=== PATIENT | female | born 1985 | race Asian ===

== ENCOUNTER 2021-10-14 20:06 | Emergency (ER) | payer BC, SELFPAY ==
--- NOTE | 2021-10-14 | ECG_ITS ---
Test Reason : CHEST PAIN Blood Pressure : / mmHG Vent. Rate : 093 BPM Atrial Rate : 093 BPM P-R Int : 186 ms QRS Dur : 102 ms QT Int : 372 ms P-R-T Axes : 057 -78 044 degrees QTc Int : 462 ms Normal sinus rhythm Possible Left atrial enlargement Incomplete right bundle branch block Left anterior fascicular block Cannot rule out Anterior infarct (cited on or before 23-FEB-2018) Abnormal ECG When compared with ECG of 23-FEB-2018 11:51, No significant change was found Referred By: Generic ED Physician Electronically Signed By:BHUPINDER SILVA
[2021-10-14 20:19] VITALS: BP 149/90; PULSE 93; RESP 18; TEMP 36.9; O2SAT 99; BMI 46.6
[2021-10-14 20:35] LABS: MANUAL DIFF FLAG NO
[2021-10-14 20:55] LABS: Alanine Aminotransferase 16 U/L (0-31); Albumin Level 4.4 g/dL (3.5-5.0); Alkaline Phosphatase 61 U/L (39-117); Anion Gap 14 (12-20); Aspartate Amino Transferase 17 U/L (5-31); Bilirubin Total 0.3 mg/dL (0.0-1.0); Blood Urea Nitrogen 16 mg/dL (9-16); Calcium 9.5 mg/dL (8.4-10.2); Carbon Dioxide 22 mmol/L (22-29); Chloride 104 mmol/L (96-108); Creatinine Clr Calc Pharmacy 132.6; Estimated Glomerular Filt Rate > 60; Glucose Random 108 mg/dL (60-115); Potassium 4.1 mmol/L (3.3-5.1); Sodium 136 mmol/L (135-145); Total Protein 7.7 g/dL (6.5-8.0)
[2021-10-14 21:00] LABS: Basophils Absolute Auto 0.1 X10*3/uL (0.0-0.2); Basophils Percent Auto 0.8 % (0-2); Eosinophils Absolute Auto 0.2 X10*3/uL (0.0-0.4); Eosinophils Percent Auto 2.7 % (0-4); Hematocrit 41.2 % (37.0-47.0); Hemoglobin 14.1 g/dl (12.0-16.0); Imm Gran Abs Auto 0.03 X10*3/uL (0.00-0.03); Imm Gran Pct Auto 0.4 % (0.0-0.4); Lymphocytes Absolute Auto 2.8 X10*3/uL (1.2-4.9); Lymphocytes Percent Auto 38.7 % (20-40); Mean Corpuscular HGB Conc 34.2 g/dl (31.0-35.0); Mean Corpuscular Hemoglobin 31.5 pg (27.0-33.0); Mean Platelet Volume 11.3 fL (9.4-12.3); Monocytes Absolute Auto 0.5 X10*3/uL (0.1-1.2); Monocytes Percent Auto 6.7 % (2-11); Neutrophils Absolute Auto 3.7 x10*3/uL (2.0-8.3); Neutrophils Percent Auto 50.7 % (45-73); Platelet Count 246 X10*3/uL (160-400); Red Blood Count 4.48 X10*6/uL (4.20-5.50); Red Cell Distribution Width 12.7 % (11.0-16.0); White Blood Count 7.3 X10*3/uL (4.8-10.8)
[2021-10-14 21:04] LABS: Troponin-I High Sensitivity < 3.5 ng/L (<3.5-17.0)
[2021-10-14 21:38] VITALS: BP 145/85; PULSE 83; RESP 21; O2SAT 96
--- NOTE | 2021-10-14 21:44 | ED.CHESTPAIN ---
HPI - Chest Pain General Chief Complaint: Chest Pain Stated Complaint: severe chest pains Time Seen by Provider: 10/14/21 21:29 History of Present Illness HPI narrative: Patient is 35 years old presents today with having chest pain. The pain is mid chest. Radiates to the left breast area. Not change with deep inspiration. Patient is on control pill. No diaphoresis. No shortness of breath. It is sharp in nature. No history of diabetes, hypertension, high cholesterol, remote history of smoking for 5 years. Currently not a smoker. No history of [place]. No family history of [place]. no history of blood clots. No family history of blood clot. Patient did travel to [place] today. Drove home for about 3 hours per no leg swelling. No leg cramps. Related Data Home Medications Medication Instructions Recorded Confirmed norethindrone 1 mg-ethinyl 1 tab PO DAILY 10/14/21 10/14/21 estradiol 20 mcg (21)-iron 75 mg (7) tablet (Aurovela Fe 1-20 (28)) norethindrone 1 mg-ethinyl 1 tab PO DAILY 10/14/21 10/14/21 estradiol 20 mcg (21)-iron 75 mg (7) tablet (Blisovi Fe / (28)) Allergies Allergy/AdvReac Type Severity Reaction Status Date / Time bee pollen [bee stings] Allergy Anaphylaxis Verified 10/14/21 20:17 Review of Systems Review of Systems: No fever no chills no diaphoresis Yes all other systems are reviewed and are negative [facility] Past Medical History Attestation statement: The following information was validated with the patient. Social History Social History Alcohol intake: current Alcohol intake frequency: 0-2 drinks per day Patient Tobacco Use Status: Never used Tobacco Use of substances other than those prescribed or required for medical reasons: No Advance Directives: No Advance Directives Information Provided: No Physical Exam Vital Signs: Vital Signs: Last Vital Signs Temp 98.9 F 10/14/21 22:57 Pulse 85 10/14/21 23:00 Resp 22 H 10/14/21 23:00 BP 140/77 H 10/14/21 23:00 Pulse Ox 95 10/14/21 23:00 BMI result Body Mass Index 46.6 Appearance: Alert. Oriented X3. No acute distress. Eyes: Pupils equal, round and reactive to light. ENT: Pharynx normal. Neck: Normal inspection. Neck supple. No lymph nodes noted. No crepitus CVS: Normal heart rate and rhythm. Pulses normal. Normal S1 and S2 Respiratory: No respiratory distress. Breath sounds normal. No Wheezing. No rales Abdomen: Soft and nontender. No rigidity. No distention. good BS x4 Skin: Skin warm and dry. Normal skin color. Normal skin turgor. Extremities: No lower extremity edema. Neurovascular intact to all extremities. No Lacerations. No Rash Neuro: Oriented X 3. No motor deficit. No sensory deficit. Moving all extermities. No slurred speech MDM - Chest Pain MDM Narrative Medical decision making narrative: Two sets of cardiac enzyme were grossly negative. Patient's chest pain atypical. EKG showed a sinus pattern heart rate was 75 OK QRS QT within normal limits there is no acute ST segment elevation. Chest x-ray showed no focal infiltrate no pneumonia no pneumothorax. Patient's D-dimer negative in the setting of low risk unlikely to have PE. Patient is 35 years old with history of smoking but only for 5 years. Otherwise no significant risk factors. History not consistent normal EKG negative troponin x2 sets less likely this is ACS. Will discharge patient home. In stable condition Medical Records Data Attestation: I reviewed the patient's medical records. Lab Data Attestation: I reviewed the patient's lab results. Result diagrams: 10/14/21 20:31 10/14/21 20:31 Labs: Lab Results 10/14/21 10/14/21 10/14/21 Range/Units 20:31 20:31 20:31 WBC 7.3 (4.8-10.8) X10*3/uL RBC 4.48 (4.20-5.50) X10*6/uL Hgb 14.1 (12.0-16.0) g/dl Hct 41.2 (37.0-47.0) % MCV 92.0 (80.0-98.0) fL MCH 31.5 (27.0-33.0) pg MCHC 34.2 (31.0-35.0) g/dl RDW 12.7 (11.0-16.0) % Plt Count 246 (160-400) X10*3/uL MPV 11.3 (9.4-12.3) fL Immature Gran % (Auto) 0.4 (0.0-0.4) % Neut % (Auto) 50.7 (45-73) % Lymph % (Auto) 38.7 (20-40) % [place] % (Auto) 6.7 (2-11) % Eos % (Auto) 2.7 (0-4) % Baso % (Auto) 0.8 (0-2) % Lymph # (Auto) 2.8 (1.2-4.9) X10*3/uL [place] # (Auto) 0.5 (0.1-1.2) X10*3/uL Eos # (Auto) 0.2 (0.0-0.4) X10*3/uL Baso # (Auto) 0.1 (0.0-0.2) X10*3/uL Abs Immat Gran (auto) 0.03 (0.00-0.03) X10*3/uL Absolute Neuts (auto) 3.7 (2.0-8.3) x10*3/uL Absolute Nucleated RBC 0.000 (0.0-0.012) X10*3/uL Nucleated RBC % (auto) 0.0 (0.0-0.2) /100WBC D-Dimer High Sensitivty NG/ML Sodium 136 (135-145) mmol/L Potassium 4.1 (3.3-5.1) mmol/L Chloride 104 (96-108) mmol/L Carbon Dioxide 22 (22-29) mmol/L Anion Gap 14 (12-20) BUN 16 (9-16) mg/dL Creatinine 0.85 (0.5-1.4) mg/dL Estim Creat Clear Calc 132.6 Estimated GFR > 60 Random Glucose 108 (60-115) mg/dL Calcium 9.5 (8.4-10.2) mg/dL Total Bilirubin 0.3 (0.0-1.0) mg/dL AST 17 (5-31) U/L ALT 16 (0-31) U/L Alkaline Phosphatase 61 (39-117) U/L Troponin I High Sens < 3.5 (<3.5-17.0) ng/L Total Protein 7.7 (6.5-8.0) g/dL Albumin 4.4 (3.5-5.0) g/dL Urine Test (NEGATIVE) 10/14/21 10/14/21 10/14/21 Range/Units 21:50 21:52 22:45 WBC (4.8-10.8) X10*3/uL RBC (4.20-5.50) X10*6/uL Hgb (12.0-16.0) g/dl Hct (37.0-47.0) % MCV (80.0-98.0) fL MCH (27.0-33.0) pg MCHC (31.0-35.0) g/dl RDW (11.0-16.0) % Plt Count (160-400) X10*3/uL MPV (9.4-12.3) fL Immature Gran % (Auto) (0.0-0.4) % Neut % (Auto) (45-73) % Lymph % (Auto) (20-40) % [place] % (Auto) (2-11) % Eos % (Auto) (0-4) % Baso % (Auto) (0-2) % Lymph # (Auto) (1.2-4.9) X10*3/uL [place] # (Auto) (0.1-1.2) X10*3/uL Eos # (Auto) (0.0-0.4) X10*3/uL Baso # (Auto) (0.0-0.2) X10*3/uL Abs Immat Gran (auto) (0.00-0.03) X10*3/uL Absolute Neuts (auto) (2.0-8.3) x10*3/uL Absolute Nucleated RBC (0.0-0.012) X10*3/uL Nucleated RBC % (auto) (0.0-0.2) /100WBC D-Dimer High Sensitivty < 150 NG/ML Sodium (135-145) mmol/L Potassium (3.3-5.1) mmol/L Chloride (96-108) mmol/L Carbon Dioxide (22-29) mmol/L Anion Gap (12-20) BUN (9-16) mg/dL Creatinine (0.5-1.4) mg/dL Estim Creat Clear Calc Estimated GFR Random Glucose (60-115) mg/dL Calcium (8.4-10.2) mg/dL Total Bilirubin (0.0-1.0) mg/dL AST (5-31) U/L ALT (0-31) U/L Alkaline Phosphatase (39-117) U/L Troponin I High Sens < 3.5 (<3.5-17.0) ng/L Total Protein (6.5-8.0) g/dL Albumin (3.5-5.0) g/dL Urine Test NEGATIVE (NEGATIVE) Discharge Plan Discharge Clinical Impression: Chest pain Patient Disposition: Home, Self-Care Instructions: Chest Pain (DC) Prescriptions: No Action norethindrone-e.estradiol-iron [Aurovela Fe 07-12 ()] 1 mg-20 mcg (21)/75 mg (7) tablet 1 tab PO DAILY 0RF norethindrone-e.estradiol-iron [Blisovi Fe 07/12 ()] 1 mg-20 mcg (21)/75 mg (7) tablet 1 tab PO DAILY 0RF Referrals: Timothy Harman MD [Primary Care Provider] -
[2021-10-14] MEDS: Magnesium Hydrox/Alum Hydrox 30 ML ORAL.SUSP PO (21:48)
[2021-10-14 22:02] LABS: UPreg QC Valid YES; Urine Pregnancy NEGATIVE (NEGATIVE)
[2021-10-14 22:28] LABS: D Dimer High Sensitivity < 150 NG/ML
[2021-10-14 22:57] VITALS: BP 140/77; PULSE 84; RESP 18; TEMP 37.2; O2SAT 95
[2021-10-14 23:00] VITALS: BP 140/77; PULSE 85; RESP 22; O2SAT 95
[2021-10-14 23:17] LABS: Troponin-I High Sensitivity < 3.5 ng/L (<3.5-17.0)
[2021-10-14 23:59] VITALS: BP 127/65; PULSE 88; RESP 22; TEMP 37; O2SAT 96
== END 2021-10-15 00:30 | disposition home or self-care (01) ==
PROVIDERS: Emergency Provider Emergency Medicine Emergency Medical Services; PCP Internal Medicine
DX: R07.89 Other chest pain (principal); Z79.899 Other long term (current) drug therapy
CPT/HCPCS: 36415; 80053; 81025; 84484; 85025; 85379; 93005; 99283; 99285

== ENCOUNTER 2021-10-25 11:09 | Outpatient (REF) | payer BC, SELFPAY ==
[2021-10-25 11:13] LABS: MANUAL DIFF FLAG NO
[2021-10-25 11:34] LABS: Basophils Percent Auto 0.6 % (0-2); Eosinophils Absolute Auto 0.1 X10*3/uL (0.0-0.4); Eosinophils Percent Auto 2.3 % (0-4); Hemoglobin 13.6 g/dl (12.0-16.0); Imm Gran Abs Auto 0.02 X10*3/uL (0.00-0.03); Imm Gran Pct Auto 0.4 % (0.0-0.4); Lymphocytes Absolute Auto 2.1 X10*3/uL (1.2-4.9); Lymphocytes Percent Auto 39.7 % (20-40); Mean Corpuscular HGB Conc 33.2 g/dl (31.0-35.0); Mean Corpuscular Hemoglobin 31.3 pg (27.0-33.0); Mean Corpuscular Volume 94.5 fL (80.0-98.0); Monocytes Absolute Auto 0.4 X10*3/uL (0.1-1.2); Monocytes Percent Auto 8.2 % (2-11); Neutrophils Absolute Auto 2.6 x10*3/uL (2.0-8.3); Neutrophils Percent Auto 48.8 % (45-73); Platelet Count 253 X10*3/uL (160-400); Red Blood Count 4.34 X10*6/uL (4.20-5.50); Red Cell Distribution Width 12.9 % (11.0-16.0); White Blood Count 5.3 X10*3/uL (4.8-10.8)
[2021-10-25 11:45] LABS: Alanine Aminotransferase 14 U/L (0-31); Albumin Level 4.2 g/dL (3.5-5.0); Alkaline Phosphatase 51 U/L (39-117); Anion Gap 13 (12-20); Aspartate Amino Transferase 17 U/L (5-31); Bilirubin Total 0.5 mg/dL (0.0-1.0); Blood Urea Nitrogen 15 mg/dL (9-16); Calcium 9.3 mg/dL (8.4-10.2); Carbon Dioxide 25 mmol/L (22-29); Chloride 106 mmol/L (96-108); Cholesterol 224 mg/dL; Estimated Glomerular Filt Rate > 60; Glucose Fasting 102 mg/dL (60-99); HDL Cholesterol 60 mg/dL; Iron 65 mcg/dL (30-160); LDL Cholesterol Calculated 148 mg/dl; Percent Iron Saturation 18 % (15-50); Potassium 4.2 mmol/L (3.3-5.1); Sodium 140 mmol/L (135-145); Total Iron Binding Capacity 355 mcg/dL (228-428); Total Protein 7.3 g/dL (6.5-8.0); Triglycerides 82 mg/dL; Unsaturated Iron Binding 290 ug/dL
== END 2021-10-25 11:10 | disposition home or self-care (01) ==
LOC: HO.LNP 11:09
PROVIDERS: PCP Internal Medicine; Visit Provider Internal Medicine
DX: Z00.00 Encounter for general adult medical examination without abnormal findings (principal); I10 Essential (primary) hypertension; E61.1 Iron deficiency; E28.2 Polycystic ovarian syndrome
CPT/HCPCS: 80053; 80061; 83540; 85025

== ENCOUNTER 2021-11-01 16:12 | Outpatient (REF) | payer BC, SELFPAY ==
[2021-11-01 16:22] LABS: Appearance Urine CLOUDY; Color Urine YELLOW; Glucose Urine UA NEG (NEG); Leukocyte Esterase Urine NEG (NEG); Nitrite Urine NEG (NEG); Specific Gravity - Urine >= 1.030 (1.005-1.025); Urine Blood 3+ (NEG); Urine Ketones NEG (NEG); Urine Protein NEG (NEG-TRACE)
[2021-11-01 16:28] LABS: Bacteria Urine 1+ /LPF; Squamous Epithelial Cell Urine 3+ /LPF; WBC Urine 0-2 /HPF (0-4)
== END 2021-11-01 16:13 | disposition home or self-care (01) ==
LOC: HO.LNP 16:12
PROVIDERS: Visit Provider Internal Medicine
DX: Z00.00 Encounter for general adult medical examination without abnormal findings (principal); I10 Essential (primary) hypertension
CPT/HCPCS: 81001

== ENCOUNTER 2021-11-16 11:07 | Outpatient (REF) | payer BC, SELFPAY ==
[2021-11-16 11:31] LABS: Appearance Urine CLEAR; Color Urine YELLOW; Glucose Urine UA NEG (NEG); Leukocyte Esterase Urine NEG (NEG); Nitrite Urine NEG (NEG); PH 5.5 (5.0-8.0); Specific Gravity - Urine 1.025 (1.005-1.025); Urine Blood NEG (NEG); Urine Ketones NEG (NEG); Urine Protein NEG (NEG-TRACE)
[2021-11-16 11:49] LABS: RBC Urine 0-2 /HPF (0); Squamous Epithelial Cell Urine 1+ /LPF; Uric Acid Crystals Urine 2+ /LPF; WBC Urine 0-2 /HPF (0-4)
== END 2021-11-16 11:08 | disposition home or self-care (01) ==
LOC: HO.LNP 11:07
PROVIDERS: Visit Provider Internal Medicine
DX: R31.9 Hematuria, unspecified (principal)
CPT/HCPCS: 81001

== ENCOUNTER 2022-05-13 11:46 | Observation (INO) | payer OTHER, SELFPAY ==
[2022-05-13] VITALS (7 sets, daily range): BP systolic 141–176; BP diastolic 73–117; PULSE 84–131; RESP 14–22; TEMP 36.4–37.1; O2SAT 95–99; BMI 45.3; BMI 50.1
--- NOTE | ~2022-05-13 | XR_ITS ---
EXAMINATION: XR CHEST CLINICAL INFORMATION: Palpitations COMPARISON: Previous chest x-ray March 2016 TECHNIQUE: Frontal view of the chest was obtained. FINDINGS: No significant abnormality is noted involving the heart, lungs, mediastinum, bony thorax or soft tissues. XR/XR chest 1V IMPRESSION: Unremarkable examination.
--- NOTE | 2022-05-13 12:05 | ECG_ITS ---
Test Reason : palpatations Blood Pressure : / mmHG Vent. Rate : 124 BPM Atrial Rate : 000 BPM P-R Int : 000 ms QRS Dur : 092 ms QT Int : 298 ms P-R-T Axes : 000 -63 014 degrees QTc Int : 428 ms Atrial fibrillation with rapid ventricular response with premature ventricular or aberrantly conducted complexes Left anterior fascicular block RSR' or QR pattern in V1 suggests right ventricular conduction delay Abnormal ECG When compared with ECG of 14-OCT-2021 20:15, Atrial fibrillation has replaced Sinus rhythm Heart rate has increased Referred By: Alfredo Lyons Electronically Signed By:RENEA THURSTON MD
--- NOTE | 2022-05-13 12:07 | ED_ITS ---
HPI - Arrhythmia/Palpitations General Chief Complaint: General Medical Stated Complaint: FEELS PALPITATIONS PER EMS Time Seen by Provider: 05/13/22 11:58 Source: patient and EMS Mode of arrival: EMS Limitations: no limitations History of Present Illness HPI narrative: 36-year-old female came in by ambulance for evaluation of feeling palpitation and rapid heartbeat that triggered patient's anxiety, the patient felt nauseous and vomited x1 in the morning. Patient still feels palpitation, no CP, no SOB, no abdominal pain but feels anxious. Patient has history of high blood pressure takes HCTZ. Related Data Home Medications Medication Instructions Recorded Confirmed diphenhydramine HCl 25 mg tablet 25 mg PO TID PRN Anxiety 05/13/22 05/13/22 ferrous sulfate 325 mg (65 mg 325 mg PO DAILY 05/13/22 05/13/22 iron) tablet sertraline 50 mg tablet 1 tab PO DAILY 05/13/22 05/13/22 valsartan 160 1 tab PO DAILY 05/13/22 05/13/22 mg-hydrochlorothiazide 12.5 mg tablet Allergies Allergy/AdvReac Type Severity Reaction Status Date / Time bee pollen [bee stings] Allergy Anaphylaxis Verified 10/14/21 20:17 Review of Systems Review of Systems: All other systems are reviewed and are negative Constitutional: Reports as per HPI and Reports no additional constitutional complaints Eyes: Reports as per HPI and Reports no additional eye complaints Reports system reviewed and no additional complaints, except as documented Cardiovascular: Reports as per HPI and Reports no additional cardiovascular complaints Respiratory: Reports as per HPI and Reports no additional respiratory complaints Gastrointestinal: Reports as per HPI and Reports no additional gastrointestinal complaints Genitourinary: Reports no additional female genitourinary complaints Musculoskeletal: Reports no additional musculoskeletal complaints Skin/Breast: Reports system reviewed and no additional complaints, except as docu Psychiatric: Reports no additional psychiatric complaints Endocrine: Reports no additional endocrine complaints Hematologic/Lymphatic: Reports no additional hematologic/lymphatic complaints Allergic/Immunologic: Reports no additional allergic/immunologic complaints Reports system reviewed and no additional complaints, except as documented and Reports Abnormal speech present [facility] Social History Social History Alcohol intake: current Alcohol intake frequency: a few times a week Alcohol type: wine Patient Tobacco Use Status: Never used Tobacco Smoked in Last 30 Days: No Substance Use Type: Marijuana Advance Directives: No Advance Directives Information Provided: No Patient : No Physical Exam Vital Signs: Vital Signs: Last Vital Signs Temp 98.6 F 05/13/22 14:27 Pulse 95 05/13/22 14:27 Resp 14 05/13/22 14:27 BP 141/81 H 05/13/22 14:27 Pulse Ox 98 05/13/22 14:27 O2 Del Method 05/13/22 14:27 BMI result Body Mass Index 45.3 Vital signs have been reviewed as appeared to be correct. Blood pressure nor mal. Heart rate normal. Respiration rate normal. Temperature normal. Oxygen saturation normal. Appearance: Anxious, Alert. Oriented X3. No acute distress. Head: Normal external exam. Normocephalic. Atraumatic. No [place] signs noted. No raccoon eyes noted Eyes: PERRLA. EOMI. Conjunctiva and sclera normal. Eyelids normal. ENT: TM's Normal. Pharynx normal. Uvula midline. Moist mucous membranes. No trismus noted. No drooling noted. No muffled voice noted. Neck: Normal inspection. Neck supple. FROM. No adenopathy. Thyroid Normal. No meningeal signs. No neck mass noted. CVS: Normal heart rate and rhythm. Heart sound normal. No murmurs noted. Pulses normal throughout. Respiratory: No respiratory distress. Painless inspiration. Breath sounds normal. No wheezes/rales/rhonchi noted. Chest nontender. No accessory muscle usage noted or decreased air movement noted. Abdomen: Soft and nontender. Bowel sounds normal in all 4 quadrants. No distention noted. No organomegaly noted. No visible injury noted. Back: No CVA tenderness. Full range of motion noted. Skin: Skin warm and dry. Normal skin color. Normal skin turgor. No rashes/lesions/lacerations noted. Extremities: No lower extremity edema. Extremities exhibit normal range of motion. Extremities nontender. Neuro: Oriented X 3. Cranial nerve exam: II-XII are grossly intact No motor deficit. No sensory deficit. Reflexes normal. Course Course Course Narrative: 36-year-old female came in for evaluation of dizziness and palpitation found to be in new onset AFib, patient was given Cardizem 20 mg IV which successfully lowered heart rate and patient was given 30 mg p.o. for maintaining heart rate low because patient anxiety was received Valium p.o. will admit the patient for further cardiac workup. Will start the patient on Eliquis after discussing the case with the hospitalist. Medications Administered Discontinued Medications Generic Name Dose Route Start Last Admin Trade Name Gregor PRN Reason Stop Dose Admin Diazepam 2 mg 05/13/22 13:28 05/13/22 13:34 Diazepam 2 Mg Tablet PO 05/13/22 13:29 2 mg ONCE ONE Administration Diltiazem HCl 20 mg 05/13/22 12:32 05/13/22 12:49 Diltiazem Hcl 50 Mg/10 Ml Vial IVPUSH 05/13/22 12:33 20 mg STAT STA Administration Diltiazem HCl 30 mg 05/13/22 12:32 05/13/22 12:50 Diltiazem Hcl 30 Mg Tablet PO 05/13/22 12:33 30 mg ONCE ONE Administration Protocol Sodium Chloride 1,000 mls @ 999 mls/hr 05/13/22 12:05 05/13/22 15:14 Ns IV 05/13/22 13:05 Infused .Q1H1M ONE Infusion MDM - Arrhythmia/Palpitations Lab Data Attestation: I reviewed the patient's lab results. Result diagrams: 05/13/22 12:25 05/13/22 12:25 Labs: Lab Results 05/13/22 05/13/22 05/13/22 Range/Units 12:25 12:25 12:25 WBC 10.0 (4.8-10.8) X10*3/uL RBC 4.96 (4.20-5.50) X10*6/uL Hgb 16.1 H (12.0-16.0) g/dl Hct 47.1 H (37.0-47.0) % MCV 95.0 (80.0-98.0) fL MCH 32.5 (27.0-33.0) pg MCHC 34.2 (31.0-35.0) g/dl RDW 12.9 (11.0-16.0) % Plt Count 299 (160-400) X10*3/uL MPV 11.0 (9.4-12.3) fL Immature Gran % (Auto) 0.4 (0.0-0.4) % Neut % (Auto) 78.8 H (45-73) % Lymph % (Auto) 14.9 L (20-40) % [place] % (Auto) 5.1 (2-11) % Eos % (Auto) 0.2 (0-4) % Baso % (Auto) 0.6 (0-2) % Lymph # (Auto) 1.5 (1.2-4.9) X10*3/uL [place] # (Auto) 0.5 (0.1-1.2) X10*3/uL Eos # (Auto) 0.0 (0.0-0.4) X10*3/uL Baso # (Auto) 0.1 (0.0-0.2) X10*3/uL Abs Immat Gran (auto) 0.04 H (0.00-0.03) X10*3/uL Absolute Neuts (auto) 7.9 (2.0-8.3) x10*3/uL Absolute Nucleated RBC 0.000 (0.0-0.012) X10*3/uL Nucleated RBC % (auto) 0.0 (0.0-0.2) /100WBC D-Dimer High Sensitivty NG/ML Sodium 140 (135-145) mmol/L Potassium 4.2 (3.3-5.1) mmol/L Chloride 103 (96-108) mmol/L Carbon Dioxide 23 (22-29) mmol/L Anion Gap 18 (12-20) BUN 17 H (9-16) mg/dL Creatinine 0.81 (0.5-1.4) mg/dL Estim Creat Clear Calc 140.0 Estimated GFR > 60 Random Glucose 96 (60-115) mg/dL Calcium 9.9 D (8.4-10.2) mg/dL Total Bilirubin 0.5 (0.0-1.0) mg/dL Direct Bilirubin 0.3 (0.0-0.5) mg/dL AST 30 D (5-31) U/L ALT 45 H (0-31) U/L Alkaline Phosphatase 74 D (39-117) U/L Troponin I High Sens 5.1 (<3.5-17.0) ng/L B-Natriuretic Peptide (<100) pg/mL Total Protein 8.0 (6.5-8.0) g/dL Albumin 4.6 (3.5-5.0) g/dL Lipase 26 (8-78) U/L Urine Color Urine Appearance Urine pH (5.0-9.0) Ur Specific [place] (1.005-1.025) Urine Protein (Neg-Trace) mg/dL Urine Glucose (UA) (Negative) mg/dL Urine Ketones (Negative) mg/dL Urine Blood (Negative) Urine Nitrite (Negative) Ur Leukocyte Esterase (Negative) Urine Test (NEGATIVE) Influenza Type A (PCR) (Negative) Influenza Type B (PCR) (Negative) RSV RNA Qual (PCR) (Negative) SARS-CoV-2 RNA (RT-PCR) (Negative) 05/13/22 05/13/22 05/13/22 Range/Units 12:25 12:25 12:25 WBC (4.8-10.8) X10*3/uL RBC (4.20-5.50) X10*6/uL Hgb (12.0-16.0) g/dl Hct (37.0-47.0) % MCV (80.0-98.0) fL MCH (27.0-33.0) pg MCHC (31.0-35.0) g/dl RDW (11.0-16.0) % Plt Count (160-400) X10*3/uL MPV (9.4-12.3) fL Immature Gran % (Auto) (0.0-0.4) % Neut % (Auto) (45-73) % Lymph % (Auto) (20-40) % [place] % (Auto) (2-11) % Eos % (Auto) (0-4) % Baso % (Auto) (0-2) % Lymph # (Auto) (1.2-4.9) X10*3/uL [place] # (Auto) (0.1-1.2) X10*3/uL Eos # (Auto) (0.0-0.4) X10*3/uL Baso # (Auto) (0.0-0.2) X10*3/uL Abs Immat Gran (auto) (0.00-0.03) X10*3/uL Absolute Neuts (auto) (2.0-8.3) x10*3/uL Absolute Nucleated RBC (0.0-0.012) X10*3/uL Nucleated RBC % (auto) (0.0-0.2) /100WBC D-Dimer High Sensitivty < 150 NG/ML Sodium (135-145) mmol/L Potassium (3.3-5.1) mmol/L Chloride (96-108) mmol/L Carbon Dioxide (22-29) mmol/L Anion Gap (12-20) BUN (9-16) mg/dL Creatinine (0.5-1.4) mg/dL Estim Creat Clear Calc Estimated GFR Random Glucose (60-115) mg/dL Calcium (8.4-10.2) mg/dL Total Bilirubin (0.0-1.0) mg/dL Direct Bilirubin (0.0-0.5) mg/dL AST (5-31) U/L ALT (0-31) U/L Alkaline Phosphatase (39-117) U/L Troponin I High Sens (<3.5-17.0) ng/L B-Natriuretic Peptide 68 (<100) pg/mL Total Protein (6.5-8.0) g/dL Albumin (3.5-5.0) g/dL Lipase (8-78) U/L Urine Color Urine Appearance Urine pH (5.0-9.0) Ur Specific [place] (1.005-1.025) Urine Protein (Neg-Trace) mg/dL Urine Glucose (UA) (Negative) mg/dL Urine Ketones (Negative) mg/dL Urine Blood (Negative) Urine Nitrite (Negative) Ur Leukocyte Esterase (Negative) Urine Test (NEGATIVE) Influenza Type A (PCR) NEGATIVE (Negative) Influenza Type B (PCR) NEGATIVE (Negative) RSV RNA Qual (PCR) NEGATIVE (Negative) SARS-CoV-2 RNA (RT-PCR) NEGATIVE (Negative) 05/13/22 05/13/22 Range/Units 12:25 12:25 WBC (4.8-10.8) X10*3/uL RBC (4.20-5.50) X10*6/uL Hgb (12.0-16.0) g/dl Hct (37.0-47.0) % MCV (80.0-98.0) fL MCH (27.0-33.0) pg MCHC (31.0-35.0) g/dl RDW (11.0-16.0) % Plt Count (160-400) X10*3/uL MPV (9.4-12.3) fL Immature Gran % (Auto) (0.0-0.4) % Neut % (Auto) (45-73) % Lymph % (Auto) (20-40) % [place] % (Auto) (2-11) % Eos % (Auto) (0-4) % Baso % (Auto) (0-2) % Lymph # (Auto) (1.2-4.9) X10*3/uL [place] # (Auto) (0.1-1.2) X10*3/uL Eos # (Auto) (0.0-0.4) X10*3/uL Baso # (Auto) (0.0-0.2) X10*3/uL Abs Immat Gran (auto) (0.00-0.03) X10*3/uL Absolute Neuts (auto) (2.0-8.3) x10*3/uL Absolute Nucleated RBC (0.0-0.012) X10*3/uL Nucleated RBC % (auto) (0.0-0.2) /100WBC D-Dimer High Sensitivty NG/ML Sodium (135-145) mmol/L Potassium (3.3-5.1) mmol/L Chloride (96-108) mmol/L Carbon Dioxide (22-29) mmol/L Anion Gap (12-20) BUN (9-16) mg/dL Creatinine (0.5-1.4) mg/dL Estim Creat Clear Calc Estimated GFR Random Glucose (60-115) mg/dL Calcium (8.4-10.2) mg/dL Total Bilirubin (0.0-1.0) mg/dL Direct Bilirubin (0.0-0.5) mg/dL AST (5-31) U/L ALT (0-31) U/L Alkaline Phosphatase (39-117) U/L Troponin I High Sens (<3.5-17.0) ng/L B-Natriuretic Peptide (<100) pg/mL Total Protein (6.5-8.0) g/dL Albumin (3.5-5.0) g/dL Lipase (8-78) U/L Urine Color Yellow Urine Appearance Clear Urine pH 5.5 (5.0-9.0) Ur Specific [place] <= 1.005 (1.005-1.025) Urine Protein Negative (Neg-Trace) mg/dL Urine Glucose (UA) Negative (Negative) mg/dL Urine Ketones Negative (Negative) mg/dL Urine Blood Negative (Negative) Urine Nitrite Negative (Negative) Ur Leukocyte Esterase Negative (Negative) Urine Test NEGATIVE (NEGATIVE) Influenza Type A (PCR) (Negative) Influenza Type B (PCR) (Negative) RSV RNA Qual (PCR) (Negative) SARS-CoV-2 RNA (RT-PCR) (Negative) Imaging Data Chest x-ray: Attestation: I personally reviewed and interpreted this imaging study as follows: Radiologist's impression: Unremarkable chest x-ray. ECG Data Attestation: I personally reviewed and interpreted this ECG as follows: Interpretation: Atrial fibrillation with rapid ventricular response at 124 beats per minutes, with occasional PVC, otherwise normal intervals, no ST-T changes. Critical Care Time Critical Care Time Critical Care Time: Yes Total Critical Care Time: 60 Attestation: I spent 60 minutes providing critical care service to the patient, this including time spent at the bedside to evaluate the patient, reassess the patient, monitoring vital signs, review labs, and radiographic studies, counseling the patient/family, discussing the case with consultants, disposition the patient. Discharge Plan Discharge Clinical Impression: Atrial fibrillation, new onset, Atrial fibrillation with RVR Patient Disposition: Admitted As Inpatient
[2022-05-13 12:41] LABS: MANUAL DIFF FLAG NO
[2022-05-13] MEDS: dilTIAZem HCL 50 MG/10 ML VIAL 20 MG IVPUSH (12:49)
[2022-05-13] MEDS: 0.9 % Sodium Chloride 1,000 ML 999 ML IV (12:49)
[2022-05-13 12:50] LABS: Basophils Absolute Auto 0.1 X10*3/uL (0.0-0.2); Basophils Percent Auto 0.6 % (0-2); Eosinophils Percent Auto 0.2 % (0-4); Hematocrit 47.1 % (37.0-47.0); Hemoglobin 16.1 g/dl (12.0-16.0); Imm Gran Abs Auto 0.04 X10*3/uL (0.00-0.03); Imm Gran Pct Auto 0.4 % (0.0-0.4); Lymphocytes Absolute Auto 1.5 X10*3/uL (1.2-4.9); Lymphocytes Percent Auto 14.9 % (20-40); Mean Corpuscular HGB Conc 34.2 g/dl (31.0-35.0); Mean Corpuscular Hemoglobin 32.5 pg (27.0-33.0); Monocytes Absolute Auto 0.5 X10*3/uL (0.1-1.2); Monocytes Percent Auto 5.1 % (2-11); Neutrophils Absolute Auto 7.9 x10*3/uL (2.0-8.3); Neutrophils Percent Auto 78.8 % (45-73); Platelet Count 299 X10*3/uL (160-400); Red Blood Count 4.96 X10*6/uL (4.20-5.50); Red Cell Distribution Width 12.9 % (11.0-16.0)
[2022-05-13] MEDS: dilTIAZem HCL 30 MG TABLET PO (12:50)
[2022-05-13 12:56] LABS: Appearance Urine Clear; Color Urine Yellow; Glucose Urine UA Negative (Negative); Leukocyte Esterase Urine Negative (Negative); Nitrite Urine Negative (Negative); PH 5.5 (5.0-9.0); Specific Gravity - Urine <= 1.005 (1.005-1.025); Urine Blood Negative (Negative); Urine Ketones Negative (Negative); Urine Protein Negative (Neg-Trace)
[2022-05-13 12:57] LABS: UPreg QC Valid YES; Urine Pregnancy NEGATIVE (NEGATIVE)
[2022-05-13 13:06] LABS: D Dimer High Sensitivity < 150 NG/ML
--- NOTE | 2022-05-13 13:07 | PC.NURSE ---
patient a/ox4 . pearrla . heart rate irregular at 125 - 130 . lungs clear throughout breathing even and unlabored . skin moist and pink . patient anxious . has family history of cardiac deaths . abdomen is large , soft positive bowel sounds throughout . IV placed in Right A .C . Labs obtained . EKG obtained read by provider , DR. Lyons , rhythm new onset AFFIB . Patient medicated with Cardizem as ordered by provider . Chest xray done at bedside . Patient aware of admission . Normal saline started as ordered . at bedside . 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 patient and family aware of plan of care .
[2022-05-13 13:09] LABS: Alanine Aminotransferase 45 U/L (0-31); Albumin Level 4.6 g/dL (3.5-5.0); Alkaline Phosphatase 74 U/L (39-117); Anion Gap 18 (12-20); Aspartate Amino Transferase 30 U/L (5-31); Bilirubin Direct 0.3 mg/dL (0.0-0.5); Bilirubin Total 0.5 mg/dL (0.0-1.0); Blood Urea Nitrogen 17 mg/dL (9-16); Calcium 9.9 mg/dL (8.4-10.2); Carbon Dioxide 23 mmol/L (22-29); Chloride 103 mmol/L (96-108); Estimated Glomerular Filt Rate > 60; Glucose Random 96 mg/dL (60-115); Lipase 26 U/L (8-78); Potassium 4.2 mmol/L (3.3-5.1); Sodium 140 mmol/L (135-145)
[2022-05-13 13:15] LABS: B Type Natriuretic Peptide 68 pg/mL (<100)
[2022-05-13 13:16] LABS: Troponin-I High Sensitivity 5.1 ng/L (<3.5-17.0)
[2022-05-13 13:25] LABS: Influenza A PCR NEGATIVE (Negative); Influenza B PCR NEGATIVE (Negative); Resp Syncy Virus RNA Qual PCR NEGATIVE (Negative); SARS COV2 PCR INHOUSE NEGATIVE (Negative)
[2022-05-13] MEDS: diazePAM 2 MG TABLET PO (13:34)
--- NOTE | 2022-05-13 14:05 | PC.NURSE ---
patient currently in normal sinus rhythm at a rate of 100 beats per minute reports not feeling palpitations . patients aware of plan of care .
--- NOTE | 2022-05-13 14:35 | PHA.MEDREC ---
Pharmacy Consult ? Medication Reconciliation Pharmacy has completed the medication reconciliation. Patient confirmed all medications. Clau Li, JohanD
[2022-05-13 15:28] LABS: Thyroid Stimulating Hormone 1.11 uIU/mL (0.32-4.0)
--- NOTE | 2022-05-13 16:01 | PM.IMHP ---
History of Present Illness Date of Service: 05/13/22 Attending physician on admission: Elza Gupta Chief Complaint: afib /palpatations 36-year-old femalepmhx of htn,anxiety came in by ambulance for evaluation of feeling palpitation and rapid heartbeat that triggered patient's anxiety, the patient felt nauseous and vomited x1 in the morning.? She said that she was feeling initially weak and tired along with palpitations. she said in addition her father had history of enlarged heart, she used to get echocardiogram due to her family history, but did not see any wire straightener or a did not had any echo for 5 years Denies any new complaint of chest pain or shortness of breath or abdominal pain or fever or chills or nausea or vomiting Denies any cough Denies any weakness or numbness. in Ed received -iv cardizem,eliquis -hr improving to 110's range. tsh, Troponin, BMP and CBC seems fine. Chest x-ray also fine. Review of Systems Review of Systems: As above. ON LICENSE OF [facility] Medical History (Updated 05/13/22 @ 16:07 by Elza Gupta MD) Anxiety HTN (hypertension) Pertinent family history: possible Cardiomegaly and heart disease in father Social History Alcohol intake: current Alcohol intake frequency: a few times a week Alcohol type: wine Patient Tobacco Use Status: Never used Tobacco Smoked in Last 30 Days: No Substance Use Type: Marijuana Advance Directives: No Advance Directives Information Provided: No Patient : No Meds Allergies Allergy/AdvReac Type Severity Reaction Status Date / Time bee pollen [bee stings] Allergy Anaphylaxis Verified 10/14/21 20:17 Active Medications: Current Medications Apixaban (Apixaban 5 Mg Tablet) 5 mg PO BID GIN Diltiazem HCl (Diltiazem Hcl 60 Mg Tablet) 60 mg PO Q6H [facility]; Protocol Pharmacy Consult (Consult Rx Perform Med Rec) 1 each MISCELLANE ONCE PRN PRN Reason: Consult order Sodium Chloride (0.9 % Sodium Chloride Flush 3 Ml Syringe) 3 ml IVFLUSH QSHIFT [facility] Home Medications Medication Instructions Recorded Confirmed Last Taken Type diphenhydramine HCl 25 mg tablet 25 mg PO TID PRN Anxiety 05/13/22 05/13/22 05/13/22 History ferrous sulfate 325 mg (65 mg 325 mg PO DAILY 05/13/22 05/13/22 05/13/22 History iron) tablet sertraline 50 mg tablet 1 tab PO DAILY 05/13/22 05/13/22 05/13/22 History valsartan 160 1 tab PO DAILY 05/13/22 05/13/22 05/13/22 History mg-hydrochlorothiazide 12.5 mg tablet Physical Exam Vital Signs and Narrative: Vital Signs: Last Vital Signs Temp 98.6 F 05/13/22 14:27 Pulse 95 05/13/22 14:27 Resp 14 05/13/22 14:27 BP 141/81 H 05/13/22 14:27 Pulse Ox 98 05/13/22 14:27 O2 Del Method 05/13/22 14:27 BMI result Body Mass Index 45.3 Appearance: Alert.? Oriented X3.? not in distress.? Eyes: Pupils equal, round and reactive to light.? Sclera nonicteric.? ENT: Pharynx normal.? Moist mucous membranes. cvs: irregular rythem, [id number] , no murmur res: clear to auscultation ,no rhonchii or wheezing abd: no rebound or guarding ,nt, bs present. ext pulses present , no cyanosis. neuro: axo3 , nonfocal. Results Labs CBC and Chem 7: 05/13/22 12:25 05/13/22 12:25 Labs: Laboratory Results - last 24 hr 05/13/22 05/13/22 05/13/22 12:25 12:25 12:25 MCV 95.0 MCH 32.5 MCHC 34.2 RDW 12.9 Plt Count 299 MPV 11.0 Immature Gran % (Auto) 0.4 Neut % (Auto) 78.8 H Lymph % (Auto) 14.9 L [place] % (Auto) 5.1 Eos % (Auto) 0.2 Baso % (Auto) 0.6 Lymph # (Auto) 1.5 [place] # (Auto) 0.5 Eos # (Auto) 0.0 Baso # (Auto) 0.1 Abs Immat Gran (auto) 0.04 H Absolute Neuts (auto) 7.9 Absolute Nucleated RBC 0.000 Nucleated RBC % (auto) 0.0 D-Dimer High Sensitivty Anion Gap 18 Estim Creat Clear Calc 140.0 Estimated GFR > 60 Random Glucose 96 Calcium 9.9 D Total Bilirubin 0.5 Direct Bilirubin 0.3 AST 30 D ALT 45 H Alkaline Phosphatase 74 D Troponin I High Sens 5.1 B-Natriuretic Peptide Total Protein 8.0 Albumin 4.6 Lipase 26 TSH 1.11 Urine Color Urine Appearance Urine pH Ur Specific [place] Urine Protein Urine Glucose (UA) Urine Ketones Urine Blood Urine Nitrite Ur Leukocyte Esterase Urine Test Influenza Type A (PCR) Influenza Type B (PCR) RSV RNA Qual (PCR) SARS-CoV-2 RNA (RT-PCR) 05/13/22 05/13/22 05/13/22 12:25 12:25 12:25 MCV MCH MCHC RDW Plt Count MPV Immature Gran % (Auto) Neut % (Auto) Lymph % (Auto) [place] % (Auto) Eos % (Auto) Baso % (Auto) Lymph # (Auto) [place] # (Auto) Eos # (Auto) Baso # (Auto) Abs Immat Gran (auto) Absolute Neuts (auto) Absolute Nucleated RBC Nucleated RBC % (auto) D-Dimer High Sensitivty < 150 Anion Gap Estim Creat Clear Calc Estimated GFR Random Glucose Calcium Total Bilirubin Direct Bilirubin AST ALT Alkaline Phosphatase Troponin I High Sens B-Natriuretic Peptide 68 Total Protein Albumin Lipase TSH Urine Color Urine Appearance Urine pH Ur Specific [place] Urine Protein Urine Glucose (UA) Urine Ketones Urine Blood Urine Nitrite Ur Leukocyte Esterase Urine Test Influenza Type A (PCR) NEGATIVE Influenza Type B (PCR) NEGATIVE RSV RNA Qual (PCR) NEGATIVE SARS-CoV-2 RNA (RT-PCR) NEGATIVE 05/13/22 05/13/22 12:25 12:25 MCV MCH MCHC RDW Plt Count MPV Immature Gran % (Auto) Neut % (Auto) Lymph % (Auto) [place] % (Auto) Eos % (Auto) Baso % (Auto) Lymph # (Auto) [place] # (Auto) Eos # (Auto) Baso # (Auto) Abs Immat Gran (auto) Absolute Neuts (auto) Absolute Nucleated RBC Nucleated RBC % (auto) D-Dimer High Sensitivty Anion Gap Estim Creat Clear Calc Estimated GFR Random Glucose Calcium Total Bilirubin Direct Bilirubin AST ALT Alkaline Phosphatase Troponin I High Sens B-Natriuretic Peptide Total Protein Albumin Lipase TSH Urine Color Yellow Urine Appearance Clear Urine pH 5.5 Ur Specific [place] <= 1.005 Urine Protein Negative Urine Glucose (UA) Negative Urine Ketones Negative Urine Blood Negative Urine Nitrite Negative Ur Leukocyte Esterase Negative Urine Test NEGATIVE Influenza Type A (PCR) Influenza Type B (PCR) RSV RNA Qual (PCR) SARS-CoV-2 RNA (RT-PCR) ECG Attestation: I personally reviewed and interpreted this ECG as follows: (afib with rvr) Imaging Radiologist's Impressions: Impressions Chest X-Ray 05/13/22 13:13 IMPRESSION: Unremarkable examination. Assessment and Plan (1) Heart palpitations: Status: Acute (2) Atrial fibrillation, new onset: Status: Acute Plan 36-year-old femalepmhx of htn,anxiety , Palpitation at her work- decided come for evaluation found to have AFib with RVR. 1. new onset AFib with RVR. tsh seems fine chadvasc score 2( female and htn). moniter on tele , po cardizem ,eliquis echo cardiology eval 2. htn: on cardizem , hold home htn meds. 3. anxiety : med reconcillation pending will give dose of xanax. 4. hx of alcohol/marijuana use: drug screen [place] thiamine/folic acid 5. dvt prophylax: on eliquis. Patient management discussed with patient in detail length patient has new onset AFib- need tele monitoring,, cardiac workup including cardiac evaluation . Assessment and coordination time spent 70 minute, patient is full code. Quality Stroke Does the patient have a stroke diagnosis?: No VTE Prior VTE?: No VTE Risk Level:: Medical - moderate - high VTE Device Contraindication: N/A - Device Ordered VTE Drug Contraindication: N/A - Med Ordered
[2022-05-13] MEDS: Apixaban 5 MG TABLET PO ×2 (16:12→21:12)
[2022-05-13] MEDS: 0.9 % Sodium Chloride Flush 3 ML SYRINGE IVFLUSH (16:12)
[2022-05-13] MEDS: dilTIAZem HCL 60 MG TABLET PO ×2 (16:12→21:12)
[2022-05-13] MEDS: ALPRAZolam 0.25 MG TABLET PO (16:12)
[2022-05-13] MEDS: Folic Acid 1 MG TABLET PO (17:24)
[2022-05-13] MEDS: Thiamine HCL 100 MG TABLET PO (17:24)
[2022-05-13 21:07] LABS: Amphetamine Screen Urine Not Detected (Not Detect); Barbiturates, Urine Not Detected (Not Detect); Benzodiazepines Screen Urine Not Detected (Not Detect); Cannabinoid Screen Urine Not Detected (Not Detect); Cocaine Screen Urine Not Detected (Not Detect); Fentanyl, urine Not Detected (Not Detect); Opiate Screen Urine Not Detected (Not Detect); Phencyclidine Screen Urine Not Detected (Not Detect)
[2022-05-14] VITALS: BP 124/68; PULSE 75; RESP 18; TEMP 37.1; O2SAT 97
--- NOTE | 2022-05-14 07:00 | CA_ITS ---
Transthoracic Echocardiogram Patient (Last, First, Middle): Renetta Melendez, Gender: Female Date of : 1985 Age: 36 Procedure Date: 05/14/2022 Procedure Type: Transthoracic [place] [facility] [place]: 172.72 cm Weight: 149.23 kg BSA: 2.53 m2 Heart Rate: 81 bpm BP: 144 / 73 mmHg Sharepoint Manager: GREYSON Referring MD: Elza Gupta MD Symptoms: afib Study Quality: Adequate w contrast ECG Rhythm: Sinus Conclusions: - The left ventricular systolic function is hyperdynamic. The visually estimated ejection fraction is >70%. - No obvious valvular pathology seen on this study. Findings Procedure Information Contrast agent, definity, is being given per protocol without apparent complications. Left Ventricle Normal left ventricular cavity size. There is mildly increased left ventricular wall thickness. The left ventricular systolic function is hyperdynamic. The visually estimated ejection fraction is >70%. There is no evidence of regional wall motion abnormalities. Diastolic function is normal for age. There is moderate septal and moderate basal asymmetric hypertrophy. LV peak GLS -15.9%. Right Ventricle Normal right ventricular cavity size and systolic function. Atria Both atria are normal in size. Aortic Valve There is a normal trileaflet aortic valve. There is no aortic valve stenosis. There is no aortic valve regurgitation. Mitral Valve The mitral valve appears normal. There is no mitral valve regurgitation. There is no mitral valve stenosis. Pulmonic Valve The pulmonic valve is likely normal. Tricuspid Valve Normal tricuspid valve structure. There is trace tricuspid valve regurgitation. There is no evidence of pulmonary hypertension. Great Vessels The asc aorta is normal in size. Small plaque is seen in the sino tubular ridge. Venous The inferior vena cava was not well visualized. Pericardium/Pleural There is no evidence of pericardial effusion. Prior Study Comparison No prior study available for comparison. Recommendations, Care & Conclusions No obvious valvular pathology seen on this study. Measurements 2D Linear Measurements IVSd: 1.03 0.6-0.9/0.6-1.0 cm LVIDd: 5.40 3.9-5.3/4.2-5.9 cm LVIDd Index: 2.13 2.4-3.2/2.2-3.1 cm/m2 LVIDs: 3.84 2.0-3.6 cm LVPWd: 1.08 0.7-1.1 cm LA Diam: 3.90 2.7-3.8/3.0-4.0 cm LAIDs Index: 1.54 1.5-2.3 cm/m2 LV Mass: 276.74 67-162/88-224 g LV Mass Index: 109.39 43-95/49-115 g/m2 LVOT Diam: 2.20 3.0+(-)1.3 cm 2D Systolic Function EF 4C: 81.00 >55% EF 2C: 83.40 >55% EF BiP: 81.40 >55% Mitral Valve MV Pk E: 0.86 MV PK A: 0.81 MV Decel Time: 211.00 E/A: 1.10 E'Lateral: 11.30 E'Medial: 10.10 E/E' Med: 8.50 E/E' Lat: 7.60 PHT: 62.00 MVA PHT: 3.55 Decel Burnett: 4.06 Aortic Valve AoV Pk Lux: 1.50 AoV Pk Grad: 9.00 LVOT LVOT Pk Lux: 1.09 LVOT Mn Lux: 0.69 LVOT VTI: 0.19 LVOT Pk Grad: 5.00 LVOT Mn Grad: 2.00 LVOT Diam: 2.20 LVOT Area: 3.80 Diastolic Function MV Pk E: 0.86 MV Pk A: 0.81 E/A: 1.10 E'Medial: 10.10 E/E' Med: 8.50 E' Laterial: 11.30 E/E' Lat: 7.60 Right Ventricle TAPSE (mm): 20.30 TVS' Lux: 13.20 Great Vessels Aorta Sinus of Valsalva: 3.30 2.0-3.5 cm Ao Asc: 3.20 2.1-3.4 cm Pulmonary Valve PV Pk Lux: 1.09 Peak PV Grad: 5.00 Updated in Other Vendor System with Status of Final Samuel Parker MD electronically signed on 05/14/2022 9:36:13 AM with status of Final
[2022-05-14 07:28] VITALS: BP 148/85; PULSE 78; RESP 18; TEMP 36.3; O2SAT 97
[2022-05-14] MEDS: Thiamine HCL 100 MG TABLET PO (08:49)
[2022-05-14] MEDS: Folic Acid 1 MG TABLET PO (08:50)
[2022-05-14] MEDS: Apixaban 5 MG TABLET PO (08:51)
[2022-05-14] MEDS: ALPRAZolam 0.25 MG TABLET PO (08:51)
[2022-05-14] MEDS: dilTIAZem HCL 60 MG TABLET PO (08:52)
[2022-05-14] MEDS: 0.9 % Sodium Chloride Flush 3 ML SYRINGE IVFLUSH (08:53)
--- NOTE | 2022-05-14 09:26 | PM.CNCAR ---
History of Present Illness History of Present Illness Date of Service: 05/14/22 Chief complaint: afib w/ rvr Narrative: This is a cardiology consultation regarding atrial fibrillation. Patient has had palpitations that led to evaluation showing atrial fibrillation. She states that she has had palpitations off and on but not this prominent. She apparently did have an evaluation at [facility] (formerly [facility]) in the past but did not find anything of significance. Otherwise, no known cardiac issues like coronary disease myocardial infarction or cardiomyopathy. She is morbidly obese. Recently diagnosed hypertension. Otherwise, apart from palpitations, no other symptoms. She states that she is fairly active without any limitations at baseline. History of enlarged heart in father. Review of Systems Review of Systems: Yes all other systems are reviewed and are negative Constitutional: Constitutional: Reports as per HPI Eyes: Eyes: Reports as per HPI ENT: Reports as per HPI Cardiovascular: Cardiovascular: Reports as per HPI, Denies acrocyanosis, Denies cool extremities, Denies chest pain, Denies leg edema, Denies lightheadedness, Denies palpitations and Denies dyspnea Respiratory: Respiratory: Reports as per HPI, Reports no additional respiratory complaints and Denies dyspnea Gastrointestinal: Gastrointestinal: Reports as per HPI and Reports no additional gastrointestinal complaints Genitourinary: Genitourinary: Reports as per HPI Musculoskeletal: Musculoskeletal: Reports no additional musculoskeletal complaints and Reports as per HPI Integumentary/Breasts: Skin/Breast: Reports system reviewed and no additional complaints, except as docu Neurologic: Reports system reviewed and no additional complaints, except as documented and Reports as per HPI Psychiatric: Psychiatric: Reports no additional psychiatric complaints and Reports as per HPI Endocrine: Endocrine: Reports no additional endocrine complaints, Reports as per HPI and Denies palpitations Hematologic/Lymphatic: Hematologic/Lymphatic: Reports no additional hematologic/lymphatic complaints and Reports as per HPI Allergic/Immunologic: Allergic/Immunologic: Reports no additional allergic/immunologic complaints and Reports as per HPI PMF Past Medical History Medical History (Updated 05/14/22 @ 09:29 by Samuel Parker MD) Anxiety Essential hypertension HTN (hypertension) Morbid obesity Family History Family History (Updated 05/14/22 @ 09:28 by Samuel Parker MD) Father Enlarged heart Social History Social History Household Members: Spouse Housing: House Do you presently have visiting nurse or other home services: No Alcohol intake: current Alcohol intake frequency: a few times a week Alcohol type: wine Patient Tobacco Use Status: Never used Tobacco Substance Use Type: Marijuana Meds Allergies Allergy/AdvReac Type Severity Reaction Status Date / Time bee pollen [bee stings] Allergy Anaphylaxis Verified 10/14/21 20:17 Active Medications: Current Medications Alprazolam (Alprazolam 0.25 Mg Tablet) 0.25 mg PO BID PRN PRN Reason: Anxiety Last Admin: 05/14/22 08:51 Dose: 0.25 mg Apixaban (Apixaban 5 Mg Tablet) 5 mg PO BID [facility] Last Admin: 05/14/22 08:51 Dose: 5 mg Diltiazem HCl (Diltiazem Hcl 60 Mg Tablet) 60 mg PO Q6H [facility]; Protocol Last Admin: 05/14/22 08:52 Dose: 60 mg Folic Acid (Folic Acid 1 Mg Tablet) 1 mg PO DAILY [facility] Last Admin: 05/14/22 08:50 Dose: 1 mg Pharmacy Consult (Consult Rx Perform Med Rec) 1 each MISCELLANE ONCE PRN PRN Reason: Consult order Sodium Chloride (0.9 % Sodium Chloride Flush 3 Ml Syringe) 3 ml IVFLUSH QSHIFT [facility] Last Admin: 05/14/22 08:53 Dose: 3 ml Thiamine HCl (Thiamine Hcl 100 Mg Tablet) 100 mg PO DAILY [facility] Last Admin: 05/14/22 08:49 Dose: 100 mg Home Medications Medication Instructions Recorded Confirmed Last Taken Type diphenhydramine HCl 25 mg tablet 25 mg PO TID PRN Anxiety 05/13/22 05/13/22 05/13/22 History ferrous sulfate 325 mg (65 mg 325 mg PO DAILY 05/13/22 05/13/22 05/13/22 History iron) tablet sertraline 50 mg tablet 1 tab PO DAILY 05/13/22 05/13/22 05/13/22 History valsartan 160 1 tab PO DAILY 05/13/22 05/13/22 05/13/22 History mg-hydrochlorothiazide 12.5 mg tablet Physical Exam Vital Signs: Vital Signs: Last Vital Signs Temp 97.3 F 05/14/22 07:28 Pulse 78 05/14/22 07:28 Resp 18 05/14/22 07:28 BP 148/85 H 05/14/22 07:28 Pulse Ox 97 05/14/22 07:28 O2 Del Method 05/14/22 07:28 O2 Flow Rate 97 05/13/22 16:00 BMI result Body Mass Index 50.1 Const: General: comfortable and no acute distress Orientation/consciousness: patient oriented x3 HEENT: Other: Unremarkable Head: Yes normal to inspection Neck: Neck: Yes normal visual inspection Chest: Chest palpation & inspection: normal inspection of the chest Resp: Auscultation: clear to auscultation bilaterally Cardio: Palpation: normal PMI Heart sounds: S1 normal heart sound present, S2 normal heart sound present, no gallops, no murmurs and no rubs GI: Palpation (GI): Soft to palpation Back/Spine/Pelvis: Other: unremarkable Skin: General skin exam: no rashes or lesions noted Neuro: General: patient oriented x3 Extrem: General: Yes normal to inspection Psych: Mental Status: mental status grossly normal Objective Labs and Meds Result diagrams: 05/13/22 12:25 05/13/22 12:25 Lab results: Laboratory Results - last 24 hr 05/13/22 05/13/22 05/13/22 12:25 12:25 12:25 WBC 10.0 RBC 4.96 Hgb 16.1 H Hct 47.1 H MCV 95.0 MCH 32.5 MCHC 34.2 RDW 12.9 Plt Count 299 MPV 11.0 Immature Gran % (Auto) 0.4 Neut % (Auto) 78.8 H Lymph % (Auto) 14.9 L [place] % (Auto) 5.1 Eos % (Auto) 0.2 Baso % (Auto) 0.6 Lymph # (Auto) 1.5 [place] # (Auto) 0.5 Eos # (Auto) 0.0 Baso # (Auto) 0.1 Abs Immat Gran (auto) 0.04 H Absolute Neuts (auto) 7.9 Absolute Nucleated RBC 0.000 Nucleated RBC % (auto) 0.0 D-Dimer High Sensitivty Sodium 140 Potassium 4.2 Chloride 103 Carbon Dioxide 23 Anion Gap 18 BUN 17 H Creatinine 0.81 Estim Creat Clear Calc 140.0 Estimated GFR > 60 Random Glucose 96 Calcium 9.9 D Total Bilirubin 0.5 Direct Bilirubin 0.3 AST 30 D ALT 45 H Alkaline Phosphatase 74 D Troponin I High Sens 5.1 B-Natriuretic Peptide Total Protein 8.0 Albumin 4.6 Lipase 26 TSH 1.11 Urine Color Urine Appearance Urine pH Ur Specific [place] Urine Protein Urine Glucose (UA) Urine Ketones Urine Blood Urine Nitrite Ur Leukocyte Esterase Urine Test Urine Opiates Screen Urine Fentanyl Screen Ur Barbiturates Screen Ur Phencyclidine Scrn Ur Amphetamines Screen U Benzodiazepines Scrn Urine Cocaine Screen U Marijuana (THC) Screen Influenza Type A (PCR) Influenza Type B (PCR) RSV RNA Qual (PCR) SARS-CoV-2 RNA (RT-PCR) 05/13/22 05/13/22 05/13/22 12:25 12:25 12:25 WBC RBC Hgb Hct MCV MCH MCHC RDW Plt Count MPV Immature Gran % (Auto) Neut % (Auto) Lymph % (Auto) [place] % (Auto) Eos % (Auto) Baso % (Auto) Lymph # (Auto) [place] # (Auto) Eos # (Auto) Baso # (Auto) Abs Immat Gran (auto) Absolute Neuts (auto) Absolute Nucleated RBC Nucleated RBC % (auto) D-Dimer High Sensitivty < 150 Sodium Potassium Chloride Carbon Dioxide Anion Gap BUN Creatinine Estim Creat Clear Calc Estimated GFR Random Glucose Calcium Total Bilirubin Direct Bilirubin AST ALT Alkaline Phosphatase Troponin I High Sens B-Natriuretic Peptide 68 Total Protein Albumin Lipase TSH Urine Color Urine Appearance Urine pH Ur Specific [place] Urine Protein Urine Glucose (UA) Urine Ketones Urine Blood Urine Nitrite Ur Leukocyte Esterase Urine Test Urine Opiates Screen Urine Fentanyl Screen Ur Barbiturates Screen Ur Phencyclidine Scrn Ur Amphetamines Screen U Benzodiazepines Scrn Urine Cocaine Screen U Marijuana (THC) Screen Influenza Type A (PCR) NEGATIVE Influenza Type B (PCR) NEGATIVE RSV RNA Qual (PCR) NEGATIVE SARS-CoV-2 RNA (RT-PCR) NEGATIVE 05/13/22 05/13/22 05/13/22 12:25 12:25 17:18 WBC RBC Hgb Hct MCV MCH MCHC RDW Plt Count MPV Immature Gran % (Auto) Neut % (Auto) Lymph % (Auto) [place] % (Auto) Eos % (Auto) Baso % (Auto) Lymph # (Auto) [place] # (Auto) Eos # (Auto) Baso # (Auto) Abs Immat Gran (auto) Absolute Neuts (auto) Absolute Nucleated RBC Nucleated RBC % (auto) D-Dimer High Sensitivty Sodium Potassium Chloride Carbon Dioxide Anion Gap BUN Creatinine Estim Creat Clear Calc Estimated GFR Random Glucose Calcium Total Bilirubin Direct Bilirubin AST ALT Alkaline Phosphatase Troponin I High Sens B-Natriuretic Peptide Total Protein Albumin Lipase TSH Urine Color Yellow Urine Appearance Clear Urine pH 5.5 Ur Specific [place] <= 1.005 Urine Protein Negative Urine Glucose (UA) Negative Urine Ketones Negative Urine Blood Negative Urine Nitrite Negative Ur Leukocyte Esterase Negative Urine Test NEGATIVE Urine Opiates Screen Not Detected Urine Fentanyl Screen Not Detected Ur Barbiturates Screen Not Detected Ur Phencyclidine Scrn Not Detected Ur Amphetamines Screen Not Detected U Benzodiazepines Scrn Not Detected Urine Cocaine Screen Not Detected U Marijuana (THC) Screen Not Detected Influenza Type A (PCR) Influenza Type B (PCR) RSV RNA Qual (PCR) SARS-CoV-2 RNA (RT-PCR) Imaging Radiologist's impression: Impressions Chest X-Ray 05/13/22 13:13 IMPRESSION: Unremarkable examination. Assessment and Plan (1) Atrial fibrillation with RVR: Status: Acute Currently in sinus rhythm. She has had atrial fibrillation for less than 48 hours. Previous episodes of palpitations but not clear what they are. Continue diltiazem. Eliquis is optional at this time. We can keep it on for now and then decide on long-term plan. Outpatient Holter. (2) Essential hypertension: Status: Acute Blood pressure still on the higher side. On valsartan/hydrochlorothiazide. (3) Morbid obesity: Status: Acute She is morbidly obese. Discussed about this and implications on cardiovascular health including atrial fibrillation. She understands. Will need outpatient sleep study. Procedures Date of Service Date of Service: 05/14/22
--- NOTE | 2022-05-14 09:56 | MHC.CM.PN ---
pt to be dcd home no skilled servcies ordered by
[2022-05-14] MEDS: dilTIAZem HCL CD 180 MG CAP.ER.24H 360 MG PO (11:07)
[2022-05-14 11:09] VITALS: BP 133/94; PULSE 84; RESP 18; TEMP 36.6; O2SAT 98
--- NOTE | 2022-05-14 11:24 | PM.DS ---
DS: Providers Provider Date of Service: 05/14/22 Date of admission: 05/13/22 15:49 Primary care physician: Goran Harman MD Consults: 05/13/22 16:00 Consult to Cardiology Routine Consulting Provider: [facility] [place] [facility] [place] [facility] Reason for consultation: afib Has provider been notified: No 05/14/22 10:39 Consult to Care Team Routine Comment: Reason for consultation: alcohol use DS: Diagnosis Discharge Diagnosis (1) Atrial fibrillation with RVR: Status: Acute (2) Essential hypertension: Status: Acute (3) Morbid obesity: Status: Acute DS: Summary Hospital Course Hospital Course: 36-year-old femalepmhx of htn,anxiety came in by ambulance for evaluation of feeling palpitation and rapid heartbeat that triggered patient's anxiety, the patient felt nauseous and vomited x1 in the morning.? ? She said that she was feeling initially weak and tired along with palpitations. ?she said in addition her father had history of enlarged heart,? 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 did not had any echo for 5 years ?Denies any new complaint of chest pain or shortness of breath or abdominal pain or fever or chills or nausea or vomiting Denies any cough Denies any weakness or numbness. in Ed received -iv cardizem,eliquis -hr improving to 110's range. tsh,? Troponin, BMP and CBC seems fine. ? Chest x-ray also fine. Hospital course: patient was admitted for AFib with RVR -started on IV Cardizem and the subsequently switched to p.o. Cardizem in addition was started on Eliquis in ED: Seen by Cardiology recommended to continue Cardizem and Eliquis out patiently, patient is currently in sinus rhythm, further workup outpatient with Cardiology, Cardiology will arrange their own appointment. echo was reviewed by Cardiology: EF is 70%. further management outpatient. Morbid obesity: Patient advised to lose weight, in addition patient was strongly advised to abstain from alcohol. Above management discussed with the patient in detail length she understand and in agreement with above plan, time spent 50 minute. Time Spent with Patient Time attestation: Total time spent providing and/or coordinating discharge services: Discharge coordination time: Greater than 30 minutes Quality: Safe Use of Opioids Does Pt have an Active Cancer Diagnosis on the Problem List?: No Quality: Stroke Does the patient have a stroke diagnosis?: No Physical Exam Vital Signs: Vital Signs: Last Vital Signs Temp 97.8 F 05/14/22 11:09 Pulse 84 05/14/22 11:09 Resp 18 05/14/22 11:09 BP 133/94 H 05/14/22 11:09 Pulse Ox 98 05/14/22 11:09 O2 Del Method 05/14/22 11:09 O2 Flow Rate 97 05/13/22 16:00 BMI result Body Mass Index 50.1 ?Appearance: Alert.? Oriented X3.? not in distress.? Eyes: Pupils equal, round and reactive to light.? Sclera nonicteric.? ENT: Pharynx normal.? Moist mucous membranes. cvs: regular rythem, [id number] , no murmur res: clear to auscultation ,no rhonchii or wheezing abd: no rebound or guarding ,nt, bs present. ext pulses present , no cyanosis. neuro: axo3 , nonfocal. DS: Data Data Completed and Pending Labs on day of discharge: Laboratory Results - last 24 hr 05/13/22 05/13/22 05/13/22 12:25 12:25 12:25 WBC 10.0 RBC 4.96 Hgb 16.1 H Hct 47.1 H MCV 95.0 MCH 32.5 MCHC 34.2 RDW 12.9 Plt Count 299 MPV 11.0 Immature Gran % (Auto) 0.4 Neut % (Auto) 78.8 H Lymph % (Auto) 14.9 L [place] % (Auto) 5.1 Eos % (Auto) 0.2 Baso % (Auto) 0.6 Lymph # (Auto) 1.5 [place] # (Auto) 0.5 Eos # (Auto) 0.0 Baso # (Auto) 0.1 Abs Immat Gran (auto) 0.04 H Absolute Neuts (auto) 7.9 Absolute Nucleated RBC 0.000 Nucleated RBC % (auto) 0.0 D-Dimer High Sensitivty Sodium 140 Potassium 4.2 Chloride 103 Carbon Dioxide 23 Anion Gap 18 BUN 17 H Creatinine 0.81 Estim Creat Clear Calc 140.0 Estimated GFR > 60 Random Glucose 96 Calcium 9.9 D Total Bilirubin 0.5 Direct Bilirubin 0.3 AST 30 D ALT 45 H Alkaline Phosphatase 74 D Troponin I High Sens 5.1 B-Natriuretic Peptide Total Protein 8.0 Albumin 4.6 Lipase 26 TSH 1.11 Urine Color Urine Appearance Urine pH Ur Specific [place] Urine Protein Urine Glucose (UA) Urine Ketones Urine Blood Urine Nitrite Ur Leukocyte Esterase Urine Test Urine Opiates Screen Urine Fentanyl Screen Ur Barbiturates Screen Ur Phencyclidine Scrn Ur Amphetamines Screen U Benzodiazepines Scrn Urine Cocaine Screen U Marijuana (THC) Screen Influenza Type A (PCR) Influenza Type B (PCR) RSV RNA Qual (PCR) SARS-CoV-2 RNA (RT-PCR) 05/13/22 05/13/22 05/13/22 12:25 12:25 12:25 WBC RBC Hgb Hct MCV MCH MCHC RDW Plt Count MPV Immature Gran % (Auto) Neut % (Auto) Lymph % (Auto) [place] % (Auto) Eos % (Auto) Baso % (Auto) Lymph # (Auto) [place] # (Auto) Eos # (Auto) Baso # (Auto) Abs Immat Gran (auto) Absolute Neuts (auto) Absolute Nucleated RBC Nucleated RBC % (auto) D-Dimer High Sensitivty < 150 Sodium Potassium Chloride Carbon Dioxide Anion Gap BUN Creatinine Estim Creat Clear Calc Estimated GFR Random Glucose Calcium Total Bilirubin Direct Bilirubin AST ALT Alkaline Phosphatase Troponin I High Sens B-Natriuretic Peptide 68 Total Protein Albumin Lipase TSH Urine Color Urine Appearance Urine pH Ur Specific [place] Urine Protein Urine Glucose (UA) Urine Ketones Urine Blood Urine Nitrite Ur Leukocyte Esterase Urine Test Urine Opiates Screen Urine Fentanyl Screen Ur Barbiturates Screen Ur Phencyclidine Scrn Ur Amphetamines Screen U Benzodiazepines Scrn Urine Cocaine Screen U Marijuana (THC) Screen Influenza Type A (PCR) NEGATIVE Influenza Type B (PCR) NEGATIVE RSV RNA Qual (PCR) NEGATIVE SARS-CoV-2 RNA (RT-PCR) NEGATIVE 05/13/22 05/13/22 05/13/22 12:25 12:25 17:18 WBC RBC Hgb Hct MCV MCH MCHC RDW Plt Count MPV Immature Gran % (Auto) Neut % (Auto) Lymph % (Auto) [place] % (Auto) Eos % (Auto) Baso % (Auto) Lymph # (Auto) [place] # (Auto) Eos # (Auto) Baso # (Auto) Abs Immat Gran (auto) Absolute Neuts (auto) Absolute Nucleated RBC Nucleated RBC % (auto) D-Dimer High Sensitivty Sodium Potassium Chloride Carbon Dioxide Anion Gap BUN Creatinine Estim Creat Clear Calc Estimated GFR Random Glucose Calcium Total Bilirubin Direct Bilirubin AST ALT Alkaline Phosphatase Troponin I High Sens B-Natriuretic Peptide Total Protein Albumin Lipase TSH Urine Color Yellow Urine Appearance Clear Urine pH 5.5 Ur Specific [place] <= 1.005 Urine Protein Negative Urine Glucose (UA) Negative Urine Ketones Negative Urine Blood Negative Urine Nitrite Negative Ur Leukocyte Esterase Negative Urine Test NEGATIVE Urine Opiates Screen Not Detected Urine Fentanyl Screen Not Detected Ur Barbiturates Screen Not Detected Ur Phencyclidine Scrn Not Detected Ur Amphetamines Screen Not Detected U Benzodiazepines Scrn Not Detected Urine Cocaine Screen Not Detected U Marijuana (THC) Screen Not Detected Influenza Type A (PCR) Influenza Type B (PCR) RSV RNA Qual (PCR) SARS-CoV-2 RNA (RT-PCR) Imaging Chest x-ray: Radiologist's impression: ITS Impressions Chest X-Ray 05/13/22 13:13 IMPRESSION: Unremarkable examination. Additional Comments Additional comments: echo: Conclusions: - The left ventricular systolic function is hyperdynamic.? The ? visually estimated ejection fraction is >70%.? - No obvious valvular pathology seen on this study.? Findings Procedure Information Contrast agent, definity, is being given per protocol without apparent complications. Left Ventricle Normal left ventricular cavity size.? There is mildly increased left ventricular wall thickness.? The left ventricular systolic function is hyperdynamic.? The visually estimated ejection fraction is >70%.? There is no evidence of regional wall motion abnormalities.? Diastolic function is normal for age.? There is moderate septal and moderate basal asymmetric hypertrophy. ?LV peak GLS -15.9%. Right Ventricle Normal right ventricular cavity size and systolic function. Atria Both atria are normal in size. Aortic Valve There is a normal trileaflet aortic valve.? There is no aortic valve stenosis.? There is no aortic valve regurgitation. Mitral Valve The mitral valve appears normal.? There is no mitral valve regurgitation. There is no mitral valve stenosis. Pulmonic Valve The pulmonic valve is likely normal. Tricuspid Valve Normal tricuspid valve structure.? There is trace tricuspid valve regurgitation.? There is no evidence of pulmonary hypertension. Great Vessels The asc aorta is normal in size.? Small plaque is seen in the sino tubular ridge. Venous The inferior vena cava was not well visualized. Pericardium/Pleural There is no evidence of pericardial effusion. Prior Study Comparison No prior study available for comparison. Recommendations, Care & Conclusions No obvious valvular pathology seen on this study. Discharge Plan Discharge Patient Disposition: Home, Self-Care Discharge Diagnosis: new onset afib withrvr Referrals: Goran Harman MD [Primary Care Provider] - 1 Week Discharge Medications: New Eliquis 5 mg Tablet 5 mg PO BID Qty: 60 0RF thiamine mononitrate (vit B1) 100 mg Tablet 100 mg PO DAILY Qty: 30 0RF diltiazem HCl [Cardizem CD] 180 mg Capsule,Extended Release 24hr 360 mg PO DAILY Qty: 30 0RF Protocol: Hold for SBP/HR < HOLD for SBP < : 90 HOLD for HR < : 60 folic acid 1 mg Tablet 1 mg PO DAILY Qty: 30 0RF Continued valsartan-hydrochlorothiazide 160-12.5 mg tablet 1 tab PO DAILY ferrous sulfate 325 mg (65 mg iron) Tablet 325 mg PO DAILY diphenhydramine HCl 25 mg Tablet 25 mg PO TID PRN (Reason: Anxiety) sertraline 50 mg tablet 1 tab PO DAILY Discharge Orders: Discharge Order (Routine); Ordered 05/14/22 Ordered By: Elza Gupta Diet: Advance to usual diet Activity on Discharge: As tolerated Stand Alone Forms: Patient Portal Discharge page Care Plan Goals: patient was admitted for AFib with RVR -started on IV Cardizem and the subsequently switched to p.o. Cardizem in addition was started on Eliquis in ED: Seen by Cardiology recommended to continue Cardizem and Eliquis out patiently, further workup outpatient with Cardiology, Cardiology will arrange their own appointment. echo was reviewed by Cardiology: EF is 70%. further management outpatient. Morbid obesity: Patient advised to lose weight, in addition patient was strongly advised to abstain from alcohol. Health Concerns: as above. Plan of Treatment: As above. Assessment: As above.
--- NOTE | 2022-05-14 13:54 | MHC.RECOVRN ---
This typewriters functional tester met w/ pt, pt alert, laying in bed. This typewriters functional tester introduced self to pt. Pt states does not need supports related to ETOH use at this time. Pt states was confused as to why CIWA was in place. Pt states does drink daily, knows what to do, and family member are sober and supportive. Pt reminded to call [facility] if in need of Addiction/Recovery supports in the future.
[2022-05-14 15:09] VITALS: BP 123/60; PULSE 84; RESP 16; TEMP 36.6; O2SAT 96
== END 2022-05-14 04:35 | disposition home or self-care (01) ==
LOC: HO.ED 14:03 → HO.EDOVER 16:01 → HO.IMC 17:05
PROVIDERS: Admitting Provider Internal Medicine; Emergency Provider Emergency Medicine; PCP Internal Medicine; Visit Provider Internal Medicine
DX: I48.20 Chronic atrial fibrillation, unspecified (principal); R00.2 Palpitations; F41.9 Anxiety disorder, unspecified; I10 Essential (primary) hypertension; Z20.822 Contact with and (suspected) exposure to COVID-19; F12.90 Cannabis use, unspecified, uncomplicated; E66.01 Morbid (severe) obesity due to excess calories; Z68.43 Body mass index [BMI] 50.0-59.9, adult; Z79.899 Other long term (current) drug therapy
CPT/HCPCS: 0241U; 36415; 71045; 80048; 80076; 80307; 81003; 81025; 83690; 83880; 84443; 84484; 85025; 85379; 93005; 93306; 93356; 96361; 96374; 99205; 99219; 99285; Q9957

== ENCOUNTER → 2022-05-24 07:32 | Outpatient (REF) | payer OTHER, SELFPAY ==
--- NOTE | 2022-05-24 07:36 | HM_ITS ---
Conclusion: 1. Patient was monitored for total period of 7 days 2. Baseline was normal sinus rhythm with average heart of 62 beats per minute 3. Frequent sinus bradycardia with 37% of time heart rate below 60 beats per minute 4. No significant pauses noted 5. There was 1 episode of Mobitz type 1 second-degree AV block 6. Rare ectopy noted 7. Two 3 beat salvos of nonsustained ventricular tachycardia at 133 beats per minute 8. Patient reported it multiple events of palpitations that correlated with sinus rhythm MTDD
== END ==
LOC: HO.CARD 07:32
PROVIDERS: PCP Internal Medicine; Visit Provider Internal Medicine Cardiovascular Disease
DX: I48.91 Unspecified atrial fibrillation (principal)
CPT/HCPCS: 93242

== ENCOUNTER → 2022-06-04 10:09 | Outpatient (REF) | payer OTHER, SELFPAY | LOC: HO.SL 10:09 | PROVIDERS: PCP Internal Medicine; Visit Provider Internal Medicine | DX: G47.33 Obstructive sleep apnea (adult) (pediatric) (principal); I48.91 Unspecified atrial fibrillation | CPT/HCPCS: 95806 ==

== ENCOUNTER 2023-06-10 11:53 | Outpatient (REF) | payer OTHER, SELFPAY ==
[2023-06-10 13:05] LABS: Influenza A PCR NEGATIVE (Negative); Influenza B PCR NEGATIVE (Negative); Resp Syncy Virus RNA Qual PCR NEGATIVE (Negative); SARS COV2 PCR INHOUSE NEGATIVE (Negative)
== END 2023-06-10 11:54 | disposition home or self-care (01) ==
LOC: HO.LAB 11:53
PROVIDERS: PCP Internal Medicine; Visit Provider Internal Medicine
DX: Z11.52 Encounter for screening for COVID-19 (principal); J40 Bronchitis, not specified as acute or chronic; Z20.822 Contact with and (suspected) exposure to COVID-19
CPT/HCPCS: 0241U

== ENCOUNTER 2023-07-03 11:06 | Outpatient (REF) | payer OTHER, SELFPAY ==
[2023-07-03 11:11] LABS: MANUAL DIFF FLAG NO
[2023-07-03 11:37] LABS: Basophils Percent Auto 0.6 % (0-2); Eosinophils Absolute Auto 0.2 X10*3/uL (0.0-0.4); Eosinophils Percent Auto 2.2 % (0-4); Hematocrit 39.2 % (37.0-47.0); Imm Gran Abs Auto 0.03 X10*3/uL (0.00-0.03); Imm Gran Pct Auto 0.4 % (0.0-0.4); Lymphocytes Percent Auto 27.8 % (20-40); Mean Corpuscular HGB Conc 33.2 g/dl (31.0-35.0); Mean Corpuscular Hemoglobin 28.3 pg (27.0-33.0); Mean Corpuscular Volume 85.4 fL (80.0-98.0); Monocytes Absolute Auto 0.5 X10*3/uL (0.1-1.2); Monocytes Percent Auto 6.4 % (2-11); Neutrophils Absolute Auto 4.5 x10*3/uL (2.0-8.3); Neutrophils Percent Auto 62.6 % (45-73); Platelet Count 337 X10*3/uL (160-400); Red Blood Count 4.59 X10*6/uL (4.20-5.50); Red Cell Distribution Width 14.2 % (11.0-16.0); White Blood Count 7.2 X10*3/uL (4.8-10.8)
[2023-07-03 11:52] LABS: Alanine Aminotransferase 12 U/L (0-31); Alkaline Phosphatase 73 U/L (39-117); Anion Gap 11 (12-20); Aspartate Amino Transferase 13 U/L (5-31); Bilirubin Total 0.3 mg/dL (0.0-1.0); Blood Urea Nitrogen 21 mg/dL (9-16); Calcium 9.5 mg/dL (8.4-10.2); Carbon Dioxide 26 mmol/L (22-29); Chloride 107 mmol/L (96-108); Cholesterol 200 mg/dL (<200); Estimated Glomerular Filt Rate > 60; Glucose Fasting 93 mg/dL (60-99); HDL Cholesterol 40 mg/dL (>40); Iron 48 mcg/dL (30-160); LDL Cholesterol Calculated 147 mg/dL (<100); Percent Iron Saturation 18 % (15-50); Potassium 4.1 mmol/L (3.3-5.1); Sodium 140 mmol/L (135-145); Total Iron Binding Capacity 265 mcg/dL (228-428); Total Protein 7.3 g/dL (6.5-8.0); Triglycerides 68 mg/dL (<150); Unsaturated Iron Binding 217 ug/dL
[2023-07-03 12:35] LABS: Reflex LDLD? No
== END 2023-07-03 11:07 | disposition home or self-care (01) ==
LOC: HO.LNP 11:06
PROVIDERS: Visit Provider Internal Medicine
DX: Z00.00 Encounter for general adult medical examination without abnormal findings (principal); I48.0 Paroxysmal atrial fibrillation; I10 Essential (primary) hypertension; E61.1 Iron deficiency
CPT/HCPCS: 80053; 80061; 83540; 85025

== ENCOUNTER 2023-07-04 11:00 | Outpatient (REF) | payer OTHER, SELFPAY ==
[2023-07-04 11:09] LABS: Appearance Urine Clear; Color Urine Yellow; Glucose Urine UA Negative (Negative); Leukocyte Esterase Urine Trace (Negative); Nitrite Urine Negative (Negative); PH 5.5 (5.0-9.0); Specific Gravity - Urine 1.025 (1.005-1.025); UMIC TRIGGER UACC YES; Urine Blood Moderate (2+) (Negative); Urine Ketones Negative (Negative); Urine Protein Negative (Neg-Trace)
[2023-07-04 11:12] LABS: Bacteria Urine None Seen (None Seen); Hyaline Casts Urine 0-2 /LPF (0-2); WBC Urine 0-5 /HPF (0-5)
== END 2023-07-04 11:01 | disposition home or self-care (01) ==
LOC: HO.LNP 11:00
PROVIDERS: Visit Provider Internal Medicine
DX: Z00.00 Encounter for general adult medical examination without abnormal findings (principal); I10 Essential (primary) hypertension
CPT/HCPCS: 81001

== ENCOUNTER 2023-09-18 14:37 | Outpatient (REF) | payer OTHER, SELFPAY ==
[2023-09-18 15:46] LABS: Influenza A PCR NEGATIVE (Negative); Influenza B PCR NEGATIVE (Negative); Resp Syncy Virus RNA Qual PCR NEGATIVE (Negative); SARS COV2 PCR INHOUSE NEGATIVE (Negative)
== END 2023-09-18 14:38 | disposition home or self-care (01) ==
LOC: HO.LAB 14:37
PROVIDERS: PCP Internal Medicine; Visit Provider Internal Medicine
DX: B34.9 Viral infection, unspecified (principal)
CPT/HCPCS: 0241U

== ENCOUNTER 2023-10-03 11:13 | Outpatient (REF) | payer OTHER, SELFPAY ==
[2023-10-03 11:34] LABS: Appearance Urine Cloudy; Color Urine Yellow; Glucose Urine UA Negative (Negative); Leukocyte Esterase Urine Negative (Negative); Nitrite Urine Negative (Negative); PH 5.5 (5.0-9.0); Urine Blood Negative (Negative); Urine Ketones Negative (Negative); Urine Protein Negative (Neg-Trace)
[2023-10-03 11:37] LABS: Bacteria Urine None Seen (None Seen); Hyaline Casts Urine 0-2 /LPF (0-2); RBC Urine 0-2 /HPF (0-2); WBC Urine 0-5 /HPF (0-5)
== END 2023-10-03 11:14 | disposition home or self-care (01) ==
LOC: HO.10HDLNP 11:13
PROVIDERS: Visit Provider Internal Medicine
DX: R31.9 Hematuria, unspecified (principal)
CPT/HCPCS: 81001

== ENCOUNTER 2024-04-07 08:03 | Emergency (ER) | payer OTHER, SELFPAY ==
[2024-04-07 08:07] VITALS: PULSE 86; RESP 20; TEMP 36.6; O2SAT 97; BMI 53.2
--- NOTE | 2024-04-07 08:10 | ECG_ITS ---
Test Reason : afib Blood Pressure : / mmHG Vent. Rate : 110 BPM Atrial Rate : 000 BPM P-R Int : 000 ms QRS Dur : 096 ms QT Int : 346 ms P-R-T Axes : 000 -68 041 degrees QTc Int : 468 ms Atrial fibrillation with rapid ventricular response Incomplete right bundle branch block Left anterior fascicular block Abnormal ECG When compared with ECG of 13-MAY-2022 12:26, No significant changes seen Referred By: Generic ED Physician Electronically Signed By:BHUPINDER SILVA
--- NOTE | 2024-04-07 08:44 | ED.ARRPALP ---
HPI - Arrhythmia/Palpitations General Chief Complaint: Arrhythmia/Palpitations Stated Complaint: afib Time Seen by Provider: 04/07/24 08:31 Source: patient, RN notes reviewed and old records reviewed History of Present Illness ED Provider: Sharon Arvizu PA-C HPI narrative: 38-year-old female with a past medical history of obesity, HTN, anxiety, AFib with RVR noncompliant on Eliquis and Cardizem, presenting to the ED complaining palpitations and suspected AFib since waking this morning. Admits self stopped her Cardizem about 1 month ago and Eliquis about a year ago. Denies CP/SOB, pedal edema, recent travel, recent illness, lightheadedness/dizziness Related Data Home Medications ?Medication ?Instructions ?Recorded ?Confirmed diphenhydramine HCl 25 mg tablet 25 mg PO TID PRN Anxiety 05/13/22 05/13/22 ferrous sulfate 325 mg (65 mg 325 mg PO DAILY 05/13/22 05/13/22 iron) tablet sertraline 50 mg tablet 1 tab PO DAILY 05/13/22 05/13/22 valsartan 160 1 tab PO DAILY 05/13/22 05/13/22 mg-hydrochlorothiazide 12.5 mg tablet Previous Rx's ?Medication ?Instructions ?Recorded alprazolam 0.25 mg tablet (Xanax) 0.25 mg PO DAILY PRN agitation #7 05/14/22 tabs apixaban 5 mg tablet (Eliquis) 5 mg PO BID #60 tabs 05/14/22 diltiazem HCl 180 mg 360 mg PO DAILY #30 caps 05/14/22 capsule,extended release 24 hr (Cardizem CD) folic acid 1 mg tablet 1 mg PO DAILY #30 tabs 05/14/22 thiamine mononitrate (vit B1) 100 100 mg PO DAILY #30 tabs 05/14/22 mg tablet apixaban 5 mg tablet (Eliquis) 5 mg PO BID 30 days #60 tabs 04/07/24 diltiazem HCl 360 mg 360 mg PO DAILY 30 days #30 caps 04/07/24 capsule,extended release 24 hr Allergies Allergy/AdvReac Type Severity Reaction Status Date / Time bee pollen [bee stings] Allergy Anaphylaxis Verified 04/07/24 08:09 Review of Systems Review of Systems: Yes all other systems are reviewed and are negative Constitutional: Constitutional: Reports as per [facility] Past Medical History Attestation statement: The following information was validated with the patient. Source: old records reviewed Medical History Morbid obesity Essential hypertension Anxiety HTN (hypertension) Family History Family History Father Enlarged heart Social History Social History Household Members: Spouse Housing: House Do you presently have visiting nurse or other home services: No Alcohol intake: current Alcohol intake frequency: a few times a week Alcohol type: wine Patient Tobacco Use Status: Never used Tobacco Substance Use Type: Marijuana Advance Directives: No Advance Directives Information Provided: No service: No Physical Exam Vital Signs: Vital Signs: Last Vital Signs Temp 98.2 F 04/07/24 11:23 Pulse 79 04/07/24 11:23 Resp 16 04/07/24 11:23 BP 128/76 04/07/24 11:23 Pulse Ox 98 04/07/24 11:23 O2 Del Method Room Air 04/07/24 11:23 BMI result Body Mass Index 53.2 Const: General: cooperative, healthy appearing and no acute distress Orientation/consciousness: patient oriented x3 Limitations: no limitations HEENT: Head: Yes normal to inspection and Yes atraumatic Ears: hearing grossly normal bilaterally General nose exam: Normal external nose present Face and sinus: Yes normal facial exam Eyes: General: appearance normal, both eyes and all related structures EOM: EOMs intact bilaterally Neck: Neck: Yes normal visual inspection and Yes no meningeal signs Resp: Effort & Inspection: normal respiratory effort and no respiratory distress Auscultation: clear to auscultation bilaterally, no crackles and no wheezes Cardio: Rate: tachycardic Rhythm: abnormal rhythm Heart sounds: S1 normal heart sound present and S2 normal heart sound present GI: Inspection: Yes normal to inspection Palpation (GI): Soft to palpation, nontender, no guarding and not rigid : General: Yes no CVA tenderness Back/Spine/Pelvis: Back: no CVA tenderness Skin: Rashes: no rashes Wounds: no wounds Neuro: General: patient oriented x3, tone normal and no meningeal signs Cranial nerves: Yes CN's II-XII intact bilaterally Gait exam (Neuro): Normal gait present Extrem: General: Yes normal to inspection, Yes no pedal edema and Yes no calf tenderness Course Course Course Narrative: -945--patient still in AFib however rate controlled after IV diltiazem, heart rate 86. Will give 30 mg of p.o. diltiazem. -labs reassuring. Troponin x1 negative -1131--troponin x2 negative. COVID/flu/RSV negative. CXR unremarkable > patient has remained in AFib, rate controlled since ED arrival. Discussed importance of compliance with Cardizem and Eliquis. Will restart patient on these medications which she was supposed to be taking. Stressed importance of close cardiology follow-up. > cardiology, Dr. Parker contacted to ensure close follow-up Results discussed with patient including worrisome signs and symptoms and strict return precautions, and when to return to the emergency department. They verbalized understanding and feel safe for discharge at this time. Medications Administered Discontinued Medications Generic Name Dose Route Start Last Admin Trade Name Gregor PRN Reason Stop Dose Admin Alprazolam 0.25 mg 04/07/24 10:34 04/07/24 11:23 Alprazolam 0.25 Mg Tablet PO 04/07/24 10:35 0.25 mg ONCE ONE Administration Diltiazem HCl 20 mg 04/07/24 08:40 04/07/24 09:01 Diltiazem Hcl 50 Mg/10 Ml Vial IVPUSH 04/07/24 08:41 20 mg STAT STA Administration Diltiazem HCl 30 mg 04/07/24 09:46 04/07/24 10:22 Diltiazem Hcl 30 Mg Tablet PO 04/07/24 09:47 30 mg ONCE ONE Administration Protocol Sodium Chloride 1,000 mls @ 999 mls/hr 04/07/24 08:45 04/07/24 10:04 Ns IV 04/07/24 09:45 Infused .Q1H1M GIN Infusion Medical Decision Making Medical Decision Making [facility] Narrative: 38-year-old female with a past medical history of obesity, HTN, anxiety, AFib with RVR noncompliant on Eliquis and Cardizem, presenting to the ED complaining palpitations and suspected AFib since waking this morning. On exam HR bouncing from 90-114, AFib on monitor, lungs CTA, no pedal edema. Concern for AFib with RVR secondary to medication noncompliance. Rule out metabolic and infectious etiologies. Rule out CHF. Low suspicion for DVT/PE Plan: EKG, labs, CXR, viral studies, IV Cardizem Please refer to course for remaining clinical decision making, interpretation of labs/imaging results, and discussions with consultants and/or family members. Differential Diagnosis Differential Diagnoses: The differential diagnosis associated with the presentation includes As above Admission/Observation Consideration of admission/observation: Escalation of care including admission/observation considered Lab Data MDM Lab Attestation statement: I reviewed the patient's lab results. 04/07/24 08:59 04/07/24 08:59 Labs: Lab Results 04/07/24 04/07/24 Range/Units 08:59 10:43 WBC 6.6 (4.8-10.8) X10*3/uL RBC 4.71 (4.20-5.50) X10*6/uL Hgb 13.0 (12.0-16.0) g/dl Hct 38.7 (37.0-47.0) % MCV 82.2 (80.0-98.0) fL MCH 27.6 (27.0-33.0) pg MCHC 33.6 (31.0-35.0) g/dl RDW 14.0 (11.0-16.0) % Plt Count 281 (160-400) X10*3/uL MPV 11.2 (9.4-12.3) fL Immature Gran % (Auto) 0.5 H (0.0-0.4) % Neut % (Auto) 66.6 (45-73) % Lymph % (Auto) 24.6 (20-40) % [place] % (Auto) 5.8 (2-11) % Eos % (Auto) 1.7 (0-4) % Baso % (Auto) 0.8 (0-2) % Lymph # (Auto) 1.6 (1.2-4.9) X10*3/uL [place] # (Auto) 0.4 (0.1-1.2) X10*3/uL Eos # (Auto) 0.1 (0.0-0.4) X10*3/uL Baso # (Auto) 0.1 (0.0-0.2) X10*3/uL Abs Immat Gran (auto) 0.03 (0.00-0.03) X10*3/uL Absolute Neuts (auto) 4.4 (2.0-8.3) x10*3/uL Absolute Nucleated RBC 0.000 (0.0-0.012) X10*3/uL Nucleated RBC % (auto) 0.0 (0.0-0.2) /100WBC PT 11.8 (10.9-12.4) SEC INR 1.0 (0.9-1.1) Sodium 142 (135-145) mmol/L Potassium 3.6 (3.3-5.1) mmol/L Chloride 107 (96-108) mmol/L Carbon Dioxide 28 (22-29) mmol/L Anion Gap 11 L (12-20) BUN 17 H (9-16) mg/dL Creatinine 0.77 (0.5-1.4) mg/dL Estim Creat Clear Calc 154.2 Estimated GFR > 60 Random Glucose 102 (60-115) mg/dL Calcium 9.3 (8.4-10.2) mg/dL Magnesium 2.1 (1.6-2.6) mg/dL Total Bilirubin 0.3 (0.0-1.0) mg/dL Direct Bilirubin 0.1 (0.0-0.5) mg/dL AST 12 (5-31) U/L ALT 14 (0-31) U/L Alkaline Phosphatase 72 (39-117) U/L Troponin I High Sens < 2.7 < 2.7 (<3.5-17.0) ng/L B-Natriuretic Peptide 20 (<100) pg/mL Total Protein 7.1 (6.5-8.0) g/dL Albumin 4.0 (3.5-5.0) g/dL TSH 1.03 (0.32-4.0) uIU/mL Influenza Type A (PCR) NEGATIVE (Negative) Influenza Type B (PCR) NEGATIVE (Negative) RSV RNA Qual (PCR) NEGATIVE (Negative) SARS-CoV-2 RNA (RT-PCR) NEGATIVE (Negative) Independent Interpretation I performed an independent interpretation of an: EKG (My interpretation EKG AFib with RVR rate of 110. QRS 96. QTC 468. No STEMI. ) and Plain X-Ray Radiology Impression Discussion of test interpretation with radiology: I have reviewed the radiologist's reading. External Record Review External record reviewed: Inpatient record, Office record, Outpatient record, Prior outpatient labs, Prior outpatient radiology, Primary care record and Outside ED record Tests considered The following testing was considered but not selected: As above Chronic Conditions Patient?s care impacted by: Hypertension and Other Social Determinants Patient?s care significantly limited by Social Determinants of Health including: Alcoholism and drug addiction in family, Problems related to primary support group, Problems related to employment and Other Social Determinant of Health Critical Care Time Critical Care Time Critical Care Time: Yes Total Critical Care Time: 40 Attestation: I have personally provided critical care time exclusive of time spent on separately billable procedures. Time includes review of lab data, radiology results, discussion with consultants, and monitoring for potential decompensation. Intervention performed as documented. Discharge Plan Discharge Clinical Impression: Atrial fibrillation with RVR Patient Disposition: Home, Self-Care Instructions: A-fib (Atrial Fibrillation) (DC) Additional Instructions: You are in atrial fibrillation, rate controlled. YOU NEED TO TAKE YOUR MEDICATIONS PRESCRIBED INCLUDING YOUR DILTIAZEM AND ELIQUIS If you fall and hit your head, you are on a blood thinner, you need to be evaluated. If you develop any bleeding please present to the ED You need to follow-up with Cardiology If her symptoms persist or worsen, you feel like your heart rate is fast, you have chest pain or shortness of breath return to the ED Prescriptions: New diltiazem HCl 360 mg capsule,extended release 24hr 360 mg PO DAILY 30 Days Qty: 30 0RF Eliquis 5 mg tablet 5 mg PO BID 30 Days Qty: 60 0RF No Action valsartan-hydrochlorothiazide 160-12.5 mg tablet 1 tab PO DAILY ferrous sulfate 325 mg (65 mg iron) Tablet 325 mg PO DAILY diphenhydramine HCl 25 mg Tablet 25 mg PO TID PRN (Reason: Anxiety) sertraline 50 mg tablet 1 tab PO DAILY diltiazem HCl [Cardizem CD] 180 mg Capsule,Extended Release 24hr 360 mg PO DAILY Qty: 30 0RF Protocol: Hold for SBP/HR < HOLD for SBP < : 90 HOLD for HR < : 60 folic acid 1 mg Tablet 1 mg PO DAILY Qty: 30 0RF thiamine mononitrate (vit B1) 100 mg Tablet 100 mg PO DAILY Qty: 30 0RF Eliquis 5 mg Tablet 5 mg PO BID Qty: 60 0RF alprazolam [Xanax] 0.25 mg tablet 0.25 mg PO DAILY PRN (Reason: agitation) Qty: 7 0RF Referrals: [facility] [Provider Group] - 5 days Print Language: Azeri
[2024-04-07 09:01] VITALS: BP 133/76; PULSE 86
[2024-04-07] MEDS: dilTIAZem HCL 50 MG/10 ML VIAL 20 MG IVPUSH (09:01)
[2024-04-07] MEDS: 0.9 % Sodium Chloride 1,000 ML 999 ML IV (09:03)
--- NOTE | 2024-04-07 09:05 | PC.NURSE ---
pt presents to the ED a&ox4. vss and up to date aside from afib RVR on the [place] judge. pt verbalizes sleeping when palpitations woke her up around 0600 this morning. states she attempted to go to bed but was unable to do so. pt reports hx of afib - has been noncompliant w/ meds x 3-6 months as she states that medication makes her dizzy. 20gIV placed in the right AC - labs obtained/sent to lab. IVF/medication administered per provider order. pt currently in afib - HR between 80-100bpm. pt currently denies chest pain but is reporting generalized palpitations. denies sob/dizziness/lightheadedness. no sob/wob noted. respirations even/unlabored. plan of care ongoing.
[2024-04-07 09:11] LABS: MANUAL DIFF FLAG NO
[2024-04-07 09:17] LABS: Basophils Absolute Auto 0.1 X10*3/uL (0.0-0.2); Basophils Percent Auto 0.8 % (0-2); Eosinophils Absolute Auto 0.1 X10*3/uL (0.0-0.4); Eosinophils Percent Auto 1.7 % (0-4); Hematocrit 38.7 % (37.0-47.0); Imm Gran Abs Auto 0.03 X10*3/uL (0.00-0.03); Imm Gran Pct Auto 0.5 % (0.0-0.4); Lymphocytes Absolute Auto 1.6 X10*3/uL (1.2-4.9); Lymphocytes Percent Auto 24.6 % (20-40); Mean Corpuscular HGB Conc 33.6 g/dl (31.0-35.0); Mean Corpuscular Hemoglobin 27.6 pg (27.0-33.0); Mean Corpuscular Volume 82.2 fL (80.0-98.0); Mean Platelet Volume 11.2 fL (9.4-12.3); Monocytes Absolute Auto 0.4 X10*3/uL (0.1-1.2); Monocytes Percent Auto 5.8 % (2-11); Neutrophils Absolute Auto 4.4 x10*3/uL (2.0-8.3); Neutrophils Percent Auto 66.6 % (45-73); Platelet Count 281 X10*3/uL (160-400); Red Blood Count 4.71 X10*6/uL (4.20-5.50); White Blood Count 6.6 X10*3/uL (4.8-10.8)
[2024-04-07 09:26] LABS: Prothrombin Time 11.8 SEC (10.9-12.4)
[2024-04-07 09:36] LABS: B Type Natriuretic Peptide 20 pg/mL (<100)
[2024-04-07 09:39] LABS: Alanine Aminotransferase 14 U/L (0-31); Alkaline Phosphatase 72 U/L (39-117); Anion Gap 11 (12-20); Aspartate Amino Transferase 12 U/L (5-31); Bilirubin Direct 0.1 mg/dL (0.0-0.5); Bilirubin Total 0.3 mg/dL (0.0-1.0); Blood Urea Nitrogen 17 mg/dL (9-16); Calcium 9.3 mg/dL (8.4-10.2); Carbon Dioxide 28 mmol/L (22-29); Chloride 107 mmol/L (96-108); Creatinine Clr Calc Pharmacy 154.2; Estimated Glomerular Filt Rate > 60; Glucose Random 102 mg/dL (60-115); Magnesium 2.1 mg/dL (1.6-2.6); Potassium 3.6 mmol/L (3.3-5.1); Sodium 142 mmol/L (135-145); Total Protein 7.1 g/dL (6.5-8.0); Troponin-I High Sensitivity < 2.7 ng/L (<3.5-17.0)
[2024-04-07 09:50] LABS: TSH reflex Free T4 1.03 uIU/mL (0.32-4.0)
[2024-04-07 10:00] LABS: Influenza A PCR NEGATIVE (Negative); Influenza B PCR NEGATIVE (Negative); Resp Syncy Virus RNA Qual PCR NEGATIVE (Negative); SARS COV2 PCR INHOUSE NEGATIVE (Negative)
[2024-04-07 10:22] VITALS: BP 122/52; PULSE 126
[2024-04-07] MEDS: dilTIAZem HCL 30 MG TABLET PO (10:22)
--- NOTE | 2024-04-07 10:30 | PC.NURSE ---
pt medicated per provider order. pt continues to rest comfortably in no apparent distress. pt remains afib on the bus monitor - HR between 80-100bpm. pt denies chest pain but reports palpitations. denies sob/dizziness/lightheadedness. plan of care ongoing.
[2024-04-07 10:44] VITALS: PULSE 88
[2024-04-07 11:23] VITALS: BP 128/76; PULSE 79; RESP 16; TEMP 36.8; O2SAT 98
[2024-04-07 11:23] LABS: Troponin-I High Sensitivity < 2.7 ng/L (<3.5-17.0)
[2024-04-07] MEDS: ALPRAZolam 0.25 MG TABLET PO (11:23)
--- NOTE | 2024-04-07 11:31 | ECG_ITS ---
Test Reason : REPEAT Blood Pressure : / mmHG Vent. Rate : 076 BPM Atrial Rate : 000 BPM P-R Int : 000 ms QRS Dur : 094 ms QT Int : 408 ms P-R-T Axes : 000 -51 021 degrees QTc Int : 459 ms Atrial fibrillation Left anterior fascicular block Abnormal ECG When compared with ECG of 07-APR-2024 08:07, No significant changes seen Referred By: Sharon Arvizu Electronically Signed By:BHUPINDER SILVA
[2024-04-07] MEDS: Apixaban 5 MG TABLET PO (12:41)
[2024-04-07 13:38] VITALS: BP 128/76; PULSE 79; RESP 16; TEMP 36.8; O2SAT 98
== END 2024-04-07 13:39 | disposition home or self-care (01) ==
PROVIDERS: Physician Assistant; Emergency Provider Emergency Medicine
DX: I48.20 Chronic atrial fibrillation, unspecified (principal); Z91.148 Patient's other noncompliance with medication regimen for other reason; R00.2 Palpitations; I10 Essential (primary) hypertension; Z03.818 Encounter for observation for suspected exposure to other biological agents ruled out
CPT/HCPCS: 0241U; 36415; 80048; 80076; 83735; 83880; 84443; 84484; 85025; 85610; 93005; 96361; 96374; 99284

== ENCOUNTER → 2024-04-07 08:10 | Outpatient (BNV) | payer OTHER, SELFPAY | PROVIDERS: Emergency Provider Emergency Medicine; Visit Provider Internal Medicine | DX: R94.31 Abnormal electrocardiogram [ECG] [EKG] (principal) | CPT/HCPCS: 93010 ==

== ENCOUNTER 2024-06-19 21:56 | Emergency (ER) | payer OTHER, SELFPAY ==
--- NOTE | 2024-06-19 | ECG_ITS ---
Test Reason : AFIB? Blood Pressure : / mmHG Vent. Rate : 100 BPM Atrial Rate : 000 BPM P-R Int : 000 ms QRS Dur : 102 ms QT Int : 404 ms P-R-T Axes : 000 -55 026 degrees QTc Int : 521 ms Atrial fibrillation Left anterior fascicular block Cannot rule out Anterior infarct , age undetermined Prolonged QT Abnormal ECG When compared with ECG of 07-APR-2024 12:33, ST now depressed in Lateral leads Nonspecific T wave abnormality no longer evident in Lateral leads QT has lengthened Referred By: Generic ED Physician Electronically Signed By:MARLA CAPELLAN MD
[2024-06-19 21:59] VITALS: BP 158/62; PULSE 105; O2SAT 99
[2024-06-19 22:06] VITALS: BP 142/71; PULSE 91; RESP 18; TEMP 37.2; O2SAT 98
[2024-06-19 22:20] VITALS: BMI 54.7
[2024-06-19 22:48] LABS: Basophils Percent Auto 0.5 % (0-2); Eosinophils Absolute Auto 0.1 X10*3/uL (0.0-0.4); Eosinophils Percent Auto 1.6 % (0-4); Hemoglobin 12.9 g/dl (12.0-16.0); Imm Gran Abs Auto 0.02 X10*3/uL (0.00-0.03); Imm Gran Pct Auto 0.2 % (0.0-0.4); Lymphocytes Absolute Auto 2.1 X10*3/uL (1.2-4.9); Lymphocytes Percent Auto 24.3 % (20-40); MANUAL DIFF FLAG NO; Mean Corpuscular HGB Conc 34.9 g/dl (31.0-35.0); Mean Corpuscular Hemoglobin 27.6 pg (27.0-33.0); Mean Corpuscular Volume 79.1 fL (80.0-98.0); Mean Platelet Volume 11.1 fL (9.4-12.3); Monocytes Absolute Auto 0.6 X10*3/uL (0.1-1.2); Monocytes Percent Auto 6.8 % (2-11); Neutrophils Absolute Auto 5.7 x10*3/uL (2.0-8.3); Neutrophils Percent Auto 66.6 % (45-73); Platelet Count 330 X10*3/uL (160-400); Red Blood Count 4.68 X10*6/uL (4.20-5.50); White Blood Count 8.6 X10*3/uL (4.8-10.8)
[2024-06-19 23:09] LABS: Troponin-I High Sensitivity 2.9 ng/L (<3.5-17.0)
[2024-06-19 23:10] LABS: Alanine Aminotransferase 16 U/L (0-31); Albumin Level 4.5 g/dL (3.5-5.0); Alkaline Phosphatase 80 U/L (39-117); Anion Gap 13 (12-20); Aspartate Amino Transferase 19 U/L (5-31); Bilirubin Total 0.3 mg/dL (0.0-1.0); Blood Urea Nitrogen 14 mg/dL (9-16); Calcium 9.5 mg/dL (8.4-10.2); Carbon Dioxide 26 mmol/L (22-29); Chloride 104 mmol/L (96-108); Creatinine Clr Calc Pharmacy 129.9; Estimated Glomerular Filt Rate > 60; Glucose Random 110 mg/dL (60-115); Potassium 2.8 mmol/L (3.3-5.1); Sodium 140 mmol/L (135-145)
--- NOTE | 2024-06-19 23:56 | ED_ITS ---
HPI - Arrhythmia/Palpitations General Chief Complaint: Arrhythmia/Palpitations Stated Complaint: AFIB,ANXIETY, BLS TX PER EMS Time Seen by Provider: 06/19/24 23:49 Source: patient Limitations: no limitations History of Present Illness ED Provider: Anum Beckman PA-C HPI narrative: 38-year-old female with a history of morbid obesity who recently just started tx with semaglutide, hypertension, AFib on Eliquis, anxiety presents with AFib RVR. Patient states she had just eaten dinner and felt extremely full. She developed acute onset vomiting. She then noted her heart rate to be 170s. Denies abdominal pain, chest pain, shortness of breath or fever. Patient's symptoms have resolved since she has arrived. Related Data Home Medications ?Medication ?Instructions ?Recorded ?Confirmed diphenhydramine HCl 25 mg tablet 25 mg PO TID PRN Anxiety 05/13/22 05/13/22 ferrous sulfate 325 mg (65 mg 325 mg PO DAILY 05/13/22 05/13/22 iron) tablet sertraline 50 mg tablet 1 tab PO DAILY 05/13/22 05/13/22 valsartan 160 1 tab PO DAILY 05/13/22 05/13/22 mg-hydrochlorothiazide 12.5 mg tablet Previous Rx's ?Medication ?Instructions ?Recorded alprazolam 0.25 mg tablet (Xanax) 0.25 mg PO DAILY PRN agitation #7 05/14/22 tabs apixaban 5 mg tablet (Eliquis) 5 mg PO BID #60 tabs 05/14/22 diltiazem HCl 180 mg 360 mg PO DAILY #30 caps 05/14/22 capsule,extended release 24 hr (Cardizem CD) folic acid 1 mg tablet 1 mg PO DAILY #30 tabs 05/14/22 thiamine mononitrate (vit B1) 100 100 mg PO DAILY #30 tabs 05/14/22 mg tablet apixaban 5 mg tablet (Eliquis) 5 mg PO BID 30 days #60 tabs 04/07/24 diltiazem HCl 360 mg 360 mg PO DAILY 30 days #30 caps 04/07/24 capsule,extended release 24 hr Allergies Allergy/AdvReac Type Severity Reaction Status Date / Time bee pollen [bee stings] Allergy Anaphylaxis Verified 06/19/24 22:20 Review of Systems 2 Review of Systems: Yes all other systems are reviewed and are negative Constitutional: Constitutional: Denies fatigue and Denies fever(s) Cardiovascular: Cardiovascular: Denies chest pain, Reports palpitations and Denies dyspnea Respiratory: Respiratory: Denies dyspnea Gastrointestinal: Gastrointestinal: Denies abdominal pain, Denies diarrhea, Reports nausea and Reports vomiting Endocrine: Endocrine: Denies fatigue and Reports palpitations PMF Past Medical History Attestation statement: The following information was validated with the patient. Medical History Morbid obesity Essential hypertension Anxiety HTN (hypertension) Family History Family History Father Enlarged heart Social History Social History Household Members: Spouse Housing: House Do you presently have visiting nurse or other home services: No Alcohol intake: current Alcohol intake frequency: a few times a week Alcohol type: wine Patient Tobacco Use Status: Never used Tobacco Smoked in Last 30 Days: No Use of substances other than those prescribed or required for medical reasons: No Substance Use Type: Marijuana Advance Directives: No Advance Directives Information Provided: Yes Patient : No service: No Physical Exam 2 Vital Signs: Vital Signs: Last Vital Signs Temp 98.9 F 06/20/24 00:13 Pulse 83 06/20/24 00:13 Resp 18 06/20/24 00:13 BP 103/64 06/20/24 00:13 Pulse Ox 96 06/20/24 00:13 O2 Del Method Room Air 06/20/24 00:13 BMI result Body Mass Index 54.7 Const: Other: Alert, well-appearing Orientation/consciousness: patient oriented x3 Resp: Other: Nonlabored respiration Cardio: Other: Normal peripheral perfusion GI: Other: Soft, obese, nondistended nontender no guarding Skin: Other: Warm dry no rash Neuro: General: patient oriented x3, no focal motor deficits and CN's II-XI intact bilaterally Psych: Other: Calm cooperative Medications Administered Generic Name Dose Route Start Last Admin Trade Name Freq PRN Reason Stop Dose Admin Potassium Chloride 10 meq in 100 mls @ 100 mls/hr 06/19/24 23:45 06/20/24 00:39 Potassium Chloride/H20 IV 06/20/24 03:44 100 mls/hr Q1H GIN Administration Discontinued Medications Generic Name Dose Route Start Last Admin Trade Name Gregor PRN Reason Stop Dose Admin Lorazepam 1 mg 06/19/24 23:57 06/20/24 00:39 Lorazepam 2 Mg/Ml Vial IVPUSH 06/19/24 23:58 1 mg ONCE ONE Administration Potassium Chloride 40 meq 06/19/24 23:48 06/20/24 00:38 Potassium Chloride Packet 20 Meq Packet PO 06/19/24 23:49 40 meq ONCE ONE Administration Medical Decision Making Medical Decision Making MDM Narrative: 38-year-old female with a history of morbid obesity who recently just started tx with semaglutide, hypertension, AFib on Eliquis, anxiety presents with AFib RVR. Patient states she had just eaten dinner and felt extremely full. She developed acute onset vomiting. She then noted her heart rate to be 170s. Denies abdominal pain, chest pain, shortness of breath or fever. Patient's symptoms have resolved since she has arrived. Problem: Obesity, AFib, hypertension , use of semaglutide History: Per patient I have considered the following differential diagnoses: Adverse reaction from semaglutide, electrolyte abnormality, dehydration, viral syndrome, biliary colic, cholecystitis, ACS Plan: Patient likely began vomiting secondary to the semaglutide she just started, she has only had 5 doses. Thought about biliary colic versus cholecystitis, however patient has not been having postprandial symptoms, she has no belly pain and her exam was benign. Screening labs including LFTs were obtained from triage. In regard to AFib RVR, patient was found to be hypokalemic, which is the likely trigger. She takes losartan/HCTZ combination medication. We will advise her she needs to follow up with her doctor for medication change. We will be giving 40 mEq of oral and IV potassium. I am giving Ativan for her nausea and anxiety, her qtc is prolonged. Patient is much improved since arrival. This is not viral syndrome, she has not had preceding cough and cold symptoms or sick contacts with same symptoms. A cardiac enzyme was ordered as well from triage, this is not ACS, it was ordered secondary to her rapid rate. I have independently reviewed the following tests: Labs: No leukocytosis, not anemic, potassium 2.8, magnesium 2, no additional electrolyte abnormalities,trop 2.9, will obtain a delta trop 5.7 EKG: AFib, rate of 100, QT 521, left fascicular block, no ischemic change Lab Data 06/19/24 22:43 06/19/24 22:43 Labs: Lab Results 06/19/24 06/20/24 Range/Units 22:43 00:35 WBC 8.6 (4.8-10.8) X10*3/uL RBC 4.68 (4.20-5.50) X10*6/uL Hgb 12.9 (12.0-16.0) g/dl Hct 37.0 (37.0-47.0) % MCV 79.1 L (80.0-98.0) fL MCH 27.6 (27.0-33.0) pg MCHC 34.9 (31.0-35.0) g/dl RDW 14.0 (11.0-16.0) % Plt Count 330 (160-400) X10*3/uL MPV 11.1 (9.4-12.3) fL Immature Gran % (Auto) 0.2 (0.0-0.4) % Neut % (Auto) 66.6 (45-73) % Lymph % (Auto) 24.3 (20-40) % Carlisle % (Auto) 6.8 (2-11) % Eos % (Auto) 1.6 (0-4) % Baso % (Auto) 0.5 (0-2) % Lymph # (Auto) 2.1 (1.2-4.9) X10*3/uL [place] # (Auto) 0.6 (0.1-1.2) X10*3/uL Eos # (Auto) 0.1 (0.0-0.4) X10*3/uL Baso # (Auto) 0.0 (0.0-0.2) X10*3/uL Abs Immat Gran (auto) 0.02 (0.00-0.03) X10*3/uL Absolute Neuts (auto) 5.7 (2.0-8.3) x10*3/uL Absolute Nucleated RBC 0.000 (0.0-0.012) X10*3/uL Nucleated RBC % (auto) 0.0 (0.0-0.2) /100WBC Sodium 140 (135-145) mmol/L Potassium 2.8 L* D (3.3-5.1) mmol/L Chloride 104 (96-108) mmol/L Carbon Dioxide 26 (22-29) mmol/L Anion Gap 13 (12-20) BUN 14 (9-16) mg/dL Creatinine 0.90 (0.5-1.4) mg/dL Estim Creat Clear Calc 129.9 Estimated GFR > 60 Random Glucose 110 (60-115) mg/dL Calcium 9.5 (8.4-10.2) mg/dL Magnesium 2.0 (1.6-2.6) mg/dL Total Bilirubin 0.3 (0.0-1.0) mg/dL AST 19 (5-31) U/L ALT 16 (0-31) U/L Alkaline Phosphatase 80 (39-117) U/L Troponin I High Sens 2.9 5.7 D (<3.5-17.0) ng/L Total Protein 8.0 (6.5-8.0) g/dL Albumin 4.5 (3.5-5.0) g/dL Discharge Plan Discharge Clinical Impression: Atrial fibrillation with RVR, Acute hypokalemia Patient Disposition: Home, Self-Care Instructions: A-fib (Atrial Fibrillation) (ED), Potassium Content of Foods List (ED), Hypokalemia (ED) Additional Instructions: You were found to be in Afib with a rapid rate. This was induced by your low potassium. You need to follow up with your primary care provider to discuss medication changes in regard to your blood pressure medication. The hydrochlorothiazide causes low potassium. In regard to your onset of vomiting, this is a common side effect of the semaglutide. You had no additional lab abnormalities. Prescriptions: No Action valsartan-hydrochlorothiazide 160-12.5 mg tablet 1 tab PO DAILY ferrous sulfate 325 mg (65 mg iron) Tablet 325 mg PO DAILY diphenhydramine HCl 25 mg Tablet 25 mg PO TID PRN (Reason: Anxiety) sertraline 50 mg tablet 1 tab PO DAILY diltiazem HCl [Cardizem CD] 180 mg Capsule,Extended Release 24hr 360 mg PO DAILY Qty: 30 0RF Protocol: Hold for SBP/HR < HOLD for SBP < : 90 HOLD for HR < : 60 folic acid 1 mg Tablet 1 mg PO DAILY Qty: 30 0RF thiamine mononitrate (vit B1) 100 mg Tablet 100 mg PO DAILY Qty: 30 0RF Eliquis 5 mg Tablet 5 mg PO BID Qty: 60 0RF alprazolam [Xanax] 0.25 mg tablet 0.25 mg PO DAILY PRN (Reason: agitation) Qty: 7 0RF diltiazem HCl 360 mg capsule,extended release 24hr 360 mg PO DAILY 30 Days Qty: 30 0RF Eliquis 5 mg tablet 5 mg PO BID 30 Days Qty: 60 0RF Print Language: Thai
[2024-06-20 00:13] VITALS: BP 103/64; PULSE 83; RESP 18; TEMP 37.2; O2SAT 96
[2024-06-20] MEDS: Potassium Chloride Packet 20 MEQ PACKET 40 MEQ PO (00:38)
[2024-06-20] MEDS: Potassium Chloride/H20 10 MEQ/100 ML PIGGYBACK 100 MEQ IV ×4 (00:39→04:20)
[2024-06-20] MEDS: LORazepam 2 MG/ML VIAL 1 MG IVPUSH (00:39)
[2024-06-20 01:02] LABS: Troponin-I High Sensitivity 5.7 ng/L (<3.5-17.0)
[2024-06-20 01:53] VITALS: BP 101/51; PULSE 73; RESP 16; TEMP 36.9; O2SAT 98
[2024-06-20 03:51] VITALS: BP 101/54; PULSE 65; RESP 16; TEMP 36.9; O2SAT 95
[2024-06-20 05:33] VITALS: BP 115/44; PULSE 66; RESP 16; TEMP 37; O2SAT 95
[2024-06-20 05:56] VITALS: BP 115/44; PULSE 66; RESP 16; TEMP 37; O2SAT 95
== END 2024-06-20 06:03 | disposition home or self-care (01) ==
PROVIDERS: Physician Assistant Medical; Emergency Provider Emergency Medicine; PCP Internal Medicine
DX: I48.20 Chronic atrial fibrillation, unspecified (principal); E87.6 Hypokalemia; R11.2 Nausea with vomiting, unspecified; I10 Essential (primary) hypertension; E66.01 Morbid (severe) obesity due to excess calories; Z68.43 Body mass index [BMI] 50.0-59.9, adult; Z79.01 Long term (current) use of anticoagulants
CPT/HCPCS: 36415; 80053; 83735; 84484; 85025; 93005; 96365; 96366; 96375; 99285; J2060; J3480

== ENCOUNTER → 2024-06-19 22:01 | Outpatient (BNV) | payer OTHER, SELFPAY | PROVIDERS: Emergency Provider Emergency Medicine; PCP Internal Medicine; Visit Provider Internal Medicine Cardiovascular Disease | DX: R94.31 Abnormal electrocardiogram [ECG] [EKG] (principal) | CPT/HCPCS: 93010 ==

== ENCOUNTER 2024-06-29 10:36 | Outpatient (REF) | payer OTHER, SELFPAY ==
[2024-06-29 10:39] LABS: MANUAL DIFF FLAG NO
[2024-06-29 11:12] LABS: Basophils Absolute Auto 0.1 X10*3/uL (0.0-0.2); Basophils Percent Auto 0.7 % (0-2); Eosinophils Absolute Auto 0.1 X10*3/uL (0.0-0.4); Eosinophils Percent Auto 1.4 % (0-4); Hematocrit 38.5 % (37.0-47.0); Hemoglobin 12.7 g/dl (12.0-16.0); Imm Gran Abs Auto 0.02 X10*3/uL (0.00-0.03); Imm Gran Pct Auto 0.3 % (0.0-0.4); Lymphocytes Absolute Auto 1.8 X10*3/uL (1.2-4.9); Lymphocytes Percent Auto 25.3 % (20-40); Mean Corpuscular Hemoglobin 26.8 pg (27.0-33.0); Mean Corpuscular Volume 81.2 fL (80.0-98.0); Mean Platelet Volume 11.9 fL (9.4-12.3); Monocytes Absolute Auto 0.4 X10*3/uL (0.1-1.2); Monocytes Percent Auto 6.2 % (2-11); Neutrophils Absolute Auto 4.6 x10*3/uL (2.0-8.3); Neutrophils Percent Auto 66.1 % (45-73); Platelet Count 371 X10*3/uL (160-400); Red Blood Count 4.74 X10*6/uL (4.20-5.50); Red Cell Distribution Width 13.8 % (11.0-16.0); White Blood Count 6.9 X10*3/uL (4.8-10.8)
--- OUTSIDE RECORDS SUMMARY | 2024-06-29 11:41 | XMS_ITS ---
Author Organization Goran Harman MD Address [address] [place], [place] [id number] Care Team Providers Care Research Librarian Name Role Phone Goran Harman Primary Care Provider RESULTS Component Value Reference Range Notes Complete Blood Count Auto Di ff (Not yet reviewed by provider) Interpretation: Performing Lab:[facility], [address] [place] [id number] Notes/Report: White Blood Count 6.9 4.8-10.8 X10*3/uL Red Blood Count 4.74 4.20-5.50 X10*6/uL Hemoglobin 12.7 12.0-16.0 g/dl Hematocrit 38.5 37.0-47.0 % Mean Corpuscular Volume 81.2 80.0-98.0 fL Mean Corpuscular Hemoglobin 26.8 27.0-33.0 pg Mean Corpuscular HGB Conc 33.0 31.0-35.0 g/dl Red Cell Distribution Width 13.8 11.0-16.0 % Platelet Count 371 160-400 X10*3/uL Mean Platelet Volume 11.9 9.4-12.3 fL Neutrophils Percent Auto 66.1 45-73 % Imm Gran Pct Auto 0.3 0.0-0.4 % Lymphocytes Percent Auto 25.3 20-40 % Monocytes Percent Auto 6.2 2-11 % Eosinophils Percent Auto 1.4 0-4 % Basophils Percent Auto 0.7 0-2 % NRBC Pct Auto 0.0 0.0-0.2 /100WBC Neutrophils Absolute Auto 4.6 2.0-8.3 x10*3/u L Imm Gran Abs Auto 0.02 0.00-0.03 X10*3/uL Lymphocytes Absolute Auto 1.8 1.2-4.9 X10*3/u L Monocytes Absolute Auto 0.4 0.1-1.2 X10*3/uL Eosinophils Absolute Auto 0.1 0.0-0.4 X10*3/u L Basophils Absolute Auto 0.1 0.0-0.2 X10*3/uL NRBC Abs Auto 0.000 0.0-0.012 X10*3/uL REASON FOR VISIT FASTING LABS Encounters Encounter Location Date Provider Diagnosis Goran Harman MD [address] [place] [address] [place] [phone] 06/29/2024 Goran Harman Blood tests for routine general physical examination Z00.00 ; Essential hypertension I10 and Iron deficiency E61.1 ASSESSMENTS Encounter Date Diagnosis Assessment Notes Treatment Notes Treatment Clinical Notes 06/29/2024 Blood tests for routine general physical examination (ICD-10 - Z00.00) 06/29/2024 Essential hypertension (ICD-10 - I10) 06/29/2024 Iron deficiency (ICD-10 - E61.1) PLAN OF TREATMENT Pending Test Test Name Order Date Complete Blood Count Auto Diff 5 Comprehensive [place]. Panel Fast 5 IRON PROFILE 06/29/2024 Lipid Panel 06/29/2024 UA ClnCatch+Micro w/rflx Cult 06/29/2024 Next Appt Details Provider Name:Goran cronin, 07/15/2024 08:00:00 AM, [address] [place] [address], Suite [facility], [place], [place], [phone], Provider Name:Goran cronin, 07/26/2024 11:00:00 AM, [address] [place] [address], Suite [facility], [place], [place], [phone],
--- OUTSIDE RECORDS SUMMARY | 2024-06-29 11:42 | XMS_ITS ---
Author Organization Goran Harman MD Address [address] [place] [phone] Care Team Providers Care Sounding Device Operator Name Role Phone Goran Harman Primary Care Provider [phone] REASON FOR VISIT ER Encounters Encounter Location Date Provider Diagnosis Goran Harman MD [address] [place] [address] [place] [phone] 06/24/2024 Goran Harman PLAN OF TREATMENT Next Appt Details Provider Name:Goran cronin, 07/15/2024 08:00:00 AM, [address] [place] [address], Suite [facility], [place], [place], [phone], Provider Name:Goran cronin, 07/26/2024 11:00:00 AM, [address] [place] [address], [place] [address], [place], [phone],
--- OUTSIDE RECORDS SUMMARY | 2024-06-29 11:42 | XMS_ITS | Patient Health Record ---
Author Organization Goran Harman MD Address [address] [place], [place] [address] Care Team Providers Care Food Service Driver Name Role Phone Goran Harman Primary Care Provider ALLERGIES No Known Allergies RESULTS Component Value Reference Range Notes David Ford Reviewed date:07/03/2023 12:13:58 PM Interpretation: Performing Lab:[facility], [address] [place] [phone] Notes/Report: David Ford See Note Specimen held untested for 24 hours; Call to request Chemistry testing. Complete Blood Count Auto Di ff Reviewed date:07/03/2023 05:31:24 PM Interpretation: Performing Lab:[facility], [address] [place] [phone] Notes/Report: White Blood Count 7.2 4.8-10.8 X10*3/uL Red Blood Count 4.59 4.20-5.50 X10*6/uL Hemoglobin 13.0 12.0-16.0 g/dl Hematocrit 39.2 37.0-47.0 % Mean Corpuscular Volume 85.4 80.0-98.0 fL Mean Corpuscular Hemoglobin 28.3 27.0-33.0 pg Mean Corpuscular HGB Conc 33.2 31.0-35.0 g/dl Red Cell Distribution Width 14.2 11.0-16.0 % Platelet Count 337 160-400 X10*3/uL Mean Platelet Volume 12.0 9.4-12.3 fL Neutrophils Percent Auto 62.6 45-73 % Imm Gran Pct Auto 0.4 0.0-0.4 % Lymphocytes Percent Auto 27.8 20-40 % Monocytes Percent Auto 6.4 2-11 % Eosinophils Percent Auto 2.2 0-4 % Basophils Percent Auto 0.6 0-2 % NRBC Pct Auto 0.0 0.0-0.2 /100WBC Neutrophils Absolute Auto 4.5 2.0-8.3 x10*3/u L Imm Gran Abs Auto 0.03 0.00-0.03 X10*3/uL Lymphocytes Absolute Auto 2.0 1.2-4.9 X10*3/u L Monocytes Absolute Auto 0.5 0.1-1.2 X10*3/uL Eosinophils Absolute Auto 0.2 0.0-0.4 X10*3/u L Basophils Absolute Auto 0.0 0.0-0.2 X10*3/uL NRBC Abs Auto 0.000 0.0-0.012 X10*3/uL Comprehensive Rhododendron. Panel Fa st Reviewed date:07/03/2023 05:31:42 PM Interpretation: Performing Lab:[facility], [address] [place] [phone] Notes/Report: Sodium 140 135-145 mmol/L Potassium 4.1 3.3-5.1 mmol/L Chloride 107 96-108 mmol/L Carbon Dioxide 26 22-29 mmol/L Anion Gap 11 12-20 Blood Urea Nitrogen 21 9-16 mg/dL Creatinine 0.76 0.5-1.4 mg/dL Estimated Glomerular Filt Rate > 60 NOTE: For -[place]ian individuals, multiply the result by 1.210. Chronic Kidney Disease: Estimated GFR < 60 mL/min/1.73m2 Severe Kidney Disease: Estimated GFR < 15 mL/min/1.73m2 Glucose Fasting 93 60-99 mg/dL Calcium 9.5 8.4-10.2 mg/dL Bilirubin Total 0.3 0.0-1.0 mg/dL Aspartate Amino Transferase 13 5-31 U/L Alanine Aminotransferase 12 0-31 U/L Total Protein 7.3 6.5-8.0 g/dL Albumin Level 4.0 3.5-5.0 g/dL Alkaline Phosphatase 73 39-117 U/L IRON PROFILE Reviewed date:07/03/2023 05:14:16 PM Interpretation: Performing Lab:[facility], [address] [place] [phone] Notes/Report: Iron 48 30-160 mcg/dL Total Iron Binding Capacity 265 228-428 mcg/d L Percent Iron Saturation 18 15-50 % Unsaturated Iron Binding 217 Lipid Panel with Reflex Reviewed date:07/03/2023 05:24:51 PM Interpretation: Performing Lab:[facility], [address] [place] [phone] Notes/Report: Triglycerides 68 <150 mg/dL Desirable Triglyceride: less than 150 mg/dL Borderline High Triglyceride 150-199 mg/dL High Triglyceride: 200-499 mg/dL Very High Triglyceride: greater than or equal to 5OO mg/dL Cholesterol 200 <200 mg/dL Desirable Cholesterol: less than 200 mg/dL Borderline High Cholesterol: 200-239 mg/dL High Cholesterol: greater than 239 mg/dL LDL Cholesterol Calculated 147 <100 mg/dL Desirable LDL: less than 100 mg/dL Near Optimal/Above Optimal LDL: 110-129 mg/dL Borderline High LDL: 130-159 mg/dL High LDL: 160-189 mg/dL Very High LDL: greater than or equal to 190 mg/dL HDL Cholesterol 40 >40 mg/dL Desirable HDL: greater than 40 mg/dL Note: This HDL assay may give artificially low results in patients with liver disease. UA ClnCatch+Micro w/rflx Cul t Reviewed date:07/04/2023 04:42:57 PM Interpretation: Performing Lab:[facility], [address] [place] [phone] Notes/Report: Urine, Clean Catch Color Urine Yellow Appearance Urine Clear PH 5.5 5.0-9.0 Glucose Urine UA Negative Negative mg/dL Urine Blood Moderate (2+) Negative Specific [place] - Urine 1.025 1.005-1.025 Urine Protein Negative Neg-Trace mg/dL Urine Ketones Negative Negative mg/dL Nitrite Urine Negative Negative Leukocyte Esterase Urine Trace Negative RBC Urine 6-10 0-2 /HPF WBC Urine 0-5 0-5 /HPF Squamous Epithelial Cell Urine 3-5 0-2 /HPF Bacteria Urine None Seen None Seen Hyaline Casts Urine 0-2 0-2 /LPF SARS-CoV2/FLU/RSV Reviewed date:09/18/2023 04:56:04 PM Interpretation: Performing Lab:[facility], [address] [place] [phone] Notes/Report: Influenza A PCR NEGATIVE Negative Influenza B PCR NEGATIVE Negative Resp Syncy Virus RNA Qual PCR NEGATIVE Negative SARS COV2 PCR INHOUSE NEGATIVE Negative All test results must be correlated with clinical findings. Negative results do not preclude SARS-CoV2, influenza A virus, influenza B virus and/or RSV infection and should not be used as the sole basis for treatment or other patient management decisions. Negative results must be combined with clinical observations, patient history, and epidemiological information. This test has not been evaluated for monitoring treatment of infection. This test has been authorized by the FDA under an Emergency Use Authorization (EUA) for use by authorized laboratories. Testing performed on the [employer] GeneXpert utilizing real-time RT-PCR. All SARS CoV2 and positive influenza A/B results are reported to [facility]. UA ClnCatch+Micro w/rflx Cul t Reviewed date:10/03/2023 03:03:40 PM Interpretation: Performing Lab:[address] [phone] Notes/Report: Urine, Clean Catch Color Urine Yellow Appearance Urine Cloudy PH 5.5 5.0-9.0 Glucose Urine UA Negative Negative mg/dL Urine Blood Negative Negative Specific [place] - Urine 1.020 1.005-1.025 Urine Protein Negative Neg-Trace mg/dL Urine Ketones Negative Negative mg/dL Nitrite Urine Negative Negative Leukocyte Esterase Urine Negative Negative RBC Urine 0-2 0-2 /HPF WBC Urine 0-5 0-5 /HPF Squamous Epithelial Cell Urine 3-5 0-2 /HPF Bacteria Urine None Seen None Seen Hyaline Casts Urine 0-2 0-2 /LPF Troponin-I High Sensitivity Reviewed date:06/20/2024 04:56:35 PM Interpretation: Performing Lab:[facility], [address] [place] [phone] Notes/Report: Troponin-I High Sensitivity 5.7 <3.5-17.0 ng/ L The [place] high sensitivity Troponin-I results should be used in conjunction with other diagnostic information such as ECG, clinical observations and information, and patient symptoms to aid in the diagnosis of NM. David Ford Reviewed date:06/29/2024 10:55:05 AM Interpretation: Performing Lab:[facility], [address] [place] [phone] Notes/Report: Hold Gold See Note Specimen held untested for 24 hours; Call to request Chemistry testing. Complete Blood Count Auto Di ff (Not yet reviewed by provider) Interpretation: Performing Lab:[facility], [address] [place] [phone] Notes/Report: White Blood Count 6.9 4.8-10.8 X10*3/uL [...] Abs Auto 0.000 0.0-0.012 X10*3/uL REASON FOR REFERRAL No Information MEDICATIONS Medication SIG (Take, Route, Frequency, Duration) Notes Start Date End Date Status Eliquis 5 MG 1 tablet Orally Twic e a day for 90 days Active Sertraline HCl 50 MG TAKE 1 TABLET BY MO UT EVERY DAY for 30 Active Valsartan-hydroCHLOROthi azide 160-12.5 MG TAKE 1 TABLET BY MOUTH EVERY DAY for 30 Active Ferrous Sulfate 325 (65 Fe) MG 1 tablet Orally Once a day Active dilTIAZem HCl ER 360 MG 1 tablet Orally Once a day for 90 days Active hydrOXYzine HCl 50 MG 1 tablet as needed Orally Once a day for 30 day(s) 04/12/2024 Active hydrOXYzine HCl 10 MG 1 tablet as needed Orally Once a day for 30 day(s) Not-Taking Folic Acid 1 MG 1 tablet Orally Once a day for 30 day(s) Active Vitamin B-1 100 MG 1 tablet Orally Once a day for 30 day(s) Active Potassium Chloride ER 10 MEQ 1 tablet with food Orally Once a day for 30 days 06/29/2024 Active Semaglutide(0.25 or 0.5MG/DOS) 2 MG/3ML as directed Subcutaneous Active Vitamin D 25 MCG (1000 UT) 1 tablet Orally Once a day for 30 day(s) Not-Taking IMMUNIZATIONS Vaccine Route Administration Date Status Comme nts SARS-COV-2 Pfizer Unknown 06/29/2020 Administered SARS-COV-2 Pfizer Unknown 07/20/2020 Administered SARS-COV-2 Pfizer Unknown 04/12/2021 Administered Fluarix Quadrivalent - 150 Unknown 07/04/2023 Refused SOCIAL HISTORY Tobacco Use: Social History Observation Description Date Details (start date - stop date) Former Smoker NA - NA Sex Assigned At : Social History Observation Description Sex Assigned At Unknown Tobacco Use/Smoking Question Answer Notes Patient is a former smoker How long has it been since y ou last smoked? > 10 years Additional Findings: Tobacco Non-User Fo rmer smoker, currently using no form of tobacco Alcohol Screen Question Answer Notes Did you have a drink containing alcohol in the p ast year? No Points 0 Interpretation Negative PROBLEMS Problem Type ICD Code Onset Dates Problem Status W/U Status Risk SNOMED Code Notes Problem PCO (polycystic ovaries) (E28.2) Active confirmed Problem Essential hypertension (I10) Active confirmed Essential hypertension (99225863) Problem Family history of breast cancer (Z80.3) Active confirmed Family history of breast cancer (295088608) Problem Iron deficiency (E61.1) Active confirmed Iron deficiency (99525559) Problem Anxiety disorder (F41.9) Active confirmed Anxiety disorde r (938101386) Problem Depression (F32.9) Active confirmed Depression (381784958) Problem Paroxysmal atrial fibrillation (I48.0) Active confirmed 361364062 Problem Alcohol abuse (F10.10) Active confirmed 25122981 Problem Anxiety (F41.9) Active confirmed 596914 02 VITAL SIGNS Heart Rate 70 /min 04/12/2024 Blood pressure diastolic 70 mm Hg 06/29/2024 humble ght is down 21 pounds since 05-04-24 Height 67.5 in 06/29/2024 weight is down 21 pounds since 05-04-24 Blood pressure systolic 122 mm Hg 06/29/2024 weig ht is down 21 pounds since 05-04-24 Weight 332 lbs 06/29/2024 weight is down 21 pounds since 05-04-24 BMI 51.23 kg/m2 06/29/2024 weight is down 21 pounds since 05-04-24 Encounters Encounter Location Date Provider Diagnosis Goran Harman MD [address] [place] [id number] 07/04/2023 Goran Harman Essential hypertension I10 ; Annual physical exam Z00.00 ; Depression F32.9 ; Iron deficiency E61.1 and Depression screening Z13.31 Goran Harman MD [address] [place] [id number] 12/22/2023 Goran Harman MD [address] [place] [id number] 12/30/2023 Goran Harman Athlete's foot, left B35.3 ; Acute cellulitis L03.90 ; Essential hypertension I10 and Skin rash R21 Goran Harman MD [address] [place] [id number] 06/29/2024 Goran Harman Acute hypokalemia E87.6 and Paroxysmal atrial fibrillation I48.0 Goran Harman MD [address] [place] [id number] 07/03/2023 Goran Harman Essential hypertension I10 ; Iron deficiency E61.1 ; Paroxysmal atrial fibrillation I48.0 and Annual physical exam Z00.00 Goran Harman MD [address] [place] [id number] 06/29/2024 Goran Harman Blood tests for routine general physical examination Z00.00 ; Essential hypertension I10 and Iron deficiency E61.1 Goran Harman MD [address] [place] [id number] 09/02/2023 Goran Harman Hematuria, unspecified type R31.9 Goran Harman MD [address] [place] [id number] 01/05/2024 Goran Harman MD [address] [place] [id number] 04/12/2024 Goran Harman Paroxysmal atrial fibrillation I48.0 and Anxiety F41.9 Goran Harman MD [address] [place] [id number] 05/04/2024 Goran Harman Paroxysmal atrial fibrillation I48.0 and Unintended weight gain R63.5 Goran Harman MD [address] [place] [id number] 12/19/2023 Goran Harman Athlete's foot, left B35.3 and Acute cellulitis L03.90 Goran Harman MD [address] [place] [address] [id number] 06/24/2024 Goran Harman MD [address] [place] [address] [id number] 07/28/2023 Goran Harman Acute COVID-19 U07.1 Goran Harman MD [address] [place] [address] [id number] 09/18/2023 Goran Harman Acute viral syndrome B34.9 ASSESSMENTS Encounter Date Diagnosis Assessment Notes Treatment Notes Treatment Clinical Notes 07/04/2023 Annual physical exam (ICD-10 - Z00.00) labs reviewed and discussed with patient 07/04/2023 Essential hypertension (ICD-10 - I10) doing great on meds, will continue current regiment 12/30/2023 Acute cellulitis (ICD-10 - L03.90) has resolved 12/30/2023 Athlete's foot, left (ICD-10 - B35.3) to use antifungal 06/29/2024 Acute hypokalemia (ICD-10 - E87.6) 07/03/2023 Iron deficiency (ICD-10 - E61.1) 07/03/2023 Essential hypertension (ICD-10 - I10) 06/29/2024 Essential hypertension (ICD-10 - I10) 06/29/2024 Blood tests for routine general physical examination (ICD-10 - Z00.00) 09/02/2023 Hematuria, unspecified type (ICD-10 - R31.9) 04/12/2024 Anxiety (ICD-10 - F41.9) patient verbalized understanding of medication and directions for use 04/12/2024 Paroxysmal atrial fibrillation (ICD-10 - I48.0) 05/04/2024 Paroxysmal atrial fibrillation (ICD-10 - I48.0) 05/04/2024 Unintended weight gain (ICD-10 - R63.5) advised weight watcher 12/19/2023 Acute cellulitis (ICD-10 - L03.90) patient verbalized understanding of medication and directions for use 12/19/2023 Athlete's foot, left (ICD-10 - B35.3) to use tinactin, patient verbalized understanding of medication and directions for use 07/28/2023 Acute COVID-19 (ICD-10 - U07.1) at present is starting to get better so will not use paxlovid 09/18/2023 Acute viral syndrome (ICD-10 - B34.9) [place] [facility] Patient reg. all the cultures negative. but symptoms are so like the flu and she is surrounded by multiple people with the flu will treat 07/04/2023 Depression (ICD-10 - F32.9) stable, will continue current regiment 12/30/2023 Essential hypertension (ICD-10 - I10) is slightly high 06/29/2024 Paroxysmal atrial fibrillation (ICD-10 - I48.0) has resolved had hypokalemia wh9ich may have precipitated it but was vomiting hard as well 07/03/2023 Paroxysmal atrial fibrillation (ICD-10 - I48.0) 06/29/2024 Iron deficiency (ICD-10 - E61.1) 07/04/2023 Iron deficiency (ICD-10 - E61.1) stable, will continue current regiment 12/30/2023 Skin rash (ICD-10 - R21) was there before the antibiotics and was able to maintain the antibiotics so although it got worse not likely to be a reaction to the antibiotics 07/03/2023 Annual physical exam (ICD-10 - Z00.00) 07/04/2023 Depression screening (ICD-10 - Z13.31) negative screen PLAN OF TREATMENT Pending Test Test Name Order Date Complete Blood Count Auto Diff 5 Comprehensive Rhododendron. Panel Fast 5 IRON PROFILE 06/29/2024 Lipid Panel 06/29/2024 UA ClnCatch+Micro w/rflx Cult 06/29/2024 Future Test Test Name Order Date Potassium 07/13/2024 Next Appt Details Provider Name:Goran cronin, 07/15/2024 08:00:00 AM, [address] [place] [address], [address], [place], [phone], Provider Name:Goran bejaranor, 07/26/2024 11:00:00 AM, [address] [place] [address], [place] [address], [place], [place], [phone], Insurance Providers Payer Name Payer Address Payer Phone Subscriber Number Group Number Insured Name Patient Relationship to Insured Coverage Start Date Coverage End Date [place] Plan [employer] [address] [place] [id number] Renetta Melendez Self - patient is the insured 2 MEDICAL (GENERAL) HISTORY Medical History History ICD Code had episode of afib when she was drinkin g
[2024-06-29 11:56] LABS: Alanine Aminotransferase 17 U/L (0-31); Albumin Level 4.3 g/dL (3.5-5.0); Alkaline Phosphatase 75 U/L (39-117); Aspartate Amino Transferase 19 U/L (5-31); Bilirubin Total 0.3 mg/dL (0.0-1.0); Blood Urea Nitrogen 16 mg/dL (9-16); Calcium 9.5 mg/dL (8.4-10.2); Cholesterol 194 mg/dL (<200); Estimated Glomerular Filt Rate > 60; Glucose Fasting 92 mg/dL (60-99); HDL Cholesterol 37 mg/dL (>40); Iron 73 mcg/dL (30-160); LDL Cholesterol Calculated 140 mg/dL (<100); Percent Iron Saturation 28 % (15-50); Total Iron Binding Capacity 258 mcg/dL (228-428); Total Protein 7.6 g/dL (6.5-8.0); Triglycerides 88 mg/dL (<150); Unsaturated Iron Binding 185 ug/dL
[2024-06-29 12:12] LABS: Anion Gap 12 (12-20)
[2024-06-29 12:49] LABS: Sodium 140 mmol/L (135-145)
[2024-06-29 12:50] LABS: Carbon Dioxide 29 mmol/L (22-29); Chloride 102 mmol/L (96-108)
[2024-06-29 13:15] LABS: Potassium 2.9 mmol/L (3.3-5.1)
== END 2024-06-29 10:37 | disposition home or self-care (01) ==
LOC: HO.LNP 10:36
PROVIDERS: Visit Provider Internal Medicine
DX: Z00.00 Encounter for general adult medical examination without abnormal findings (principal); I10 Essential (primary) hypertension; E61.1 Iron deficiency
CPT/HCPCS: 80053; 80061; 83540; 85025

== ENCOUNTER 2024-07-02 11:03 | Outpatient (REF) | payer OTHER, SELFPAY ==
[2024-07-02 11:34] LABS: Appearance Urine Cloudy; Color Urine Dark Yellow; Glucose Urine UA Negative (Negative); Leukocyte Esterase Urine Negative (Negative); Nitrite Urine Negative (Negative); PH 5.5 (5.0-9.0); Specific Gravity - Urine >= 1.030 (1.005-1.025); Urine Blood Negative (Negative); Urine Ketones Negative (Negative); Urine Protein Trace mg/dL (Neg-Trace)
[2024-07-02 11:41] LABS: Bacteria Urine 2+ (None Seen); Hyaline Casts Urine 0-2 /LPF (0-2); RBC Urine 0-2 /HPF (0-2); UACC Culture Trigger YES
[2024-07-02 11:52] LABS: Potassium 3.1 mmol/L (3.3-5.1)
== END 2024-07-02 11:04 | disposition home or self-care (01) ==
LOC: HO.LNP 11:03
PROVIDERS: Visit Provider Internal Medicine
DX: E87.6 Hypokalemia (principal); I10 Essential (primary) hypertension; R82.90 Unspecified abnormal findings in urine
CPT/HCPCS: 81001; 84132; 87086

== ENCOUNTER 2024-07-09 08:30 | Outpatient (REF) | payer OTHER, SELFPAY ==
[2024-07-09 11:37] LABS: Potassium 3.8 mmol/L (3.3-5.1)
== END 2024-07-09 08:31 | disposition home or self-care (01) ==
LOC: HO.LNP 08:30
PROVIDERS: Visit Provider Internal Medicine
DX: E87.6 Hypokalemia (principal)
CPT/HCPCS: 84132

== ENCOUNTER 2024-07-16 10:43 | Outpatient (REF) | payer OTHER, SELFPAY ==
[2024-07-16 11:33] LABS: Potassium 3.2 mmol/L (3.3-5.1)
--- OUTSIDE RECORDS SUMMARY | 2024-07-16 12:19 | XMS_ITS ---
Author Organization Goran Harman MD Address [address] [place] [phone] Care Team Providers Care Education Rep Name Role Phone Goran Harman Primary Care Provider Results Component Value Reference Range Notes Potassium (Not yet reviewed by provider) Interpretation: Performing Lab:[facility], [address] [place] [phone] Notes/Report: Potassium 3.2 3.3-5.1 mmol/L REASON FOR VISIT potassium Encounters Encounter Location Date Provider Diagnosis Goran Harman MD [address] [place] [address] [place] [id number] 07/16/2024 Goran Harman Acute hypokalemia E87.6 Assessments Encounter Date Diagnosis (ICD Code) Assessment Notes Treatment Notes Treatment Clinical Notes Section Notes 07/16/2024 Acute hypokalemia (ICD-10 - E87.6) Plan Of Treatment Pending Test Test Name Order Date Potassium 07/16/2024 Next Appt Details Provider Name:Goran Washburn ier, 07/26/2024 11:00:00 AM, [address] [place] [address], Suite [facility], [place], [place], [phone], Progress Notes * Boaz MELENDEZB:1985 (38 yo F)Acc No.[id number]:07/16/2024 Progress Note Patient:?Renetta MELENDEZ Provider:?Goran Harman MD :1985???Age:38 Y???Sex:Female D ate:07/16/2024 Address:[address] [place] [address] [id number] Subjective: * Chief Complaints: * ???1. Potassium. * Medical History:? Objective: * Vitals:? Assessment: * Assessment: 1.?Acute hypokalemia - E87.6 ??? Plan: * Treatment: * * The named appointment provid er may or may not be the originator of this progress note, and it is not deemed complete until electronically signed by the appointment provider. Sign off status: Pending * Provider:?Goran Harman MD Date:?0 07/16/2024 Generated for Trish levine/Martir/Angelicaitting on:?07/16/2024 12:19 PM EST
--- OUTSIDE RECORDS SUMMARY | 2024-07-16 12:19 | XMS_ITS | Encounter Summary ---
Author Organization [facility] Address [address] [place] [address] Care Team Providers Care Production Recorder Name Role Phone Saundra Mathew MD Primary Care Provider Unava ilable Encounter Details Date Type Department Care Team Description 11/10/2014 Release of Information Medical Records [address] [place] [id number] Abstract, Provider Social History Tobacco Use Types Packs/Day Years Used Date Smoking Tobacco: Former Cigarettes 0.5 Q uit: 03/31/2012 Smokeless Tobacco: Never Alcohol Use Standard Drinks/Week Comments Yes 3.3 (1 standard drink = 0.6 oz p ure alcohol) rarely Sex Assigned at Date Recorded Female 07/12/2019 2:[address] Job Start Date Occupation Industry Not on file Not on file Not on file documented as of this encounter Plan of Treatment Not on file documented as of this encounter Visit Diagnoses Not on filedocumented in this encounter Care Teams Production Recorder Relationship Specialty Start Date End Date Saundra Mathew MD PCP - General Internal Medicine 07/08/14 documented as of this encounter
--- OUTSIDE RECORDS SUMMARY | 2024-07-16 12:20 | XMS_ITS | Encounter Summary ---
Author Organization [facility] Address [address] [place] [address] Care Team Providers Care Room Service Food Service Attendant Name Role Phone Saundra Mathew MD Primary Care Provider Unava ilable Reason for Referral * Non LAQUITA (Priority) - Authorized/Booked Specialty Diagnoses / Procedures Referred By Ting alston Referred To Contact Cardiology Procedures REFERRAL TO CARDIOLOGY Cooper Zamudio PA-C [address] [place] [address] [address] [address] Referral ID Status Reason Start Date Expiration Date V isits Requested Visits Authorized [id number] Authorized/B ooked 03/25/2018 03/25/2019 1 1 Encounter Details Date Type Department Care Team Description 03/25/2018 Orders Only Medicine/Pediatrics - [address] [phone] Cooper Zamudio PA-C Social History Tobacco Use Types Packs/Day Years Used Date Smoking Tobacco: Former Cigarettes 0.5 Q uit: 03/31/2012 Smokeless Tobacco: Never Alcohol Use Standard Drinks/Week Comments Yes 3.3 (1 standard drink = 0.6 oz p ure alcohol) occ Sex Assigned at Date Recorded Female 07/12/2019 2:[address] Job Start Date Occupation Industry Not on file Not on file Not on file documented as of this encounter Plan of Treatment Not on file documented as of this encounter Visit Diagnoses Not on filedocumented in this encounter Care Teams Room Service Food Service Attendant Relationship Specialty Start Date End Date Saundra Mathew MD PCP - General Internal Medicine 07/08/14 documented as of this encounter
--- OUTSIDE RECORDS SUMMARY | 2024-07-16 12:20 | XMS_ITS | Encounter Summary ---
Author Organization [facility] [employer] [facility] Address [address] [place] [address] Care Team Providers Care Cotton Presser Name Role Phone Saundra Mathew MD Primary Care Provider Unava ilable Reason for Referral * EXTERNAL (Routine) - Authorized/Booked Specialty Diagnoses / Procedures Referred By Ting alston Referred To Contact Neurology Procedures REFERRAL TO NEUROLOGY Chelsi Rodriguez PA-C [address] [place] [id number] [facility] [address], [address] [place] [address] Referral ID Status Reason Start Date Expiration Date V isits Requested Visits Authorized SEE NOTE Authorized/B ooked 10/05/2018 01/04/2019 1 1 Encounter Details Date Type Department Care Team Description 10/05/2018 Orders Only Medicine/Pediatrics - [address] [phone] Chelsi Rodriguez PA-C Arachnoid cyst (Primary Dx); Mass of pineal region Social History Tobacco Use Types Packs/Day Years [...] documented as of this encounter Visit Diagnoses Diagnosis Arachnoid cyst- Primary Cerebral cysts Mass of pineal region documented in this encounter Care Teams Cotton Presser Relationship Specialty Start Date End Date Saundra Mathew MD PCP - General Internal Medicine 07/08/14 documented as of this encounter
--- OUTSIDE RECORDS SUMMARY | 2024-07-16 12:20 | XMS_ITS | Encounter Summary ---
Author Organization [facility] Address [address] [place] [address] Care Team Providers Care College Athletic Director Name Role Phone Saundra Mathew MD Primary Care Provider Unava ilable Reason for Visit * Reason Onset Date Comments My Chart Appointment 07/12/2019 Encounter Details Date Type Department Care Team Description 07/12/2019 Telephone Medicine/Pediatrics - [address] [phone] Saundra Mathew MD My Chart Appointment Social History Tobacco Use Types Packs/Day Years [...] on file documented as of this encounter Miscellaneous Notes * Telephone Encounter - Alyssa Levin - 07/12/2019 4:54 PM EST Pt returned call Awaiting call back * Telephone Encounter - Kierra Farrell R.N. - 07/12/2019 3:01 PM EST Left message to call. My chart message also sent * Telephone Encounter - Alyssa Levin - 07/12/2019 2:10 PM EST Patient has scheduled a visit through My Chart. Please call patient to triage for appropriateness. Date appointment is booked: 07-14-19 Appointment scheduled with Cooper Zamudio Reason for appointment: I have had my period for three weeks with heavy bleeding and I feel very weak. I am already anemic and am concerned. My period is not consistent so having a longer period is somewhat normal, but the amount of heaving bleeding is concerning. documented in this encounter Plan of Treatment Not on file documented as of this encounter Visit Diagnoses Not on filedocumented in this encounter Care Teams College Athletic Director Relationship Specialty Start Date End Date Saundra Mathew MD PCP - General Internal Medicine 07/08/14 documented as of this encounter
--- OUTSIDE RECORDS SUMMARY | 2024-07-16 12:20 | XMS_ITS ---
Author Organization Goran Harman MD Address [address] [place] [id number] Care Team Providers Care Drug Abuse Resistance Education Officer Name Role Phone Goran Harman Primary Care Provider Results Component Value Reference Range Notes Potassium Reviewed date:07/05/2024 01:09:27 PM Interpretation: Performing Lab:[facility], [address] [place] [id number] Notes/Report: Potassium 3.6 3.3-5.1 mmol/L REASON FOR VISIT potassium Encounters Encounter Location Date Provider Diagnosis Goran Harman MD [address] [place] [address] [place] [phone] 07/05/2024 Goran Harman Hypokalemia E87.6 Assessments Encounter Date Diagnosis (ICD Code) Assessment Notes Treatment Notes Treatment Clinical Notes Section Notes 07/05/2024 Hypokalemia (ICD-10 - E87.6) Plan Of Treatment Next Appt Details Provider Name:Goran Washburn ier, 07/26/2024 11:00:00 AM, [address] [place] [address], Suite [facility], [place], [place], [phone], Progress Notes * Boaz MELENDEZB:1985 (38 yo F)Acc No.[id number]:07/05/2024 Progress Note Patient:?Renetta MELENDEZ Provider:?Goran Harman MD :1985???Age:38 Y???Sex:Female D ate:07/05/2024 Address:[address] [place] [address] [id number] Subjective: * Chief Complaints: * ???1. Potassium. * Medical History:? Objective: * Vitals:? Assessment: * Assessment: 1.?Hypokalemia - E87.6 (Prim kamla)??? Plan: * Treatment: * Procedure Codes:?69757 VENIP UNCT, ROUTINE* * * The named appointment provid er may or may not be the originator of this progress note, and it is not deemed complete until electronically signed by the appointment provider. Sign off status: Pending * Provider:?Goran Harman MD Date:?0 07/05/2024 Generated for Trish levine/Martir/Angelicaitting on:?07/16/2024 12:19 PM EST
--- OUTSIDE RECORDS SUMMARY | 2024-07-16 12:20 | XMS_ITS | Encounter Summary ---
Author Organization [facility] Address [address] [place] [address] Care Team Providers Care Pocket Builder Name Role Phone Saundra Mathew MD Primary Care Provider Unava ilable Encounter Details Date Type Department Care Team Description 03/23/2018 Orders Only Medical Records [address] [place] [id number] Cooper Zamudio PA-C Social History Tobacco Use [...] on file documented as of this encounter Procedures Procedure Name Priority Date/Time Associated Diagnosis Comments OUTSIDE HOLTER MONITOR Routine 03/17/2018 documented in this encounter Results * OUTSIDE HOLTER MONITOR (03/17/2018) Cooper Zamudio PA-C CARDIOLOGY documented in this encounter Visit Diagnoses Not on filedocumented in this encounter Care Teams Pocket Builder Relationship Specialty Start Date End Date Saundra Mathew MD PCP - General Internal Medicine 07/08/14 documented as of this encounter
--- OUTSIDE RECORDS SUMMARY | 2024-07-16 12:20 | XMS_ITS | Encounter Summary ---
Author Organization [facility] Address [address] [place] [address] Care Team Providers Care Business Intelligence Director Name Role Phone Saundra Mathew MD Primary Care Provider Unava ilable Encounter Details Date Type Department Care Team Description 06/24/2015 Telephone Adult Medicine - [address] [address] [place]-Anushka Mahoney MD Social History Tobacco Use Types Packs/Day Years [...] encounter Miscellaneous Notes * Telephone Encounter - Cooper Zamudio PA-C - 06/26/2015 12:55 PM EST Thanks for the fyi * Telephone Encounter - Saundra Mathew MD - 06/26/2015 12:18 PM EST Noted. Msg has already been sent to Cooper. * Telephone Encounter - Anushka Mancuso MD - 06/26/2015 9:44 AM EST Cooper- Looks like this patient is seeing you today. 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 Pt was there for palpitations. She had sx in the Er that were found to be PVCs that were not concerning. However, she did have prolonged QTc at 499. She also had significant anemia- Hct of 29. She has heavy menses and currently has menses. ER checked a rectal exam that was positive but they were not sure if this could have been false. They are discharg ing the patient and wanted to be sure we had the info for follow up. I told him I would send the info to PCP but asked that he give her the EKG, labs and notes and have her call the office in the morning to schedule follow up with her PCP in the next few days. documented in this encounter Plan of Treatment Not on file documented as of this encounter Visit Diagnoses Not on filedocumented in this encounter Care Teams Business Intelligence Director Relationship Specialty Start Date End Date Saundra Mathew MD PCP - General Internal Medicine 07/08/14 documented as of this encounter
--- OUTSIDE RECORDS SUMMARY | 2024-07-16 12:20 | XMS_ITS | Encounter Summary ---
Author Organization [facility] Address [address] [place] [address] Care Team Providers Care Web Production Assistant Name Role Phone Saundra Mathew MD Primary Care Provider Unava ilable Reason for Visit * Reason Onset Date Comments Orders Call 06/22/2015 Echo order expir ed Encounter Details Date Type Department Care Team Description 06/22/2015 Telephone Medicine/Pediatrics - [address] [phone] Saundra Mathew MD Orders Call (Echo order ) Social History Tobacco Use Types Packs/Day Years [...] encounter Miscellaneous Notes * Telephone Encounter - Dana Toledo M.A. - 06/22/2015 1:25 PM EST Message left for patient to return my call. Echo order extended as requested. * Telephone Encounter - Irais Sampson - 06/22/2015 1:10 PM EST Pt calling re: Echo order - see encounter 11/08/14 Pt would like new order placed since current one has Please place order and call pt when it has been completed documented in this encounter Plan of Treatment Not on file documented as of this encounter Visit Diagnoses Not on filedocumented in this encounter Care Teams Web Production Assistant Relationship Specialty Start Date End Date Saundra Mathew MD PCP - General Internal Medicine 07/08/14 documented as of this encounter
--- OUTSIDE RECORDS SUMMARY | 2024-07-16 12:20 | XMS_ITS | Encounter Summary ---
Author Organization [facility] [employer] [facility] Address [address] [place] [address] Care Team Providers Care Speaking Unit Assembler Name Role Phone Saundra Mathew MD Primary Care Provider Unava ilable Encounter Details Date Type Department Care Team Description 09/26/2015 Orders Only Medicine/Pediatrics - [address] [phone] Cooper Zamudio PA-C Social History Tobacco Use [...] on filedocumented in this encounter Care Teams Speaking Unit Assembler Relationship Specialty Start Date End Date Saundra Mathew MD PCP - General Internal Medicine 07/08/14 documented as of this encounter
--- OUTSIDE RECORDS SUMMARY | 2024-07-16 12:20 | XMS_ITS | Encounter Summary ---
Author Organization [facility] Address [address] [place] [address] Care Team Providers Care Impregnator Helper Name Role Phone Saundra Mathew MD Primary Care Provider Unava ilable Encounter Details Date Type Department Care Team Description 09/19/2015 Hospital Medical Records [address] [place] [address] Michael Oviedo MD Social History Tobacco Use Types Packs/Day [...] on filedocumented in this encounter Care Teams Impregnator Helper Relationship Specialty Start Date End Date Saundra Mathew MD PCP - General Internal Medicine 07/08/14 documented as of this encounter
--- OUTSIDE RECORDS SUMMARY | 2024-07-16 12:20 | XMS_ITS | Encounter Summary ---
Author Organization [facility] Address [address] [place] [address] Care Team Providers Care Knit Goods Mender Name Role Phone Saundra Mathew MD Primary Care Provider Unava ilable Encounter Details Date Type Department Care Team Description 10/21/2023 Orders Only OBGYN - [place] [address] [place] [address] Myriam Guevara DO Family history of breast cancer in female-Pt myRisk negative 10/20/2017; Tyrer-Cuzick Score = 28.0% = high risk. Start annual screening mammo and breast MRI age 35. Social History Tobacco Use Types Packs/Day Years [...] Procedure Name Priority Date/Time Associated Diagnosis Comments CHG MRI BREAST WITHOUT&WITH CONTRAST W/CAD BILATERAL Routine 2023 Family history of breast cancer in female-Pt myRisk negative 10/20/2017; Tyrer-Cuzick Score = 28.0% = high risk. Start annual screening mammo and breast MRI age 35. documented in this encounter Results * CHG MRI BREAST WITHOUT&WITH CONTRAST W/CAD BILATERAL (2023) Myriam Guevara DO MRI documented in this encounter Visit Diagnoses Diagnosis Family history of breast cancer in female-Pt myRisk negative 10/20/2017; Tyrer- Cuzick Score = 28.0% = high risk. Start annual screening mammo and breast MRI age 35. Family history of malignant neoplasm of breast documented in this encounter Care Teams Knit Goods Mender Relationship Specialty Start Date End Date Saundra Mathew MD PCP - General Internal Medicine 07/08/14 documented as of this encounter
--- OUTSIDE RECORDS SUMMARY | 2024-07-16 12:20 | XMS_ITS | Clinical Summary ---
Author Organization [facility] Address [address] [place] [address] Care Team Providers Care Marketing Secretary Name Role Phone Saundra Mathew MD Primary Care Provider [phone]- [phone] Surgical History Surgery Date Site/Laterality Comments TONSILLECTOMY PROCEDURE: HISTORICAL TONSILLECTOMY OTHER SURGICAL HISTORY 703208 PROCEDURE: CO DILATION & CURETTAGE DX&/THER NONOBSTETRIC OTHER SURGICAL HISTORY 933812 PROCEDURE: HYSTEROSCOPY, DIAGNOSTIC; COMMENT: polypectomy Medical History Medical History Date Comments Family history of hypertroph ic cardiomyopathy DX:Family history of hypertr ophic cardiomyopathy Depression with anxiety DX:Depre ssion with anxiety Endometrial polyp DX:Endometrial polyp Covid-19 DX:COVID-19 Family History Medical History Relation Name Comments Heart failure Father Breast cancer Father's side paternal aunt Heart attack Father's side Stroke Father's side Other: kidney cancer Maternal Grandmother Breast cancer Mother's side 1 maternal au nt Ovarian cancer Mother's side 2 maternal g reat aunt Other: lung cancer Paternal Grandfather s moker Lung cancer Paternal Grandmother smoker Breast cancer Sister 1 Colon cancer Neg Hx Prostate cancer Neg Hx Relation Name Status Comments Brother Alive 1,healthy Father (Age 54) ?HOCM, HTN , alcohol Father's side Alive aunt - bresat ca Maternal Grandfather Maternal Grandmother Mother Alive HTN, depression , anxiety Mother's side 1 Alive Mother's side 2 Paternal Grandfather Paternal Grandmother Sister 1 Alive asthma Sister 2 Alive pt's identical twin Social History Tobacco Use Types Packs/Day Years Used Date Smoking Tobacco: Former Cigarettes Q uit: 03/31/2012 Smokeless Tobacco: Never Alcohol Use Standard Drinks/Week Comments Yes 3.3 (1 standard drink = 0.6 oz p ure alcohol) Sex and Gender Information Value Date Recorded Sex Assigned at Not on file Gender Identity Not on file Sexual Orientation Not on file Obstetrics History Plan of Treatment Upcoming Encounters Date Type Department Care Team ([facility] Contact Info) Description 12/01/2024 3:50 PM EDT Appointment Radiology Department [address] [phone] Health Maintenance Due Date Last Done Comments Hepatitis B Vaccines (1 of 3 - 19+ 3-dose series) 2004 Cholesterol Screening (Lipid Panel) 05/26/2022 Depression Screening 05/26/2022 HIV Screening 05/26/2022 Hepatitis C Screening 05/26/2022 Social Influencers of Health Screening 05/26/2022 COVID-19 Vaccine (1 - 2023-2 5 season) 2024 Influenza Vaccine (#1) 2024 DTaP,Tdap,and Td Vaccines (2 - Td or Tdap) 07/16/2024 07/16/2014 Breast Cancer Screening 11/19/2024 11/20/19, 11/20/2023, 06/28/2020 Cervical Cancer Screening: P ap Smear 08/07/2026 08/07/2023 HIB Vaccines Aged Out No longer eligi ble based on patient's age to complete this topic HPV Vaccines Aged Out No longer eligi ble based on patient's age to complete this topic Hepatitis A Vaccines Aged Out No long er eligible based on patient's age to complete this topic IPV Vaccines Aged Out No longer eligi ble based on patient's age to complete this topic MMR Vaccines Aged Out No longer eligi ble based on patient's age to complete this topic Meningococcal ACWY Vaccine Aged Out N o longer eligible based on patient's age to complete this topic Pneumococcal Vaccine: Pediatrics (0 to 5 Years) and At-Risk Patients (6 to 64 Years) Aged Out No longer eligible b ased on patient's age to complete this topic RSV Immunization Patients Under 20 months Aged Out No longer eligible b ased on patient's age to complete this topic Varicella Vaccines Aged Out No longer eligible based on patient's age to complete this topic Procedures Procedure Name Priority Date/Time Associated Diagnosis Comments SCR MAMMO BI INCL CAD Routine 11/20/2023 4:19 PM EDT Family history of malignant neoplasm of breast PAP SMEAR Routine 08/07/2023 from Last 3 Months or Most Recently Relevant to Health Maintenance Results * SCR MAMMO BI INCL CAD (11/20/2023 4:19 PM EDT) Anatomical Region Laterality Modality Radiographic Johanne ging 08/07/2023 2:50 PM EST Narrative 11/21/2023 4:28 PM EDT This is a summary report. The complete report is available in the patient's medical record. If you cannot access the medical record, please contact the sending organization for a detailed fax or copy. Full field digital screening 2D C views and tomosynthesis mammography, reviewed with CAD and compared to previous. The breast tissue is heterogeneously dense, limiting sensitivity. No suspicious mass, architectural distortion or suspicious calcifications are identified. IMPRESSION: : Dense breast tissue, limiting the sensitivity of mammography. No mammographic evidence of malignancy. BIRADS 1-Negative; N. 5 year breast cancer risk assessment 0.9 % Lifetime breast cancer risk assessment 19.0 % Breast cancer risk category Moderate (15% - 20%) Procedure Note Brandee Sanchez MD - 05/17/2024 This is a summary report. The complete report is available in thepatient's medical record. If you cannot access the medical record, pleasecontact the sending organization for a detailed fax or copy. Full field digital screening 2D C views and tomosynthesis mammography,reviewed with CAD and compared to previous. The breast tissue isheterogeneously dense, limiting sensitivity. No suspicious mass,architectural distortion or suspicious calcifications are identified. IMPRESSION: : Dense breast tissue, limiting the sensitivity of mammography. Nomammographic evidence of malignancy. BIRADS 1-Negative; N. 5 year breast cancer risk assessment 0.9 % Lifetime breast cancer risk assessment 19.0 % Breast cancer risk category Moderate (15% - 20%) Myriam Guevara DO IMG XR PROCEDURES * Pap smear (08/07/2023) 08/07/2023 Narrative HISTORICAL TESTING LAB RESULTING AGENCY - 08/18/2023 6:36 AM EST [id number] THINPREP PAP, IMAGED: NEGATIVE FOR SQUAMOUS INTRAEPITHELIAL LESION AND MALIGNANCY . ABUNDANT RED BLOOD CELLS ARE PRESENT. JOSE BLAIR(ASCP) (CASE ELECTRONICALLY SIGNED 08 16 2023) RESULT OF APTIMA HIGH RISK HPV ASSAY: HIGH RISK HPV: ??NEGATIVE (SEROTYPES 16,18,31,33,35,39,45,51,52,56,58,59,66,68) COMPLETED ON 2023-08-11 ADEQUACY: SATISFACTORY ENDOCERVICAL/TRANSFORMATION ZONE COMPONENT PRESENT. SOURCE: THINPREP PAP HPV ANY DX: ??REFLEX 16 AND 18, CERVICAL, IMAGED CLINICAL INFORMATION: HPV ANY DIAGNOSIS. HORMONES, PAP HX NEGATIVE, [[id number]] Myriam Guevara DO LAB CYTOLOGY ORDERAB LES HISTORICAL TESTING LAB RESULTING AGENCY from Last 3 Months or Most Recently Relevant to Health Maintenance Care Teams Marketing Secretary Relationship Specialty Start Date End Date Saundra Mathew MD PCP - General Internal Medicine 07/08/14
--- OUTSIDE RECORDS SUMMARY | 2024-07-16 12:20 | XMS_ITS | Patient Health Record ---
Author Organization Goran Harman MD Address [address] [place], [place] [id number] Care Team Providers Care Charge Gang Weigher Name Role Phone GhazalAbrahamn Primary Care Provider [phone] Allergies No Known Allergies Results Component Value Reference Range Notes SARS-CoV2/FLU/RSV Reviewed date:09/18/2023 04:56:04 PM Interpretation: Performing Lab:[facility], [address] [place] [phone] Notes/Report: Influenza A PCR NEGATIVE Negative Influenza [...] by authorized laboratories. Testing performed on the [employer] GeneXpert utilizing real-time RT-PCR. All SARS CoV2 and positive influenza A/B results are reported to [facility]. UA ClnCatch+Micro w/rflx Cul t Reviewed date:10/03/2023 03:03:40 PM Interpretation: Performing Lab:[facility], [address] [place] [phone] Notes/Report: Urine, Clean Catch Color Urine Yellow Appearance Urine Cloudy PH 5.5 5.0-9.0 Glucose Urine UA Negative Negative mg/dL Urine Blood Negative Negative Specific Lerna - Urine 1.020 1.005-1.025 Urine Protein Negative Neg-Trace mg/dL Urine Ketones Negative Negative mg/dL Nitrite Urine Negative Negative Leukocyte Esterase Urine Negative Negative RBC Urine 0-2 0-2 /HPF WBC Urine 0-5 0-5 /HPF Squamous Epithelial Cell Urine 3-5 0-2 /HPF Bacteria Urine None Seen None Seen Hyaline Casts Urine 0-2 0-2 /LPF Troponin-I High Sensitivity Reviewed date:06/20/2024 04:56:35 PM Interpretation: Performing Lab:[facility], [address] [place] [phone] Notes/Report: Troponin-I High Sensitivity 5.7 <3.5-17.0 ng/L The [place]olley high sensitivity Troponin-I results should be used in conjunction with other diagnostic information such as ECG, clinical observations and information, and patient symptoms to aid in the diagnosis of ME. David Ford Reviewed date:06/29/2024 10:55:05 AM Interpretation: Performing Lab:[facility], [address] [place] [phone] Notes/Report: David Ford See Note Specimen held untested for 24 hours; Call to request Chemistry testing. Complete Blood Count Auto Di ff Reviewed date:06/29/2024 12:39:39 PM Interpretation: Performing Lab:[facility], [address] [place] [phone] Notes/Report: White Blood Count 6.9 4.8-10.8 X10*3/uL [...] NRBC Abs Auto 0.000 0.0-0.012 X10*3/uL Comprehensive [place]. Panel Fa st Reviewed date:06/29/2024 04:24:01 PM Interpretation: Performing Lab:[facility], [address] [place] [phone] Notes/Report: Sodium 140 135-145 mmol/L Potassium 2.9 3.3-5.1 mmol/L Critical value for test(s): POTS Results called to and read back by: NICK Lazo Person calling: YANIV Date:06/29/24 Time: 1314 Test was verified by repeat analysis. Chloride 102 96-108 mmol/L Carbon Dioxide 29 22-29 mmol/L Anion Gap 12 12-20 Blood Urea Nitrogen 16 9-16 mg/dL Creatinine 0.85 0.5-1.4 mg/dL Estimated Glomerular Filt Rate > 60 Chronic Kidney Disease: Estimated GFR < 60 mL/min/1.73m2 Severe Kidney Disease: Estimated GFR < 15 mL/min/1.73m2 Glucose Fasting 92 60-99 mg/dL Calcium 9.5 8.4-10.2 mg/dL Bilirubin Total 0.3 0.0-1.0 mg/dL Aspartate Amino Transferase 19 5-31 U/L Alanine Aminotransferase 17 0-31 U/L Total Protein 7.6 6.5-8.0 g/dL Albumin Level 4.3 3.5-5.0 g/dL Alkaline Phosphatase 75 39-117 U/L IRON PROFILE Reviewed date:06/29/2024 04:24:31 PM Interpretation: Performing Lab:[address] [phone] Notes/Report: Iron 73 30-160 mcg/dL Total Iron Binding Capacity 258 228-428 mcg/dL Percent Iron Saturation 28 15-50 % Unsaturated Iron Binding 185 Lipid Panel Reviewed date:06/29/2024 04:23:25 PM Interpretation: Performing Lab:[address] [phone] Notes/Report: Triglycerides 88 <150 mg/dL Desirable Triglyceride: less than 150 mg/dL Borderline High Triglyceride 150-199 mg/dL High Triglyceride: 200-499 mg/dL Very High Triglyceride: greater than or equal to 5OO mg/dL Cholesterol 194 <200 mg/dL Desirable Cholesterol: less than 200 mg/dL Borderline High Cholesterol: 200-239 mg/dL High Cholesterol: greater than 239 mg/dL LDL Cholesterol Calculated 140 <100 mg/dL Desirable LDL: less than 100 mg/dL Near Optimal/Above Optimal LDL: 110-129 mg/dL Borderline High LDL: 130-159 mg/dL High LDL: 160-189 mg/dL Very High LDL: greater than or equal to 190 mg/dL HDL Cholesterol 37 >40 mg/dL Desirable HDL: greater than 40 mg/dL Note: This HDL assay may give artificially low results in patients with liver disease. Urine Culture Reviewed date:07/04/2024 03:05:09 PM Interpretation: Performing Lab:[address] [phone] Notes/Report: Urine Culture Report Result Urine Culture > 100,000 cfu/ml Urine Culture Mixed bacterial paras a characteristic of Urine Culture urogenital contamination. Potassium Reviewed date:07/02/2024 12:50:14 PM Interpretation: Performing Lab:[address] [phone] Notes/Report: Potassium 3.1 3.3-5.1 mmol/L UA ClnCatch+Micro w/rflx Cul t Reviewed date:07/02/2024 05:16:48 PM Interpretation: Performing Lab:[address] [place] [phone] Notes/Report: Urine, Clean Catch Color Urine Dark Yellow Appearance Urine Cloudy PH 5.5 5.0-9.0 Glucose Urine UA Negative Negative mg/dL Urine Blood Negative Negative Specific Lerna - Urine >= 1.030 1.005-1.025 Urine Protein Trace Neg-Trace mg/dL Urine Ketones Negative Negative mg/dL Nitrite Urine Negative Negative Leukocyte Esterase Urine Negative Negative RBC Urine 0-2 0-2 /HPF WBC Urine 6-10 0-5 /HPF Squamous Epithelial Cell Urine 11-20 0-2 /HPF Bacteria Urine 2+ None Seen Hyaline Casts Urine 0-2 0-2 /LPF Potassium Reviewed date:07/05/2024 01:09:27 PM Interpretation: Performing Lab:[address] [phone] Notes/Report: Potassium 3.6 3.3-5.1 mmol/L Potassium Reviewed date:07/09/2024 02:11:26 PM Interpretation: Performing Lab:[address] [phone] Notes/Report: Potassium 3.8 3.3-5.1 mmol/L Potassium (Not yet reviewed by provider) Interpretation: Performing Lab:[address] [phone] Notes/Report: Potassium 3.2 3.3-5.1 mmol/L Reason For Referral No Information Medications Medication SIG (Take, Route, Frequency, Duration) Notes Start Date End Date Status Eliquis 5 MG 1 tablet Orally Twic a day for 90 days Active Sertraline HCl 50 MG TAKE 1 TABLET BY [facility] EVERY DAY for 30 Active Valsartan-hydroCHLOROthi azide [...] Once a day for 30 day(s) Not-Taking Immunizations Vaccine Route Administration Date Status Comme nts SARS-COV-2 Pfizer Unknown 06/29/2020 Administered SARS-COV-2 Pfizer Unknown 07/20/2020 Administered SARS-COV-2 Pfizer Unknown 04/12/2021 Administered Fluarix Quadrivalent - 150 Unknown 07/04/2023 Refused Social History Tobacco Use: Social History Observation Description Date Details (start date - stop date) Former Smoker NA - NA Tobacco Use/Smoking Question Answer Notes Patient is a former smoker How long has it been since y ou last smoked? > 10 years Additional Findings: Tobacco Non-User Fo rmer smoker, currently using no form of tobacco Alcohol Screen Question Answer Notes Did you have a drink containing alcohol in the p ast year? No Points 0 Interpretation Negative Section Notes: No alcohol x 60 days No alcohol x 60 days no alco hol x 5 months No alcohol x 60 days no alco hol x 5 months no alcohol since 05-13-22 No alcohol x 60 days no alco hol x 5 months no alcohol since 05-13-22 Problems Problem Type SNOMED Code ICD Code Onset Dates Problem Status W/U Status Risk Notes Problem Hypokalemia (46182517) Hypokalemia (E87.6) Active confirmed Problem Depression (722516970) Depression (F32.9) Active confirmed Problem 16160251 Anxiety (F41.9) Active confirmed Problem 576782828 Paroxysmal atrial fibrillation (I48.0) Active confirmed Problem Iron deficiency (19710835) Iron deficiency (E61.1) Active confirmed Problem Essential hypertension (98088244) Essential hypertension (I10) Active confirmed Problem Anxiety disorder (193573148) Anxiety disorder (F41.9) Active confirmed Problem 22025686 Alcohol abuse (F10.10) Active confirmed Problem Family history of breast cancer (670020690) Family history of breast cancer (Z80.3) Active confirmed Problem PCO (polycystic ovaries) (E28.2) Active confirmed Vital Signs Heart Rate 70 /min 04/12/2024 Blood pressure diastolic 70 mm Hg 06/29/2024 humble ght is down 21 pounds since 05-04-24 Height 67.5 in 06/29/2024 weight is down 21 pounds since 05-04-24 Blood pressure systolic 122 mm Hg 06/29/2024 humbleg ht is down 21 pounds since 05-04-24 Weight 332 lbs 06/29/2024 weight is down 21 pounds since 05-04-24 BMI 51.23 kg/m2 06/29/2024 weight is down 21 pounds since 05-04-24 Encounters Encounter Location Date Provider Diagnosis Goran Harman MD [address] [place] [id number] 09/02/2023 Goran Harman Hematuria, unspecified type R31.9 Goran Harman MD [address] [place] [address] [id number] 06/29/2024 Goran Harman Blood tests for routine general physical examination Z00.00 ; Essential hypertension I10 and Iron deficiency E61.1 Goran Harman MD [address] [place] [id number] 07/02/2024 Goran Harman Hypokalemia E87.6 an d Essential hypertension I10 Goran Harman MD [address] [place] [id number] 07/05/2024 Goran Harman Hypokalemia E87.6 Goran Harman MD [address] [place] [address] [id number] 07/09/2024 Goran Harman Hypokalemia E87.6 Goran Harman MD [address] [place] [address] [id number] 07/16/2024 Goran Harman Acute hypokalemia E87.6 Goran Harman MD [address] [place] [id number] 07/28/2023 Goran Harman Acute COVID-19 U07.1 Goran Harman MD [address] [place] [address] [id number] 09/18/2023 Goran Harman Acute viral syndrome B34.9 Goran Harman MD [address] [place] [address] [id number] 12/19/2023 Goran Harman Athlete's foot, left B35.3 and Acute cellulitis L03.90 Goran Harman MD [address] [place] [address] [id number] 12/30/2023 Goran Harman Athlete's foot, left B35.3 ; Acute cellulitis L03.90 ; Essential hypertension I10 and Skin rash R21 Goran Harman MD [address] [place] [id number] 04/12/2024 Goran Harman Paroxysmal atrial fibrillation I48.0 and Anxiety F41.9 Goran Harman MD [address] [place] [address] [id number] 05/04/2024 Goran Harman Paroxysmal atrial fibrillation I48.0 and Unintended weight gain R63.5 Goran Harman MD [address] [place] [address] [id number] 06/29/2024 Goran Harman Acute hypokalemia E87.6 and Paroxysmal atrial fibrillation I48.0 Goran Harman MD [address] [place] [address] [id number] 06/24/2024 Goran Harman MD [address] [place] [address] [id number] 06/29/2024 Goran Harman Assessments Encounter Date Diagnosis (ICD Code) Assessment Notes Treatment Notes Treatment Clinical Notes Section Notes 09/02/2023 Hematuria, unspecified type (ICD-10 - R31.9) 06/29/2024 Blood tests for routine general physical examination (ICD-10 - Z00.00) 06/29/2024 Essential hypertension (ICD-10 - I10) 07/05/2024 Hypokalemia (ICD-10 - E87.6) 07/09/2024 Hypokalemia (ICD-10 - E87.6) 07/16/2024 Acute hypokalemia (ICD-10 - E87.6) 07/28/2023 Acute COVID-19 (ICD-10 - U07.1) at present is starting to get better so will not use paxlovid 09/18/2023 Acute viral syndrome (ICD-10 - B34.9) order faxed to [facility] Patient reg. all the cultures negative. but symptoms are so like the flu and she is surrounded by multiple people with the flu will treat 12/19/2023 Athlete's foot, left (ICD-10 - B35.3) to use tinactin, patient verbalized understanding of medication and directions for use 12/19/2023 Acute cellulitis (ICD-10 - L03.90) patient verbalized understanding of medication and directions for use 12/30/2023 Athlete's foot, left (ICD-10 - B35.3) to use antifungal 12/30/2023 Acute cellulitis (ICD-10 - L03.90) has resolved 04/12/2024 Paroxysmal atrial fibrillation (ICD-10 - I48.0) 04/12/2024 Anxiety (ICD-10 - F41.9) patient verbalized understanding of medication and directions for use 05/04/2024 Paroxysmal atrial fibrillation (ICD-10 - I48.0) 05/04/2024 Unintended weight gain (ICD-10 - R63.5) advised weight watcher 06/29/2024 Acute hypokalemia (ICD-10 - E87.6) patient verbalized understanding of medication and directions for use, Total time spent on the date of the encounter is 35 minutes including both face to face time spent and time spent reviewing documentation, and counseling the patient. 06/29/2024 Paroxysmal atrial fibrillation (ICD-10 - I48.0) has resolved had hypokalemia which may have precipitated it, but was vomiting hard as well, will continue to monitor 06/29/2024 Iron deficiency (ICD-10 - E61.1) 07/02/2024 Hypokalemia (ICD-10 - E87.6) 12/30/2023 Essential hypertension (ICD-10 - I10) is slightly high 07/02/2024 Essential hypertension (ICD-10 - I10) 12/30/2023 Skin rash (ICD-10 - R21) was there before the antibiotics and was able to maintain the antibiotics so although it got worse not likely to be a reaction to the antibiotics Plan Of Treatment Pending Test Test Name Order Date UA ClnCatch+Micro w/rflx Cult 06/29/2024 Potassium 07/16/2024 Next Appt Details Provider Name:Goran cronin, 07/26/2024 11:00:00 AM, [address], [address], [place], [place], [phone], Insurance Providers Payer Name Payer Address Payer Phone Subscriber Number Group Number Insured Name Patient Relationship to Insured Coverage Start Date Coverage End Date [employer] Plan Administrators [address] [place] [id number] Renetta Melendez Self - patient is the insured 2 Medical (General) History Medical History History ICD Code had episode of afib when she was drinkin g
--- OUTSIDE RECORDS SUMMARY | 2024-07-16 12:20 | XMS_ITS | Clinical Summary ---
Author Organization [facility] Address [address] [place] [address] Care Team Providers Care Technical Services Assistant Name Role Phone Saundra Mathew MD Primary Care Provider Unava ilable Allergies Active Allergy Reactions Severity Noted Date Comments Bee Stings Swelling/Edema 11/03/2008 Medications Medication Sig Dispensed Refills Start Date End Date Status Ferrous Sulfate (IRON) 325 (65 FE) MG Tab Take by mouth daily. 0 Active [place]-3 Fatty Acids (FISH OIL OR) Take by mouth daily. 0 Active Vitamin D, Cholecalciferol, 1000 UNITS Cap Take 2,000 Units by mouth. 0 Active ibuprofen (ADVIL,MOTRIN) 800 MG tablet Take 1 Tab by mouth every 8 hours as needed for Pain for up to 30 days. 30 Tab 0 09/18/2018 Active VALSARTAN OR Take 12 mg by mouth. 0 Active sertraline (ZOLOFT) 50 MG tablet Take 1 Tablet by mouth daily. 0 Active dilTIAZem HCl (MATZIM LA OR) Take 360 mg by mouth. 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 Start annual screening mammo and breast MRI age 35. 08/15/2017 Overview: Monthly breast self-exam Breast self-awareness Breast and pelvic exams annual pelvic exam; clinical breast exam every 6-12 mos. Mammography annually start screening at age 35 MRI of breast annually start screening at age 35 ?? Palpitations 11/13/2010 Overview: 2007 echo and holter ok 12/3120-jdma-ymzpm stevan 2010-Exercise stress test without anginal symptoms or EKG changes meeting criteria for ischemia, with a normotensive response to exercise. Patient exercised to a 8.6 MET workload and 82% of the maximal age-predicted heart rate. Accuracy of test for determination of ischemia slightly decreased due to patients inability to achieve 85% of MPHR. Report reviewed with Dr. Latif. Anxiety associated with depression 06/12 Sleep disorder 06/12/2009 Obesity 08/04/2008 Overview: Previous pcp dr mccollum 08/29 nrmal echo Family history of hypertrophic cardiomyo amari Immunizations Name Administration Dates Next Due TD (STATE SUPPLIED FOR ADULTS AND CHILDREN) 06/24 Family History Medical History Relation Name Comments CHF Father CA Breast Father's side paternal aunt NE Father's side Stroke Father's side kidney cancer Maternal Grandmother CA Breast Mother's side 1 maternal aun t CA Ovarian Mother's side 2 maternal gre at aunt lung cancer Paternal Grandfather smoker Cancer of the Lung Paternal Grandmother s moker CA Breast Sister 1 CA Colon Negative Hx CA Prostate Negative Hx Relation Name Status Comments Brother Alive [...] file Not on file Not on file Last Filed Vital Signs Vital Sign Reading Time Taken Comments Blood Pressure 120/74 11/14/2020 2:49 PM EDT Pulse 91 02/11/2020 1:31 PM EDT Temperature 36.8 ??C (98.2 ??F) 02/11/2020 1:31 PM ED T Respiratory Rate 14 02/11/2020 1:31 PM EDT Oxygen Saturation 99% 05/25/2009 9:23 AM EST Inhaled Oxygen Concentration - - Weight 132 kg (291 lb) 11/14/2020 2:49 PM EDT Height 172.7 cm (5' 8 ) 11/14/2020 2:49 PM EDT Body Mass Index 44.25 11/14/2020 2:49 PM EDT Plan of Treatment Health Maintenance Due Date Last Done Comments Covid-19 Vaccine (#1) 04/18/1986 DTAP/TDAP/TD (1 - Tdap) 07/17/2014 07/16/2014 INFLUENZA (#1) 2024 BMI CHECK/ADVISE 06/23/2024 08/07/2023, , 02/11/2020, Additional history exists Breast Cancer High Risk??Screening??(Annual Breast MRI) 10/16/2024 2023 BASELINE HEALTH EXAM 18-39 06/24/202506/24, 02/11/2020, 02/27/2018, Additional history exists CHOLESTEROL SCREENING 06/24/2025 06/24/2020 , 02/27/2018, 12/31/2016, Additional history exists CERVICAL CANCER SCREENING 08/07/20262023, 08/15/2017, 11/01/2010, Additional history exists PNEUMOCOCCAL VACCINE FOR HIG H RISK PATIENTS (#1) 2050 Care Teams Technical Services Assistant Relationship Specialty Start Date End Date Saundra Mathew MD PCP - General Internal Medicine 07/08/14
--- OUTSIDE RECORDS SUMMARY | 2024-07-16 12:20 | XMS_ITS ---
Author Organization Goran Harman MD Address [address] [place] [phone] Care Team Providers Care Filter Press Supervisor Name Role Phone Goran Harman Primary Care Provider [phone] Results Component Value Reference Range Notes Potassium Reviewed date:07/09/2024 02:11:26 PM Interpretation: Performing Lab:[facility], [address] [place] [phone] Notes/Report: Potassium 3.8 3.3-5.1 mmol/L REASON FOR VISIT Potassium Encounters Encounter Location Date Provider Diagnosis Goran Harman MD [address] [place] [address] [place] [id number] 07/09/2024 Goran Harman Hypokalemia E87.6 Assessments Encounter Date Diagnosis (ICD Code) Assessment Notes Treatment Notes Treatment Clinical Notes Section Notes 07/09/2024 Hypokalemia (ICD-10 - E87.6) Plan Of Treatment Next Appt Details Provider Name:Goran Washburn ier, 07/26/2024 11:00:00 AM, [address] [place] [address], Suite [facility], [place], [place], [phone], Progress Notes * Boaz MELENDEZB:1985 (38 yo F)Acc No.[id number]:07/09/2024 Progress Note Patient:?Renetta MELENDEZ Provider:?Goran Harman MD :1985???Age:38 Y???Sex:Female D ate:07/09/2024 Address:[address] [place] [address] [id number] Subjective: * Chief Complaints: * ???1. Potassium. * Medical History:? Objective: * Vitals:? Assessment: * Assessment: 1.?Hypokalemia - E87.6 (Prim kamla)??? Plan: * Treatment: * Procedure Codes:?43925 VENIP UNCT, ROUTINE* * * The named appointment provid er may or may not be the originator of this progress note, and it is not deemed complete until electronically signed by the appointment provider. Sign off status: Pending * Provider:?Goran Harman MD Date:?0 07/09/2024 Generated for Trish levine/Martir/Angelicaitting on:?07/16/2024 12:20 PM EST
== END 2024-07-16 10:44 | disposition home or self-care (01) ==
LOC: HO.LNP 10:43
PROVIDERS: Visit Provider Internal Medicine
DX: E87.6 Hypokalemia (principal)
CPT/HCPCS: 84132

== ENCOUNTER 2024-07-23 10:49 | Outpatient (REF) | payer OTHER, SELFPAY ==
[2024-07-23 11:22] LABS: Potassium 3.3 mmol/L (3.3-5.1)
--- OUTSIDE RECORDS SUMMARY | 2024-07-23 11:36 | XMS_ITS | Clinical Summary ---
[facility] Organization [facility] Address [address] [place] [address] Care Team Providers Care Supervisor [place] Name Role Phone Saundra Mathew MD Primary Care Provider [phone] Surgical History Surgery Date Site/Laterality Comments TONSILLECTOMY PROCEDURE: HISTORICAL TONSILLECTOMY OTHER SURGICAL HISTORY [id number] PROCEDURE: VT DILATION & CURETTAGE DX&/THER NONOBSTETRIC OTHER SURGICAL HISTORY 499615 PROCEDURE: HYSTEROSCOPY, DIAGNOSTIC; COMMENT: polypectomy Medical History [...] Upcoming Encounters Date Type Department Care Team ([facility] Contact Info) Description 12/01/2024 3:50 PM EDT Appointment Radiology Department [address] [phone] Health Maintenance Due Date Last Done Comments [...] RESULTING AGENCY - 08/18/2023 6:36 AM EST [id number] THINPREP PAP, IMAGED: NEGATIVE FOR SQUAMOUS INTRAEPITHELIAL [...] Recently Relevant to Health Maintenance Care Teams Supervisor [place] Relationship Specialty Start Date End Date Saundra Mathew MD PCP - General Internal Medicine 07/08/14
== END 2024-07-23 10:50 | disposition home or self-care (01) ==
LOC: HO.LNP 10:49
PROVIDERS: Visit Provider Internal Medicine
DX: E87.6 Hypokalemia (principal)
CPT/HCPCS: 84132

== ENCOUNTER 2024-08-03 10:35 | Outpatient (AMB) | payer OTHER, SELFPAY ==
[2024-08-03 10:39] VITALS: BP 114/66; PULSE 100; BMI 53.2
--- NOTE | 2024-08-03 10:39 | MHC.OFFVIS ---
Vital Signs 08/03/24 10:39 Height 5 ft 6 in Weight 329 lb 5.93 oz BMI 53.2 BP 114/66 Blood Pressure Location Rt brachial Position Sitting Pulse 100 Pulse Source Pulse Oximeter Intake Visit Reasons: [facility] [place] ed fu / afib Scholastic Aptitude Test Grader Required: No Accompanied by: Self / Same As Patient Allergies bee pollen [bee stings] Allergy (Verified 06/19/24 22:20) Anaphylaxis Medication List - Last Reviewed 08/03/24 by Briana Sullivan CMA alprazolam (Xanax) 0.25 mg PO DAILY PRN apixaban (Eliquis) 5 mg PO BID 30 days diltiazem HCl CD 360 mg PO DAILY 30 days diphenhydramine HCl 25 mg PO TID PRN ferrous sulfate 325 mg PO DAILY folic acid 1 mg PO DAILY potassium chloride ER 10 mEq PO DAILY semaglutide (weight loss) 0.75 mg subcut QWEEK sertraline 1 tab PO DAILY thiamine mononitrate (vit B1) 100 mg PO DAILY valsartan-hydrochlorothiazide 160-12.5 mg 1 tab PO DAILY HPI Comments Details: Renetta returns for follow-up. Last seen in 2021. At that time, she was hospitalized for palpitations and diagnosed with atrial fibrillation. She was put on diltiazem/Eliquis. She was supposed to be followed up in clinic but not seen till today. She states that as she felt well, she had stopped the diltiazem and Eliquis. Also apparently she was drinking a lot of alcohol, almost daily and she stopped that as well. Hence she felt that she would be fine without any issues but she developed atrial fibrillation rapid rate and led to ER visit. At that time, she was put back on the medications. Then another episode of atrial fibrillation in the context of hypokalemia. Now on potassium replacement. She states that otherwise she feels fine. She does not get any symptoms like angina or shortness of breath. She is trying to lose weight with semaglutide. On meds for hypertension. Not a known diabetic. No vascular disease history. [facility] Medical History Morbid obesity Essential hypertension Anxiety HTN (hypertension) Family History (Updated 08/03/24 @ 10:43 by Briana Sullivan CMA) Father Enlarged heart Mother HTN (hypertension) Social History (Updated 08/03/24 @ 10:43 by Briana Sullivan CMA) Household Members: Spouse Housing: House Do you presently have visiting nurse or other home services: No Alcohol intake: former Patient Tobacco Use Status: Never used Tobacco Substance Use Type: Marijuana service: No Review of Systems Const Denies chills, Denies fatigue, Denies fever(s), Denies weight gain and Denies weight loss ENT Denies dizziness Card Denies chest pain, Denies leg edema, Denies lightheadedness, Denies palpitations, Denies dyspnea on exertion, Denies orthopnea and Denies other Resp Denies cough and Denies dyspnea on exertion GI Denies hematochezia and Denies change in stool character Musc Denies abnormal gait, Denies muscle weakness, Denies numbness, Denies radiating pain into limb and Denies tingling Neuro Denies abnormal gait, Denies dizziness, Denies numbness and Denies tingling Endo Denies fatigue and Denies palpitations Physical Exam Vital Signs: Last Vital Signs Pulse 100 08/03/24 10:39 BP 114/66 08/03/24 10:39 BMI result Body Mass Index 53.2 Const General: comfortable and no acute distress Orientation/consciousness: patient oriented x3 HEENT Other: Unremarkable Head: Yes normal to inspection Neck Neck: Yes normal visual inspection Chest Chest palpation & inspection: normal inspection of the chest Resp Auscultation: clear to auscultation bilaterally Cardio Palpation: normal PMI Heart sounds: S1 normal heart sound present, S2 normal heart sound present, no gallops, no murmurs and no rubs GI Palpation (GI): Soft to palpation Back/Spine/Pelvis Other: unremarkable Skin General skin exam: no rashes or lesions noted Neuro General: patient oriented x3 Extrem General: Yes normal to inspection Psych Mental Status: mental status grossly normal Assessment & Plan Assessment & Plan (1) PAF (paroxysmal atrial fibrillation): Code(s): I48.0 - Paroxysmal atrial fibrillation Category: Medical Plan: She has had 3 episodes in the last 3 years-initial episode probably related to excessive alcohol use; more recent episodes related to not being on medication and hypokalemia. It may be preferable to just keep her on diltiazem long-term. With regard to Eliquis, if no recurring episodes, could stop it as she has a low thromboembolic risk. Mean provoking factor for her would be obesity and she is already trying to lose weight. That would help a lot. She has stopped drinking completely. Check Holter monitor. Echocardiogram from 2021 shows hyperdynamic LVEF. Sleep study negative for sleep apnea. (2) Morbid obesity: Code(s): E66.01 - Morbid (severe) obesity due to excess calories Category: Medical Plan: On semaglutide. Per patient, has lost about 20+ lb weight. Hopefully, she can continue to lose weight. (3) Essential hypertension: Code(s): I10 - Essential (primary) hypertension Category: Medical Plan: On valsartan/hydrochlorothiazide. (4) Hypokalemia: Code(s): E87.6 - Hypokalemia Category: Medical Plan: On replacement potassium. Orders: Orders ECG 7 day holter monitor Today I48.91 - Unspecified atrial fibrillation Medications: Discontinued apixaban (Eliquis) Discontinued Reason: Duplicate 5 mg PO BID 60 tabs 0RF diltiazem HCl CD (Cardizem CD) Discontinued Reason: Duplicate 360 mg See Protocol PO DAILY 30 caps 0RF Coding Level of Care Code Est Pt Level 4 (28924) Complex EM visit Add On G2211 Diagnoses PAF (paroxysmal atrial fibrillation) I48.0 Morbid obesity E66.01 Essential hypertension I10 Hypokalemia E87.6
== END 2024-08-03 11:06 | disposition home or self-care (01) ==
PROVIDERS: Visit Provider Internal Medicine
DX: I48.0 Paroxysmal atrial fibrillation (principal); E66.01 Morbid (severe) obesity due to excess calories; I10 Essential (primary) hypertension; E87.6 Hypokalemia
CPT/HCPCS: 99214; G2211

== ENCOUNTER → 2024-08-03 10:35 | Outpatient (BNVA) | payer OTHER, SELFPAY | PROVIDERS: Visit Provider Internal Medicine ==

== ENCOUNTER 2024-08-06 15:03 | Outpatient (REF) | payer OTHER, SELFPAY ==
--- OUTSIDE RECORDS SUMMARY | 2024-08-06 15:13 | XMS_ITS | Patient Health Record ---
Author Organization Goran Harman MD Address [address] [place], [place] [id number] Care Team Providers Care Flight Software Test Engineer Name Role Phone GhazalAbrahamn Primary Care Provider Allergies No Known Allergies Results Component Value Reference Range Notes SARS-CoV2/FLU/RSV Reviewed date:09/18/2023 04:56:04 PM Interpretation: Performing Lab:[facility], [address] [place] [phone] Notes/Report: Influenza A PCR NEGATIVE Negative Influenza [...] by authorized laboratories. Testing performed on the [employer] GeneXpert utilizing real-time RT-PCR. All SARS CoV2 and positive influenza A/B results are reported to [facility]. UA ClnCatch+Micro w/rflx Cul t Reviewed date:10/03/2023 03:03:40 PM Interpretation: Performing Lab:[facility], [address] [place] [phone] Notes/Report: Urine, Clean Catch Color Urine Yellow Appearance Urine Cloudy PH 5.5 5.0-9.0 Glucose Urine UA Negative Negative mg/dL Urine Blood Negative Negative Specific [place] - Urine 1.020 1.005-1.025 Urine Protein Negative Neg-Trace mg/dL Urine Ketones Negative Negative mg/dL Nitrite Urine Negative Negative Leukocyte Esterase Urine Negative Negative RBC Urine 0-2 0-2 /HPF WBC Urine 0-5 0-5 /HPF Squamous Epithelial Cell Urine 3-5 0-2 /HPF Bacteria Urine None Seen None Seen Hyaline Casts Urine 0-2 0-2 /LPF Troponin-I High Sensitivity Reviewed date:06/20/2024 04:56:35 PM Interpretation: Performing Lab:[facility], [address] [place] [phone] Notes/Report: Troponin-I High Sensitivity 5.7 <3.5-17.0 ng/L The [place] high sensitivity Troponin-I results should be used in conjunction with other diagnostic information such as ECG, clinical observations and information, and patient symptoms to aid in the diagnosis of ND. David Ford Reviewed date:06/29/2024 10:55:05 AM Interpretation: Performing Lab:[facility], [address] [place] [phone] Notes/Report: David Ford See Note Specimen held untested for 24 hours; Call to request Chemistry testing. Complete Blood Count Auto Di ff Reviewed date:06/29/2024 12:39:39 PM Interpretation: Performing Lab:[facility], [address] [place] [phone] Notes/Report: White Blood Count 6.9 4.8-10.8 X10*3/uL [...] NRBC Abs Auto 0.000 0.0-0.012 X10*3/uL Comprehensive [place]. Panel Fa st Reviewed date:06/29/2024 04:24:01 PM Interpretation: Performing Lab:[facility], [address] [place] [phone] Notes/Report: Sodium 140 135-145 mmol/L Potassium 2.9 3.3-5.1 mmol/L Critical value for test(s): POTS Results called to and read back by: INCK Lazo Person calling: YANIV Date:06/29/24 Time: 1314 [...] PROFILE Reviewed date:06/29/2024 04:24:31 PM Interpretation: Performing Lab:[address] [phone] Notes/Report: Iron 73 30-160 mcg/dL Total Iron Binding Capacity 258 228-428 mcg/dL Percent Iron Saturation 28 15-50 % Unsaturated Iron Binding 185 Lipid Panel Reviewed date:06/29/2024 04:23:25 PM Interpretation: Performing Lab:[address] [phone] Notes/Report: Triglycerides 88 <150 mg/dL Desirable Triglyceride: [...] Culture Reviewed date:07/04/2024 03:05:09 PM Interpretation: Performing Lab:[address] [phone] Notes/Report: Urine Culture Report Result Urine Culture > 100,000 cfu/ml Urine Culture Mixed bacterial paras a characteristic of Urine Culture urogenital contamination. Potassium Reviewed date:07/02/2024 12:50:14 PM Interpretation: Performing Lab:[address] [phone] Notes/Report: Potassium 3.1 3.3-5.1 mmol/L UA ClnCatch+Micro w/rflx Cul t Reviewed date:07/02/2024 05:16:48 PM Interpretation: Performing Lab:[address] [place] [phone] Notes/Report: Urine, Clean Catch Color Urine Dark Yellow Appearance Urine Cloudy PH 5.5 5.0-9.0 Glucose Urine UA Negative Negative mg/dL Urine Blood Negative Negative Specific [place] - Urine >= 1.030 1.005-1.025 Urine Protein Trace Neg-Trace mg/dL Urine Ketones Negative Negative mg/dL Nitrite Urine Negative Negative Leukocyte Esterase Urine Negative Negative RBC Urine 0-2 0-2 /HPF WBC Urine 6-10 0-5 /HPF Squamous Epithelial Cell Urine 11-20 0-2 /HPF Bacteria Urine 2+ None Seen Hyaline Casts Urine 0-2 0-2 /LPF Potassium Reviewed date:07/05/2024 01:09:27 PM Interpretation: Performing Lab:[address] [phone] Notes/Report: Potassium 3.6 3.3-5.1 mmol/L Potassium Reviewed date:07/09/2024 02:11:26 PM Interpretation: Performing Lab:[address] [phone] Notes/Report: Potassium 3.8 3.3-5.1 mmol/L Potassium Reviewed date:07/16/2024 01:24:48 PM Interpretation: Performing Lab:[address] [phone] Notes/Report: Potassium 3.2 3.3-5.1 mmol/L Potassium Reviewed date:07/23/2024 01:00:00 PM Interpretation: Performing Lab:[address] [phone] Notes/Report: Potassium 3.3 3.3-5.1 mmol/L Reason For Referral No Information Medications Medication SIG (Take, Route, Frequency, Duration) Notes Start Date End Date Status Semaglutide(0.25 or 0.5MG/DOS) 2 MG/3ML taking 1.25mg Subcutaneous Active Folic Acid 1 MG 1 tablet Orally Once a day for 30 day(s) Active Vitamin B-1 100 MG 1 tablet Orally Once a day for 30 day(s) Active Ferrous Sulfate 325 (65 Fe) MG 1 tablet Orally Once a day Active Eliquis 5 MG 1 tablet Orally Twic e a day for 90 days Active Sertraline HCl 50 MG TAKE 1 TABLET BY MO [facility] EVERY DAY for 30 Active dilTIAZem HCl ER 360 MG 1 [...] a day for 30 days 06/29/2024 Active Valsartan 160 MG 1 tablet Orally Once a day for 90 days 08/06/2024 Active Vitamin D 25 MCG (1000 UT) [...] Status W/U Status Risk Notes Problem Hypokalemia (96146317) Hypokalemia (E87.6) Active confirmed Problem Depression (556792750) Depression (F32.9) Active confirmed Problem [id number] Anxiety (F41.9) Active confirmed Problem 665140544 Paroxysmal atrial fibrillation (I48.0) Active confirmed Problem Iron deficiency (82312674) Iron deficiency (E61.1) Active confirmed Problem Essential hypertension (85851073) Essential hypertension (I10) Active confirmed Problem Anxiety disorder (482817121) Anxiety disorder (F41.9) Active confirmed Problem 67593579 Alcohol abuse (F10.10) Active confirmed Problem Family history of breast cancer (454419400) Family history of breast cancer (Z80.3) Active confirmed Problem PCO (polycystic ovaries) (E28.2) Active confirmed Vital Signs Heart Rate 70 /min 04/12/2024 Blood pressure diastolic 82 mm Hg 08/06/2024 humble ght is down 7 pounds since 06-29-24 Height 67.5 in 08/06/2024 weight is down 7 pounds since 06-29-24 Blood pressure systolic 128 mm Hg 08/06/2024 weig ht is down 7 pounds since 06-29-24 Weight 325 lbs 08/06/2024 weight is down 7 pounds since 06-29-24 BMI 50.15 kg/m2 08/06/2024 weight is down 7 pounds since 06-29-24 Encounters Encounter Location Date Provider Diagnosis Goran Harman MD [address] [place] [id number] 09/02/2023 Goran Harman Hematuria, unspecified type R31.9 Goran Harman MD [address] [place] [address] [id number] 06/29/2024 Goran Harman Blood tests for routine general physical examination Z00.00 ; Essential hypertension I10 and Iron deficiency E61.1 Goran Harman MD [address] [place] [id number] 07/02/2024 Goran Harman Hypokalemia E87.6 an d Essential hypertension I10 Goran Harman MD [address] [place] [address] [id number] 07/05/2024 Goran Harman Hypokalemia E87.6 Goran Harman MD [address] [place] [address] [id number] 07/09/2024 Goran Harman Hypokalemia E87.6 Goran Harman MD [address] [place] [address] [id number] 07/16/2024 Goran Harman Acute hypokalemia E87.6 Goran Harman MD [address] [place] [address] [id number] 07/23/2024 Goran Harman Hypokalemia E87.6 Goran Harman MD [address] [place] [address] [id number] 08/06/2024 Goran Harman Hypokalemia E87.6 ; Annual physical exam Z00.00 ; Essential hypertension I10 ; Paroxysmal atrial fibrillation I48.0 and Iron deficiency E61.1 Goran Harman MD [address] [place] [address] [id number] 09/18/2023 Goran Harman Acute viral syndrome B34.9 Goran Harman MD [address] [place] [address] [id number] 12/19/2023 Goran Demetraer Athlete's foot, left B35.3 and Acute cellulitis L03.90 Goran Harman MD [address] [place] [address] [id number] 12/30/2023 Goran Harman Athlete's foot, left B35.3 ; Acute cellulitis L03.90 ; Essential hypertension I10 and Skin rash R21 Goran Harman MD [address] [place] [address] [id number] 04/12/2024 Goran Harman Paroxysmal atrial fibrillation I48.0 and Anxiety F41.9 Goran Harman MD [address] [place] [address] [id number] 05/04/2024 Goran Harman Paroxysmal atrial fibrillation I48.0 and Unintended weight gain R63.5 Goran Harman MD [address] [place] [address] [id number] 06/29/2024 Goran Harman Acute hypokalemia E87.6 and Paroxysmal atrial fibrillation I48.0 Goran Harman MD [address] [place] [address] [id number] 07/20/2024 Goran Harman MD [address] [place] [address] [id number] 06/24/2024 Goran Harman MD [address] [place] [address] [id number] 06/29/2024 Goran Harman MD [address] [place] [address] [id number] 08/03/2024 Goran Harman Paroxysmal atrial fibrillation I48.0 Assessments Encounter Date Diagnosis (ICD Code) Assessment Notes Treatment Notes Treatment Clinical Notes Section Notes 09/02/2023 Hematuria, unspecified type (ICD-10 - R31.9) 06/29/2024 Blood tests for routine general physical examination (ICD-10 - Z00.00) 06/29/2024 Essential hypertension (ICD-10 - I10) 07/05/2024 Hypokalemia (ICD-10 - E87.6) 07/09/2024 Hypokalemia (ICD-10 - E87.6) 07/16/2024 Acute hypokalemia (ICD-10 - E87.6) 07/23/2024 Hypokalemia (ICD-10 - E87.6) 08/06/2024 Hypokalemia (ICD-10 - E87.6) hopefully with valsartan without hctz won't need potassium replacement, will continue to monitor 08/06/2024 Annual physical exam (ICD-10 - Z00.00) labs reviewed and discussed with patient 09/18/2023 Acute viral syndrome (ICD-10 - B34.9) order faxed to [facility] Patient reg. all the cultures negative. but [...] hard as well, will continue to monitor 08/03/2024 Paroxysmal atrial fibrillation (ICD-10 - I48.0) 06/29/2024 Iron deficiency (ICD-10 - E61.1) 07/02/2024 Hypokalemia (ICD-10 - E87.6) 08/06/2024 Essential hypertension (ICD-10 - I10) will try to treat with valsartan without hctz, will cntinue to monitor 12/30/2023 Essential hypertension (ICD-10 - I10) is slightly high 07/02/2024 Essential hypertension (ICD-10 - I10) 08/06/2024 Paroxysmal atrial fibrillation (ICD-10 - I48.0) stable, will continue current regiment 12/30/2023 Skin rash (ICD-10 - R21) was there before the antibiotics and was able to maintain the antibiotics so although it got worse not likely to be a reaction to the antibiotics 08/06/2024 Iron deficiency (ICD-10 - E61.1) stable, doing well, will continue current regiment Plan Of Treatment Pending Test Test Name Order Date Potassium 08/06/2024 UA ClnCatch+Micro w/rflx Cult 06/29/2024 Next Appt Details Provider Name:Goran cronin, 08/27/2024 07:00:00 AM, [address] [place] [address], [address], [place], [place], [phone], Provider Name:Gorna cronin, 10/05/2024 08:30:00 AM, [address] [place] [address], [address], [place], [place], [phone], Insurance Providers Payer Name Payer Address Payer Phone Subscriber Number Group Number Insured Name Patient Relationship to Insured Coverage Start Date Coverage End Date [employer] [address] [place] [id number] Renetta Melendez Self - patient is the insured 2 Medical (General) History Medical History History ICD Code had episode of afib when she was drinkin g
--- OUTSIDE RECORDS SUMMARY | 2024-08-06 15:13 | XMS_ITS ---
Author Organization Goran Harman MD Address [address] [place], [place] [id number] Care Team Providers Care Leather Stamper Name Role Phone Goran Harman Primary Care Provider Allergies No Known Allergies REASON FOR VISIT ANNUAL EXAM, Repeat Potassium [...] HCl 50 MG TAKE 1 TABLET BY [facility] EVERY DAY for 30 Active Social History [...] kg/m2 08/06/2024 weight is down 7 [facility] 06[facility]29-24 Encounters Encounter Location Date Provider Diagnosis Goran Harman MD [address] [place] [address] [address] [place], [place] [phone] 08/06/2024 Goran Harman Hypokalemia E87.6 ; Annual [...] stable, doing well, will continue current regiment Pending Test Test Name Order Date Potassium 08/06/2024 Future Test Test Name Order Date Potassium 08/27/2024 Next Appt Details Follow Up: 2 Months, Reason: Provider Name:Goran Washburn ier, 08/27/2024 07:00:00 AM, [address] [place] [address], [address], [place], [place], [phone], Provider Name:Goran Washburn ier, 10/05/2024 08:30:00 AM, [address] [facility], [address], [place], [place], [phone], Progress Notes * Reina MELENDEZaDOB:1985 (38 yo F)Acc No.[id number]:08/06/2024 Progress Notes Patient:?Renetta MELENDEZ Provider:?Goran Harman MD :1985???Age:38 Y???Sex:Female D ate:08/06/2024 Address:[address] [place], [place] [phone] Subjective: * Chief Complaints: * ???1. ANNUAL EXAM. 2. Repeat Potassium. * HPI: ???Depression Screening:?PHQ-9?Little interest or pleasure in doing things?Not at all,?Feeling down, depressed, or hopeless?Not at all,?Trouble falling or staying asleep, or sleeping too much?Not at all,?Feeling tired or having little energy?Not at all,?Poor appetite or overeating?Not at all,?Feeling bad about yourself or that you are a failure, or have let yourself or your family down?Not at all,?Trouble concentrating on things, such as reading the newspaper or watching television?Not at all,?Moving or speaking so slowly that other people could have noticed; or the opposite, being so fidgety or restless that you have been moving around a lot more than usual?Not at all,?Thoughts that you would be better off or of hurting yourself in some way?Not at all,?Total Score?0.?Interpretation and Intervention?Depression Screening Findings?Negative,?Follow-Up for Depression?: review of PHQ-9 found negative result, no follow-up needed.?Communication Needs:?Communication Needs?Does the patient have a hearing impairment?No,?Does the patient have a vision impairment??Yes,?If yes, what is the vision impairment??Glasses,?Does the patient have a cognition impairment??No.?SDOH Questions:?SDOH Questions?In the past year have you been worried about losing housing??No,?In the past year have you or any family members you live with been unable to get any of the following when it was really needed? Check all that apply:?None.?Symptom(s):? patient is a 38 yo female here for annual visit with review of recent labs and follow up of chronic issues, is on glp1. * ROS:?General/Constitutional:?Patient denies?fatigue, headache.?Change in appetite?denies.?Chills?denies.?Fever?denies.?Ophthalmologic:?Blurred vision?denies.?Discharge?denies.?Pain?denies.?ENT:?Patient denies?decreased sense of smell, any loss of taste, sore throat.?Decreased hearing?denies.?Sore throat?denies.?Swollen glands?denies.?Endocrine:?Cold intolerance?denies.?Excessive thirst?denies.?Heat intolerance?denies.?Weight loss?denies.?Respiratory:?Cough?denies.?Shortness of breath at rest?denies.?Shortness of breath with exertion?denies.?Wheezing?denies.?Cardiovascular:?Chest pain at rest?denies.?Chest pain with exertion?denies.?Irregular heartbeat?denies.?Shortness of breath?denies.?Gastrointestinal:?Abdominal pain?denies.?Change in bowel habits?denies.?Diarrhea?denies.?Nausea?denies.?Rectal bleeding?denies.?Vomiting?denies .?Genitourinary:?Blood in urine?denies.?Difficulty urinating?denies.?Frequent urination?denies.?Urinary incontinence?Denies.?Musculoskeletal:?Patient denies?muscle aches.?Painful joints?denies.?Weakness?denies.?Peripheral Vascular:?Patient denies?red and blue toes.?Skin:?Dry skin?denies.?Itching?denies.?Denies?Mole(s),? changes in moles, new moles or any lesions of concern.?Denies?Photosensitivity.?Rash?denies.?Neurologic:?Dizziness?denies.?Fainting?denies.?Headache?denies.? * Medical History:?Had episode of afib when she was drinking. * Family History:?Father: dece ased 64 yrs.?Mother: alive 64 yrs.?1 brother(s) , 2 sister(s) . 1 son(s) . .? Fater- Cardiac Mother- Healthy Father Alcoholic sister alcoholic 1 sister with breast cancer maternal aunt breast cancer paternal aunt breast cancer maternal great aunt ovarian cancer, Denies mental health/substance abuse family history. * Social History:?Tobacco Use:?Tobacco Use/Smoking?Patient is a?former smoker,?How long has it been since you last smoked??> 10 years,?Additional Findings: Tobacco Non-User?Former smoker, currently using no form of tobacco.?Drugs/Alcohol:?Alcohol Screen?Did you have a drink containing alcohol in the past year??No,?Points?0,?Interpretation?Negative.?Miscellaneous:?Caffeine: no. Children: no. Exercise: yes, walk 45 monutes once a week. Home smoke detector use: yes. Housing: owning. Living with: spouse. Marital status: . Occupation: weeks/months/years, works full-time. Travel outside of the [place]: no. ???No alcohol x 60 days no alcohol x 5 months no alcohol since 05-13-22. * Medications:?Taking Semaglut santo(0.25 or 0.5MG/DOS) 2 MG/3ML Solution Pen- injector taking 1.25mg Subcutaneous , Taking Vitamin B-1 100 MG Tablet 1 tablet Orally Once a day , Taking Folic Acid 1 MG Tablet 1 tablet Orally Once a day , Taking Ferrous Sulfate 325 (65 Fe) MG Tablet 1 tablet Orally Once a day , Taking Valsartan-hydroCHLOROthiazide 160-12.5 MG Tablet TAKE 1 TABLET BY MOUTH EVERY DAY , Taking Sertraline HCl 50 MG Tablet TAKE 1 TABLET BY MOUTH EVERY DAY , Taking Eliquis 5 MG Tablet 1 tablet Orally Twice a day , Taking hydrOXYzine HCl 50 MG Tablet 1 tablet as needed Orally Once a day , Taking dilTIAZem HCl ER 360 MG Tablet Extended Release 24 Hour 1 tablet Orally Once a day , Taking Potassium Chloride ER 10 MEQ Tablet Extended Release 1 tablet with food Orally Once a day , Not-Taking/PRN hydrOXYzine HCl 10 MG Tablet 1 tablet as needed Orally Once a day , Not- Taking/PRN Vitamin D 25 MCG (1000 UT) Tablet 1 tablet Orally Once a day , Medication List reviewed and reconciled with the patient * Allergies:?N.K.D.A. Objective: * Vitals:?Ht: 67.5, Wt: 325, B KY:50.15, BP:128/82, Wt-k.42. weight is down 7 pounds since 06-29-24. * ???Past Orders: ???Lab:Lipid Panel (Order Da te - 06/29/2024) (Collection Date & Time - 06/29/2024 08:00 AM) ? Value Reference Range ?Triglycerides 88 <150 - mg/dL ?Cholesterol 194 <200 - m g/dL ?LDL Cholesterol Calculated 140 H <100 - mg/dL ?HDL Cholesterol 37 L >40 - mg/dL ???Lab:IRON PROFILE (Order D ate - 06/29/2024) (Collection Date & Time - 06/29/2024 08:00 AM) ? Value Reference Range ?Iron 73 30-160 - mcg/dL ?Total Iron Binding Capacity 258 228-428 - mcg/dL ?Percent Iron Saturation 28 15-50 - % ?Unsaturated Iron Binding 185 - ug/dL ???Lab:Comprehensive [place]. P ludmila Fast (Order Date - 06/29/2024) (Collection Date & Time - 06/29/2024 08:00 AM) ? Value Reference Range ?Sodium 140 135-145 - mmo l/L ?Bilirubin Total 0.3 0.0- 1.0 - mg/dL ?Aspartate Amino Transferase 19 5-31 - U/L ?Alanine Aminotransferase 17 0-31 - U/L ?Total Protein 7.6 6.5-8. 0 - g/dL ?Albumin Level 4.3 3.5-5. 0 - g/dL ?Alkaline Phosphatase 75 39-117 - U/L ?Potassium 2.9 LL 3.3-5.1 - mmol/L ?Chloride 102 96-108 - mm ol/L ?Carbon Dioxide 29 22-29 - mmol/L ?Anion Gap 12 12-20 - ?Blood Urea Nitrogen 16 9-16 - mg/dL ?Creatinine 0.85 0.5-1.4 - mg/dL ?Estimated Glomerular Filt Rate > 60 - ?Glucose Fasting 92 60-9 9 - mg/dL ?Calcium 9.5 8.4-10.2 - m g/dL ???Lab:Complete Blood Count Auto Diff (Order Date - 06/29/2024) (Collection Date & Time - 06/29/2024 08:00 AM) ? Value Reference Range ?White Blood Count 6.9 4. 8-10.8 - X10*3/uL ?Red Blood Count 4.74 4.20 -5.50 - X10*6/uL ?Hemoglobin 12.7 12.0-16.0 - g/dl ?Hematocrit 38.5 37.0-47.0 - % ?Mean Corpuscular Volume 81.2 80.0-98.0 - fL ?Mean Corpuscular Hemoglobin 26.8 L 27.0-33.0 - pg ?Mean Corpuscular HGB Conc 33.0 31.0-35.0 - g/dl ?Red Cell Distribution Width 13.8 11.0-16.0 - % ?Platelet Count 371 160-4 00 - X10*3/uL ?Mean Platelet Volume 11.9 9.4-12.3 - fL ?Neutrophils Percent Auto 66.1 45-73 - % ?Imm Gran Pct Auto 0.3 0. 0-0.4 - % ?Lymphocytes Percent Auto 25.3 20-40 - % ?Monocytes Percent Auto 6.2 2-11 - % ?Eosinophils Percent Auto 1.4 0-4 - % ?Basophils Percent Auto 0.7 0-2 - % ?NRBC Pct Auto 0.0 0.0-0. 2 - /100WBC ?Neutrophils Absolute Auto 4.6 2.0-8.3 - x10*3/uL ?Imm Gran Abs Auto 0.02 0. 00-0.03 - X10*3/uL ?Lymphocytes Absolute Auto 1.8 1.2-4.9 - X10*3/uL ?Monocytes Absolute Auto 0.4 0.1-1.2 - X10*3/uL ?Eosinophils Absolute Auto 0.1 0.0-0.4 - X10*3/uL ?Basophils Absolute Auto 0.1 0.0-0.2 - X10*3/uL ?NRBC Abs Auto 0.000 0.0-0. 012 - X10*3/uL * Examination: ???General Examination: ?GENERAL APPEARANCE:?well developed, well nourished, in no acute distress.?HEAD:?normocephalic, atraumatic.?EYES:?pupils equal, round, reactive to light and accommodation, sclera non-icteric.?EARS:?normal.?ORAL CAVITY:?mucosa moist.?THROAT:?clear.?NECK/THYROID:?neck supple, full range of motion, no cervical lymphadenopathy, no bruits.?SKIN:?warm and dry, no suspicious lesions.?HEART:?regular rate and rhythm, S1, S2 normal, no murmurs.?LUNGS:?clear to auscultation bilaterally.?BREASTS:?done by spiral spring winder.?ABDOMEN:?soft, nontender, nondistended, bowel sounds present, normal, no organomegaly , no masses palpable.?RECTAL EXAM:?done by spiral spring winder.?FEMALE GENITOURINARY:?done by spiral spring winder.?EXTREMITIES:?no clubbing, cyanosis, or edema.?NEUROLOGIC:?nonfocal, motor strength normal upper and lower extremities, sensory exam intact.? Assessment: * Assessment: 1.?Annual physical exam - Z0 0.00 (Primary)???2.?Hypokalemia - E87.6???3.?Essential hypertension - I10???4.?Paroxysmal atrial fibrillation - I48.0???5.?Iron deficiency - E61.1??? Plan: * Treatment: 2.?Hypokalemia? Stop Valsartan-hydroCHLOROthiazide Tablet, 160-12.5 MG, TAKE 1 TABLET BY MOUTH EVERY DAY;?Start Valsartan Tablet, 160 MG, 1 tablet, Orally, Once a day, 90 days, 90 Tablet, Refills 3.?LAB: Potassium ?LAB: Potassium (Ordered for 08/27/2024) Notes: hopefully with valsartan without hctz won't need potassium replacement, will continue to monitor?? 3.?Essential hypertension? Notes: will try to treat with valsartan without hctz, will cntinue to monitor?? 4.?Paroxysmal atrial fibrill ation? Notes: stable, will continue current regiment?? 5.?Iron deficiency? Notes: stable, doing well, will continue current regiment?? * Procedure Codes:?17773 VENIP UNCT, ROUTINE* * Follow Up:?2 Months * * The named appointment provid er may or may not be the originator of this progress note, and it is not deemed complete until electronically signed by the appointment provider. Sign off status: Pending * Provider:?Goran Harman MD Date:?0 08/06/2024 Generated for Trish levine/Martir/Clausmitting on:?08/06/2024 03:13 PM EST History and Physical Notes * [...] patient have a vision impairmen t?: Yes ?If yes, what is the vision impairment?: Glasses Does the patient have a cognition impair ment?: No Examination Category Sub-Category Detail Notes Category Not es General Examination GENERAL APPEARANCE: well dev eloped, well nourished, in no acute distress HEAD: normocephalic, atrau matic EYES: pupils equal, round, reactive to light and accommodation, sclera non- icteric EARS: normal THROAT: clear NECK/THYROID: neck supple, [...] cyanosi s, or edema BREASTS: done by spiral spring winder RECTAL EXAM: done by spiral spring winder FEMALE GENITOURINARY: done by spiral spring winder ORAL CAVITY: mucosa moist
--- OUTSIDE RECORDS SUMMARY | 2024-08-06 15:13 | XMS_ITS ---
Author Organization Goran Harman MD Address [address] [place] [phone] Care Team Providers Care Plumber And Tinner Name Role Phone Goran Harman Primary Care Provider Results Component Value Reference Range Notes Potassium Reviewed date:07/23/2024 01:00:00 PM Interpretation: Performing Lab:[facility], [address] [place] [id number] Notes/Report: Potassium 3.3 3.3-5.1 mmol/L REASON FOR VISIT Potassium Encounters Encounter Location Date Provider Diagnosis Goran Harman MD [address] [place] [address] [place] [phone] 07/23/2024 Goran Harman Hypokalemia E87.6 Assessments Encounter Date Diagnosis (ICD Code) Assessment Notes Treatment Notes Treatment Clinical Notes Section Notes 07/23/2024 Hypokalemia (ICD-10 - E87.6) Plan Of Treatment Next Appt Details Provider Name:Goran cronin, 08/27/2024 07:00:00 AM, [address] [place] [address], [address] [place] [address], [phone], Provider Name:Goran cronin, 10/05/2024 08:30:00 AM, [address] [place] [address], [address], [phone], Progress Notes * Cathi MELENDEZ:1985 (38 yo F)Acc No.[id number]:07/23/2024 Progress Note Patient:?Renetta MELENDEZ Provider:?Goran Harman MD :1985???Age:38 Y???Sex:Female D ate:07/23/2024 Address:[address] [place] [address] [id number] Subjective: * Chief Complaints: * ???1. Potassium. * Medical History:? Objective: * Vitals:? Assessment: * Assessment: 1.?Hypokalemia - E87.6 (Prim kamla)??? Plan: * Treatment: * Procedure Codes:?42784 VENIP UNCT, ROUTINE* * * The named appointment provid er may or may not be the originator of this progress note, and it is not deemed complete until electronically signed by the appointment provider. Sign off status: Pending * Provider:?Goran Harman MD Date:?0 07/23/2024 Generated for Trish levine/Martir/Angelicaitting on:?08/06/2024 03:13 PM EST
--- OUTSIDE RECORDS SUMMARY | 2024-08-06 15:13 | XMS_ITS ---
Author Organization Goran Harman MD Address [address] [place] [phone] Care Team Providers Care Straddle Truck Operator Name Role Phone Goran Harman Primary Care Provider REASON FOR VISIT RF Medications Medication SIG (Take, Route, Fr equency, Duration) Notes Start Date End Date Status dilTIAZem HCl ER 360 MG 1 tablet Orally Once a day for 90 days Active Encounters Encounter Location Date Provider Diagnosis Goran Harman MD [address] [place] [address] Drive [address] [place] [phone] 08/03/2024 Goran Harman Paroxysmal atrial fibrillation I48.0 Assessments Encounter Date Diagnosis (ICD Code) Assessment Notes Treatment Notes Treatment Clinical Notes Section Notes 08/03/2024 Paroxysmal atrial fibrillation (ICD-10 - I48.0) Plan Of Treatment Medication Medication Name Sig Start Date Stop Date Notes dilTIAZem HCl ER 360 MG 1 tablet Orally Once a day for 90 days Next Appt Details Provider Name:Goran cronin, 08/27/2024 07:00:00 AM, [address] [place] [address], [address] [place] [address], [phone], Provider Name:Goran cronin, 10/05/2024 08:30:00 AM, [address] [place] [address], [address], [phone], Progress Notes * Cathi MELENDEZ:1985 (38 yo F)Acc No.[id number]:08/03/2024 Patient:?Renetta MELENDEZ :1985???Age:38 Y???Sex:Female Address:[address] [place] [address], [address] * Refills? Refill dilTIAZem HCl ER Tablet Extended Release 24 Hour, 360 MG, Orally, 90, 1 tablet, Once a day, 90 days, Refills=3 * true * Date:? Generated for Trish levine/Martir/eTmonicasmitting on:?08/06/2024 03:13 PM EST
--- OUTSIDE RECORDS SUMMARY | 2024-08-06 15:13 | XMS_ITS | Clinical Summary ---
Author Organization [facility] Address [address] [place] [address] Care Team Providers Care Molder Inflated Ball Name Role Phone Saundra Mathew MD Primary Care Provider +1- [phone] Surgical History Surgery Date Site/Laterality Comments TONSILLECTOMY PROCEDURE: HISTORICAL TONSILLECTOMY OTHER SURGICAL HISTORY 596819 PROCEDURE: GA DILATION & CURETTAGE DX&/THER NONOBSTETRIC OTHER SURGICAL HISTORY 829197 PROCEDURE: HYSTEROSCOPY, DIAGNOSTIC; COMMENT: polypectomy Medical History [...] drink = 0.6 oz p ure alcohol) Comments Unknown Sex and Gender Information Value Date Recorded Sex Assigned at Not on file Legal Sex Female 1:26 AM EST Gender Identity Not on file Sexual Orientation Not on file Obstetrics History Plan of Treatment Upcoming Encounters Date Type Department [facility] Description 12/01/2024 3:50 PM EDT Appointment Radiology Department [address] [phone] Health Maintenance Due Date Last Done Comments [...] patient's age to complete this topic Meningococcal B Vacine Aged Out No lo nger eligible based on patient's age to complete [...] risk category Moderate (15% - 20%) Myriam G Paola DO IMG XR PROCEDURES Final Resul t * Pap smear (08/07/2023) 08/07/2023 Narrative HISTORICAL TESTING LAB RESULTING AGENCY - 08/18/2023 6:36 AM EST [id number] THINPREP PAP, IMAGED: NEGATIVE FOR SQUAMOUS INTRAEPITHELIAL LESION AND MALIGNANCY . ABUNDANT RED BLOOD CELLS ARE PRESENT. ANIKET SNYDER , JOSE(ASCP) (CASE ELECTRONICALLY SIGNED 08 16 2023) RESULT OF APTIMA HIGH RISK HPV ASSAY: HIGH RISK HPV: ??NEGATIVE (SEROTYPES 16,18,31,33,35,39,45,51,52,56,58,59,66,68) COMPLETED ON 2023-08-11 ADEQUACY: SATISFACTORY ENDOCERVICAL/TRANSFORMATION ZONE COMPONENT PRESENT. SOURCE: THINPREP PAP HPV ANY DX: ??REFLEX 16 AND 18, CERVICAL, IMAGED CLINICAL INFORMATION: HPV ANY DIAGNOSIS. HORMONES, PAP HX NEGATIVE, [Z01.419] Myriam Guevara DO LAB CYTOLOGY ORDERABLES Final Result HISTORICAL TESTING LAB RESULTING AGENCY from Last 3 Months or Most Recently Relevant to Health Maintenance Care Teams Molder Inflated Ball Relationship Specialty Start Date End Date Saundra Mathew MD PCP - General Internal Medicine 07/08/14
[2024-08-06 15:21] LABS: Potassium 3.2 mmol/L (3.3-5.1)
== END 2024-08-06 15:04 | disposition home or self-care (01) ==
LOC: HO.LNP 15:03
PROVIDERS: Visit Provider Internal Medicine
DX: E87.6 Hypokalemia (principal)
CPT/HCPCS: 84132

== ENCOUNTER → 2024-08-24 08:34 | Outpatient (REF) | payer OTHER, SELFPAY ==
--- OUTSIDE RECORDS SUMMARY | 2024-08-24 09:06 | XMS_ITS ---
Author Organization Goran Harman MD Address [address] [place] [phone] Care Team Providers Care Robotic Weld Technician Name Role Phone Goran Harman Primary Care Provider Medications Medication SIG (Take, Route, Frequency, Duration) Notes Start Date End Date Status Potassium Chloride ER 10 MEQ 1 tablet with food Orally Once a day for 30 days 06/29/2024 Active Encounters Encounter Location Date Provider Diagnosis Goran Harman MD [address] [place] [phone] 08/23/2024 Goran Harman Acute hypokalemia E87.6 Assessments Encounter Date Diagnosis (ICD Code) Assessment Notes Treatment Notes Treatment Clinical Notes Section Notes 08/23/2024 Acute hypokalemia (ICD-10 - E87.6) Plan Of Treatment Medication Medication Name Sig Start Date Stop Date Notes Potassium Chloride ER 10 MEQ 1 tablet wi th food Orally Once a day for 30 days 06/29/2024 Next Appt Details Provider Name:Goran cronin, 08/27/2024 07:00:00 AM, [address] [place] [address], [address] [place] [address], [phone], Provider Name:Goran cronin, 10/05/2024 08:30:00 AM, [address] [place] [address], [address] [place] [address], [phone], Progress Notes * Cathi MELENDEZ:1985 (38 yo F)Acc No.[id number]:08/23/2024 Patient:?Renetta MELENDEZ :1985???Age:38 Y???Sex:Female Address:[address] [place] [address], [address] * Refills? Refill Potassium Chloride ER Tablet Extended Release, 10 MEQ, Orally, 30 Tablet, 1 tablet with food, Once a day, 30 days, Refills=3 * true * Date:? Generated for Trish levine/Martir/eTmonicasmitting on:?08/24/2024 09:06 AM EST
--- OUTSIDE RECORDS SUMMARY | 2024-08-24 09:06 | XMS_ITS ---
Author Organization Goran Harman MD Address [address] [place] [phone] Care Team Providers Care Emotional Disabilities Teacher Name Role Phone Goran Harman Primary Care Provider REASON FOR VISIT RF Medications Medication SIG (Take, Route, Fr equency, Duration) Notes Start Date End Date Status dilTIAZem HCl ER 360 MG 1 tablet Orally Once a day for 90 days Active Encounters Encounter Location Date Provider Diagnosis Goran Harman MD [address] [place] [address] Drive [address] [place] [phone] 08/03/2024 Goran Harman Paroxysmal atrial fibrillation I48.0 [...] Details Provider Name:Goran cronin, 08/27/2024 07:00:00 AM, [address] [place] [address], [address] [place] [address], [phone], Provider Name:Goran cronin, 10/05/2024 08:30:00 AM, [address] [place] [address], [address], [phone], Progress Notes * Boaz MLEENDEZB:1985 (38 yo F)Acc No.[id number]:08/03/2024 Patient:?Renetta MELENDEZ :1985???Age:38 Y???Sex:Female Address:[address] [place] [address], [address] * Refills? Refill dilTIAZem HCl ER Tablet Extended Release 24 Hour, 360 MG, Orally, 90, 1 tablet, Once a day, 90 days, Refills=3 * true * Date:? Generated for Trish levine/Martir/eTmonicasmitting on:?08/24/2024 09:05 AM EST
--- OUTSIDE RECORDS SUMMARY | 2024-08-24 09:06 | XMS_ITS | Clinical Summary ---
Author Organization [facility] Address [address] [place] [address] Care Team Providers Care Disposition Clerk Name Role Phone Saundra Mathew MD Primary Care Provider +1- [phone] Surgical History Surgery Date Site/Laterality Comments TONSILLECTOMY PROCEDURE: HISTORICAL TONSILLECTOMY OTHER SURGICAL HISTORY 711024 PROCEDURE: HI DILATION & CURETTAGE DX&/THER NONOBSTETRIC OTHER SURGICAL HISTORY 546777 PROCEDURE: HYSTEROSCOPY, DIAGNOSTIC; COMMENT: polypectomy Medical History [...] Upcoming Encounters Date Type Department Care Team ([facility] Contact Info) Description 12/01/2024 3:50 PM EDT Appointment Radiology Department [address] [phone] Health Maintenance Due Date Last Done Comments [...] RESULTING AGENCY - 08/18/2023 6:36 AM EST [id number] THINPREP PAP, IMAGED: NEGATIVE FOR SQUAMOUS INTRAEPITHELIAL [...] Recently Relevant to Health Maintenance Care Teams Disposition Clerk Relationship Specialty Start Date End Date Saundra Mathew MD PCP - General Internal Medicine 07/08/14
--- OUTSIDE RECORDS SUMMARY | 2024-08-24 09:06 | XMS_ITS ---
Author Organization Goran Harman MD Address [address] [place], [place] [phone] Care Team Providers Care Cutting Machine Fixer Name Role Phone Goran Harman Primary Care Provider Allergies No Known Allergies Results Component Value Reference Range Notes Potassium Reviewed date:08/06/2024 04:59:11 PM Interpretation: Performing Lab:[facility], [address] [place] [phone] Notes/Report: Potassium 3.2 3.3-5.1 mmol/L REASON FOR [...] HCl 50 MG TAKE 1 TABLET BY [facility] EVERY DAY for 30 Active Social History [...] kg/m2 08/06/2024 weight is down 7 pounds [facility] 06-29-24 Encounters Encounter Location Date Provider Diagnosis Goran Harman MD [address] [place] [address] Drive [address] [place], [place] [phone] 08/06/2024 Goran Harman Hypokalemia E87.6 ; Annual [...] Test Test Name Order Date Potassium 08/06/2024 Next Appt Details Follow Up: 2 Months, Reason: Provider Name:Goran cronin, 08/27/2024 07:00:00 AM, [address] [place] [address], [address], [place], [place], [phone], Provider Name:Goran cronin, 10/05/2024 08:30:00 AM, [address] [place] [address], [facility], [place], [place], [phone], Progress Notes * Boaz MELENDEZB:1985 (38 yo F)Acc No.[id number]:08/06/2024 Progress Notes Patient:?RIKKI Renetta Provider:?Goran Harman MD :1985???Age:38 Y???Sex:Female D ate:08/06/2024 Address:[address] [place], [place] [phone] Subjective: * Chief Complaints: * ???ANNUAL EXAMRepeat Potassi um * HPI: ???Depression Screening:?PHQ-9?Little interest or pleasure [...] or any lesions of concern.?Denies?Photosensitivity.?Rash?denies.?Neurologic:?Dizziness?denies.?Fainting?denies.?Headache?denies.? * Medical History:? * Surgical History:? * Hospitalization/Major Diagno stic Procedure:? * Family History:?Father: dece ased 64 yrs.?Mother: [...] 5 months no alcohol since 05-13-22. * Medications:?TakingSemagluti de(0.25 or 0.5MG/DOS) 2 MG/3ML Solution Pen-injector taking [...] reviewed and reconciled with the patient * Allergies:?N.K.D.A.yes[Aller gies Verified] Objective: * Vitals:?Ht: 67.5, Wt: 325, B MA:50.15, BP:128/82, Wt-k.42. weight is down 7 pounds since 06-29-24. * ???Past Orders: ???Lab:Lipid Panel (Order Da te - 06/29/2024) (Collection Date & Time - 06/29/2024 08:00 AM) ? Value Reference Range ?Triglycerides 88 <150 - mg/dL ?Cholesterol 194 <200 - m g/dL ?LDL Cholesterol Calculated 140 H <100 - mg/dL ?HDL Cholesterol 37 L >40 - mg/dL ???Lab:IRON PROFILE (Order D ate 06/29/2024) (Collection Date & Time - 06/29/2024 08:00 AM) ? Value Reference Range ?Iron 73 30-160 - mcg/dL ?Total Iron Binding Capacity 258 228-428 - mcg/dL ?Percent Iron Saturation 28 15-50 - % ?Unsaturated Iron Binding 185 - ug/dL ???Lab:Comprehensive [place]. P ludmila Fast (Order Date - 06/29/2024) [...] normal, no murmurs.?LUNGS:?clear to auscultation bilaterally.?BREASTS:?done by applied biology professor.?ABDOMEN:?soft, nontender, nondistended, bowel sounds present, normal, no organomegaly , no masses palpable.?RECTAL EXAM:?done by applied biology professor.?FEMALE GENITOURINARY:?done by applied biology professor.?EXTREMITIES:?no clubbing, cyanosis, or edema.?NEUROLOGIC:?nonfocal, motor strength normal [...] 90 days, 90 Tablet, Refills 3.?LAB: Potassium (Collection Date & Time - 08/06/2024 01:00 PM) ?LAB: Potassium (Ordered for 08/27/2024) Notes: hopefully with valsartan without hctz won't need potassium replacement, will continue to monitor?? 3.?Essential hypertension? Notes: will try to treat with valsartan without hctz, will cntinue to monitor?? 4.?Paroxysmal atrial fibrill ation? Notes: stable, will continue current regiment?? 5.?Iron deficiency? Notes: stable, doing well, will continue current regiment?? * Procedure Codes:?96691 VENIP UNCT, ROUTINE* * Follow Up:?2 Months * * Sign off status: Completed true * Provider:?Goran Harman MD Date:?0 08/06/2024 Generated for Trish levine/Martir/eTransmitting on:?08/24/2024 09:05 AM EST History and Physical Notes * HPI [...] cyanosi s, or edema BREASTS: done by applied biology professor RECTAL EXAM: done by applied biology professor FEMALE GENITOURINARY: done by applied biology professor ORAL CAVITY: mucosa moist
--- OUTSIDE RECORDS SUMMARY | 2024-08-24 09:06 | XMS_ITS | Patient Health Record ---
Author Organization Goran Harman MD Address [address] [place], [place] [id number] Care Team Providers Care Medical Records Coder Name Role Phone GhazalAbrahamn Primary Care Provider Allergies No Known Allergies Results Component Value Reference Range Notes SARS-CoV2/FLU/RSV Reviewed date:09/18/2023 04:56:04 PM Interpretation: Performing Lab:[facility], [address] [place] [phone] Notes/Report: Influenza A PCR NEGATIVE Negative Influenza [...] by authorized laboratories. Testing performed on the [employer] GeneXpert utilizing real-time RT-PCR. All SARS CoV2 and positive influenza A/B results are reported to [facility]. UA ClnCatch+Micro w/rflx Cul t Reviewed date:10/03/2023 03:03:40 PM Interpretation: Performing Lab:[facility], [address] [place] [phone] Notes/Report: Urine, Clean Catch Color Urine Yellow Appearance Urine Cloudy PH 5.5 5.0-9.0 Glucose Urine UA Negative Negative mg/dL Urine Blood Negative Negative Specific [place] - Urine 1.020 1.005-1.025 Urine Protein Negative Neg-Trace mg/dL Urine Ketones Negative Negative mg/dL Nitrite Urine Negative Negative Leukocyte Esterase Urine Negative Negative RBC Urine 0-2 0-2 /HPF WBC Urine 0-5 0-5 /HPF Squamous Epithelial Cell Urine 3-5 0-2 /HPF Bacteria Urine None Seen None Seen Hyaline Casts Urine 0-2 0-2 /LPF Troponin-I High Sensitivity Reviewed date:06/20/2024 04:56:35 PM Interpretation: Performing Lab:[facility], [address] [place] [phone] Notes/Report: Troponin-I High Sensitivity 5.7 <3.5-17.0 ng/L The [place] high sensitivity Troponin-I results should be used in conjunction with other diagnostic information such as ECG, clinical observations and information, and patient symptoms to aid in the diagnosis of DE. David Ford Reviewed date:06/29/2024 10:55:05 AM Interpretation: Performing Lab:[facility], [address] [place] [phone] Notes/Report: David Ford See Note Specimen held untested for 24 hours; Call to request Chemistry testing. Complete Blood Count Auto Di ff Reviewed date:06/29/2024 12:39:39 PM Interpretation: Performing Lab:[facility], [address] [place] [phone] Notes/Report: White Blood Count 6.9 4.8-10.8 X10*3/uL [...] NRBC Abs Auto 0.000 0.0-0.012 X10*3/uL Comprehensive [place]. Panel Fa st Reviewed date:06/29/2024 04:24:01 PM Interpretation: Performing Lab:[facility], [address] [place] [phone] Notes/Report: Sodium 140 135-145 mmol/L Potassium 2.9 [...] PROFILE Reviewed date:06/29/2024 04:24:31 PM Interpretation: Performing Lab:[address] [phone] Notes/Report: Iron 73 30-160 mcg/dL Total Iron Binding Capacity 258 228-428 mcg/dL Percent Iron Saturation 28 15-50 % Unsaturated Iron Binding 185 Lipid Panel Reviewed date:06/29/2024 04:23:25 PM Interpretation: Performing Lab:[address] [phone] Notes/Report: Triglycerides 88 <150 mg/dL Desirable Triglyceride: [...] Culture Reviewed date:07/04/2024 03:05:09 PM Interpretation: Performing Lab:[address] [phone] Notes/Report: Urine Culture Report Result Urine Culture > 100,000 cfu/ml Urine Culture Mixed bacterial paras a characteristic of Urine Culture urogenital contamination. Potassium Reviewed date:07/02/2024 12:50:14 PM Interpretation: Performing Lab:[address] [phone] Notes/Report: Potassium 3.1 3.3-5.1 mmol/L UA ClnCatch+Micro w/rflx Cul t Reviewed date:07/02/2024 05:16:48 PM Interpretation: Performing Lab:[address] [place] [phone] Notes/Report: Urine, Clean Catch Color Urine Dark Yellow Appearance Urine Cloudy PH 5.5 5.0-9.0 Glucose Urine UA Negative Negative mg/dL Urine Blood Negative Negative Specific [place] - Urine >= 1.030 1.005-1.025 Urine Protein Trace Neg-Trace mg/dL Urine Ketones Negative Negative mg/dL Nitrite Urine Negative Negative Leukocyte Esterase Urine Negative Negative RBC Urine 0-2 0-2 /HPF WBC Urine 6-10 0-5 /HPF Squamous Epithelial Cell Urine 11-20 0-2 /HPF Bacteria Urine 2+ None Seen Hyaline Casts Urine 0-2 0-2 /LPF Potassium Reviewed date:07/05/2024 01:09:27 PM Interpretation: Performing Lab:[address] [phone] Notes/Report: Potassium 3.6 3.3-5.1 mmol/L Potassium Reviewed date:07/09/2024 02:11:26 PM Interpretation: Performing Lab:[address] [phone] Notes/Report: Potassium 3.8 3.3-5.1 mmol/L Potassium Reviewed date:07/16/2024 01:24:48 PM Interpretation: Performing Lab:[address] [phone] Notes/Report: Potassium 3.2 3.3-5.1 mmol/L Potassium Reviewed date:07/23/2024 01:00:00 PM Interpretation: Performing Lab:[address] [phone] Notes/Report: Potassium 3.3 3.3-5.1 mmol/L Potassium Reviewed date:08/06/2024 04:59:11 PM Interpretation: Performing Lab:[address] [phone] Notes/Report: Potassium 3.2 3.3-5.1 mmol/L Reason For [...] 50 MG TAKE 1 TABLET BY [facility] EVERY DAY for 30 Active dilTIAZem HCl ER 360 MG 1 tablet Orally Once a day for 90 days Active Potassium Chloride ER 10 MEQ 1 tablet with food Orally Once a day for 30 days 06/29/2024 Active hydrOXYzine HCl 50 MG 1 tablet as needed Orally Once a day for 30 day(s) 04/12/2024 Active hydrOXYzine HCl 10 MG 1 tablet as needed Orally Once a day for 30 day(s) Not-Taking Valsartan 160 MG 1 tablet Orally Once [...] Status W/U Status Risk Notes Problem Hypokalemia (72744434) Hypokalemia (E87.6) Active confirmed Problem Depression (322231244) Depression (F32.9) Active confirmed Problem 78867873 Anxiety (F41.9) Active confirmed Problem 336642162 Paroxysmal atrial fibrillation (I48.0) Active confirmed Problem Iron deficiency (09585990) Iron deficiency (E61.1) Active confirmed Problem Essential hypertension (45622523) Essential hypertension (I10) Active confirmed Problem Anxiety disorder (196439704) Anxiety disorder (F41.9) Active confirmed Problem 93454159 Alcohol abuse (F10.10) Active confirmed Problem Family history of breast cancer (628620514) Family history of breast cancer (Z80.3) Active [...] Goran Harman MD [address] [place] [id number] 09/02/2023 Goran Harman Hematuria, unspecified type R31.9 Goran Harman MD [address] [place] [id number] 06/29/2024 Goran Harman Blood tests for routine general physical examination Z00.00 ; Essential hypertension I10 and Iron deficiency E61.1 Goran Harman MD [address] [place] [id number] 07/02/2024 Goran Harman Hypokalemia E87.6 an d Essential hypertension I10 Goran Harman MD [address] [place] [id number] 07/05/2024 Goran Harman Hypokalemia E87.6 Goran Harman MD [address] [place] [id number] 07/09/2024 Goran Harman Hypokalemia E87.6 Goran Harman MD [address] [place] [address] [id number] 07/16/2024 Goran Harman Acute hypokalemia E87.6 Goran Harman MD [address] [place] [address] [id number] 07/23/2024 Goran Harman Hypokalemia E87.6 Goran Harman MD [address] [place] [address] [id number] 09/18/2023 Goran Harman Acute viral syndrome B34.9 Goran Harman MD [address] [place] [address] [id number] 12/19/2023 Goran Ghazal Athlete's foot, left B35.3 and Acute cellulitis L03.90 Goran Harman MD [address] [place] [address] [id number] 12/30/2023 Goran Harman Athlete's foot, left B35.3 ; Acute cellulitis L03.90 ; Essential hypertension I10 and Skin rash R21 Goran Harman MD [address] [place] [address] [id number] 04/12/2024 Goran Harman Paroxysmal atrial fibrillation I48.0 and Anxiety F41.9 Goran Harman MD [address] [place] [address] [id number] 05/04/2024 Goran Harman Paroxysmal atrial fibrillation I48.0 and Unintended weight gain R63.5 Goran Harman MD [address] [place] [address] [id number] 06/29/2024 Goran Harman Acute hypokalemia E87.6 and Paroxysmal atrial fibrillation I48.0 Goran Harman MD [address] [place] [address] [id number] 08/06/2024 Goran Harman Hypokalemia E87.6 ; Annual physical exam Z00.00 ; Essential hypertension I10 ; Paroxysmal atrial fibrillation I48.0 and Iron deficiency E61.1 Goran Harman MD [address] [place] [address] [id number] 07/20/2024 Goran Harman MD [address] [place] [address] [id number] 06/24/2024 Goran Harman MD [address] [place] [address] [id number] 06/29/2024 Goran Harman MD [address] [place] [address] [id number] 08/03/2024 Goran Harman Paroxysmal atrial fibrillation I48.0 Goran Harman MD [address] [place] [address] [id number] 08/23/2024 Goran Harman Acute hypokalemia E87.6 Assessments [...] - E87.6) 07/23/2024 Hypokalemia (ICD-10 - E87.6) 09/18/2023 Acute viral syndrome (ICD-10 - B34.9) order fax[place] [facility] Patient reg. all the cultures negative. but [...] hard as well, will continue to monitor 08/06/2024 Hypokalemia (ICD-10 - E87.6) hopefully with valsartan without hctz won't need potassium replacement, will continue to monitor 08/06/2024 Annual physical exam (ICD-10 - Z00.00) labs reviewed and discussed with patient 08/03/2024 Paroxysmal atrial fibrillation (ICD-10 - I48.0) 08/23/2024 Acute hypokalemia (ICD-10 - E87.6) 06/29/2024 Iron deficiency (ICD-10 - E61.1) 07/02/2024 Hypokalemia (ICD-10 - E87.6) 12/30/2023 Essential hypertension (ICD-10 - I10) is slightly high 08/06/2024 Essential hypertension (ICD-10 - I10) will try to treat with valsartan without hctz, will cntinue to monitor 07/02/2024 Essential hypertension (ICD-10 - I10) 12/30/2023 Skin rash (ICD-10 - R21) was there before the antibiotics and was able to maintain the antibiotics so although it got worse not likely to be a reaction to the antibiotics 08/06/2024 Paroxysmal atrial fibrillation (ICD-10 - I48.0) stable, will continue current regiment 08/06/2024 Iron deficiency (ICD-10 - E61.1) stable, doing well, will continue current regiment Plan Of Treatment Pending Test Test Name Order Date UA ClnCatch+Micro w/rflx Cult 06/29/2024 Next Appt Details Provider Name:Goran cronin, 08/27/2024 07:00:00 AM, [address], [address], [place], [place], [phone], Provider Name:Goran Washburn mehrdad, 10/05/2024 08:30:00 AM, [address], [address], [place], [phone], Insurance Providers Payer Name Payer Address Payer Phone Subscriber Number Group Number Insured Name Patient Relationship to Insured Coverage Start Date Coverage End Date [employer] [address] MD [place] [id number] Renetta Melendez Self - patient is the insured 2 Medical (General) History Medical History History ICD Code had episode of afib when she was drinkin g
== END ==
LOC: HO.CARD 08:34
PROVIDERS: PCP Internal Medicine; Visit Provider Internal Medicine
DX: I48.91 Unspecified atrial fibrillation (principal)
CPT/HCPCS: 93242

== ENCOUNTER → 2024-08-24 08:40 | Outpatient (BNV) | payer OTHER, SELFPAY | PROVIDERS: PCP Internal Medicine; Visit Provider Internal Medicine Cardiovascular Disease | DX: I44.1 Atrioventricular block, second degree (principal) | CPT/HCPCS: 93244 ==

== ENCOUNTER 2024-08-27 10:23 | Outpatient (REF) | payer OTHER, SELFPAY ==
[2024-08-27 11:16] LABS: Potassium 3.8 mmol/L (3.3-5.1)
--- OUTSIDE RECORDS SUMMARY | 2024-08-27 11:38 | XMS_ITS ---
Author Organization Goran Harman MD Address [address] [place], [place] [phone] Care Team Providers Care Aligning Inspector Name Role Phone Goran Harman Primary Care Provider Allergies No Known Allergies Results Component Value Reference Range Notes Potassium Reviewed date:08/06/2024 04:59:11 PM Interpretation: Performing Lab:[facility], [address] [place] [phone] Notes/Report: Potassium 3.2 3.3-5.1 mmol/L REASON FOR [...] HCl 50 MG TAKE 1 TABLET BY [facility] EVERY DAY for 30 Active Social History [...] kg/m2 08/06/2024 weight is down 7 pounds [facility] 06-29-24 Encounters Encounter Location Date Provider Diagnosis Goran Harman MD [address] [place] [address] Drive [address] [place], [place] [phone] 08/06/2024 Goran Harman Hypokalemia E87.6 ; Annual [...] 2 Months, Reason: Provider Name:Goran Washburn ier, 10/05/2024 08:30:00 AM, [address] [place] [address], [address], [place], [place], [phone], Progress Notes * Boaz MELENDEZB:1985 (38 yo F)Acc No.[id number]:08/06/2024 Progress Notes Patient:?Renetta MELENDEZ Provider:?Goran Harman MD :1985???Age:38 Y???Sex:Female D ate:08/06/2024 Address:[address] [place], [place] [phone] Subjective: * Chief Complaints: * ???ANNUAL EXAMRepeat [...] Objective: * Vitals:?Ht: 67.5, Wt: 325, B WA:50.15, BP:128/82, Wt-k.42. weight is down 7 pounds [...] ?Unsaturated Iron Binding 185 - ug/dL ???Lab:[facility]. P ludmila Fast (Order Date - 06/29/2024) [...] normal, no murmurs.?LUNGS:?clear to auscultation bilaterally.?BREASTS:?done by climbing guide.?ABDOMEN:?soft, nontender, nondistended, bowel sounds present, normal, no organomegaly , no masses palpable.?RECTAL EXAM:?done by climbing guide.?FEMALE GENITOURINARY:?done by climbing guide.?EXTREMITIES:?no clubbing, cyanosis, or edema.?NEUROLOGIC:?nonfocal, motor strength normal [...] well, will continue current regiment?? * Procedure Codes:?10919 VENIP UNCT, ROUTINE* * Follow Up:?2 Months * * Sign off status: Completed true * Provider:?Goran Harman MD Date:?0 08/06/2024 Generated for Cristoferi ng/Hueg/eTransmitting on:?08/27/2024 11:37 AM EST History and Physical Notes * [...] cyanosi s, or edema BREASTS: done by climbing guide RECTAL EXAM: done by climbing guide FEMALE GENITOURINARY: done by climbing guide ORAL CAVITY: mucosa moist
--- OUTSIDE RECORDS SUMMARY | 2024-08-27 11:38 | XMS_ITS | Clinical Summary ---
Author Organization [facility] Address [address] [place] [address] Care Team Providers Care Sheather Name Role Phone Saundra Mathew MD Primary Care Provider [phone] Surgical History Surgery Date Site/Laterality Comments TONSILLECTOMY PROCEDURE: HISTORICAL TONSILLECTOMY OTHER SURGICAL HISTORY 034620 PROCEDURE: CA DILATION & CURETTAGE DX&/THER NONOBSTETRIC OTHER SURGICAL HISTORY 763825 PROCEDURE: HYSTEROSCOPY, DIAGNOSTIC; COMMENT: polypectomy Medical History [...] Upcoming Encounters Date Type Department Care Team ([facility] Contact Info) Description 12/01/2024 3:50 PM EDT Appointment Radiology Department [address] [phone] Health Maintenance Due Date Last Done Comments [...] RESULTING AGENCY - 08/18/2023 6:36 AM EST [id number] THINPREP PAP, IMAGED: NEGATIVE FOR SQUAMOUS INTRAEPITHELIAL [...] Recently Relevant to Health Maintenance Care Teams Sheather Relationship Specialty Start Date End Date Saundra Mathew MD PCP - General Internal Medicine 07/08/14
--- OUTSIDE RECORDS SUMMARY | 2024-08-27 11:38 | XMS_ITS ---
Author Organization Goran Harman MD Address [address] [place] [phone] Care Team Providers Care Distribution Center Supervisor Name Role Phone Goran Harman Primary Care Provider Medications Medication SIG (Take, Route, Frequency, Duration) Notes Start Date End Date Status Potassium Chloride ER 10 MEQ 1 tablet with food Orally Once a day for 30 days 06/29/2024 Active Encounters Encounter Location Date Provider Diagnosis Goran Harman MD [address] [place] [phone] 08/23/2024 Goran Harman Acute hypokalemia E87.6 Assessments [...] Next Appt Details Provider Name:Goran Washburn ier, 10/05/2024 08:30:00 AM, [address] [facility], Suite [facility], [place], [place], [phone], Progress Notes * Cathi MELENDEZ:1985 (38 yo F)Acc No.[id number]:08/23/2024 Patient:?Renetta MELENDEZ :1985???Age:38 Y???Sex:Female Address:[address] [place] [address] [place], [address] * Refills? Refill Potassium Chloride ER Tablet Extended Release, 10 MEQ, Orally, 30 Tablet, 1 tablet with food, Once a day, 30 days, Refills=3 * true * Date:? Generated for Trish levine/Martir/Angelicaitting on:?08/27/2024 11:38 AM EST
--- OUTSIDE RECORDS SUMMARY | 2024-08-27 11:38 | XMS_ITS ---
Author Organization Goran Harman MD Address [address] [place] [phone] Care Team Providers Care Hospitality Specialist Name Role Phone Goran Harman Primary Care Provider Results Component Value Reference Range Notes Potassium (Not yet reviewed by provider) Interpretation: Performing Lab:[facility], [address] [place] [phone] Notes/Report: Potassium 3.8 3.3-5.1 mmol/L REASON FOR VISIT potassium Encounters Encounter Location Date Provider Diagnosis Goran Harman MD [address] [place] [address] [place] [phone] 08/27/2024 Goran Harman Hypokalemia E87.6 Assessments Encounter Date Diagnosis (ICD Code) Assessment Notes Treatment Notes Treatment Clinical Notes Section Notes 08/27/2024 Hypokalemia (ICD-10 - E87.6) Plan Of Treatment Pending Test Test Name Order Date Potassium 08/27/2024 Next Appt Details Provider Name:Goran Washburn ier, 10/05/2024 08:30:00 AM, [address] [place] [address], [address] [place] [address], [phone], Progress Notes * Boaz MELENDEZB:1985 (38 yo F)Acc No.[id number]:08/27/2024 Progress Note Patient:?Renetta MELENDEZ Provider:?Goran Harman MD :1985???Age:38 Y???Sex:Female D ate:08/27/2024 Address:[address] [place] [address] [id number] Subjective: * Chief Complaints: * ???1. Potassium. * Medical History:? Objective: * Vitals:? Assessment: * Assessment: 1.?Hypokalemia - E87.6??? Plan: * Treatment: * Procedure Codes:?71736 VENIP UNCT, ROUTINE* * * The named appointment provid er may or may not be the originator of this progress note, and it is not deemed complete until electronically signed by the appointment provider. Sign off status: Pending * Provider:?Goran Harman MD Date:?0 08/27/2024 Generated for Trish levine/Martir/Angelicaitting on:?08/27/2024 11:37 AM EST
--- OUTSIDE RECORDS SUMMARY | 2024-08-27 11:38 | XMS_ITS | Patient Health Record ---
Author Organization Goran Harman MD Address [address] [place], [place] [id number] Care Team Providers Care Spray Technician Name Role Phone hGazalAbrahamn Primary Care Provider Allergies No Known Allergies Results Component Value Reference Range Notes SARS-CoV2/FLU/RSV Reviewed date:09/18/2023 04:56:04 PM Interpretation: Performing Lab:[facility], [address] [place] [phone] Notes/Report: Influenza A PCR NEGATIVE Negative Influenza [...] by authorized laboratories. Testing performed on the Epoch GeneXpert utilizing real-time RT-PCR. All SARS CoV2 and positive influenza A/B results are reported to [facility]. UA ClnCatch+Micro w/rflx Cul t Reviewed date:10/03/2023 03:03:40 PM Interpretation: Performing Lab:[facility], [address] [place] [phone] Notes/Report: Urine, Clean Catch Color Urine Yellow Appearance Urine Cloudy PH 5.5 5.0-9.0 Glucose Urine UA Negative Negative mg/dL Urine Blood Negative Negative Specific [place] - Urine 1.020 1.005-1.025 Urine Protein Negative Neg-Trace mg/dL Urine Ketones Negative Negative mg/dL Nitrite Urine Negative Negative Leukocyte Esterase Urine Negative Negative RBC Urine 0-2 0-2 /HPF WBC Urine 0-5 0-5 /HPF Squamous Epithelial Cell Urine 3-5 0-2 /HPF Bacteria Urine None Seen None Seen Hyaline Casts Urine 0-2 0-2 /LPF Troponin-I High Sensitivity Reviewed date:06/20/2024 04:56:35 PM Interpretation: Performing Lab:[facility], [address] [place] [phone] Notes/Report: Troponin-I High Sensitivity 5.7 <3.5-17.0 ng/L The [place] high sensitivity Troponin-I results should be used in conjunction with other diagnostic information such as ECG, clinical observations and information, and patient symptoms to aid in the diagnosis of [place]. David Ford Reviewed date:06/29/2024 10:55:05 AM Interpretation: Performing Lab:[facility], [address] [place] [phone] Notes/Report: David Ford See Note Specimen held untested for 24 hours; Call to request Chemistry testing. Complete Blood Count Auto Di ff Reviewed date:06/29/2024 12:39:39 PM Interpretation: Performing Lab:[facility], [address] [place] [phone] Notes/Report: White Blood Count 6.9 4.8-10.8 X10*3/uL [...] NRBC Abs Auto 0.000 0.0-0.012 X10*3/uL Comprehensive [place]. Panel Fa st Reviewed date:06/29/2024 04:24:01 PM Interpretation: Performing Lab:[facility], [address] [place] [phone] Notes/Report: Sodium 140 135-145 mmol/L Potassium 2.9 [...] PROFILE Reviewed date:06/29/2024 04:24:31 PM Interpretation: Performing Lab:[address] [phone] Notes/Report: Iron 73 30-160 mcg/dL Total Iron Binding Capacity 258 228-428 mcg/dL Percent Iron Saturation 28 15-50 % Unsaturated Iron Binding 185 Lipid Panel Reviewed date:06/29/2024 04:23:25 PM Interpretation: Performing Lab:[address] [phone] Notes/Report: Triglycerides 88 <150 mg/dL Desirable Triglyceride: [...] Culture Reviewed date:07/04/2024 03:05:09 PM Interpretation: Performing Lab:[address] [phone] Notes/Report: Urine Culture Report Result Urine Culture > 100,000 cfu/ml Urine Culture Mixed bacterial paras a characteristic of Urine Culture urogenital contamination. Potassium Reviewed date:07/02/2024 12:50:14 PM Interpretation: Performing Lab:[address] [phone] Notes/Report: Potassium 3.1 3.3-5.1 mmol/L UA ClnCatch+Micro w/rflx Cul t Reviewed date:07/02/2024 05:16:48 PM Interpretation: Performing Lab:[address] [place] [address] Notes/Report: Urine, Clean Catch Color Urine Dark Yellow Appearance Urine Cloudy PH 5.5 5.0-9.0 Glucose Urine UA Negative Negative mg/dL Urine Blood Negative Negative Specific [place] - Urine >= 1.030 1.005-1.025 Urine Protein Trace Neg-Trace mg/dL Urine Ketones Negative Negative mg/dL Nitrite Urine Negative Negative Leukocyte Esterase Urine Negative Negative RBC Urine 0-2 0-2 /HPF WBC Urine 6-10 0-5 /HPF Squamous Epithelial Cell Urine 11-20 0-2 /HPF Bacteria Urine 2+ None Seen Hyaline Casts Urine 0-2 0-2 /LPF Potassium Reviewed date:07/05/2024 01:09:27 PM Interpretation: Performing Lab:[address] [phone] Notes/Report: Potassium 3.6 3.3-5.1 mmol/L Potassium Reviewed date:07/09/2024 02:11:26 PM Interpretation: Performing Lab:[facility], [address] [place] [phone] Notes/Report: Potassium 3.8 3.3-5.1 mmol/L Potassium Reviewed date:07/16/2024 01:24:48 PM Interpretation: Performing Lab:[address] [phone] Notes/Report: Potassium 3.2 3.3-5.1 mmol/L Potassium Reviewed date:07/23/2024 01:00:00 PM Interpretation: Performing Lab:[address] [phone] Notes/Report: Potassium 3.3 3.3-5.1 mmol/L Potassium Reviewed date:08/06/2024 04:59:11 PM Interpretation: Performing Lab:[address] [phone] Notes/Report: Potassium 3.2 3.3-5.1 mmol/L Potassium (Not yet reviewed by provider) Interpretation: Performing Lab:[address] [phone] Notes/Report: Potassium 3.8 3.3-5.1 mmol/L Reason For Referral No Information [...] HCl 50 MG TAKE 1 TABLET BY [facility] EVERY DAY for 30 Active dilTIAZem HCl [...] Status W/U Status Risk Notes Problem Hypokalemia (98610623) Hypokalemia (E87.6) Active confirmed Problem Depression (980230210) Depression (F32.9) Active confirmed Problem 46252886 Anxiety (F41.9) Active confirmed Problem 555092535 Paroxysmal atrial fibrillation (I48.0) Active confirmed Problem Iron deficiency (73465686) Iron deficiency (E61.1) Active confirmed Problem Essential hypertension (83737054) Essential hypertension (I10) Active confirmed Problem Anxiety disorder (460790547) Anxiety disorder (F41.9) Active confirmed Problem 15150394 Alcohol abuse (F10.10) Active confirmed Problem Family history of breast cancer (078473582) Family history of breast cancer (Z80.3) Active [...] Diagnosis Goran Harman MD [address] [place] [id number] 09/02/2023 Goran Harman Hematuria, unspecified type R31.9 Goarn Harman MD [address] [place] [address] Drive [address] [place] [id number] 06/29/2024 Goran Harman Blood tests for routine general physical examination Z00.00 ; Essential hypertension I10 and Iron deficiency E61.1 Goran Harman MD [address] [place] [address] Drive [address] [place] [id number] 07/02/2024 Goran Harman Hypokalemia E87.6 an d Essential hypertension I10 Goran Harman MD [address] [place] [address] Drive [address] [place] [address] [id number] 07/05/2024 Goran Harman Hypokalemia E87.6 Goran Harman MD [address] [place] [address] [id number] 07/09/2024 Goran Harman Hypokalemia E87.6 Goran Harmna MD [address] [place] [address] [id number] 07/16/2024 Goran Harman Acute hypokalemia E87.6 Goran Harman MD [address] [place] [address] [id number] 07/23/2024 Goran Harman Hypokalemia E87.6 Goran Harman MD [address] [place] [address] [id number] 08/27/2024 Goran Harman Hypokalemia E87.6 Goran Harman MD [address] [place] [address] [id number] 09/18/2023 Goran Harman Acute viral syndrome B34.9 oGran Harman MD [address] [place] [address] [id number] 12/19/2023 Gorannatividad Harman Athlete's foot, left B35.3 and Acute cellulitis L03.90 Goran Harman MD [address] [place] [address] [id number] 12/30/2023 Gorannatividad Moctezumaardirodolfo Athlete's foot, left B35.3 ; Acute cellulitis L03.90 ; Essential hypertension I10 and Skin rash R21 Goran Harman MD [address] [place] [id number] 04/12/2024 Goran Harman Paroxysmal atrial fibrillation I48.0 and Anxiety F41.9 Goran Harman MD [address] [place] [address] [id number] 05/04/2024 Goran Harman Paroxysmal atrial fibrillation I48.0 and Unintended weight gain R63.5 Goran Harman MD [address] [place] [address] [id number] 06/29/2024 Goran Harman Acute hypokalemia E87.6 and Paroxysmal atrial fibrillation I48.0 Goran Harman MD [address] [place] [address] [id number] 08/06/2024 Goran Harman Hypokalemia E87.6 ; Annual physical exam Z00.00 ; Essential hypertension I10 ; Paroxysmal atrial fibrillation I48.0 and Iron deficiency E61.1 Goran Harman MD [address] [place] [address] [id number] 07/20/2024 Goran Harman MD [address] [place] [address] [id number] 06/24/2024 Goran Harman MD [address] [place] [id number] 06/29/2024 Goran Harman MD [address] [place] [address] [id number] 08/03/2024 Goran Harman Paroxysmal atrial fibrillation I48.0 Goran Harman MD [address] [place] [address] [id number] 08/23/2024 Goran Harman Acute hypokalemia E87.6 Assessments [...] - E87.6) 07/23/2024 Hypokalemia (ICD-10 - E87.6) 08/27/2024 Hypokalemia (ICD-10 - E87.6) 09/18/2023 Acute viral syndrome (ICD-10 - B34.9) order faxed to [facility] Patient reg. all the cultures negative. [...] Date UA ClnCatch+Micro w/rflx Cult 06/29/2024 Potassium 08/27/2024 Next Appt Details Provider Name:Goran cronin, 10/05/2024 08:30:00 AM, [address] [place] [address], [address], [place], [place], [phone], Insurance Providers Payer Name Payer Address Payer Phone Subscriber Number Group Number Insured Name Patient Relationship to Insured Coverage Start Date Coverage End Date [employer] [address] [place] [id number] Renetta Melendez Self - patient is the insured 2 Medical (General) History Medical History History ICD Code had episode of afib when she was drinkin g
== END 2024-08-27 10:24 | disposition home or self-care (01) ==
LOC: HO.LNP 10:23
PROVIDERS: Visit Provider Internal Medicine
DX: E87.6 Hypokalemia (principal)
CPT/HCPCS: 84132

== ENCOUNTER 2024-10-12 13:37 | Outpatient (REF) | payer OTHER, SELFPAY ==
[2024-10-12 14:17] LABS: Potassium 4.1 mmol/L (3.3-5.1)
--- OUTSIDE RECORDS SUMMARY | 2024-10-12 16:08 | XMS_ITS | Clinical Summary ---
[facility] Address [address] [place] [address] Care Team Providers Care Infection Prevention Specialist Name Role Phone Saundra Mathew MD Primary Care Provider [phone] Surgical History Surgery Date Site/Laterality Comments TONSILLECTOMY PROCEDURE: HISTORICAL TONSILLECTOMY OTHER SURGICAL HISTORY 998701 PROCEDURE: WA DILATION & CURETTAGE DX&/THER NONOBSTETRIC OTHER SURGICAL HISTORY 973304 PROCEDURE: HYSTEROSCOPY, DIAGNOSTIC; COMMENT: polypectomy Medical History [...] Upcoming Encounters Date Type Department Care Team ([facility] Contact Info) Description 12/01/2024 3:50 PM EDT Appointment Radiology Department [address] [address] Health Maintenance Due Date Last Done Comments Hepatitis B Vaccines (1 of 3 - 19+ 3-dose series) 2004 Cholesterol Screening (Lipid Panel) 05/26/2022 Depression Screening 05/26/2022 HIV Screening 05/26/2022 Hepatitis C Screening 05/26/2022 Social Influencers of Health Screening 05/26/2022 COVID-19 Vaccine (1 - 2023-2 5 season) 2024 DTaP,Tdap,and Td Vaccines (2 - Td or Tdap) 07/16/2024 07/16/2014 Breast Cancer Screening 11/19/2024 11/20/19 24, 11/20/2023, 06/28/2020 Influenza Vaccine (Season Ended) 2025 Cervical Cancer Screening: P ap Smear 08/07/2026 [...] age to complete this topic Meningococcal B Vaccine Aged Out No l onger eligible based on patient's age to complete [...] RESULTING AGENCY - 08/18/2023 6:36 AM EST [id number] THINPREP PAP, IMAGED: NEGATIVE FOR SQUAMOUS INTRAEPITHELIAL [...] ANY DIAGNOSIS. HORMONES, PAP HX NEGATIVE, [Z01.419] us Myriam Guevara DO LAB CYTOLOGY ORDERABLES Final Result HISTORICAL TESTING LAB RESULTING AGENCY from Last 3 Months or Most Recently Relevant to Health Maintenance Care Teams Infection Prevention Specialist Relationship Specialty Start Date End Date Saundra Mathew MD PCP - General Internal Medicine 07/08/14
--- OUTSIDE RECORDS SUMMARY | 2024-10-12 16:09 | XMS_ITS ---
Author Organization Goran Harman MD Address [address] [place] [phone] Care Team Providers Care General Utility Worker Name Role Phone Goran Harman Primary Care Provider [phone] Results Component Value Reference Range Notes Potassium Reviewed date:08/27/2024 12:09:44 PM Interpretation: Performing Lab:[facility], [address] [place] [phone] Notes/Report: Potassium 3.8 3.3-5.1 mmol/L REASON FOR VISIT potassium Encounters Encounter Location Date Provider Diagnosis Goran Harman MD [address] [place] [address] [place] [phone] 08/27/2024 Goran Harman Hypokalemia E87.6 Assessments Encounter Date Diagnosis (ICD Code) Assessment Notes Treatment Notes Treatment Clinical Notes Section Notes 08/27/2024 Hypokalemia (ICD-10 - E87.6) Plan Of Treatment Next Appt Details Provider Name:Goran Washburn ier, 01/07/2025 10:15:00 AM, [address] [place] [address], Suite [facility], [place], [place], [phone], Progress Notes * Boaz MELENDEZB:1985 (38 yo F)Acc No.[id number]:08/27/2024 Progress Note Patient:?Renetta MELENDEZ Provider:?Goran Harman MD :1985???Age:38 Y???Sex:Female D ate:08/27/2024 Address:[address] [place] [address] [facility] Subjective: * Chief Complaints: * ???1. Potassium. * Medical History:? Objective: * Vitals:? Assessment: * Assessment: 1.?Hypokalemia - E87.6 (Prim kamla)??? Plan: * Treatment: * Procedure Codes:?56204 VENIP UNCT, ROUTINE* * * The named appointment provid er may or may not be the originator of this progress note, and it is not deemed complete until electronically signed by the appointment provider. Sign off status: Pending * Provider:?Goran Harman MD Date:?0 08/27/2024 Generated for Trish levine/Martir/Angelicaitting on:?10/12/2024 04:08 PM EDT
--- OUTSIDE RECORDS SUMMARY | 2024-10-12 16:09 | XMS_ITS ---
Author Organization Goran Harman MD Address [address] [place] [phone] Care Team Providers Care Bobbin Doffer Name Role Phone Goran Harman Primary Care Provider [phone] Medications Medication SIG (Take, Route, Frequency, Duration) Notes Start Date End Date Status Potassium Chloride ER 10 MEQ 1 tablet with food Orally Once a day for 30 days 06/29/2024 Active Encounters Encounter Location Date Provider Diagnosis Goran Harman MD [address] [place] [phone] 08/23/2024 Goran Harman Acute hypokalemia E87.6 Assessments [...] Name:Goran Washburn ier, 01/07/2025 10:15:00 AM, [address] [facility], Suite [facility], [place], [place], [phone], Progress Notes * Cathi MELENDEZ:1985 (38 yo F)Acc No.[id number]:08/23/2024 Patient:?Renetta MELENDEZ :1985???Age:38 Y???Sex:Female Address:[address] [place] [address] [place], [address] * Refills? Refill Potassium Chloride ER Tablet Extended Release, 10 MEQ, Orally, 30 Tablet, 1 tablet with food, Once a day, 30 days, Refills=3 * true * Date:? Generated for Trish levine/Martir/Mary on:?10/12/2024 04:08 PM EDT
--- OUTSIDE RECORDS SUMMARY | 2024-10-12 16:09 | XMS_ITS ---
Author Organization Goran Harman MD Address [address] [place], [place] [id number] Care Team Providers Care Docking Saw Operator Name Role Phone Goran Harman Primary Care Provider Allergies No Known Allergies Results Component Value Reference Range Notes Potassium (Not yet reviewed by provider) Interpretation: Performing Lab:[facility], [address] [place] [phone] Notes/Report: Potassium 4.1 3.3-5.1 mmol/L REASON FOR [...] Location Date Provider Diagnosis Goran Harman MD [address] [place] [address] Drive [address] [place], [place] [id number] 10/12/2024 Goran Harman Hypokalemia E87.6 an d [...] on me ds, will continue current regiment Pending Test Test Name Order Date Potassium 10/12/2024 Next Appt Details Follow Up: 3 Months, Reason: Provider Name:Goran Washburn ier, 01/07/2025 10:15:00 AM, [address], [address], [place], [place], [phone], Progress Notes * Boaz MELENDEZB:1985 (38 yo F)Acc No.[id number]:10/12/2024 Progress Notes Patient:?Renetta MELENDEZ Provider:?Goran Harman MD :1985???Age:38 Y???Sex:Female D ate:10/12/2024 Address:[address] [place] [address] , [place], [id number] Subjective: * Chief Complaints: * ???1. 2 month. * HPI: ???Symptom(s):?patient is a 38 yo female here for 2 month follow up visit. * ROS:?General/Constitutional:?Denies?Chills.?Denies?Fatigue.?Denies?Fever.?Denies?Headache.?ENT:?Denies?Sore throat.?Respiratory:?Denies?Cough.?Denies?Shortness of breath at rest.?Denies?Shortness of breath with exertion.?Gastrointestinal:?Denies?Diarrhea.?Denies?Nausea.? * Medical History:?Had episode of afib when she was drinking. * Medications:?Taking Semaglut santo(0.25 or 0.5MG/DOS) 2 MG/3ML Solution Pen- injector taking 1.25mg Subcutaneous , Taking Vitamin B-1 100 MG Tablet 1 tablet Orally Once a day , Taking Folic Acid 1 MG Tablet 1 tablet Orally Once a day , Taking Ferrous Sulfate 325 (65 Fe) MG Tablet 1 tablet Orally Once a day , Taking Sertraline HCl 50 MG Tablet TAKE 1 TABLET BY MOUTH EVERY DAY , Taking Eliquis 5 MG Tablet 1 tablet Orally Twice a day , Taking hydrOXYzine HCl 50 MG Tablet 1 tablet as needed Orally Once a day , Taking dilTIAZem HCl ER 360 MG Tablet Extended Release 24 Hour 1 tablet Orally Once a day , Taking Valsartan 160 MG Tablet 1 tablet Orally Once a day , Taking Potassium Chloride ER 10 MEQ Tablet Extended Release 2 tabs Orally Once a day , Not-Taking/PRN hydrOXYzine HCl 10 MG Tablet 1 tablet as needed Orally Once a day , Not-Taking/PRN Vitamin D 25 MCG (1000 UT) Tablet 1 tablet Orally Once a day , Medication List reviewed and reconciled with the patient * Allergies:?N.K.D.A. Objective: * Vitals:?Ht: 67.5, Wt: 312, B DE:48.14, BP:102/60, Wt-k.52. weight is down 13 pounds since 08-06-24. * Examination: ???General Examination: ?GENERAL APPEARANCE:?alert, well hydrated, in no distress.?HEAD:?normocephalic.?EARS:?LEFT EAR had been itching. exam is normal.?SKIN:?good turgor.?HEART:?no murmurs, rubs, gallops, regular rate and rhythm.?LUNGS:?no wheezes, rales, rhonchi, good air movement, clear to auscultation bilaterally.? Assessment: * Assessment: 1.?Hypokalemia - E87.6 (Prim kamla)???2.?Essential hypertension - I10??? Plan: * Treatment: 2.?Essential hypertension? Continue dilTIAZem HCl ER Tablet Extended Release 24 Hour, 360 MG, 1 tablet, Orally, Once a day;?Continue Valsartan Tablet, 160 MG, 1 tablet, Orally, Once a day.?? Notes: doing great on meds, will continue current regiment?? * Procedure Codes:?31179 VENIP UNCT, ROUTINE* * Follow Up:?3 Months * * The named appointment provid er may or may not be the originator of this progress note, and it is not deemed complete until electronically signed by the appointment provider. Sign off status: Pending * Provider:?Goran Harman MD Date:?0 10/12/2024 Generated for Trish levine/Martir/eTmonicasmitting on:?10/12/2024 04:09 PM EDT History and Physical Notes * HPI (History [...]
--- OUTSIDE RECORDS SUMMARY | 2024-10-12 16:09 | XMS_ITS | Patient Health Record ---
Author Organization Goran Harman MD Address [address] [place], [place] [id number] Care Team Providers Care Special Education Superintendent Name Role Phone Goran Harman Primary Care Provider [phone] Allergies No Known Allergies Results Component Value Reference Range Notes Troponin-I High Sensitivity Reviewed date:06/20/2024 04:56:35 PM Interpretation: Performing Lab:[facility], [address] [place] [phone] Notes/Report: Troponin-I High Sensitivity 5.7 <3.5-17.0 ng/L The [place] high sensitivity Troponin-I results should be used in conjunction with other diagnostic information such as ECG, clinical observations and information, and patient symptoms to aid in the diagnosis of [place]. David Ford Reviewed date:06/29/2024 10:55:05 AM Interpretation: Performing Lab:[facility], [address] [place] [phone] Notes/Report: David Ford See Note Specimen held untested for 24 hours; Call to request Chemistry testing. Complete Blood Count Auto Di ff Reviewed date:06/29/2024 12:39:39 PM Interpretation: Performing Lab:[facility], [address] [place] [phone] Notes/Report: White Blood Count 6.9 4.8-10.8 X10*3/uL [...] NRBC Abs Auto 0.000 0.0-0.012 X10*3/uL Comprehensive [place]. Panel Fa st Reviewed date:06/29/2024 04:24:01 PM Interpretation: Performing Lab:[facility], [address] [place] [phone] Notes/Report: Sodium 140 135-145 mmol/L Potassium 2.9 [...] PROFILE Reviewed date:06/29/2024 04:24:31 PM Interpretation: Performing Lab:[facility], [address] [place] [phone] Notes/Report: Iron 73 30-160 mcg/dL Total Iron Binding Capacity 258 228-428 mcg/dL Percent Iron Saturation 28 15-50 % Unsaturated Iron Binding 185 Lipid Panel Reviewed date:06/29/2024 04:23:25 PM Interpretation: Performing Lab:[facility], [address] [place] [phone] Notes/Report: Triglycerides 88 <150 mg/dL Desirable Triglyceride: [...] Culture Reviewed date:07/04/2024 03:05:09 PM Interpretation: Performing Lab:[facility], [address] [place] [phone] Notes/Report: Urine Culture Report Result Urine Culture > 100,000 cfu/ml Urine Culture Mixed bacterial paras a characteristic of Urine Culture urogenital contamination. Potassium Reviewed date:07/02/2024 12:50:14 PM Interpretation: Performing Lab:[facility], [address] [place] [phone] Notes/Report: Potassium 3.1 3.3-5.1 mmol/L UA ClnCatch+Micro w/rflx Cul t Reviewed date:07/02/2024 05:16:48 PM Interpretation: Performing Lab:[facility], [address] [place] [phone] Notes/Report: Urine, Clean Catch Color Urine Dark Yellow Appearance Urine Cloudy PH 5.5 5.0-9.0 Glucose Urine UA Negative Negative mg/dL Urine Blood Negative Negative Specific [place] - Urine >= 1.030 1.005-1.025 Urine Protein Trace Neg-Trace mg/dL Urine Ketones Negative Negative mg/dL Nitrite Urine Negative Negative Leukocyte Esterase Urine Negative Negative RBC Urine 0-2 0-2 /HPF WBC Urine 6-10 0-5 /HPF Squamous Epithelial Cell Urine 11-20 0-2 /HPF Bacteria Urine 2+ None Seen Hyaline Casts Urine 0-2 0-2 /LPF Potassium Reviewed date:07/05/2024 01:09:27 PM Interpretation: Performing Lab:[facility], [address] [place] [phone] Notes/Report: Potassium 3.6 3.3-5.1 mmol/L Potassium Reviewed date:07/09/2024 02:11:26 PM Interpretation: Performing Lab:[facility], [address] [place] [phone] Notes/Report: Potassium 3.8 3.3-5.1 mmol/L Potassium Reviewed date:07/16/2024 01:24:48 PM Interpretation: Performing Lab:[facility], [address] [place] [phone] Notes/Report: Potassium 3.2 3.3-5.1 mmol/L Potassium Reviewed date:07/23/2024 01:00:00 PM Interpretation: Performing Lab:[facility], [address] [place] [phone] Notes/Report: Potassium 3.3 3.3-5.1 mmol/L Potassium Reviewed date:08/06/2024 04:59:11 PM Interpretation: Performing Lab:[facility], [address] [place] [phone] Notes/Report: Potassium 3.2 3.3-5.1 mmol/L Potassium Reviewed date:08/27/2024 12:09:44 PM Interpretation: Performing Lab:[facility], [address] [place] [phone] Notes/Report: Potassium 3.8 3.3-5.1 mmol/L Potassium (Not yet reviewed by provider) Interpretation: Performing Lab:[facility], [address] [place] [phone] Notes/Report: Potassium 4.1 3.3-5.1 mmol/L Reason For Referral No Information Medications Medication SIG (Take, Route, Frequency, Duration) Notes Start Date End Date Status dilTIAZem HCl ER 360 MG 1 tablet Orally Once a day Active Valsartan 160 MG 1 tablet Orally Once a day 08/06/2024 Active hydrOXYzine HCl 10 MG 1 tablet as needed Orally Once a day for 30 day(s) Not-Taking Semaglutide(0.25 or 0.5MG/DOS) 2 MG/3ML taking 1.25mg [...] 1 tablet Orally Once a day Active Sertraline HCl 50 MG TAKE 1 TABLET BY [facility] EVERY DAY for 30 Active Eliquis 5 MG 1 tablet Orally Twic e a day for 90 days Active Potassium Chloride ER 10 MEQ 2 tabs Orally Once a day 06/29/2024 Act bella hydrOXYzine HCl 50 MG 1 tablet as needed Orally Once a day for 30 day(s) 04/12/2024 Active Immunizations Vaccine Route Administration Date Status Comme [...] Status W/U Status Risk Notes Problem Hypokalemia (74580617) Hypokalemia (E87.6) Active confirmed Problem Depression (222245181) Depression (F32.9) Active confirmed Problem 31056004 Anxiety (F41.9) Active confirmed Problem 724359881 Paroxysmal atrial fibrillation (I48.0) Active confirmed Problem Iron deficiency (99750260) Iron deficiency (E61.1) Active confirmed Problem Essential hypertension (55929037) Essential hypertension (I10) Active confirmed Problem Anxiety disorder (062153522) Anxiety disorder (F41.9) Active confirmed Problem 25295245 Alcohol abuse (F10.10) Active confirmed Problem Family history of breast cancer (187228739) Family history of breast cancer (Z80.3) Active confirmed Problem PCO (polycystic ovaries) (E28.2) Active confirmed Vital Signs Heart Rate 70 /min 04/12/2024 Blood pressure diastolic 60 mm Hg 10/12/2024 humble ght is down 13 pounds since 08-06-24 Height 67.5 in 10/12/2024 weight is down 13 pounds since 08-06-24 Blood pressure systolic 102 mm Hg 10/12/2024 weig ht is down 13 pounds since 08-06-24 Weight 312 lbs 10/12/2024 weight is down 13 pounds since 08-06-24 BMI 48.14 kg/m2 10/12/2024 weight is down 13 pounds since 08-06-24 Encounters Encounter Location Date Provider Diagnosis Goran Harman MD [address] [place] [address] [place] [id number] 06/29/2024 Goran Harman Blood tests for routine general physical examination Z00.00 ; Essential hypertension I10 and Iron deficiency E61.1 Goran Harman MD [address] [place] [id number] 07/02/2024 Goran Bombardier Hypokalemia E87.6 an d Essential hypertension I10 Goran Harman MD [address] [place] [address] [id number] 07/05/2024 Gorannatividad Mccraryer Hypokalemia E87.6 Goran Harman MD [address] [place] [address] [id number] 07/09/2024 Goran Demetraer Hypokalemia E87.6 Goran Harman MD [address] [place] [id number] 07/16/2024 Goran Harman Acute hypokalemia E87.6 Goran Harman MD [address] [place] [address] [id number] 07/23/2024 Gorannatividad Harman Hypokalemia E87.6 Goran Harman MD [address] [place] [address] [id number] 08/27/2024 Goran Rhiannaardier Hypokalemia E87.6 Goran Harman MD [address] [place] [address] [id number] 10/12/2024 Goran Bombardier Hypokalemia E87.6 an d Essential hypertension I10 Goran Harman MD [address] [place] [address] [id number] 12/19/2023 Goran Harman Athlete's foot, left B35.3 and Acute cellulitis L03.90 Goran Harman MD [address] [place] [id number] 12/30/2023 Goran Harman Athlete's foot, left B35.3 ; Acute cellulitis L03.90 ; Essential hypertension I10 and Skin rash R21 Goran Harman MD [address] [place] [address] [id number] 04/12/2024 Goran Harman Paroxysmal atrial fibrillation I48.0 and Anxiety F41.9 Goran Harman MD [address] [place] [address] [id number] 05/04/2024 Gorannatividad Harman Paroxysmal atrial fibrillation I48.0 and Unintended weight gain R63.5 Goran Harman MD [address] [place] [address] [id number] 06/29/2024 Goran Harman Acute hypokalemia E87.6 and Paroxysmal atrial fibrillation I48.0 Goran Harman MD [address] [place] [address] [id number] 08/06/2024 Gorannatividad Harman Hypokalemia E87.6 ; Annual physical exam Z00.00 ; Essential hypertension I10 ; Paroxysmal atrial fibrillation I48.0 and Iron deficiency E61.1 Goran Harman MD [address] [place] [address] [id number] 07/20/2024 Goran Harman MD [address] [place] [address] [id number] 06/24/2024 Goran Har[address] [place] [address] [id number] 06/29/2024 Goran Harman MD [address] [place] [address] [id number] 08/03/2024 Goran Harman Paroxysmal atrial fibrillation I48.0 Goran Harman MD [address] [place] [address] [id number] 08/23/2024 Goran Harman Acute hypokalemia E87.6 Assessments Encounter Date Diagnosis (ICD Code) Assessment Notes Treatment Notes Treatment Clinical Notes Section Notes 06/29/2024 Blood tests for routine general physical examination (ICD-10 - Z00.00) 06/29/2024 Essential hypertension (ICD-10 - I10) 07/05/2024 Hypokalemia (ICD-10 - E87.6) 07/09/2024 Hypokalemia (ICD-10 - E87.6) 07/16/2024 Acute hypokalemia (ICD-10 - E87.6) 07/23/2024 Hypokalemia (ICD-10 - E87.6) 08/27/2024 Hypokalemia (ICD-10 - E87.6) 10/12/2024 Hypokalemia (ICD-10 - E87.6) pending lab, will continue current regiment and will continue to monitor 12/19/2023 Athlete's foot, left (ICD-10 - B35.3) [...] - E61.1) 07/02/2024 Hypokalemia (ICD-10 - E87.6) 10/12/2024 Essential hypertension (ICD-10 - I10) doing great on meds, will continue current regiment 12/30/2023 Essential hypertension [...] Test Test Name Order Date Potassium 10/12/2024 UA ClnCatch+Micro w/rflx Cult 06/29/2024 Next Appt Details Provider Name:Goran cronin, 01/07/2025 10:15:00 AM, [address] [place] [address], [address], [place], [place], [phone], Insurance Providers Payer Name Payer Address Payer Phone Subscriber Number Group Number Insured Name Patient Relationship to Insured Coverage Start Date Coverage End Date [employer] [address] [place] [id number] Renetta Melendez Self - patient is the insured 2 Medical (General) History Medical History History ICD Code had episode of afib when she was drinkin g
== END 2024-10-12 13:38 | disposition home or self-care (01) ==
LOC: HO.LNP 13:37
PROVIDERS: Visit Provider Internal Medicine
DX: E87.6 Hypokalemia (principal)
CPT/HCPCS: 84132

== ENCOUNTER 2024-11-04 10:02 | Outpatient (AMB) | payer OTHER, SELFPAY ==
--- NOTE | 2024-11-04 10:04 | A.OFFVIS_ITS ---
Vital Signs 11/04/24 10:06 Height 5 ft 6 in Weight 306 lb 14.135 oz BMI 49.5 BP 120/74 Blood Pressure Location Lt brachial Position Sitting Pulse 68 Pulse Source Pulse Oximeter Intake Visit Reasons: 3m follow up Cordwood Cutter Required: No Accompanied by: Significant Other Allergies bee pollen [bee stings] Allergy (Verified 06/19/24 22:20) Anaphylaxis Medication List - Last Reconciled 11/04/24 by Samuel Parker MD alprazolam (Xanax) 0.25 mg PO DAILY PRN apixaban (Eliquis) 5 mg PO BID 30 days diltiazem HCl CD 360 mg PO DAILY 30 days diphenhydramine HCl 25 mg PO TID PRN ferrous sulfate 325 mg PO DAILY folic acid 1 mg PO DAILY potassium chloride ER 10 mEq PO DAILY semaglutide (weight loss) 0.75 mg subcut QWEEK sertraline 1 tab PO DAILY thiamine mononitrate (vit B1) 100 mg PO DAILY valsartan-hydrochlorothiazide 160-12.5 mg 1 tab PO DAILY HPI Comments Details: Renetta returns for follow-up. She was seen in 2021 and then more recently. In 2021, she had atrial fibrillation and put on diltiazem/Eliquis. She was supposed to be followed up in clinic but not seen till recently. She states that as she felt well, she had stopped the diltiazem and Eliquis. Also apparently she was drinking a lot of alcohol, almost daily and she stopped that as well. Hence she felt that she would be fine without any issues but she developed atrial fibrillation rapid rate and led to ER visit. At that time, she was put back on the medications. Then another episode of atrial fibrillation in the context of hypokalemia. Now on potassium replacement. She states that otherwise she feels fine. She does not get any symptoms like angina or shortness of breath. She is trying to lose weight with semaglutide. On meds for hypertension. Not a known diabetic. No vascular disease history. Since last seen, she states that she is feeling quite good. [facility] Medical History Morbid obesity Essential hypertension Anxiety HTN (hypertension) Family History Father Enlarged heart Mother HTN (hypertension) Social History Household Members: Spouse Housing: House Do you presently have visiting nurse or other home services: No Alcohol intake: former Patient Tobacco Use Status: Never used Tobacco Substance Use Type: Marijuana service: No Review of Systems Const Denies chills, Denies fatigue, Denies fever(s), Denies frequent falls, Denies weakness, Denies weight gain and Denies weight loss ENT Denies dizziness Card Denies chest pain, Denies leg edema, Denies lightheadedness, Denies pal pitations, Denies dyspnea and Denies dyspnea on exertion Resp Denies cough, Denies dyspnea and Denies dyspnea on exertion GI Denies hematochezia Musc Denies abnormal gait, Denies muscle weakness, Denies numbness, Denies radiating pain into limb and Denies tingling Neuro Denies abnormal gait, Denies dizziness, Denies frequent falls, Denies numbness, Denies tingling and Denies weakness Endo Denies fatigue and Denies palpitations Physical Exam Vital Signs: Last Vital Signs Pulse 68 11/04/24 10:06 BP 120/74 11/04/24 10:06 BMI result Body Mass Index 49.5 Const General: comfortable and no acute distress Orientation/consciousness: patient oriented x3 HEENT Other: Unremarkable Head: Yes normal to inspection Neck Neck: Yes normal visual inspection Chest Chest palpation & inspection: normal inspection of the chest Resp Auscultation: clear to auscultation bilaterally Cardio Palpation: normal PMI Heart sounds: S1 normal heart sound present, S2 normal heart sound present, no gallops, no murmurs and no rubs GI Palpation (GI): Soft to palpation Back/Spine/Pelvis Other: unremarkable Skin General skin exam: no rashes or lesions noted Neuro General: patient oriented x3 Extrem General: Yes normal to inspection Psych Mental Status: mental status grossly normal Office Procedures EKG Details: EKG with underlying sinus rhythm at 68/Min; RI prolongation to 224 milliseconds; normal corrected QT; poor R-wave progression in the anterior leads most likely from body habitus 36850-Iufycjggvfaesxciy, Complete Assessment & Plan Assessment & Plan (1) PAF (paroxysmal atrial fibrillation): Code(s): I48.0 - Paroxysmal atrial fibrillation Category: Medical Plan: She has had 3 episodes in the last 3 years-initial episode probably related to excessive alcohol use; more recent episodes related to not being on medication and hypokalemia. It may be preferable to just keep her on diltiazem long-term. However, she has got slight RI prolongation hence we will cut back on the dose. We discussed about this today. As she has got no recurrence of atrial fibrillation and also she has got a low thromboembolic risk and the fact that these episodes are fairly brief we could stop the Eliquis. Mean provoking factor for her would be obesity and she is already trying to lose weight. That would help a lot. She has stopped drinking completely. Holter monitor without any evidence of atrial fibrillation recurrence. Echocardiogram from 2021 shows hyperdynamic LVEF. Sleep study negative for sleep apnea. (2) Morbid obesity: Code(s): E66.01 - Morbid (severe) obesity due to excess calories Category: Medical Plan: On semaglutide. She states that she has been losing weight and hopefully, she can continue to do that. (3) Essential hypertension: Code(s): I10 - Essential (primary) hypertension Category: Medical Plan: On valsartan/hydrochlorothiazide. (4) Hypokalemia: Code(s): E87.6 - Hypokalemia Category: Medical Plan: On replacement potassium. Medications: New diltiazem HCl CD 180 mg PO DAILY 90 caps 3RF Discontinued apixaban (Eliquis) Discontinued Reason: Doctor's Order 5 mg PO BID 30 days 60 tabs 0RF diltiazem HCl CD Discontinued Reason: Doctor's Order 360 mg PO DAILY 30 days 30 caps 0RF Coding Level of Care Code Est Pt Level 4 (01249) Complex EM visit Add On G2211 Diagnoses PAF (paroxysmal atrial fibrillation) I48.0 Morbid obesity E66.01 Essential hypertension I10 Hypokalemia E87.6 CPT Codes EKG - CPT: 63036-Yahfihlkuuivlnfwo, Complete ([id number])
[2024-11-04 10:06] VITALS: BP 120/74; PULSE 68; BMI 49.5
--- OUTSIDE RECORDS SUMMARY | 2024-11-04 10:58 | XMS_ITS | Clinical Summary ---
[facility] Address [address] [place] [address] Care Team Providers Care Loan Representative Name Role Phone Saundra Mathew MD Primary Care Provider [phone] Surgical History Surgery Date Site/Laterality Comments TONSILLECTOMY PROCEDURE: HISTORICAL TONSILLECTOMY OTHER SURGICAL HISTORY 666150 PROCEDURE: LA DILATION & CURETTAGE DX&/THER NONOBSTETRIC OTHER SURGICAL HISTORY 990860 PROCEDURE: HYSTEROSCOPY, DIAGNOSTIC; COMMENT: polypectomy Medical History [...] Upcoming Encounters Date Type Department Care Team ([facility] Contact Info) Description 12/01/2024 3:50 PM EDT Appointment Radiology Department [address] [phone] Health Maintenance Due Date Last Done Comments [...] RESULTING AGENCY - 08/18/2023 6:36 AM EST [id number] THINPREP PAP, IMAGED: NEGATIVE FOR SQUAMOUS INTRAEPITHELIAL [...] Recently Relevant to Health Maintenance Care Teams Loan Representative Relationship Specialty Start Date End Date Saundra Mathew MD PCP - General Internal Medicine 07/08/14
--- OUTSIDE RECORDS SUMMARY | 2024-11-04 10:59 | XMS_ITS ---
Author Organization Goran Harman MD Address [address] [place], [place] [phone] Care Team Providers Care Skoog Machine Operator Name Role Phone Goran Harman Primary Care Provider Allergies No Known Allergies Results Component Value Reference Range Notes Potassium Reviewed date:10/12/2024 06:23:33 PM Interpretation: Performing Lab:[facility], [address] [place] [phone] Notes/Report: Potassium 4.1 3.3-5.1 mmol/L REASON FOR [...] Location Date Provider Diagnosis Goran Harman MD [address] [place] [address] Drive [address] [place], [place] [phone] 10/12/2024 Goran Harman Hypokalemia E87.6 an d [...] Provider Name:Goran Washburn ier, 01/07/2025 10:15:00 AM, [address] [place] [address] Drive, [address], [place], [place], [phone], Progress Notes * Reina MELENDEZaDOB:1985 (39 yo F)Acc No.[id number]:10/12/2024 Progress Notes Patient:?Renetta MELENDEZ Provider:?Goran Harman MD :1985???Age:38 Y???Sex:Female D ate:10/12/2024 Address:[address] [place] [address] , [place], [id number] Subjective: * Chief Complaints: * ???2 month * HPI: ???Symptom(s):?patient is a 38 yo female here for 2 month follow up visit. * ROS:?General/Constitutional:?Denies?Chills.?Denies?Fatigue.?Denies?Fever.?Denies?Headache.?ENT:?Denies?Sore throat.?Respiratory:?Denies?Cough.?Denies?Shortness of breath at rest.?Denies?Shortness of breath with exertion.?Gastrointestinal:?Denies?Diarrhea.?Denies?Nausea.? * Medical History:? * Surgical History:? * Hospitalization/Major Diagno stic Procedure:? * Medications:?TakingSemagluti de(0.25 or 0.5MG/DOS) 2 MG/3ML [...] gies Verified] Objective: * Vitals:?Ht: 67.5, Wt: 312, B ND:48.14, BP:102/60, Wt-k.52. weight is down 13 pounds [...] meds, will continue current regiment?? * Procedure Codes:?43425 VENIP UNCT, ROUTINE* * Follow Up:?3 Months * * Sign off status: Completed true * Provider:?Goran Harman MD Date:?0 10/12/2024 Generated for Trish levine/Martir/eTransmitting on:?11/04/2024 10:58 AM EDT History and Physical Notes * HPI [...]
--- OUTSIDE RECORDS SUMMARY | 2024-11-04 10:59 | XMS_ITS ---
Author Organization Goran Harman MD Address [address] [place] [phone] Care Team Providers Care Spine Nurse Name Role Phone Goran Harman Primary Care Provider Medications Medication SIG (Take, Route, Frequency, Duration) Notes Start Date End Date Status Potassium Chloride ER 10 MEQ 1 tablet with food Orally Once a day for 30 days 06/29/2024 Active Encounters Encounter Location Date Provider Diagnosis Goran Harman MD [address] [place] [phone] 08/23/2024 Goran Harman Acute hypokalemia E87.6 Assessments [...] [facility], Suite [facility], [place], [place], [phone], Progress Notes * Cathi MELENDEZ:1985 (38 yo F)Acc No.[id number]:08/23/2024 Patient:?Renetta MELENDEZ :1985???Age:38 Y???Sex:Female Address:[address] [place] [address] [place], [address] * Refills? Refill Potassium Chloride ER Tablet Extended Release, 10 MEQ, Orally, 30 Tablet, 1 tablet with food, Once a day, 30 days, Refills=3 * true * Date:? Generated for Trish levine/Martir/aMry on:?11/04/2024 10:58 AM EDT
--- OUTSIDE RECORDS SUMMARY | 2024-11-04 10:59 | XMS_ITS | Patient Health Record ---
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 David Ford Reviewed date:06/29/2024 10:55:05 AM Interpretation: Performing Lab:[facility], [address] [place] [phone] Notes/Report: David Ford See Note Specimen held untested for 24 hours; Call to request Chemistry testing. Complete Blood Count Auto Di ff Reviewed date:06/29/2024 12:39:39 PM Interpretation: Performing Lab:[facility], [address] [place] [phone] Notes/Report: White Blood Count 6.9 4.8-10.8 X10*3/uL [...] NRBC Abs Auto 0.000 0.0-0.012 X10*3/uL Comprehensive Lignum. Panel Fa st Reviewed date:06/29/2024 04:24:01 PM Interpretation: Performing Lab:[facility], [address] [place] [phone] Notes/Report: Sodium 140 135-145 mmol/L Potassium 2.9 [...] PROFILE Reviewed date:06/29/2024 04:24:31 PM Interpretation: Performing Lab:[facility], [address] [place] [phone] Notes/Report: Iron 73 30-160 mcg/dL Total Iron Binding Capacity 258 228-428 mcg/dL Percent Iron Saturation 28 15-50 % Unsaturated Iron Binding 185 Lipid Panel Reviewed date:06/29/2024 04:23:25 PM Interpretation: Performing Lab:[facility], [address] [place] [phone] Notes/Report: Triglycerides 88 <150 mg/dL Desirable Triglyceride: [...] Culture Reviewed date:07/04/2024 03:05:09 PM Interpretation: Performing Lab:[facility], [address] [place] [phone] Notes/Report: Urine Culture Report Result Urine Culture > 100,000 cfu/ml Urine Culture Mixed bacterial paras a characteristic of Urine Culture urogenital contamination. Potassium Reviewed date:07/02/2024 12:50:14 PM Interpretation: Performing Lab:[facility], [address] [place] [phone] Notes/Report: Potassium 3.1 3.3-5.1 mmol/L UA ClnCatch+Micro w/rflx Cul t Reviewed date:07/02/2024 05:16:48 PM Interpretation: Performing Lab:[facility], [address] [place] [phone] Notes/Report: Urine, Clean Catch Color Urine Dark Yellow Appearance Urine Cloudy PH 5.5 5.0-9.0 Glucose Urine UA Negative Negative mg/dL Urine Blood Negative Negative Specific [place] - Urine >= 1.030 1.005-1.025 Urine Protein Trace Neg-Trace mg/dL Urine Ketones Negative Negative mg/dL Nitrite Urine Negative Negative Leukocyte Esterase Urine Negative Negative RBC Urine 0-2 0-2 /HPF WBC Urine 6-10 0-5 /HPF Squamous Epithelial Cell Urine 11-20 0-2 /HPF Bacteria Urine 2+ None Seen Hyaline Casts Urine 0-2 0-2 /LPF Potassium Reviewed date:07/05/2024 01:09:27 PM Interpretation: Performing Lab:[facility], [address] [place] [phone] Notes/Report: Potassium 3.6 3.3-5.1 mmol/L Potassium Reviewed date:07/09/2024 02:11:26 PM Interpretation: Performing Lab:[facility], [address] [place] [phone] Notes/Report: Potassium 3.8 3.3-5.1 mmol/L Potassium Reviewed date:07/16/2024 01:24:48 PM Interpretation: Performing Lab:[facility], [address] [place] [phone] Notes/Report: Potassium 3.2 3.3-5.1 mmol/L Potassium Reviewed date:07/23/2024 01:00:00 PM Interpretation: Performing Lab:[facility], [address] [place] [phone] Notes/Report: Potassium 3.3 3.3-5.1 mmol/L Potassium Reviewed date:08/06/2024 04:59:11 PM Interpretation: Performing Lab:[facility], [address] [place] [phone] Notes/Report: Potassium 3.2 3.3-5.1 mmol/L Potassium Reviewed date:08/27/2024 12:09:44 PM Interpretation: Performing Lab:[facility], [address] [place] [phone] Notes/Report: Potassium 3.8 3.3-5.1 mmol/L Potassium Reviewed date:10/12/2024 06:23:33 PM Interpretation: Performing Lab:[facility], [address] [place] [phone] Notes/Report: Potassium 4.1 3.3-5.1 mmol/L Reason For [...] HCl 50 MG TAKE 1 TABLET BY [facility] EVERY DAY for 30 Active Eliquis 5 [...] Status W/U Status Risk Notes Problem Hypokalemia (17471111) Hypokalemia (E87.6) Active confirmed Problem Depression (190289139) Depression (F32.9) Active confirmed Problem 08049945 Anxiety (F41.9) Active confirmed Problem 402904885 Paroxysmal atrial fibrillation (I48.0) Active confirmed Problem Iron deficiency (58726069) Iron deficiency (E61.1) Active confirmed Problem Essential hypertension (63712071) Essential hypertension (I10) Active confirmed Problem Anxiety disorder (251830543) Anxiety disorder (F41.9) Active confirmed Problem 88143870 Alcohol abuse (F10.10) Active confirmed Problem Family history of breast cancer (038185767) Family history of breast cancer (Z80.3) Active [...] Goran Harman MD [address] [place] [id number] 06/29/2024 Goran Harman Blood tests for routine general physical examination Z00.00 ; Essential hypertension I10 and Iron deficiency E61.1 Goran Harman MD [address] [place] [id number] 07/02/2024 Goran Rhiannaardier Hypokalemia E87.6 an d Essential hypertension I10 Goran Harman MD [address] [place] [id number] 07/05/2024 Gorannatividad Mccraryer Hypokalemia E87.6 Goran Harman MD [address] [place] [id number] 07/09/2024 Gorannatividad Harman Hypokalemia E87.6 Goran Harman MD [address] [place] [id number] 07/16/2024 Goran Harman Acute hypokalemia E87.6 Goran Harman MD [address] [place] [id number] 07/23/2024 Gorannatividad Moctezumaardier Hypokalemia E87.6 Goran Harman MD [address] [place] [id number] 08/27/2024 Gorannatividad Harman Hypokalemia E87.6 Goran Harman MD [address] [place] [id number] 12/19/2023 Goran Harman Athlete's foot, left B35.3 and Acute cellulitis L03.90 Goran Harman MD [address] [place] [id number] 12/30/2023 Goran Harman Athlete's foot, left B35.3 ; Acute cellulitis L03.90 ; Essential hypertension I10 and Skin rash R21 Goran Harman MD [address] [place] [id number] 04/12/2024 Goran Harman Paroxysmal atrial fibrillation I48.0 and Anxiety F41.9 Goran Harman MD [address] [place] [id number] 05/04/2024 Goran Harman Paroxysmal atrial fibrillation I48.0 and Unintended weight gain R63.5 Goran Harman MD [address] [place] [address] [id number] 06/29/2024 Goran Harman Acute hypokalemia E87.6 and Paroxysmal atrial fibrillation I48.0 Goran Harman MD [address] [place] [id number] 08/06/2024 Goran Harman Hypokalemia E87.6 ; Annual physical exam Z00.00 ; Essential hypertension I10 ; Paroxysmal atrial fibrillation I48.0 and Iron deficiency E61.1 Goran Harman MD [address] [place] [id number] 10/12/2024 Goran Harman Hypokalemia E87.6 an d Essential hypertension I10 Goran Harman MD [address] [place] [id number] 07/20/2024 Goran Harman MD [address] [place] [address] [id number] 06/24/2024 Goran Harman MD [address] [place] [address] [id number] 06/29/2024 Goran Harman MD [address] [place] [id number] 08/03/2024 Goran Harman Paroxysmal atrial fibrillation I48.0 Goran Harman MD [address] [place] [id number] 08/23/2024 Goran Harman Acute hypokalemia E87.6 Assessments [...] - E87.6) 08/27/2024 Hypokalemia (ICD-10 - E87.6) 12/19/2023 Athlete's foot, left (ICD-10 - B35.3) [...] Z00.00) labs reviewed and discussed with patient 10/12/2024 Hypokalemia (ICD-10 - E87.6) pending lab, will continue current regiment and will continue to monitor 08/03/2024 Paroxysmal atrial fibrillation (ICD-10 - I48.0) 08/23/2024 Acute hypokalemia (ICD-10 - E87.6) 06/29/2024 Iron deficiency (ICD-10 - E61.1) 07/02/2024 Hypokalemia (ICD-10 - E87.6) 12/30/2023 Essential hypertension (ICD-10 - I10) is slightly high 08/06/2024 Essential hypertension (ICD-10 - I10) will try to treat with valsartan without hctz, will cntinue to monitor 10/12/2024 Essential hypertension (ICD-10 - I10) doing great on meds, will continue current regiment 07/02/2024 Essential hypertension (ICD-10 - I10) 12/30/2023 [...] will continue current regiment Plan Of Treatment Next Appt Details Provider Name:Goran cronin, 01/07/2025 10:15:00 AM, [address] [place] [address], [address], [place], [place], [phone], Insurance Providers Payer Name Payer Address Payer Phone Subscriber Number Group Number Insured Name Patient Relationship to Insured Coverage Start Date Coverage End Date [employer] Administ[employer] [address] [place] [id number] Renetta Melendez Self - patient is the insured 2 Medical (General) History Medical History History ICD Code had episode of afib when she was drinkin g
--- OUTSIDE RECORDS SUMMARY | 2024-11-04 10:59 | XMS_ITS ---
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 Role Phone Goran Harman Primary Care Provider Results Component Value Reference Range Notes Potassium Reviewed date:08/27/2024 12:09:44 PM Interpretation: Performing Lab:[facility], [address] [place] [phone] Notes/Report: Potassium 3.8 3.3-5.1 mmol/L REASON FOR VISIT potassium Encounters Encounter Location Date Provider Diagnosis Goran Harman MD [address] [place] [address] [place] [id number] 08/27/2024 Goran Harman Hypokalemia E87.6 Assessments Encounter Date Diagnosis (ICD Code) Assessment Notes Treatment Notes Treatment Clinical Notes Section Notes 08/27/2024 Hypokalemia (ICD-10 - E87.6) Plan Of Treatment Next Appt Details Provider Name:Goran Washburn ier, 01/07/2025 10:15:00 AM, [address] [facility], Suite [facility], [place], [place], [phone], Progress Notes * Boaz MELENDEZB:1985 (39 yo F)Acc No.[id number]:08/27/2024 Progress Note Patient:?Renetta MELENDEZ Provider:?Goran Harman MD :1985???Age:38 Y???Sex:Female D ate:08/27/2024 Address:[address] [place] [address] [id number] Subjective: * Chief Complaints: * ???1. Potassium. * Medical History:? Objective: * Vitals:? Assessment: * Assessment: 1.?Hypokalemia - E87.6 (Prim kamla)??? Plan: * Treatment: * Procedure Codes:?41948 VENIP UNCT, ROUTINE* * * The named appointment provid er may or may not be the originator of this progress note, and it is not deemed complete until electronically signed by the appointment provider. Sign off status: Pending * Provider:?Goran Harman MD Date:?0 08/27/2024 Generated for Trish levine/Martir/Angelicaitting on:?11/04/2024 10:58 AM EDT
== END 2024-11-04 10:25 | disposition home or self-care (01) ==
LOC: HO.HCS 10:02
PROVIDERS: Visit Provider Internal Medicine
DX: I48.0 Paroxysmal atrial fibrillation (principal); E66.01 Morbid (severe) obesity due to excess calories; I10 Essential (primary) hypertension; E87.6 Hypokalemia
CPT/HCPCS: 93010; 99214; G2211

== ENCOUNTER → 2024-11-04 10:02 | Outpatient (BNVA) | payer OTHER, SELFPAY | PROVIDERS: Visit Provider Internal Medicine | DX: I48.0 Paroxysmal atrial fibrillation (principal) | CPT/HCPCS: 93005 ==

== ENCOUNTER 2025-01-07 12:10 | Outpatient (REF) | payer OTHER, SELFPAY ==
--- OUTSIDE RECORDS SUMMARY | 2025-01-07 12:13 | XMS_ITS | Clinical Summary ---
Author Organization [facility] [address] [place] [address] [place] [address] Phone Care Team Providers Care Front Line Supervisor Name Role Phone Saundra Mathew MD Primary Care Provider [phone] Encounters Date Type Department Care Team Description 12/01/2024 3:34 PM EDT - 12/01/2024 11:59 PM EDT Hospital Encounter Radiology Department - [address] [phone] Encounter for screening mammogram for breast cancer Discharge Disposition: Home or Self Care from Last 3 Months Surgical History Surgery Date Site/Laterality Comments TONSILLECTOMY PROCEDURE: HISTORICAL TONSILLECTOMY OTHER SURGICAL HISTORY [id number] PROCEDURE: [place] DILATION & CURETTAGE DX&/THER NONOBSTETRIC OTHER SURGICAL HISTORY [id number] PROCEDURE: HYSTEROSCOPY, DIAGNOSTIC; COMMENT: polypectomy Medical History [...] = 0.6 oz p ure alcohol) Comments No Sex and Gender Information Value Date Recorded Sex Assigned at Not on file Legal Sex Female 1:26 AM EST Gender Identity Not on file Sexual Orientation Not on file Obstetrics History Para Term AB IAB SAB Ectopic Multiple Livin g Live Births 0 0 0 0 Plan of Treatment Health Maintenance Due Date Last Done Comments Hepatitis B Vaccines (1 of 3 - 19+ 3-dose series) 2004 Cholesterol Screening (Lipid Panel) 05/26/2022 Depression Screening 05/26/2022 HIV Screening 05/26/2022 Hepatitis C Screening 05/26/2022 Social Influencers of Health Screening 05/26/2022 COVID-19 Vaccine ( season) 2024 04/12/2021, 07/20/2020, 06/29/2020 DTaP,Tdap,and Td Vaccines (2 - Td or Tdap) 07/16/2024 07/16/2014 Influenza Vaccine (#1) 2025 Breast Cancer Screening 12/01/2025 12/02/19, 11/20/2023, 11/20/2023, Additional history exists Cervical Cancer Screening: Pap Smear 08/07/2026 08/07/2023 HIB Vaccines Aged Out [...] 5 Years) and At-Risk Patients (6 to 49 Years) Aged Out No longer eligible based on patient's age to complete this topic RSV Immunization Patients Under 20 months Aged Out No longer eligible based on patient's age to complete this topic Varicella Vaccines Aged Out No longer eligible based on patient's age to complete this topic Procedures Procedure Name Priority Date/Time Associated Diagnosis Comments MG MAMMO DIGITAL SCREENING W MIGUELANGEL BILAT Routine 12/01/2024 4:00 PM EDT Encounter for screening mammogram for breast cancer PAP SMEAR Routine 08/07/2023 from Last 3 Months or Most Recently Relevant to Health Maintenance Results * MG Mammo Digital Screening w Miguelangel bilat (12/01/2024 4:00 PM EDT) Anatomical Region Laterality Modality Breast Bilateral Mammography 12/02/2024 11:1 0 AM EDT Impressions 12/02/2024 11:31 AM EDT Benign. BI-RADS CATEGORY: 1 - NEGATIVE RECOMMENDATION: Screening bilateral mammogram is recommended in 1 year. Mammo Location: [facility], [address] [place] [address], [address], . -------- FINAL REPORT -------- Dictated By: Mariama Christianson Dictated Date: 12/02/2024 11:10 ET Assigned Physician: Mariama Christianson Reviewed and Electronically Signed By: Mariama Christianson Signed Date: 12/02/2024 11:31 ET Workstation ID: [id number] Transcribed By: Self Edit Transcribed Date: 12/02/2024 11:10 ET Narrative 12/02/2024 11:31 AM EDT CLINICAL: 39 years old, Female, routine annual exam. COMPARISON: Mammograms 06/28/2020 and 11/20/2023. TECHNIQUE: Bilateral MLO and CC views were obtained digitally with 3-D mammogram (digital breast tomosynthesis). Computer-aided detection was utilized in evaluation of this exam (CAD). FINDINGS: There is no evidence of suspicious mass or architectural distortion. No worrisome calcifications are evident. There has been no significant change from prior exam(s). BREAST DENSITY: B - There are scattered areas of fibroglandular density. Procedure Note Mariama Christianson MD - 12/02/2024 CLINICAL: 39 years old, Female, routine annual exam. COMPARISON: Mammograms 06/28/2020 and 11/20/2023. TECHNIQUE: Bilateral MLO and CC views were obtained digitally with 3-Dmammogram (digital breast tomosynthesis). Computer-aided detection wasutilized in evaluation of this exam (CAD). FINDINGS: There is no evidence of suspicious mass or architectural distortion. Noworrisome calcifications are evident. There has been no significantchange from prior exam(s). BREAST DENSITY: B - There are scattered areas of fibroglandular density. IMPRESSION: Benign. BI-RADS CATEGORY: 1 - NEGATIVE RECOMMENDATION: Screening bilateral mammogram is recommended in 1 year. Mammo Location: [facility], [address] [place] [address], [address], . -------- FINAL REPORT -------- Dictated By: Mariama Christianson Dictated Date: 12/02/2024 11:10 ET Assigned Physician: Mariama Christianson Reviewed and Electronically Signed By: Mariama Christianson Signed Date: 12/02/2024 11:31 ET Workstation ID: [id number] Transcribed By: Self Edit Transcribed Date: 12/02/2024 11:10 ET us Saundra Mathew MD IMG BI PROCEDURES Final Re sult * Pap smear (08/07/2023) 08/07/2023 Narrative HISTORICAL TESTING LAB RESULTING AGENCY - 08/18/2023 6:36 AM EST [id number] THINPREP PAP, IMAGED: NEGATIVE FOR SQUAMOUS INTRAEPITHELIAL LESION AND MALIGNANCY . ABUNDANT RED BLOOD CELLS ARE PRESENT. JOSE BLAIR(ASCP) (CASE ELECTRONICALLY SIGNED 08 16 2023) RESULT OF APTIMA HIGH RISK HPV ASSAY: HIGH RISK HPV: NEGATIVE (SEROTYPES 16,18,31,33,35,39,45,51,52,56,58,59,66,68) COMPLETED ON 2023-08-11 ADEQUACY: SATISFACTORY ENDOCERVICAL/TRANSFORMATION ZONE COMPONENT PRESENT. SOURCE: THINPREP PAP HPV ANY DX: REFLEX 16 AND 18, CERVICAL, IMAGED CLINICAL INFORMATION: HPV ANY DIAGNOSIS. HORMONES, PAP HX NEGATIVE, [Z01.419] Myriam Guevara DO LAB CYTOLOGY ORDERABLES Final Result HISTORICAL TESTING LAB RESULTING AGENCY from Last 3 Months or Most Recently Relevant to Health Maintenance Insurance * Guarantor: Renetta Melendez Account Type Relation to Patient Date of Phone Billing Address Personal/Family Self 1985 [phone] (Work) [address] [place] [address] [employer] Care Teams Front Line Supervisor Relationship Specialty Start Date End Date Saundra Mathew MD [address], [place] [phone] PCP - General Internal Medicine 12/01/24
--- OUTSIDE RECORDS SUMMARY | 2025-01-07 12:13 | XMS_ITS | Patient Health Record ---
Author Organization Goran Harman MD Address [address] [place], [place] [phone] Care Team Providers Care Linux Security Administrator Name Role Phone Goran Harman Primary Care Provider Allergies No Known Allergies Results Component Value Reference Range Notes Troponin-I High Sensitivity Reviewed date:06/20/2024 04:56:35 PM Interpretation: Performing Lab:[facility], [address] [place] [phone] Notes/Report: Troponin-I High Sensitivity 5.7 <3.5-17.0 ng/L The [place] high sensitivity Troponin-I results should be used in conjunction with other diagnostic information such as ECG, clinical observations and information, and patient symptoms to aid in the diagnosis of [place]. David Ford Reviewed date:06/29/2024 10:55:05 AM Interpretation: Performing Lab:[facility], [address] [place] [phone] Notes/Report: David Ford See Note Specimen held untested for 24 hours; Call to request Chemistry testing. Complete Blood Count Auto Di ff Reviewed date:06/29/2024 12:39:39 PM Interpretation: Performing Lab:[facility], [address] [place] [phone] Notes/Report: White Blood Count 6.9 4.8-10.8 X10*3/uL [...] NRBC Abs Auto 0.000 0.0-0.012 X10*3/uL Comprehensive [place]. Panel Fa st Reviewed date:06/29/2024 04:24:01 PM Interpretation: Performing Lab:[facility], [address] [place] [phone] Notes/Report: Sodium 140 135-145 mmol/L Potassium 2.9 [...] PROFILE Reviewed date:06/29/2024 04:24:31 PM Interpretation: Performing Lab:[facility], [address] [place] [phone] Notes/Report: Iron 73 30-160 mcg/dL Total Iron Binding Capacity 258 228-428 mcg/dL Percent Iron Saturation 28 15-50 % Unsaturated Iron Binding 185 Lipid Panel Reviewed date:06/29/2024 04:23:25 PM Interpretation: Performing Lab:[facility], [address] [place] [phone] Notes/Report: Triglycerides 88 <150 mg/dL Desirable Triglyceride: [...] Culture Reviewed date:07/04/2024 03:05:09 PM Interpretation: Performing Lab:[facility], [address] [place] [phone] Notes/Report: Urine Culture Report Result Urine Culture > 100,000 cfu/ml Urine Culture Mixed bacterial paras a characteristic of Urine Culture urogenital contamination. Potassium Reviewed date:07/02/2024 12:50:14 PM Interpretation: Performing Lab:[facility], [address] [place] [phone] Notes/Report: Potassium 3.1 3.3-5.1 mmol/L UA ClnCatch+Micro w/rflx Cul t Reviewed date:07/02/2024 05:16:48 PM Interpretation: Performing Lab:[facility], [address] [place] [phone] Notes/Report: Urine, Clean Catch Color Urine Dark Yellow Appearance Urine Cloudy PH 5.5 5.0-9.0 Glucose Urine UA Negative Negative mg/dL Urine Blood Negative Negative Specific Orange - Urine >= 1.030 1.005-1.025 Urine Protein Trace Neg-Trace mg/dL Urine Ketones Negative Negative mg/dL Nitrite Urine Negative Negative Leukocyte Esterase Urine Negative Negative RBC Urine 0-2 0-2 /HPF WBC Urine 6-10 0-5 /HPF Squamous Epithelial Cell Urine 11-20 0-2 /HPF Bacteria Urine 2+ None Seen Hyaline Casts Urine 0-2 0-2 /LPF Potassium Reviewed date:07/05/2024 01:09:27 PM Interpretation: Performing Lab:[facility], [address] [place] [phone] Notes/Report: Potassium 3.6 3.3-5.1 mmol/L Potassium Reviewed date:07/09/2024 02:11:26 PM Interpretation: Performing Lab:[facility], [address] [place] [phone] Notes/Report: Potassium 3.8 3.3-5.1 mmol/L Potassium Reviewed date:07/16/2024 01:24:48 PM Interpretation: Performing Lab:[facility], [address] [place] [phone] Notes/Report: Potassium 3.2 3.3-5.1 mmol/L Potassium Reviewed date:07/23/2024 01:00:00 PM Interpretation: Performing Lab:[facility], [address] [place] [phone] Notes/Report: Potassium 3.3 3.3-5.1 mmol/L Potassium Reviewed date:08/06/2024 04:59:11 PM Interpretation: Performing Lab:[facility], [address] [place] [phone] Notes/Report: Potassium 3.2 3.3-5.1 mmol/L Potassium Reviewed date:08/27/2024 12:09:44 PM Interpretation: Performing Lab:[facility], [address] [place] [phone] Notes/Report: Potassium 3.8 3.3-5.1 mmol/L Potassium Reviewed date:10/12/2024 06:23:33 PM Interpretation: Performing Lab:[facility], [address] [place] [phone] Notes/Report: Potassium 4.1 3.3-5.1 mmol/L Reason For Referral No Information Medications Medication SIG (Take, Route, Frequency, Duration) Notes Start Date End Date Status Folic Acid 1 MG 1 tablet Orally Once a day for 30 day(s) Active hydrOXYzine HCl 50 MG 1 tablet as needed Orally Once a day for 30 day(s) 04/12/2024 Active Sertraline HCl 50 MG TAKE [address] [facility] EVERY DAY for 30 Active Ferrous Sulfate 325 (65 Fe) MG 1 tablet Orally Once a day Active hydrOXYzine HCl 10 MG 1 tablet as needed Orally Once a day for 30 day(s) Not-Taking Valsartan 160 MG 1 tablet Orally Once a day 08/06/2024 Active dilTIAZem HCl ER 360 MG 1 tablet Orally Once a day Active Potassium Chloride ER 10 MEQ 2 tabs Orally Once a day 06/29/2024 Act bella Vitamin B-1 100 MG 1 tablet Orally [...] Status W/U Status Risk Notes Problem Hypokalemia (17846519) Hypokalemia (E87.6) Active confirmed Problem Depression (575669641) Depression (F32.9) Active confirmed Problem 77131052 Anxiety (F41.9) Active confirmed Problem 963828189 Paroxysmal atrial fibrillation (I48.0) Active confirmed Problem Iron deficiency (97665863) Iron deficiency (E61.1) Active confirmed Problem Essential hypertension (77638423) Essential hypertension (I10) Active confirmed Problem Anxiety disorder (762101499) Anxiety disorder (F41.9) Active confirmed Problem 18302836 Alcohol abuse (F10.10) Active confirmed Problem Family history of breast cancer (828379333) Family history of breast cancer (Z80.3) Active confirmed Problem PCO (polycystic ovaries) (E28.2) Active confirmed Vital Signs Heart Rate 70 /min 04/12/2024 Blood pressure diastolic 84 mm Hg 01/07/2025 humble ght is down 18 pounds since 10-12-24 Height 67.5 in 01/07/2025 weight is down 18 pounds since 10-12-24 Blood pressure systolic 112 mm Hg 01/07/2025 weig ht is down 18 pounds since 10-12-24 Weight 294 lbs 01/07/2025 weight is down 18 pounds since 10-12-24 BMI 45.36 kg/m2 01/07/2025 weight is down 18 pounds since 10-12-24 Encounters Encounter Location Date Provider Diagnosis Goran Harman MD [address] [place] [address] Drive [address] [place], [place] [phone] 06/29/2024 Goran Harman Blood tests for routine general physical examination Z00.00 ; Essential hypertension I10 and Iron deficiency E61.1 Goran Harman MD [address] [place] [id number] 07/02/2024 Goran Bombardier Hypokalemia E87.6 an d Essential hypertension I10 Goran Harman MD [address] [place] [id number] 07/05/2024 Goran Bombardier Hypokalemia E87.6 Goran Harman MD [address] [place] [address] [id number] 07/09/2024 Goran Bombardier Hypokalemia E87.6 Goran Harman MD [address] [place] [address] [id number] 07/16/2024 Goran Bombardier Acute hypokalemia E87.6 Goran Harman MD [address] [place] [address] [id number] 07/23/2024 Goran Bombardier Hypokalemia E87.6 Goran Harman MD [address] [place] [address] [id number] 08/27/2024 Goran Bombardier Hypokalemia E87.6 Goran Harman MD [address] [place] [address] [id number] 01/07/2025 Goran Bombardier Hypokalemia E87.6 an d Weight loss R63.4 Goran Harman MD [address] [place] [id number] 04/12/2024 Goran Harman Paroxysmal atrial fibrillation I48.0 and Anxiety F41.9 Goran Harman MD [address] [place] [address] [id number] 05/04/2024 Goran Bombcarloser Paroxysmal atrial fibrillation I48.0 and Unintended weight gain R63.5 Goran Harman MD [address] [place] [address] [id number] 06/29/2024 Goran Bombcarloser Acute hypokalemia E87.6 and Paroxysmal atrial fibrillation I48.0 Goran Harman MD [address] [place] [address] [id number] 08/06/2024 Goran Rhiannaardirodolfo Hypokalemia E87.6 ; Annual physical exam Z00.00 ; Essential hypertension I10 ; Paroxysmal atrial fibrillation I48.0 and Iron deficiency E61.1 Goran Harman MD [address] [place] [id number] 10/12/2024 Goran Harman Hypokalemia E87.6 an d Essential hypertension I10 Goran Harman MD [address] [place] [address] [id number] 07/20/2024 Goran Harman MD [address] [place] [address] [id number] 06/24/2024 Goran Harman MD [address] [place] [address] [id number] 06/29/2024 Goran Harman MD [address] [place] [address] [id number] 08/03/2024 Goran Harman Paroxysmal atrial fibrillation I48.0 Goran Harman MD [address] [id number] 08/23/2024 Goran Harman Acute hypokalemia E87.6 Assessments [...] - E87.6) 08/27/2024 Hypokalemia (ICD-10 - E87.6) 01/07/2025 Hypokalemia (ICD-10 - E87.6) paending lab 01/07/2025 Weight loss (ICD-10 - R63.4) doing well on meds 04/12/2024 Paroxysmal atrial fibrillation (ICD-10 - I48.0) [...] regiment 07/02/2024 Essential hypertension (ICD-10 - I10) 08/06/2024 Paroxysmal atrial fibrillation (ICD-10 - I48.0) stable, will continue current regiment 08/06/2024 Iron deficiency (ICD-10 - E61.1) stable, doing well, will continue current regiment Plan Of Treatment Pending Test Test Name Order Date Potassium 01/07/2025 Next Appt Details Provider Name:Goran cronin, 04/12/2025 09:00:00 AM, [address] [place] [address] Drive, [address], [place], [phone], Insurance Providers Payer Name Payer Address Payer Phone Subscriber Number Group Number Insured Name Patient Relationship to Insured Coverage Start Date Coverage End Date [place] Plan Administrators [address] MD [place] [id number] Renetta Melendez Self - patient is the insured 2 Medical (General) History Medical History History ICD Code had episode of afib when she was drinkin g
[2025-01-07 12:35] LABS: Potassium 3.3 mmol/L (3.3-5.1)
== END 2025-01-07 12:11 | disposition home or self-care (01) ==
LOC: HO.LNP 12:10
PROVIDERS: Visit Provider Internal Medicine
DX: E87.6 Hypokalemia (principal)
CPT/HCPCS: 84132

== ENCOUNTER 2025-02-08 11:41 | Outpatient (REF) | payer OTHER, SELFPAY ==
--- OUTSIDE RECORDS SUMMARY | 2025-02-03 08:19 | XMS_ITS ---
Author Organization Goran Harman MD Address [address] [place] [phone] Care Team Providers Care Search Director Name Role Phone Goran Harman Primary Care Provider REASON FOR VISIT RF Potassium Medications Medication SIG (Take, Route, Frequency, Duration) Notes Start Date End Date Status Potassium Chloride ER 10 MEQ 3 tabs Orally Once a day for 90 days 06/29/2024 Active Encounters Encounter Location Date Provider Diagnosis Goran Hraman MD [address] [place] [address] Drive [address] [place] [id number] 02/03/2025 Goran Harman Hypokalemia E87.6 Assessments Encounter Date Diagnosis (ICD Code) Assessment Notes Treatment Notes Treatment Clinical Notes Section Notes 02/03/2025 Hypokalemia (ICD-10 - E87.6) Plan Of Treatment Medication Medication Name Sig Start Date Stop Date Notes Potassium Chloride ER 10 MEQ 3 tabs Oral ly Once a day for 90 days 06/29/2024 Next Appt Details Provider Name:Goran Washburn ier, 04/12/2025 09:00:00 AM, [address] [place] [address], Suite [facility], [place], [place], [phone], Progress Notes * Cathi MELENDEZ:1985 (39 yo F)Acc No.[id number]:02/03/2025 Patient: Violet JESUSPaoloRenetta :1985 A ge:39 Y S ex:Female Address:[address] [place] [address], [address] * Refills Refill Potassium Chloride ER Tablet Extended Release, 10 MEQ, Orally, 270 Tablet, 3 tabs, Once a day, 90 days, Refills=3 * true * Date: Generated for Trish levine/Martir/Angelicaitting on: 0 02/08/2025 01:12 PM EDT
[2025-02-08 12:00] LABS: Potassium 4.1 mmol/L (3.3-5.1)
--- OUTSIDE RECORDS SUMMARY | 2025-02-08 13:12 | XMS_ITS | Encounter Summary ---
Author Organization [facility] Address [address] [place] [address] Care Team Providers Care Linotype Machinist Apprentice Name Role Phone Saundra Mathew MD Primary Care Provider Unava ilable Encounter Details Date Type Department Care Team Description 12/21/2014 TELEGRAPH SERVICE RATER/[facility] Report Medical Records [address] [place] [phone] Abstract, Provider Social History Tobacco Use Types [...] on filedocumented in this encounter Care Teams Linotype Machinist Apprentice Relationship Specialty Start Date End Date Saundra Mathew MD PCP - General Internal Medicine 07/08/14 documented as of this encounter
--- OUTSIDE RECORDS SUMMARY | 2025-02-08 13:12 | XMS_ITS | Clinical Summary ---
Author Organization [facility] [address] [place] [address] [place] [address] Phone Care Team Providers Care Industrial Gas Fitter Helper Name Role Phone Saundra Mathew MD Primary Care Provider [phone]- [phone] Encounters Date Type Department Care Team Description 12/01/2024 3:34 PM EDT - 12/01/2024 11:59 PM EDT Hospital Encounter Radiology Department - [address] [phone] Encounter for screening mammogram for breast cancer Discharge Disposition: Home or Self Care from Last 3 Months Surgical History Surgery Date Site/Laterality Comments TONSILLECTOMY PROCEDURE: HISTORICAL TONSILLECTOMY OTHER SURGICAL HISTORY 661047 PROCEDURE: [place] DILATION & CURETTAGE DX&/THER NONOBSTETRIC OTHER SURGICAL HISTORY 278791 PROCEDURE: HYSTEROSCOPY, DIAGNOSTIC; COMMENT: polypectomy Medical History [...] series) 2004 Cholesterol Screening (Lipid Panel) 05/26/2022 HIV Screening 05/26/2022 Hepatitis C Screening 05/26/2022 Social Influencers of Health Screening 05/26/2022 COVID-19 Vaccine ( season) 2024 04/12/2021, 07/20/2020, 06/29/2020 Depression Screening 06/23/2024 DTaP,Tdap,and Td Vaccines (2 - Td or [...] is recommended in 1 year. Mammo Location: [facility], [address] [place] [address], [id number], . -------- FINAL REPORT -------- Dictated By: Mariama Christianson Dictated Date: 12/02/2024 11:10 ET Assigned Physician: Mariama Christianson Reviewed and Electronically Signed By: Mariama Christianson Signed Date: 12/02/2024 11:31 ET Workstation ID: [id number] Transcribed By: Self Edit Transcribed Date: 12/02/2024 [...] is recommended in 1 year. Mammo Location: [facility], [address] [place] [address], [id number], . -------- FINAL REPORT -------- Dictated By: Mariama Christianson Dictated Date: 12/02/2024 11:10 ET Assigned Physician: Mariama Christianson Reviewed and Electronically Signed By: Mariama Christianson Signed Date: 12/02/2024 11:31 ET Workstation ID: [id number] Transcribed By: Self Edit Transcribed Date: 12/02/2024 11:10 ET us Saundra Mathew MD IMG BI PROCEDURES Final Re sult * Pap smear (08/07/2023) 08/07/2023 Narrative HISTORICAL TESTING LAB RESULTING AGENCY - 08/18/2023 6:36 AM EST [id number] THINPREP PAP, IMAGED: NEGATIVE FOR SQUAMOUS INTRAEPITHELIAL [...] of Phone Billing Address Personal/Family Self 1985 [phone] (Work) [address] [place] [address] [employer] Care Teams Industrial Gas Fitter Helper Relationship Specialty Start Date End Date Saundra Mathew MD [address], [place] [id number] PCP - General Internal Medicine 12/01/24
== END 2025-02-08 11:42 | disposition home or self-care (01) ==
LOC: HO.LNP 11:41
PROVIDERS: Visit Provider Internal Medicine
DX: E87.6 Hypokalemia (principal)
CPT/HCPCS: 84132

== ENCOUNTER 2025-05-04 10:28 | Outpatient (AMB) | payer OTHER, SELFPAY ==
--- OUTSIDE RECORDS SUMMARY | 2024-07-23 03:15 | XMS_ITS ---
Author Organization Goran Harman MD Address [address] [place] [phone] Care Team Providers Care Lens Cutter Name Role Phone Goran Harman Primary Care Provider Results Component Value Reference Range Notes Potassium Reviewed date:07/23/2024 01:00:00 PM Interpretation: Performing Lab:[facility], [address] [place] [phone] Notes/Report: Potassium 3.3 3.3-5.1 mmol/L REASON FOR VISIT Potassium Encounters Encounter Location Date Provider Diagnosis Goran Harman MD [address] [place] [address] [place] [id number] 07/23/2024 Goran Harman Hypokalemia E87.6 Assessments Encounter Date Diagnosis (ICD Code) Assessment Notes Treatment Notes Treatment Clinical Notes Section Notes 07/23/2024 Hypokalemia (ICD-10 - E87.6) Plan Of Treatment Next Appt Details Provider Name:Goran Washburn ier, 10/14/2025 09:00:00 AM, [address] [place] [address], Suite [facility], [place], [place], [phone], Progress Notes * Cathi MELENDEZ:1985 (39 yo F)Acc No.[id number]:07/23/2024 Progress Note Patient: Paolo AGUIRREessa Provider: Sesar Harman MD :1985 A ge:38 Y S ex:Female Date:07/23/2024 Address:[address] [place] [address] mert [id number] Subjective: * Chief Complaints: * 1 . Potassium. * Medical History: Objective: * Vitals: Assessment: * Assessment: 1. H ypokalemia - E87.6 (Primary) Plan: * Treatment: * Procedure Codes: 3 6415 VENIPUNCT, ROUTINE* * * The named appointment provid er may or may not be the originator of this progress note, and it is not deemed complete until electronically signed by the appointment provider. Sign off status: Pending * Provider: Sesar Harman MD Date: 0 07/23/2024 Generated for Trish levine/Martir/Angelicaitting on: 07/04/2024 12:31 PM EST
--- OUTSIDE RECORDS SUMMARY | 2024-08-03 05:28 | XMS_ITS ---
Author Organization Goran Harman MD Address [address] [place] [phone] Care Team Providers Care Interactive Graphic Designer Name Role Phone Goran Harman Primary Care Provider [phone] REASON FOR VISIT RF Medications Medication SIG (Take, Route, Fr equency, Duration) Notes Start Date End Date Status dilTIAZem HCl ER 360 MG 1 tablet Orally Once a day for 90 days Active Encounters Encounter Location Date Provider Diagnosis Goran Harman MD [address] [place] [address] [place] [phone] 08/03/2024 Goran Harman Paroxysmal atrial fibrillation I48.0 Assessments Encounter Date Diagnosis (ICD Code) Assessment Notes Treatment Notes Treatment Clinical Notes Section Notes 08/03/2024 Paroxysmal atrial fibrillation (ICD-10 - I48.0) Plan Of Treatment Medication Medication Name Sig Start Date Stop Date Notes dilTIAZem HCl ER 360 MG 1 tablet Orally Once a day for 90 days Next Appt Details Provider Name:Goran cronin, 10/14/2025 09:00:00 AM, [address] [facility], [address] [facility], [place], [place], [phone], Progress Notes * Cathi MELENDEZ:1985 (38 yo F)Acc No.[id number]:08/03/2024 Patient: Violet JESUSRenetta :1985 A ge:38 Y S ex:Female Address:[address] [place] [address], [id number] * Refills Refill dilTIAZem HCl ER Tablet Extended Release 24 Hour, 360 MG, Orally, 90, 1 tablet, Once a day, 90 days, Refills=3 * true * Date: Generated for Trish levine/Martir/Mary on: 07/04/2024 12:31 PM EST
--- OUTSIDE RECORDS SUMMARY | 2024-08-06 08:00 | XMS_ITS ---
Author Organization Goran Harman MD Address [address] [place], [place] [id number] Care Team Providers Care Guest Experience Captain Name Role Phone Goran Harman Primary Care Provider [phone] Allergies No Known Allergies Results Component Value Reference Range Notes Potassium Reviewed date:08/06/2024 04:59:11 PM Interpretation: Performing Lab:[facility], [address] [place] [id number] Notes/Report: Potassium 3.2 3.3-5.1 mmol/L REASON FOR VISIT ANNUAL EXAM, Repeat Potassium Medications Medication SIG (Take, Route, Frequency, Duration) Notes Start Date End Date Status Semaglutide(0.25 or 0.5MG/DOS) 2 MG/3ML taking 1.25mg Subcutaneous Active Folic Acid 1 MG 1 tablet Orally Once a day for 30 day(s) Active Vitamin B-1 100 MG 1 tablet Orally Once a day for 30 day(s) Active Valsartan 160 MG 1 tablet Orally Once a day for 90 days 08/06/2024 Active dilTIAZem HCl ER 360 MG 1 tablet Orally Once a day for 90 days Active hydrOXYzine HCl 50 MG 1 tablet as needed Orally Once a day for 30 day(s) 04/12/2024 Active hydrOXYzine HCl 10 MG 1 tablet as needed Orally Once a day for 30 day(s) Not-Taking Potassium Chloride ER 10 MEQ 1 tablet with food Orally Once a day for 30 days 06/29/2024 Active Vitamin D 25 MCG (1000 UT) 1 tablet Orally Once a day for 30 day(s) Not-Taking Ferrous Sulfate 325 (65 Fe) MG 1 tablet Orally Once a day Active Eliquis 5 MG 1 tablet Orally Twic e a day for 90 days Active Sertraline HCl 50 MG TAKE 1 TABLET BY [facility] EVERY DAY for 30 Active Social History Tobacco Use: Social History Observation [...] Section Notes: No alcohol x 60 days no alco hol x 5 months no alcohol since 05-13-22 Vital Signs Blood pressure systolic 128 mm Hg 08/06/19 25 Blood pressure diastolic 82 mm Hg 025 Height 67.5 in 08/06/2024 Weight 325 lbs 08/06/2024 BMI 50.15 kg/m2 08/06/2024 weight is down 7 pounds [facility] 06-29-24 Encounters Encounter Location Date Provider Diagnosis Goran Harman MD [address] [place] [address] Drive [address] [place], [place] [id number] 08/06/2024 Goran Harman Hypokalemia E87.6 ; Annual physical exam Z00.00 ; Essential hypertension I10 ; Paroxysmal atrial fibrillation I48.0 and Iron deficiency E61.1 Assessments Encounter Date Diagnosis (ICD Code) Assessment Notes Treatment Notes Treatment Clinical Notes Section Notes 08/06/2024 Hypokalemia (ICD-10 - E87.6) hopefully with valsartan without hctz won't need potassium replacement, will continue to monitor 08/06/2024 Annual physical exam (ICD-10 - Z00.00) labs reviewed and discussed with patient 08/06/2024 Essential hypertension (ICD-10 - I10) will try to treat with valsartan without hctz, will cntinue to monitor 08/06/2024 Paroxysmal atrial fibrillation (ICD-10 - I48.0) stable, will continue current regiment 08/06/2024 Iron deficiency (ICD-10 - E61.1) stable, doing well, will continue current regiment Plan Of Treatment Medication Medication Name Sig Start Date Stop Date Notes Valsartan 160 MG 1 tablet Orally Once a day for 90 days 08/06/2024 Valsartan-hydroCHLOROthiazid e 160-12.5 MG TAKE 1 TABLET BY MOUTH EVERY DAY Treatment Notes Assessment Notes Hypokalemia hopefully with valsa rtan without hctz won't need potassium replacement, will continue to monitor Annual physical exam labs reviewed and d iscussed with patient Essential hypertension will try to treat with valsartan without hctz, will cntinue to monitor Paroxysmal atrial fibrillation stable, w ill continue current regiment Iron deficiency stable, doing well, will continue current regiment Next Appt Details Follow Up: 2 Months, Reason: Provider Name:Goran Washburn ier, 10/14/2025 09:00:00 AM, [address] [place] [address], [address], [place], [place], [id number], Progress Notes * Boaz MELENDEZB:1985 (38 yo F)Acc No.[id number]:08/06/2024 Progress Notes Patient: Renetta AGUIRRE Provider: Sesar Harman MD :1985 A ge:38 Y S ex:Female Date:08/06/2024 Address:[address] [place], [place] [id number] Subjective: * Chief Complaints: * A NNUAL EXAMRepeat Potassium * HPI: D epression Screening: PHQ-9 L ittle interest or pleasure in doing things N ot at all, F eeling down, depressed, or hopeless N ot at all, T rouble falling or staying asleep, or sleeping too much N ot at all, F eeling tired or having little energy N ot at all, P oor appetite or overeating N ot at all, F eeling bad about yourself or that you are a failure, or have let yourself or your family down N ot at all, T rouble concentrating on things, such as reading the newspaper or watching television N ot at all, M oving or speaking so slowly that other people could have noticed; or the opposite, being so fidgety or restless that you have been moving around a lot more than usual N ot at all, T houghts that you would be better off or of hurting yourself in some way N ot at all, T otal Score 0 . I nterpretation and Intervention D epression Screening Findings N egative, F ollow-Up for Depression : review of PHQ-9 found negative result, no follow-up needed. C ommunication Needs: Communication Needs D oes the patient have a hearing impairment N o, D oes the patient have a vision impairment? Y es, I f yes, what is the vision impairment? G lasses, D oes the patient have a cognition impairment? N o. S MIYA Questions: SDOH Questions I n the past year have you been worried about losing housing? N o, I n the past year have you or any family members you live with been unable to get any of the following when it was really needed? Check all that apply: N one. S ymptom(s): patient is a 38 yo female here for annual visit with review of recent labs and follow up of chronic issues, is on glp1. * ROS: G eneral/Constitutional: Patient denies f atigue, headache. C hange in appetite?denies. C hills d enies. F ever d enies. O phthalmologic: Blurred vision d enies. D ischarge d enies. P ain d enies. E NT: Patient denies d ecreased sense of smell, any loss of taste, sore throat. D ecreased hearing d enies. S ore throat d enies. S wollen glands?denies. E ndocrine: Cold intolerance d enies. E xcessive thirst d enies. H eat intolerance d enies. W eight loss d enies. R espiratory: Cough d enies. S hortness of breath at rest d enies. S hortness of breath with exertion d enies. W heezing d enies. C ardiovascular: Chest pain at rest d enies. C hest pain with exertion?denies. I rregular heartbeat d enies. S hortness of breath d enies. ? G astrointestinal: Abdominal pain d enies. C hange in bowel habits d enies. D iarrhea d enies. N ausea d enies. R ectal bleeding d enies. V omiting d enies . G enitourinary: Blood in urine d enies. D ifficulty urinating d enies. F requent urination d enies. U rinary incontinence D enies. M usculoskeletal: Patient denies m uscle aches. P ainful joints d enies. W eakness d enies. P eripheral Vascular: Patient denies r ed and blue toes. S kin: Dry skin d enies. I tching d enies. D enies?Mole(s), changes in moles, new moles or any lesions of concern. D enies P hotosensitivity. R juan jose d enies. N eurologic: Dizziness d enies. F ainting d enies. H eadache?denies. * Medical History: * Surgical History: * Hospitalization/Major Diagno stic Procedure: * Family History: F ather: 64 yrs. M other: alive 64 yrs. 1 brother(s) , 2 sister(s) . 1 son(s) . . Fater- Cardiac Mother- Healthy Father Alcoholic sister alcoholic 1 sister with breast cancer maternal aunt breast cancer paternal aunt breast cancer maternal great aunt ovarian cancer, Denies mental health/substance abuse family history. * Social History: T obacco Use: T obacco Use/Smoking P atient is a f ormer smoker, H ow long has it been since you last smoked? > 10 years, A dditional Findings: Tobacco Non-User F ormer smoker, currently using no form of tobacco. D rugs/Alcohol: A lcohol Screen D id you have a drink containing alcohol in the past year? N o, P oints 0 , I nterpretation N egative. M iscellaneous: C affeine: no. Children: no. Exercise: yes, walk 45 monutes once a week. Home smoke detector use: yes. Housing: owning. Living with: spouse. Marital status: . Occupation: weeks/months/years, works full-time. Travel outside of the [place]: no. N o alcohol x 60 days no alcohol x 5 months no alcohol since 05-13-22. * Medications: T akingSemaglutide(0.25 or 0.5MG/DOS) 2 MG/3ML Solution Pen-injector taking 1.25mg Subcutaneous Vitamin B-1 100 MG Tablet 1 tablet Orally Once a day Folic Acid 1 MG Tablet 1 tablet Orally Once a day Ferrous Sulfate 325 (65 Fe) MG Tablet 1 tablet Orally Once a day Valsartan-hydroCHLOROthiazide 160-12.5 MG Tablet TAKE 1 TABLET BY MOUTH EVERY DAY Sertraline HCl 50 MG Tablet TAKE 1 TABLET BY MOUTH EVERY DAY Eliquis 5 MG Tablet 1 tablet Orally Twice a day hydrOXYzine HCl 50 MG Tablet 1 tablet as needed Orally Once a day dilTIAZem HCl ER 360 MG Tablet Extended Release 24 Hour 1 tablet Orally Once a day Potassium Chloride ER 10 MEQ Tablet Extended Release 1 tablet with food Orally Once a day Taking Semaglutide(0.25 or 0.5MG/DOS) 2 MG/3ML Solution Pen-injector taking 1.25mg Subcutaneous Taking Vitamin B-1 100 MG Tablet 1 tablet Orally Once a day Taking Folic Acid 1 MG Tablet 1 tablet Orally Once a day Taking Ferrous Sulfate 325 (65 Fe) MG Tablet 1 tablet Orally Once a day Taking Valsartan-hydroCHLOROthiazide 160-12.5 MG Tablet TAKE 1 TABLET BY MOUTH EVERY DAY Taking Sertraline HCl 50 MG Tablet TAKE 1 TABLET BY MOUTH EVERY DAY Taking Eliquis 5 MG Tablet 1 tablet Orally Twice a day Taking hydrOXYzine HCl 50 MG Tablet 1 tablet as needed Orally Once a day Taking dilTIAZem HCl ER 360 MG Tablet Extended Release 24 Hour 1 tablet Orally Once a day Taking Potassium Chloride ER 10 MEQ Tablet Extended Release 1 tablet with food Orally Once a day Not-Taking/PRNhydrOXYzine HCl 10 MG Tablet 1 tablet as needed Orally Once a day Vitamin D 25 MCG (1000 UT) Tablet 1 tablet Orally Once a day Medication List reviewed and reconciled with the patientNot-Taking/PRN hydrOXYzine HCl 10 MG Tablet 1 tablet as needed Orally Once a day Not-Taking/PRN Vitamin D 25 MCG (1000 UT) Tablet 1 tablet Orally Once a day Medication List reviewed and reconciled with the patient * Allergies: N .K.D.A.yes[Allergies Verified] Objective: * Vitals: H t: 67.5, Wt: 325, BMI:50.15, BP:128/82, Wt-k.42. weight is down 7 pounds since 06-29-24. * P ast Orders: L ab:Lipid Panel (Order Date - 06/29/2024) (Collection Date & Time - 06/29/2024 08:00 AM) Value Reference Range Triglycerides 88 <150 - mg/dL Cholesterol 194 <200 - mg/dL LDL Cholesterol Calculated 140 H <100 - mg/dL HDL Cholesterol 37 L >40 - mg/dL L ab:IRON PROFILE (Order Date - 06/29/2024) (Collection Date & Time - 06/29/2024 08:00 AM) Value Reference Range Iron 73 30-160 - mcg/dL Total Iron Binding Capacity 258 228-428 - mc g/dL Percent Iron Saturation 28 15-50 - % Unsaturated Iron Binding 185 - ug/dL L ab:Comprehensive [place]. Panel Fast (Order Date 06/29/2024) (Collection Date & Time - 06/29/2024 08:00 AM) Value Reference Range Sodium 140 135-145 - mmol/L Bilirubin Total 0.3 0.0-1.0 - mg/dL Aspartate Amino Transferase 19 5-31 - U/L Alanine Aminotransferase 17 0-31 - U/L Total Protein 7.6 6.5-8.0 - g/dL Albumin Level 4.3 3.5-5.0 - g/dL Alkaline Phosphatase 75 39-117 - U/L Potassium 2.9 LL 3.3-5.1 - mmol/L Chloride 102 96-108 - mmol/L Carbon Dioxide 29 22-29 - mmol/L Anion Gap 12 12-20 - Blood Urea Nitrogen 16 9-16 - mg/dL Creatinine 0.85 0.5-1.4 - mg/dL Estimated Glomerular Filt Rate > 60 - Glucose Fasting 92 60-99 - mg/dL Calcium 9.5 8.4-10.2 - mg/dL L ab:Complete Blood Count Auto Diff (Order Date 06/29/2024) (Collection Date & Time - 06/29/2024 08:00 AM) Value Reference Range White Blood Count 6.9 4.8-10.8 - X10*3/uL Red Blood Count 4.74 4.20-5.50 - X10*6/uL Hemoglobin 12.7 12.0-16.0 - g/dl Hematocrit 38.5 37.0-47.0 - % Mean Corpuscular Volume 81.2 80.0-98.0 - fL Mean Corpuscular Hemoglobin 26.8 L 27.0-33.0 - pg Mean Corpuscular HGB Conc 33.0 31.0-35.0 - g/ dl Red Cell Distribution Width 13.8 11.0-16.0 - % Platelet Count 371 160-400 - X10*3/uL Mean Platelet Volume 11.9 9.4-12.3 - fL Neutrophils Percent Auto 66.1 45-73 - % Imm Gran Pct Auto 0.3 0.0-0.4 - % Lymphocytes Percent Auto 25.3 20-40 - % Monocytes Percent Auto 6.2 2-11 - % Eosinophils Percent Auto 1.4 0-4 - % Basophils Percent Auto 0.7 0-2 - % NRBC Pct Auto 0.0 0.0-0.2 - /100WBC Neutrophils Absolute Auto 4.6 2.0-8.3 - x10* 3/uL Imm Gran Abs Auto 0.02 0.00-0.03 - X10*3/uL Lymphocytes Absolute Auto 1.8 1.2-4.9 - X10* 3/uL Monocytes Absolute Auto 0.4 0.1-1.2 - X10*3/ uL Eosinophils Absolute Auto 0.1 0.0-0.4 - X10* 3/uL Basophils Absolute Auto 0.1 0.0-0.2 - X10*3/ uL NRBC Abs Auto 0.000 0.0-0.012 - X10*3/uL * Examination: G eneral Examination: GENERAL APPEARANCE: w ell developed, well nourished, in no acute distress. HEAD: n ormocephalic, atraumatic. EYES: p upils equal, round, reactive to light and accommodation, sclera non-icteric. EARS: n ormal. ORAL CAVITY: m ucosa moist. THROAT: c lear. NECK/THYROID: n renetta supple, full range of motion, no cervical lymphadenopathy, no bruits. SKIN: w arm and dry, no suspicious lesions. HEART: r egular rate and rhythm, S1, S2 normal, no murmurs.? LUNGS: c lear to auscultation bilaterally. BREASTS: d one by oven unloader. ABDOMEN: s oft, nontender, nondistended, bowel sounds present, normal, no organomegaly , no masses palpable. RECTAL EXAM: d one by oven unloader. FEMALE GENITOURINARY: d one by oven unloader. EXTREMITIES: n o clubbing, cyanosis, or edema. NEUROLOGIC: n onfocal, motor strength normal upper and lower extremities, sensory exam intact. Assessment: * Assessment: 1. A nnual physical exam - Z00.00 (Primary) 2 . H ypokalemia - E87.6 ? 3 . E ssential hypertension - I10 4 . P aroxysmal atrial fibrillation - I48.0 5 . I lei deficiency - E61.1 Plan: * Treatment: 2. H ypokalemia Stop Valsartan-hydroCHLOROthiazide Tablet, 160-12.5 MG, TAKE 1 TABLET BY MOUTH EVERY DAY; S tart Valsartan Tablet, 160 MG, 1 tablet, Orally, Once a day, 90 days, 90 Tablet, Refills 3. L AB: Potassium (Collection Date & Time - 08/06/2024 01:00 PM) L AB: Potassium (Ordered for 08/27/2024) Notes: hopefully with valsartan without hctz won't need potassium replacement, will continue to monitor 3. E ssential hypertension Notes: will try to treat with valsartan without hctz, will cntinue to monitor 4. P aroxysmal atrial fibrillation Notes: stable, will continue current regiment 5. I lei deficiency Notes: stable, doing well, will continue current regiment * Procedure Codes: 3 6415 VENIPUNCT, ROUTINE* * Follow Up: 2 Months * * Sign off status: Completed true * Provider: Sesar Harman MD Date: 0 08/06/2024 Generated for Trish levine/Martir/eTmonicasmitting on: 1 07/04/2024 12:31 PM EST History and Physical Notes * HPI (History of Present Illness) Category Sub-Category Detail Notes Category Not es Symptom(s) patient is a 38 yo female here for annual visit with review of recent labs and follow up of chronic issues, is on glp1 Depression Screening PHQ-9 Little inte rest or pleasure in doing things: Not at all Feeling down, depressed, or hopeless: No t at all Trouble falling or staying asleep, or sl eeping too much: Not at all Feeling tired or having little energy: N ot at all Poor appetite or overeating: Not at all Feeling bad about yourself o r that you are a failure, or have let yourself or your family down: Not at all Trouble concentrating on thi ngs, such as reading the newspaper or watching television: Not at all Moving or speaking so slowly that other people could have noticed; or the opposite, being so fidgety or restless that you have been moving around a lot more than usual: Not at all Thoughts that you would be b milton off or of hurting yourself in some way: Not at all Total Score: 0 Interpretation and Intervention Depression Katherine watson Findings: Negative Follow-Up for Depression: : review of PH Q-9 found negative result, no follow-up needed SDOH Questions SDOH Questions In the past year have you been worried about losing housing?: No In the past year have you or any family members you live with been unable to get any of the following when it was really needed? Check all that apply:: None Communication Needs Communication Needs Does the patient have a hearing impairment: No Does the patient have a vision impairmen t?: Yes If yes, what is the vision impairment?: Glasses Does the patient have a cognition impair ment?: No Examination Category Sub-Category Detail Notes Category Not es General Examination GENERAL APPEARANCE: well dev eloped, well nourished, in no acute distress HEAD: normocephalic, atrau matic EYES: pupils equal, round, reactive to light and accommodation, sclera non-icteric EARS: normal THROAT: clear NECK/THYROID: neck supple, full ra nge of motion, no cervical lymphadenopathy, no bruits HEART: regular rate and rhy thm, S1, S2 normal, no murmurs LUNGS: clear to auscultatio n bilaterally ABDOMEN: soft, nontender, non distended, bowel sounds present, normal, no organomegaly , no masses palpable NEUROLOGIC: nonfocal, motor stre ngth normal upper and lower extremities, sensory exam intact SKIN: warm and dry, no antonino picious lesions EXTREMITIES: no clubbing, cyanosi s, or edema BREASTS: done by oven unloader RECTAL EXAM: done by oven unloader FEMALE GENITOURINARY: done by oven unloader ORAL CAVITY: mucosa moist
--- OUTSIDE RECORDS SUMMARY | 2024-08-23 10:34 | XMS_ITS ---
Author Organization Goran Harman MD Address [address] [place] [phone] Care Team Providers Care Environmental Adviser Name Role Phone Goran Harman Primary Care Provider Medications Medication SIG (Take, Route, Frequency, Duration) Notes Start Date End Date Status Potassium Chloride ER 10 MEQ 1 tablet with food Orally Once a day for 30 days 06/29/2024 Active Encounters Encounter Location Date Provider Diagnosis Goran Harman MD [address] [place] [address] Drive [address] [place] [phone] 08/23/2024 Goran Harman Acute hypokalemia E87.6 Assessments Encounter Date Diagnosis (ICD Code) Assessment Notes Treatment Notes Treatment Clinical Notes Section Notes 08/23/2024 Acute hypokalemia (ICD-10 - E87.6) Plan Of Treatment Medication Medication Name Sig Start Date Stop Date Notes Potassium Chloride ER 10 MEQ 1 tablet wi th food Orally Once a day for 30 days 06/29/2024 Next Appt Details Provider Name:Goran Washburn ier, 10/14/2025 09:00:00 AM, [address] [facility], Suite [facility], [place], [place], [phone], Progress Notes * Cathi MELENDEZ:1985 (38 yo F)Acc No.[id number]:08/23/2024 Patient: Violet JESUSPaoloRenetta :1985 A ge:38 Y S ex:Female Address:[address] [place] [address], [address] * Refills Refill Potassium Chloride ER Tablet Extended Release, 10 MEQ, Orally, 30 Tablet, 1 tablet with food, Once a day, 30 days, Refills=3 * true * Date: Generated for Trish levine/Martir/Mary on: 07/04/2024 12:32 PM EST
--- OUTSIDE RECORDS SUMMARY | 2024-08-27 02:00 | XMS_ITS ---
Author Organization Goran Harman MD Address [address] [place] [phone] Care Team Providers Care Loom Fixer Name Role Phone Goran Harman Primary Care Provider [phone] Results Component Value Reference Range Notes Potassium Reviewed date:08/27/2024 12:09:44 PM Interpretation: Performing Lab:[facility], [address] [place] [phone] Notes/Report: Potassium 3.8 3.3-5.1 mmol/L REASON FOR VISIT potassium Encounters Encounter Location Date Provider Diagnosis Goran Harman MD [address] [place] [address] [place] [id number] 08/27/2024 Goran Harman Hypokalemia E87.6 Assessments Encounter Date Diagnosis (ICD Code) Assessment Notes Treatment Notes Treatment Clinical Notes Section Notes 08/27/2024 Hypokalemia (ICD-10 - E87.6) Plan Of Treatment Next Appt Details Provider Name:Goran Washburn ier, 10/14/2025 09:00:00 AM, [address] [place] [address], Suite [facility], [place], [place], [phone], Progress Notes * Cathi MELENDEZ:1985 (39 yo F)Acc No.[id number]:08/27/2024 Progress Note Patient: Paolo AGUIRREessa Provider: Sesar Harman MD :1985 A ge:38 Y S ex:Female Date:08/27/2024 Address:[address] [place] [address] mert [id number] Subjective: * Chief Complaints: * 1 . [...] * Provider: Sesar Harman MD Date: 0 08/27/2024 Generated for Trish levine/Martir/Angelicaitting on: 07/04/2024 12:32 PM EST
--- OUTSIDE RECORDS SUMMARY | 2024-10-12 04:15 | XMS_ITS ---
Author Organization Goran Harman MD Address [address] [place], [place] [phone] Care Team Providers Care Health Care Legal Assistant Name Role Phone Goran Harman Primary Care Provider Allergies No Known Allergies Results Component Value Reference Range Notes Potassium Reviewed date:10/12/2024 06:23:33 PM Interpretation: Performing Lab:[facility], [address] [place] [phone] Notes/Report: Potassium 4.1 3.3-5.1 mmol/L REASON FOR VISIT 2 month Medications Medication SIG (Take, Route, Frequency, Duration) Notes Start Date End Date Status Semaglutide(0.25 or 0.5MG/DOS) 2 MG/3ML taking 1.25mg Subcutaneous Active Vitamin D 25 MCG (1000 UT) 1 tablet Orally Once a day for 30 day(s) Not-Taking Vitamin B-1 100 MG 1 tablet Orally Once a day for 30 day(s) Active Folic Acid 1 MG 1 tablet Orally Once a day for 30 day(s) Active Potassium Chloride ER 10 MEQ 2 tabs Orally Once a day 06/29/2024 Act bella Valsartan 160 MG 1 tablet Orally Once a day 08/06/2024 Active hydrOXYzine HCl 10 MG 1 tablet as needed Orally Once a day for 30 day(s) Not-Taking Sertraline HCl 50 MG TAKE 1 TABLET BY MO [facility] EVERY DAY for 30 Active Eliquis 5 MG 1 tablet Orally Twic e a day for 90 days Active hydrOXYzine HCl 50 MG 1 tablet as needed Orally Once a day for 30 day(s) 04/12/2024 Active dilTIAZem HCl ER 360 MG 1 tablet Orally Once a day Active Ferrous Sulfate 325 (65 Fe) MG 1 tablet Orally Once a day Active Vital Signs Blood pressure systolic 102 mm Hg 10/13/19 25 Blood pressure diastolic 60 mm Hg 025 Height 67.5 in 10/12/2024 Weight 312 lbs 10/12/2024 BMI 48.14 kg/m2 10/12/2024 weight is down 13 pounds sin 08-06-24 Encounters Encounter Location Date Provider Diagnosis Goran Harman MD [address] [place] [address] Drive [address] [place] [id number] 10/12/2024 Goran Harman Hypokalemia E87.6 an d Essential hypertension I10 Assessments Encounter Date Diagnosis (ICD Code) Assessment Notes Treatment Notes Treatment Clinical Notes Section Notes 10/12/2024 Hypokalemia (ICD-10 - E87.6) pending lab, will continue current regiment and will continue to monitor 10/12/2024 Essential hypertension (ICD-10 - I10) doing great on meds, will continue current regiment Plan Of Treatment Medication Medication Name Sig Start Date Stop Date Notes Potassium Chloride ER 10 MEQ 2 tabs Orally Once a day 12/2024 Valsartan 160 MG 1 tablet Orally Once a day 08/06/2024 dilTIAZem HCl ER 360 MG 1 tablet Orally Once a day Treatment Notes Assessment Notes Hypokalemia pending lab, will co ntinue current regiment and will continue to monitor Essential hypertension doing great on me ds, will continue current regiment Next Appt Details Follow Up: 3 Months, Reason: Provider Name:Goran Washburn ier, 10/14/2025 09:00:00 AM, [address] [place] [address] Drive, [address], [place], [place], [phone], Progress Notes * Boaz MELENDEZB:1985 (39 yo F)Acc No.[id number]:10/12/2024 Progress Notes Patient: Renetta AGUIRRE Provider: Sesar Harman MD :1985 A ge:38 Y S ex:Female Date:10/12/2024 Address:[address] [place] [address] , [place], [id number] Subjective: * Chief Complaints: * 2 month * HPI: S ymptom(s): patient is a 38 yo female here for 2 month follow up visit. * ROS: G eneral/Constitutional: Kalyan Mejias hills. D enies F atigue. D enies F ever. D enies H eadache. E NT: Denies S ore throat. R espiratory: Kalyan Mejias ough. D enies S hortness of breath at rest. D enies S hortness of breath with exertion. G astrointestinal: Kalyan D iarrhea. D enies N ausea. * Medical History: * Surgical History: * Hospitalization/Major Diagno stic Procedure: * Medications: T akingSemaglutide(0.25 or 0.5MG/DOS) 2 MG/3ML Solution Pen-injector taking 1.25mg Subcutaneous Vitamin B-1 100 MG Tablet 1 tablet Orally Once a day Folic Acid 1 MG Tablet 1 tablet Orally Once a day Ferrous Sulfate 325 (65 Fe) MG Tablet 1 tablet Orally Once a day Sertraline HCl 50 MG Tablet TAKE 1 TABLET BY MOUTH EVERY DAY Eliquis 5 MG Tablet 1 tablet Orally Twice a day hydrOXYzine HCl 50 MG Tablet 1 tablet as needed Orally Once a day dilTIAZem HCl ER 360 MG Tablet Extended Release 24 Hour 1 tablet Orally Once a day Valsartan 160 MG Tablet 1 tablet Orally Once a day Potassium Chloride ER 10 MEQ Tablet Extended Release 2 tabs Orally Once a day Taking Semaglutide(0.25 or 0.5MG/DOS) 2 MG/3ML Solution Pen-injector taking 1.25mg Subcutaneous Taking Vitamin B-1 100 MG Tablet 1 tablet Orally Once a day Taking Folic Acid 1 MG Tablet 1 tablet Orally Once a day Taking Ferrous Sulfate 325 (65 Fe) MG Tablet 1 tablet Orally Once a day Taking Sertraline HCl 50 MG Tablet TAKE 1 TABLET BY MOUTH EVERY DAY Taking Eliquis 5 MG Tablet 1 tablet Orally Twice a day Taking hydrOXYzine HCl 50 MG Tablet 1 tablet as needed Orally Once a day Taking dilTIAZem HCl ER 360 MG Tablet Extended Release 24 Hour 1 tablet Orally Once a day Taking Valsartan 160 MG Tablet 1 tablet Orally Once a day Taking Potassium Chloride ER 10 MEQ Tablet Extended Release 2 tabs Orally Once a day Not-Taking/PRNhydrOXYzine HCl 10 [...] Objective: * Vitals: H t: 67.5, Wt: 312, BMI:48.14, BP:102/60, Wt-k.52. weight is down 13 pounds since 08-06-24. * Examination: G eneral Examination: GENERAL APPEARANCE: a lert, well hydrated, in no distress.? HEAD: n ormocephalic. EARS: L EFT EAR had been itching. exam is normal. SKIN: g ood turgor. HEART: n o murmurs, rubs, gallops, regular rate and rhythm.? LUNGS: n o wheezes, rales, rhonchi, good air movement, clear to auscultation bilaterally. Assessment: * Assessment: 1. H ypokalemia - E87.6 (Primary) 2 . E ssential hypertension - I10 ? Plan: * Treatment: 2. E ssential hypertension Continue dilTIAZem HCl ER Tablet Extended Release 24 Hour, 360 MG, 1 tablet, Orally, Once a day;?Continue Valsartan Tablet, 160 MG, 1 tablet, Orally, Once a day. Notes: doing great on meds, will continue current regiment * Procedure Codes: 3 6415 VENIPUNCT, ROUTINE* * Follow Up: 3 Months * * Sign off status: Completed true * Provider: Sesar Harman MD Date: 0 10/12/2024 Generated for Trish levine/Martir/Mary on: 07/04/2024 12:32 PM EST History and Physical Notes * HPI (History of Present Illness) Category Sub-Category Detail Notes Category Not es Symptom(s) patient is a 38 yo female here for 2 month follow up visit Examination Category Sub-Category Detail Notes Category Not es General Examination GENERAL APPEARANCE: alert, w ell hydrated, in no distress HEAD: normocephalic EARS: LEFT EAR had been it lizz. exam is normal HEART: no murmurs, rubs, ga llops, regular rate and rhythm LUNGS: no wheezes, rales, r honchi, good air movement, clear to auscultation bilaterally SKIN: good turgor
--- OUTSIDE RECORDS SUMMARY | 2025-01-07 05:15 | XMS_ITS ---
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 Role Phone Goran Harman Primary Care Provider [phone] Allergies No Known Allergies Results Component Value Reference Range Notes Potassium Reviewed date:01/07/2025 12:54:30 PM Interpretation: Performing Lab:[facility], [address] [place] [phone] Notes/Report: Potassium 3.3 3.3-5.1 mmol/L REASON FOR VISIT 3 month Medications Medication SIG (Take, Route, Frequency, Duration) Notes Start Date End Date Status hydrOXYzine HCl 10 MG 1 tablet as needed Orally Once a day for 30 day(s) Not-Taking Valsartan 160 MG 1 tablet Orally Once a day 08/06/2024 Active dilTIAZem HCl ER 360 MG 1 tablet Orally Once a day Active Potassium Chloride ER 10 MEQ 2 tabs Orally Once a day 06/29/2024 Act bella Vitamin D 25 MCG (1000 UT) 1 tablet Orally Once a day for 30 day(s) Not-Taking Folic Acid 1 MG 1 tablet Orally Once a day for 30 day(s) Active hydrOXYzine HCl 50 MG 1 tablet as needed Orally Once a day for 30 day(s) 04/12/2024 Active Sertraline HCl 50 MG TAKE 1 TABLET BY [facility] EVERY DAY for 30 Active Ferrous Sulfate 325 (65 Fe) MG 1 tablet Orally Once a day Active Vitamin B-1 100 MG 1 tablet Orally Once a day for 30 day(s) Active Semaglutide(0.25 or 0.5MG/DOS) 2 MG/3ML taking 1.25mg Subcutaneous Active Vital Signs Blood pressure systolic 112 mm Hg 01/08/20 25 Blood pressure diastolic 84 mm Hg 025 Height 67.5 in 01/07/2025 Weight 294 lbs 01/07/2025 BMI 45.36 kg/m2 01/07/2025 weight is down 18 pounds sin ce 10-12-24 Encounters Encounter Location Date Provider Diagnosis Goran Harman MD [address] [place] [address] Drive [address] [place], [place] [phone] 01/07/2025 Goran Harman Hypokalemia E87.6 and Weight loss R63.4 Assessments Encounter Date Diagnosis (ICD Code) Assessment Notes Treatment Notes Treatment Clinical Notes Section Notes 01/07/2025 Hypokalemia (ICD-10 - E87.6) paending lab 01/07/2025 Weight loss (ICD-10 - R63.4) doing well on meds Plan Of Treatment Treatment Notes Assessment Notes Hypokalemia paending lab Weight loss doing well on meds Next Appt Details Follow Up: 3 Months, Reason: Provider Name:Goran Washburn ier, 10/14/2025 09:00:00 AM, [address] [place] [address], [address], [place], [place], [phone], Progress Notes * Boaz MELENDEZB:1985 (39 yo F)Acc No.[id number]:01/07/2025 Progress Notes Patient: Renetta AGUIRRE Provider: Sesar Harman MD :1985 A ge:39 Y S ex:Female Date:01/07/2025 Address:[address] [place], [place] [phone] Subjective: * Chief Complaints: * 3 month * HPI: S ymptom(s): patient is a 39 yo female had an episode of afib while drinking/ still losing weight on ozempic. * ROS: G eneral/Constitutional: Denies C hills. D enies F atigue. D enies F ever. D enies H eadache. E NT: Denies S ore throat. R espiratory: Denies C ough. D enies S hortness of breath at rest. D entabitha S hortness of breath with exertion. G astrointestinal: Kalyan Pascal iarrhea. D entabitha N ausea. * Medical History: * Surgical [...] TAKE 1 TABLET BY MOUTH EVERY DAY hydrOXYzine HCl 50 MG Tablet 1 tablet as needed Orally Once a day Potassium Chloride ER 10 MEQ Tablet Extended Release 2 tabs Orally Once a day dilTIAZem HCl ER 360 MG Tablet Extended Release 24 Hour 1 tablet Orally Once a day Valsartan 160 MG Tablet 1 tablet Orally Once a day Taking Semaglutide(0.25 or [...] 1 TABLET BY MOUTH EVERY DAY Taking hydrOXYzine HCl 50 MG Tablet 1 tablet as needed Orally Once a day Taking Potassium Chloride ER 10 MEQ Tablet Extended Release 2 tabs Orally Once a day Taking dilTIAZem HCl ER 360 MG Tablet Extended Release 24 Hour 1 tablet Orally Once a day Taking Valsartan 160 MG Tablet 1 tablet Orally Once a day Not-Taking/PRNhydrOXYzine HCl 10 MG Tablet 1 tablet as needed Orally Once a day Vitamin D 25 MCG (1000 UT) Tablet 1 tablet Orally Once a day Not-Taking/PRN hydrOXYzine HCl 10 MG Tablet 1 tablet as needed Orally Once a day Not-Taking/PRN Vitamin D 25 MCG (1000 UT) Tablet 1 tablet Orally Once a day DiscontinuedEliquis 5 MG Tablet 1 tablet Orally Twice a day Medication List reviewed and reconciled with the patientDiscontinued Eliquis 5 MG Tablet 1 tablet Orally Twice a day Medication List reviewed and reconciled with the patient * Allergies: N .K.Naida.A.yes[Allergies Verified] Objective: * Vitals: H t: 67.5, Wt: 294, BMI:45.36, BP:112/84, Wt-k.36. weight is down 18 pounds since 10-12-24. * Examination: G eneral Examination: GENERAL APPEARANCE: p leasant, well nourished, well developed, in no acute distress. SKIN: g ood turgor. HEART: r egular rate and rhythm, no murmurs, rubs, gallops.? LUNGS: n o wheezes, rales, rhonchi, good air movement, clear to auscultation bilaterally. Assessment: * Assessment: 1. H ypokalemia - E87.6 (Primary) 2 . W eight loss - R63.4 Plan: * Treatment: 2. W eight loss Notes: doing well on meds * Procedure Codes: 3 6415 VENIPUNCT, ROUTINE* * Follow Up: 3 Months * * Sign off status: Completed true * Provider: Sesar Harman MD Date: 0 01/07/2025 Generated for Trish levine/Martir/Clausmitting on: 07/04/2024 12:32 PM EST History and Physical Notes * HPI (History of Present Illness) Category Sub-Category Detail Notes Category Not es Symptom(s) patient is a 39 yo female had an episode of afib while drinking/ still losing weight on ozempic Examination Category Sub-Category Detail Notes Category Not es General Examination GENERAL APPEARANCE: pleasant , well nourished, well developed, in no acute distress HEART: regular rate and rhy thm, no murmurs, rubs, gallops LUNGS: no wheezes, rales, r honchi, good air movement, clear to auscultation bilaterally SKIN: good turgor
--- OUTSIDE RECORDS SUMMARY | 2025-02-03 07:19 | XMS_ITS ---
Author Organization Goran Harman MD Address [address] [place] [phone] Care Team Providers Care Elevator Serviceman Name Role Phone Goran Harman Primary Care Provider [phone] REASON FOR VISIT RF Potassium Medications Medication SIG (Take, Route, Frequency, Duration) Notes Start Date End Date Status Potassium Chloride ER 10 MEQ 3 tabs Orally Once a day for 90 days 06/29/2024 Active Encounters Encounter Location Date Provider Diagnosis Goran Harman MD [address] [place] [address] Drive [address] [place] [phone] 02/03/2025 Goran Harman Hypokalemia E87.6 Assessments Encounter Date Diagnosis (ICD Code) Assessment Notes Treatment Notes Treatment Clinical Notes Section Notes 02/03/2025 Hypokalemia (ICD-10 - E87.6) Plan Of Treatment Medication Medication Name Sig Start Date Stop Date Notes Potassium Chloride ER 10 MEQ 3 tabs Oral ly Once a day for 90 days 06/29/2024 Next Appt Details Provider Name:Goran Washburn ier, 10/14/2025 09:00:00 AM, [address] [facility], Suite [facility], [place], [place], [phone], Progress Notes * Cathi MELENDEZ:1985 (39 yo F)Acc No.[id number]:02/03/2025 Patient: Violet JESUSPaoloRenetta :1985 A ge:39 Y S ex:Female Address:[address] [place] [address], [address] * Refills Refill Potassium Chloride ER Tablet Extended Release, 10 MEQ, Orally, 270 Tablet, 3 tabs, Once a day, 90 days, Refills=3 * true * Date: Generated for Trish levine/Martir/Mary on: 07/04/2024 12:32 PM EST
--- OUTSIDE RECORDS SUMMARY | 2025-02-08 03:15 | XMS_ITS ---
Author Organization Goran Harman MD Address [address] [facility] [address] [place] [phone] Care Team Providers Care Concrete Sculptor Name Role Phone Goran Harman Primary Care Provider [phone] Results Component Value Reference Range Notes Potassium Reviewed date:02/08/2025 12:52:10 PM Interpretation: Performing Lab:[facility], [address] [place] [phone] Notes/Report: Potassium 4.1 3.3-5.1 mmol/L REASON FOR VISIT potassium Encounters Encounter Location Date Provider Diagnosis Goran Harman MD [address] [place] [address] [place] [id number] 02/08/2025 Goran Harman Hypokalemia E87.6 Assessments Encounter Date Diagnosis (ICD Code) Assessment Notes Treatment Notes Treatment Clinical Notes Section Notes 02/08/2025 Hypokalemia (ICD-10 - E87.6) Plan Of Treatment Next Appt Details Provider Name:Goran Washburn ier, 10/14/2025 09:00:00 AM, [address] [place] [address], Suite [facility], [place], [place], [phone], Progress Notes * Boaz MELENDEZB:1985 (39 yo F)Acc No.[id number]:02/08/2025 Progress Note Patient: Paolo AGUIRREessa Provider: Sesar Harman MD :1985 A ge:39 Y S ex:Female Date:02/08/2025 Address:[address] [place] [phone] Subjective: * Chief Complaints: * 1 . [...] * Provider: Sesar Harman MD Date: 0 02/08/2025 Generated for rTish levine/Martir/Angelicaitting on: 07/04/2024 12:31 PM EST
--- OUTSIDE RECORDS SUMMARY | 2025-04-12 04:00 | XMS_ITS ---
Author Organization Goran Harman MD Address [address] [place], [place] [id number] Care Team Providers Care Skimmer Reverberatory Name Role Phone Goran Harman Primary Care Provider [phone] Allergies No Known Allergies REASON FOR VISIT 3 M0 F/U, getting flu vaccine at work Medications Medication SIG (Take, Route, Frequency, Duration) Notes Start Date End Date Status Ferrous Sulfate 325 (65 Fe) MG 1 tablet Orally Once a day Active hydrOXYzine HCl 50 MG 1 tablet as needed Orally Once a day for 30 day(s) 04/12/2024 Active Folic Acid 1 MG 1 tablet Orally Once a day for 30 day(s) Active Semaglutide(0.25 or 0.5MG/DOS) 2 MG/3ML taking 1.25mg Subcutaneous Active Vitamin B-1 100 MG 1 tablet Orally Once a day for 30 day(s) Active Valsartan 160 MG 1 tablet Orally Once a day 08/06/2024 Active hydrOXYzine HCl 10 MG 1 tablet as needed Orally Once a day for 30 day(s) Not-Taking Vitamin D 25 MCG (1000 UT) 1 tablet Orally Once a day for 30 day(s) Not-Taking dilTIAZem HCl ER 360 MG 1 tablet Orally Once a day Active Sertraline HCl 50 MG TAKE 1 TABLET BY [facility] EVERY DAY for 30 Active Potassium Chloride ER 10 MEQ 3 tabs Orally Once a day for 90 days 06/29/2024 Active Vital Signs Blood pressure systolic 112 mm Hg 04/12/20 25 Blood pressure diastolic 76 mm Hg 025 Height 67.5 in 04/12/2025 Weight 270 lbs 04/12/2025 BMI 41.66 kg/m2 04/12/2025 weight is down 15 pounds sin 01-07-25 Encounters Encounter Location Date Provider Diagnosis Goran Harman MD [address] [place] [address] [place] [phone] 04/12/2025 Goran Harman Essential hypertension I10 and Paroxysmal atrial fibrillation I48.0 Assessments Encounter Date Diagnosis (ICD Code) Assessment Notes Treatment Notes Treatment Clinical Notes Section Notes 04/12/2025 Essential hypertension (ICD-10 - I10) doing great with weight loss 04/12/2025 Paroxysmal atrial fibrillation (ICD-10 - I48.0) no problems Plan Of Treatment Medication Medication Name Sig Start Date Stop Date Notes Valsartan 160 MG 1 tablet Orally Once a day 08/06/2024 dilTIAZem HCl ER 360 MG 1 tablet Orally Once a day Treatment Notes Assessment Notes Essential hypertension doing great with weight loss Paroxysmal atrial fibrillation no proble ms Next Appt Details Follow Up: 6 Months, Reason: Provider Name:Goran Washburn ier, 10/14/2025 09:00:00 AM, [address] [place] [address], Suite [facility], [place], [place], [phone], Progress Notes * MELENDEZReinaaDOB:1985 (39 yo F)Acc No.[id number]:04/12/2025 Progress Notes Patient: Renetta AGUIRRE Provider: Sesar Harman MD :1985 A ge:39 Y S ex:Female Date:04/12/2025 Address:[address] [place], [place] [phone] Subjective: * Chief Complaints: * 3 M0 F/UGetting flu vaccine at work * HPI: S ymptom(s): patient is a 39 yo demale here for 3 month follow up visit. * ROS: G eneral/Constitutional: Denies C hills. D enies F atigue. D enies F ever. D enies H eadache. E NT: Denies S ore throat. R espiratory: Denies C ough. D enies S hortness of breath at rest. D enies S hortness of breath with exertion. G astrointestinal: Denies D iarrhea. D enies N ausea. * [...] Tablet 1 tablet Orally Once a day hydrOXYzine HCl 50 MG Tablet 1 tablet as needed Orally Once a day dilTIAZem HCl ER 360 MG Tablet Extended Release 24 Hour 1 tablet Orally Once a day Valsartan 160 MG Tablet 1 tablet Orally Once a day Potassium Chloride ER 10 MEQ Tablet Extended Release 3 tabs Orally Once a day Sertraline HCl 50 MG Tablet TAKE 1 TABLET BY MOUTH EVERY DAY Taking Semaglutide(0.25 or 0.5MG/DOS) 2 MG/3ML Solution Pen-injector taking 1.25mg Subcutaneous Taking Vitamin B-1 100 MG Tablet 1 tablet Orally Once a day Taking Folic Acid 1 MG Tablet 1 tablet Orally Once a day Taking Ferrous Sulfate 325 (65 Fe) MG Tablet 1 tablet Orally Once a day Taking hydrOXYzine HCl 50 MG Tablet 1 tablet as needed Orally Once a day Taking dilTIAZem HCl ER 360 MG Tablet Extended Release 24 Hour 1 tablet Orally Once a day Taking Valsartan 160 MG Tablet 1 tablet Orally Once a day Taking Potassium Chloride ER 10 MEQ Tablet Extended Release 3 tabs Orally Once a day Taking Sertraline HCl 50 MG Tablet TAKE 1 TABLET BY MOUTH EVERY DAY Not-Taking/PRNhydrOXYzine HCl 10 MG Tablet 1 tablet [...] Objective: * Vitals: H t: 67.5, Wt: 270, BMI:41.66, BP:112/76, Wt-k.47. weight is down 15 pounds since 7-18-25. * Examination: G eneral Examination: GENERAL APPEARANCE: a lert, well hydrated, in no distress.? HEAD: n ormocephalic. SKIN: g ood turgor. HEART: r egular rate and rhythm, no murmurs, rubs, gallops.? LUNGS: n o wheezes, rales, rhonchi, good air movement, clear to auscultation bilaterally. Assessment: * Assessment: 1. E ssential hypertension - I10 (Primary) 2 . P aroxysmal atrial fibrillation - I48.0 Plan: * Treatment: 2. P aroxysmal atrial fibrillation Notes: no problems * Procedure Codes: * Follow Up: 6 Months * * Sign off status: Completed true * Provider: Sesar Harman MD Date: Generated for Trish levine/Martir/eTransmitting on: 07/04/2024 12:31 PM EST History and Physical Notes * HPI (History of Present Illness) Category Sub-Category Detail Notes Category Not es Symptom(s) patient is a 39 yo demale here for 3 month follow up visit Examination Category Sub-Category Detail Notes Category Not es General Examination GENERAL APPEARANCE: alert, w ell hydrated, in no distress HEAD: normocephalic HEART: regular rate and rhy thm, no murmurs, rubs, gallops LUNGS: no wheezes, rales, r honchi, good air movement, clear to auscultation bilaterally SKIN: good turgor
[2025-05-04 10:32] VITALS: BP 122/66; PULSE 71; BMI 44.8
--- NOTE | 2025-05-04 10:32 | A.OFFVIS_ITS ---
Vital Signs 05/04/25 10:32 Height 5 ft 6 in Weight 277 lb 12.519 oz BMI 44.8 BP 122/66 Blood Pressure Location Lt brachial Position Sitting Pulse 71 Pulse Source Pulse Oximeter Intake Visit Reasons: 6m follow up Allergies bee pollen (bee stings) Allergy (Verified 06/19/24 22:20) Anaphylaxis Medication List - Last Reconciled 05/04/25 by Samuel Parker MD alprazolam (Xanax) 0.25 mg PO DAILY PRN diltiazem HCl CD 180 mg PO DAILY diphenhydramine HCl 25 mg PO TID PRN ferrous sulfate 325 mg PO DAILY folic acid 1 mg PO DAILY potassium chloride ER 30 mEq PO DAILY semaglutide (weight loss) 0.75 mg subcut QWEEK sertraline 1 tab PO DAILY thiamine mononitrate (vit B1) 100 mg PO DAILY valsartan 160 mg PO DAILY HPI Comments Details: Renetta returns for follow-up regarding atrial fibrillation. In 2021, she had atrial fibrillation and put on Diltiazem/Eliquis. As she felt well at that time, she has stopped taking her medications and was also drinking almost daily. In that context, had recurrent atrial fibrillation rapid rate and put back on medications. After that, another episode in setting of hypokalemia. Then put on potassium replacement. Over the last year or so, she has been trying to lose weight and has been reasonably successful. Overall, she feels good otherwise. No new concerns. With regard to the hypokalemia issue, hydrochlorothiazide has been stopped and she is on potassium replacement. She states she has been sober for almost 3 years. [facility] Medical History Morbid obesity Essential hypertension Anxiety HTN (hypertension) Family History Father Enlarged heart Mother HTN (hypertension) Social History Household Members: Spouse Housing: House Do you presently have visiting nurse or other home services: No Alcohol intake: former Patient Tobacco Use Status: Never used Tobacco Substance Use Type: Marijuana service: No Review of Systems Const Denies weakness ENT Denies dizziness Card Denies chest pain, Denies chest pain with activity, Denies syncope, Denies rapid heart rate, Denies pedal edema, Denies edema, Denies leg edema, Denies lightheadedness, Denies palpitations, Denies dyspnea, Denies dyspnea on exertion and Denies orthopnea Resp Denies cough, Denies dyspnea and Denies dyspnea on exertion GI Denies hematochezia and Denies change in stool character Musc Denies abnormal gait, Denies muscle cramps, Denies muscle weakness, Denies numbness, Denies radiating pain into limb and Denies tingling Neuro Denies abnormal gait, Denies dizziness, Denies syncope, Denies numbness, Denies tingling and Denies weakness Endo Denies palpitations Physical Exam Vital Signs: Last Vital Signs Pulse 71 05/04/25 10:32 BP 122/66 05/04/25 10:32 BMI result Body Mass Index 44.8 Const General: comfortable and no acute distress Orientation/consciousness: patient oriented x3 HEENT Other: Unremarkable Head: Yes normal to inspection Neck Neck: Yes normal visual inspection Chest Chest palpation & inspection: normal inspection of the chest Resp Auscultation: clear to auscultation bilaterally Cardio Palpation: normal PMI Heart sounds: S1 normal heart sound present, S2 normal heart sound present, no gallops, no murmurs and no rubs GI Palpation (GI): Soft to palpation Back/Spine/Pelvis Other: unremarkable Skin General skin exam: no rashes or lesions noted Neuro General: patient oriented x3 Extrem General: Yes normal to inspection Psych Mental Status: mental status grossly normal Assessment & Plan Assessment & Plan (1) PAF (paroxysmal atrial fibrillation): Code(s): I48.0 - Paroxysmal atrial fibrillation Category: Medical Plan: She has had 3 episodes in the last 3 years-initial episode probably related to excessive alcohol use; subsequent episodes related to not being on medication and hypokalemia. She can remain on diltiazem at the current dose. Due to low thromboembolic risk as well as brief self-limiting episodes, no need for anticoagulation at this time. As she has stopped drinking completely as well as losing weight, hopefully we will be free of atrial fibrillation. Sleep study negative for sleep apnea. (2) Morbid obesity: Code(s): E66.01 - Morbid (severe) obesity due to excess calories Category: Medical Plan: On Semaglutide. She states that she has been losing weight and hopefully, she can continue to do that. (3) Essential hypertension: Code(s): I10 - Essential (primary) hypertension Category: Medical Plan: On Valsartan. Because of hypokalemia issues, Hydrochlorothiazide has been stopped. (4) Hypokalemia: Code(s): E87.6 - Hypokalemia Category: Medical Plan: On replacement potassium. Plan Discussion Notes During the consultation, we discussed the importance of maintaining sobriety and continuing weight loss to manage atrial fibrillation effectively. The patient was advised to monitor her blood pressure and potassium levels regularly, with follow-up scheduled in one year to evaluate her progress. Patient was informed and verbally consented to the use of an ambient scribe for clinic note documentation during this visit. Patient Instructions: - Continue taking Valsartan. - Maintain sobriety and continue weight loss efforts. - Follow up in one year for reassessment. Coding Level of Care Code Est Pt Level 4 (08326) Complex EM visit Add On G2211 Diagnoses PAF (paroxysmal atrial fibrillation) I48.0 Morbid obesity E66.01 Essential hypertension I10 Hypokalemia E87.6
--- OUTSIDE RECORDS SUMMARY | 2025-05-04 12:32 | XMS_ITS | Clinical Summary ---
Author Organization [address] Address [address] [place] [address] Phone Care Team Providers Care Roll Finisher Name Role Phone Saundra Mathew MD Primary Care Provider +1- [phone] Surgical History Surgery Date Site/Laterality Comments TONSILLECTOMY PROCEDURE: HISTORICAL TONSILLECTOMY OTHER SURGICAL HISTORY 072674 PROCEDURE: [place] DILATION & CURETTAGE DX&/THER NONOBSTETRIC OTHER SURGICAL HISTORY 015235 PROCEDURE: HYSTEROSCOPY, DIAGNOSTIC; COMMENT: polypectomy Medical History [...] of 3 - 19+ 3-dose series) 2004 HPV Vaccines (1 - 3-dose SCDM series) 2012 Cholesterol Screening (Lipid Panel) 05/26/2022 HIV Screening 05/26/2022 Hepatitis C Screening 05/26/2022 Social Influencers of Health Screening 05/26/2022 Depression Screening 06/23/2024 DTaP,Tdap,and Td Vaccines (2 - Td or Tdap) 07/16/2024 07/16/2014 COVID-19 Vaccine (4 - 2024- season) 2025 04/12/2021, 07/20/2020, 06/29/2020 Influenza Vaccine (#1) 2025 Breast Cancer Screening 12/01/2025 12/02/19, 11/20/2023, 11/20/2023, Additional history exists Cervical Cancer Screening: Pap Smear 08/07/2026 08/07/2023 RSV Immunization Adult Patients (1 - 1-dose 75+ series) 2060 HIB Vaccines Aged Out No longer eligi [...] is recommended in 1 year. Mammo Location: [facility], [address] [place] [address], [id number], . -------- FINAL REPORT -------- Dictated By: Mariama Christianson Dictated Date: 12/02/2024 11:10 ET Assigned Physician: Mariama Christianson Reviewed and Electronically Signed By: Mariama Christianson Signed Date: 12/02/2024 11:31 ET Workstation ID: [id number] Transcribed By: Self Edit Transcribed Date: 12/02/2024 [...] is recommended in 1 year. Mammo Location: [facility], [address] [place] [address], [address], . -------- FINAL REPORT -------- Dictated By: Mariama Christianson Dictated Date: 12/02/2024 11:10 ET Assigned Physician: Mariama Christianson Reviewed and Electronically Signed By: Mariama Christianson Signed Date: 12/02/2024 11:31 ET Workstation ID: [id number] Transcribed By: Self Edit Transcribed Date: 12/02/2024 11:10 ET us Saundra Mathew MD IMG BI PROCEDURES Final Re sult * Pap smear (08/07/2023) 08/07/2023 Narrative HISTORICAL TESTING LAB RESULTING AGENCY - 08/18/2023 6:36 AM EST [id number] THINPREP PAP, IMAGED: NEGATIVE FOR SQUAMOUS INTRAEPITHELIAL [...] of Phone Billing Address Personal/Family Self 1985 [phone] (Work) [address] [place] [address] [employer] MD [place] [phone] Care Teams Roll Finisher Relationship Specialty Start Date End Date Saundra Mathew MD [address] [place] [id number] PCP - General Internal Medicine 12/01/24
--- OUTSIDE RECORDS SUMMARY | 2025-05-04 12:33 | XMS_ITS | Patient Health Record ---
Author Organization Goran Harman MD Address [address] [place], [place] [id number] Care Team Providers Care Pourer Metal Name Role Phone oGran Harman Primary Care Provider Allergies No Known Allergies Results Component Value Reference Range Notes Complete Blood Count Auto Di ff Reviewed date:06/29/2024 12:39:39 PM Interpretation: Performing Lab:[facility], [address] [place] [phone] Notes/Report: White Blood Count 6.9 4.8-10.8 X10*3/uL [...] NRBC Abs Auto 0.000 0.0-0.012 X10*3/uL Comprehensive [place]. Panel Fa st Reviewed date:06/29/2024 04:24:01 PM Interpretation: Performing Lab:[facility], [address] [place] [phone] Notes/Report: Sodium 140 135-145 mmol/L Potassium 2.9 [...] PROFILE Reviewed date:06/29/2024 04:24:31 PM Interpretation: Performing Lab:[facility], [address] [place] [phone] Notes/Report: Iron 73 30-160 mcg/dL Total Iron Binding Capacity 258 228-428 mcg/dL Percent Iron Saturation 28 15-50 % Unsaturated Iron Binding 185 Lipid Panel Reviewed date:06/29/2024 04:23:25 PM Interpretation: Performing Lab:[facility], [address] [place] [phone] Notes/Report: Triglycerides 88 <150 mg/dL Desirable Triglyceride: [...] low results in patients with liver disease. Potassium Reviewed date:07/02/2024 12:50:14 PM Interpretation: Performing Lab:[facility], [address] [place] [phone] Notes/Report: Potassium 3.1 3.3-5.1 mmol/L UA ClnCatch+Micro w/rflx Cul t Reviewed date:07/02/2024 05:16:48 PM Interpretation: Performing Lab:[facility], [address] [place] [phone] Notes/Report: Urine, Clean Catch Color Urine Dark Yellow Appearance Urine Cloudy PH 5.5 5.0-9.0 Glucose Urine UA Negative Negative mg/dL Urine Blood Negative Negative Specific Bowlegs - Urine >= 1.030 1.005-1.025 Urine Protein Trace Neg-Trace mg/dL Urine Ketones Negative Negative mg/dL Nitrite Urine Negative Negative Leukocyte Esterase Urine Negative Negative RBC Urine 0-2 0-2 /HPF WBC Urine 6-10 0-5 /HPF Squamous Epithelial Cell Urine 11-20 0-2 /HPF Bacteria Urine 2+ None Seen Hyaline Casts Urine 0-2 0-2 /LPF Potassium Reviewed date:07/05/2024 01:09:27 PM Interpretation: Performing Lab:[facility], [address] [place] [phone] Notes/Report: Potassium 3.6 3.3-5.1 mmol/L Potassium Reviewed date:07/09/2024 02:11:26 PM Interpretation: Performing Lab:[facility], [address] [place] [phone] Notes/Report: Potassium 3.8 3.3-5.1 mmol/L Potassium Reviewed date:07/16/2024 01:24:48 PM Interpretation: Performing Lab:[facility], [address] [place] [phone] Notes/Report: Potassium 3.2 3.3-5.1 mmol/L Potassium Reviewed date:07/23/2024 01:00:00 PM Interpretation: Performing Lab:[facility], [address] [place] [phone] Notes/Report: Potassium 3.3 3.3-5.1 mmol/L Potassium Reviewed date:08/27/2024 12:09:44 PM Interpretation: Performing Lab:[facility], [address] [place] [phone] Notes/Report: Potassium 3.8 3.3-5.1 mmol/L Potassium Reviewed date:02/08/2025 12:52:10 PM Interpretation: Performing Lab:[facility], [address] [place] [phone] Notes/Report: Potassium 4.1 3.3-5.1 mmol/L Potassium Reviewed date:08/06/2024 04:59:11 PM Interpretation: Performing Lab:[facility], [address] [place] [phone] Notes/Report: Potassium 3.2 3.3-5.1 mmol/L Potassium Reviewed date:10/12/2024 06:23:33 PM Interpretation: Performing Lab:[facility], [address] [place] [phone] Notes/Report: Potassium 4.1 3.3-5.1 mmol/L Potassium Reviewed date:01/07/2025 12:54:30 PM Interpretation: Performing Lab:[facility], [address] [place] [phone] Notes/Report: Potassium 3.3 3.3-5.1 mmol/L Troponin-I High Sensitivity Reviewed date:06/20/2024 04:56:35 PM Interpretation: Performing Lab:[facility], [address] [place] [phone] Notes/Report: Troponin-I High Sensitivity 5.7 <3.5-17.0 ng/L The [place] high sensitivity Troponin-I results should be used in conjunction with other diagnostic information such as ECG, clinical observations and information, and patient symptoms to aid in the diagnosis of [place]. [place] Reviewed date:06/29/2024 10:55:05 AM Interpretation: Performing Lab:[facility], [address] [place] [phone] Notes/Report: David Ford See Note Specimen held untested for 24 hours; Call to request Chemistry testing. Urine Culture Reviewed date:07/04/2024 03:05:09 PM Interpretation: Performing Lab:[facility], [address] [place] [phone] Notes/Report: Urine Culture Report Result Urine Culture > 100,000 cfu/ml Urine Culture Mixed bacterial paras a characteristic of Urine Culture urogenital contamination. Reason For Referral No Information Medications Medication [...] tablet Orally Once a day 08/06/2024 Active Semaglutide(0.25 or 0.5MG/DOS) 2 MG/3ML taking 1.25mg Subcutaneous Active Vitamin B-1 100 MG 1 tablet Orally Once a day for 30 day(s) Active hydrOXYzine HCl 10 MG 1 tablet as needed Orally Once a day for 30 day(s) Not-Taking Vitamin D 25 MCG (1000 UT) 1 tablet Orally Once a day for 30 day(s) Not-Taking dilTIAZem HCl ER 360 MG 1 tablet Orally Once a day Active Potassium Chloride ER 10 MEQ 3 tabs Orally Once a day for 90 days 06/29/2024 Active Sertraline HCl 50 MG TAKE 1 TABLET BY [facility] EVERY DAY for 30 Active Immunizations Vaccine Route Administration Date Status [...] Status W/U Status Risk Notes Problem Hypokalemia (40279173) Hypokalemia (E87.6) Active confirmed Problem Depression (645913077) Depression (F32.9) Active confirmed Problem 27555958 Anxiety (F41.9) Active confirmed Problem 380718020 Paroxysmal atrial fibrillation (I48.0) Active confirmed Problem Iron deficiency (92092198) Iron deficiency (E61.1) Active confirmed Problem Essential hypertension (71406450) Essential hypertension (I10) Active confirmed Problem Anxiety disorder (712669539) Anxiety disorder (F41.9) Active confirmed Problem 22373752 Alcohol abuse (F10.10) Active confirmed Problem Family history of breast cancer (833625373) Family history of breast cancer (Z80.3) Active confirmed Problem Polycystic bilateral ovaries (disorder) (918910644) PCO (polycystic ovaries) (E28.2) Active confirmed Vital Signs Blood pressure diastolic 76 mm Hg 04/12/2025 humble ght is down 15 pounds since 01-07-25 Height 67.5 in 04/12/2025 weight is down 15 pounds since 01-07-25 Blood pressure systolic 112 mm Hg 04/12/2025 weig ht is down 15 pounds since 01-07-25 Weight 270 lbs 04/12/2025 weight is down 15 pounds since 01-07-25 BMI 41.66 kg/m2 04/12/2025 weight is down 15 pounds since 01-07-25 Encounters Encounter Location Date Provider Diagnosis Goran Harman MD [address] [place] [id number] 06/29/2024 Goran Harman Blood tests for routine general physical examination Z00.00 ; Essential hypertension I10 and Iron deficiency E61.1 Goran Harman MD [address] [place] [address] [id number] 07/02/2024 Goran Harman Hypokalemia E87.6 an d Essential hypertension I10 Goran Harman MD [address] [place] [address] [id number] 07/05/2024 Goran Harman Hypokalemia E87.6 Goran Harman MD [address] [place] [address] [id number] 07/09/2024 Gorannatividad Moctezumaardier Hypokalemia E87.6 Goran Harman MD [address] [place] [address] [id number] 07/16/2024 Goran Harman Acute hypokalemia E87.6 Goran Harman MD [address] [place] [address] [id number] 07/23/2024 Gorannatividad Moctezumaardier Hypokalemia E87.6 Goran Harman MD [address] [place] [address] [id number] 08/27/2024 Gorannatividad Harman Hypokalemia E87.6 Goran Harman MD [address] [place] [address] [id number] 02/08/2025 Gorannatividad Harman Hypokalemia E87.6 Goran Harman MD [address] [place] [address] [id number] 05/04/2024 Goran Harman Paroxysmal atrial fibrillation I48.0 and Unintended weight gain R63.5 Goran Harman MD [address] [place] [address] [id number] 06/29/2024 Goran Harman Acute hypokalemia E87.6 and Paroxysmal atrial fibrillation I48.0 Goran Harman MD [address] [place] [address] [id number] 08/06/2024 Goran Harman Hypokalemia E87.6 ; Annual physical exam Z00.00 ; Essential hypertension I10 ; Paroxysmal atrial fibrillation I48.0 and Iron deficiency E61.1 Goran Harman MD [address] [place] [address] [id number] 10/12/2024 Goran Harman Hypokalemia E87.6 an d Essential hypertension I10 Goran Harman MD [address] [place] [address] [id number] 01/07/2025 Goran Harman Hypokalemia E87.6 an d Weight loss R63.4 Goran Harman MD [address] [place] [address] [id number] 04/12/2025 Goran Harman Essential hypertension I10 and Paroxysmal atrial fibrillation I48.0 Goran Harman MD [address] [place] [address] [id number] 06/24/2024 Goran Harman MD [address] [place] [address] [id number] 06/29/2024 Goran Harman MD [address] [place] [address] [id number] 07/20/2024 Goran Harman MD [address] [place] [address] [id number] 08/03/2024 Goran Harman Paroxysmal atrial fibrillation I48.0 Goran Harman MD [address] [place] [address] [id number] 08/23/2024 Goran Harman Acute hypokalemia E87.6 Goran Harman MD [address] [place] [address] [id number] 02/03/2025 Goran Harman Hypokalemia E87.6 Assessments Encounter Date Diagnosis (ICD Code) Assessment Notes Treatment Notes Treatment Clinical Notes Section Notes 06/29/2024 Blood tests for routine general physical examination (ICD-10 - Z00.00) 06/29/2024 Essential hypertension (ICD-10 - I10) 07/05/2024 Hypokalemia (ICD-10 - E87.6) 07/09/2024 Hypokalemia (ICD-10 - E87.6) 07/16/2024 Acute hypokalemia (ICD-10 - E87.6) 07/23/2024 Hypokalemia (ICD-10 - E87.6) 08/27/2024 Hypokalemia (ICD-10 - E87.6) 02/08/2025 Hypokalemia (ICD-10 - E87.6) 05/04/2024 Paroxysmal atrial fibrillation (ICD-10 - I48.0) [...] current regiment and will continue to monitor 01/07/2025 Hypokalemia (ICD-10 - E87.6) paending lab 01/07/2025 Weight loss (ICD-10 - R63.4) doing well on meds 04/12/2025 Essential hypertension (ICD-10 - I10) doing great with weight loss 08/03/2024 Paroxysmal atrial fibrillation (ICD-10 - I48.0) 08/23/2024 Acute hypokalemia (ICD-10 - E87.6) 02/03/2025 Hypokalemia (ICD-10 - E87.6) 06/29/2024 Iron deficiency (ICD-10 - E61.1) 07/02/2024 Hypokalemia (ICD-10 - E87.6) 08/06/2024 Essential hypertension (ICD-10 - I10) will try to treat with valsartan without hctz, will cntinue to monitor 10/12/2024 Essential hypertension (ICD-10 - I10) doing great on meds, will continue current regiment 04/12/2025 Paroxysmal atrial fibrillation (ICD-10 - I48.0) no problems 07/02/2024 Essential hypertension (ICD-10 - I10) 08/06/2024 Paroxysmal atrial fibrillation (ICD-10 - I48.0) stable, will continue current regiment 08/06/2024 Iron deficiency (ICD-10 - E61.1) stable, doing well, will continue current regiment Plan Of Treatment Next Appt Details Provider Name:Goran cronin, 10/14/2025 09:00:00 AM, [address] [place] [address], [address], [place], [place], [phone], Insurance Providers Payer Name Payer Address Payer Phone Subscriber Number Group Number Insured Name Patient Relationship to Insured Coverage Start Date Coverage End Date [employer] [address] MD [place] [id number] Renetta Melendez Self - patient is the insured 2 Medical (General) History Medical History History ICD Code had episode of afib when she was drinkin g
== END 2025-05-04 10:47 | disposition home or self-care (01) ==
LOC: HO.HCS 10:28
PROVIDERS: Visit Provider Internal Medicine
DX: I48.0 Paroxysmal atrial fibrillation (principal); E66.01 Morbid (severe) obesity due to excess calories; I10 Essential (primary) hypertension; E87.6 Hypokalemia
CPT/HCPCS: 99214; G2211